=== PATIENT | male | born 1950 | race Caucasian/White ===

== ENCOUNTER 2017-07-10 10:41 | Inpatient (IN) ==
--- NOTE | 2017-07-10 11:22 | Emergency Department Note ---
Disposition Clinical Impression: Weakness Disposition: Admitted As Inpatient Condition: Fair Time of Disposition: 14:09 General Adult HPI - General Chief complaint: ED Fall Stated complaint: fall- skin tear Time Seen by Provider: 07/10/17 10:44 Source: patient, EMS Mode of arrival: ambulatory Limitations: no limitations Nursing Notes Reviewed: Yes Vital Signs Reviewed: Yes - History of Present Illness HPI Narrative: 66-year-old male presents to the emergency department after feeling like his legs were weak and he fell. Patient states he got out of bed this morning and he noticed he was very weak in his legs and was unable to stand or he fell face down and to crawl to get the phone to call for help. They state this is never happened to him before. Family states she has a little bit of slurred speech but otherwise they say he is acting normal. Patient says he is able walk but feels very weak. This scares him or to walk. Said nothing is ever happened before he otherwise has no medical history is no CVA history or family history of that. This never happened in his family as well. Patient otherwise having no complaints including no chest pain, shortness of breath, headache, blurry vision, neck pain, back pain, changes in Bowels, pain with urination loss of bladder or bowel. He has no fevers or chills or nausea or vomiting. Patient has no signs of cauda equina syndrome. He had no loss of bladder or bowel no saddle anesthesia. He has had no trauma recently. Pain Scale: 5 - Related Data Allergies Allergy/AdvReac Type Severity Reaction Status Date / Time No Known Allergies Allergy Verified 07/10/17 11:59 Review of Systems: 10 point review of systems done and negative unless otherwise stated in the history of present illness. All systems ED: reviewed and negative except as stated. Review of Systems: As Per HPI Past Medical History - Past Medical History Attestation: Yes The following information was validated with the patient. Source: patient Medical history: Reports: coronary artery disease, hypertension Psychiatric history: Reports: no psych history - Social History Smoking Status: Current every day smoker Smokeless Tobacco Status: No Alcohol use: Reports: none Drug use: Reports: none Physical Exam - General Limitations: no limitations General appearance: alert - Head Head exam: atraumatic, normocephalic, normal inspection - Eye Eye exam: Present: normal appearance, PERRL, EOMI - ENT ENT exam: normal exam, normal oropharynx, mucous membranes moist - Neck Neck exam: Present: normal inspection, full ROM, trachea midline - Chest Chest inspection: Present: normal inspection, symmetric chest wall rise - Respiratory Respiratory exam: Present: normal lung sounds bilaterally - Cardiovascular Cardiovascular exam: Present: regular rate, normal rhythm, normal heart sounds - Abdominal Exam Abdominal exam: Present: soft, Non-Tender. Absent: tenderness, distention, guarding, rebound, rigidity - Extremities Exam Extremities exam: Absent: tenderness, pedal edema - Expanded Lower Extremity Exam Hip/Pelvis exam: Present: normal inspection, full ROM Upper leg exam: Present: normal inspection, full ROM Knee exam: Present: normal inspection, full ROM Lower leg exam: Present: normal inspection, full ROM Ankle exam: Present: normal inspection, full ROM Foot/toe exam: Present: normal inspection, full ROM Neurovascular/Tendon exam: Present: normal capillary refill, normal 2-point discrimination, normal fine/light touch. Absent: pulse deficit, motor deficit, sensory deficit, tendon deficit, foot drop - Back Exam Back exam: Present: normal inspection, full ROM. Absent: tenderness, CVA tenderness (R), CVA tenderness (L) - Neurological Exam Neurological exam: Present: alert, oriented X3 - Expanded Neurological Exam Patient oriented to: Present: person, place, time Speech: Present: fluid speech Cranial nerves: EOM function (II, III, IV, ): Normal, facial sensation (V): Normal, facial palsy (VII): Normal, gag reflex (IX): Normal, spinal accessory function (XI): Normal, tongue deviation (XII): Normal Cerebellar function: finger to nose: Normal, heel to elaine: Normal Cerebellar function: normal gait Motor strength - LUE: 5/5 Motor strength - RUE: 5/5 Motor strength - LLE: 5/5 Motor strength - RLE: 5/5 Upper motor neuron exam: catherine neglect: Absent bilaterally, pronator drift: Absent bilaterally Sensory exam upper extremity: light touch: Normal Sensory exam lower extremity: light touch: Normal DTR: patellar (L): 3+, patellar (R): 3+, Achilles tendon (L): 3+, Achilles tendon (R): 3+ Coma Scale Eye Opening: Spontaneous Coma Scale Motor Response: Obeys Commands Coma Scale Verbal Response: Oriented Coma Scale Total: 15 - Skin Skin exam: Present: warm, dry, intact, normal color Course Course Narrative: 66-year-old male presents to the emergency department complaining of generalized weakness and a fall. Patient says he may have hit his head me does not remember the entire event going nausea is very weak. This we will get a CT scan of his head well. Basic labs is unknown for his fall or generalized weakness this will include a BMP, H&H as well as TSH and magnesium, phosphate, calcium. There is no new treatment this time. Disposition pending results. Vital Signs Temperature 96.6 F L 07/10/17 10:44 Pulse Rate 59 07/10/17 10:44 Respiratory Rate 16 07/10/17 10:44 Blood Pressure 143/75 07/10/17 10:44 O2 Sat by Pulse Oximetry 90 07/10/17 10:44 Temperature 96.6 F L 07/10/17 10:44 Pulse Rate 55 07/10/17 18:03 Respiratory Rate 16 07/10/17 18:03 Blood Pressure 136/79 07/10/17 18:03 O2 Sat by Pulse Oximetry 98 07/10/17 18:03 Oxygen Delivery Oxygen Delivery Nasal Cannula Medical Decision Making - MDM Narrative Medical decision making narrative: 66-year-old male presents to the emergency department complaining of generalized weakness from a fall. Due to patient's weakness we did get CT which came back showing no acute normality is all labs came back with no acute abnormalities as well this could have been a stroke due to this we felt that MRI of the head was necessary due to the lower extremity bilateral weakness MRI of the complete spine also felt necessary so these were ordered. The time of the study is going to take along times we felt that admission to the hospitalist service for full evaluation would be warranted inpatient family agree with this plan. I spoke with Dr. Ruelas who agreed to accept the patient to their service and they will further evaluate him. Head CT 07/10/17 11:23 IMPRESSION: No acute intracranial abnormality. D/ / Elroy Singh MD / Elroy Singh MD Interpreting Provider: Elroy Singh MD - Medical Records Medical records reviewed: Yes I reviewed the patient's medical records. - Lab Data Lab results reviewed: Yes I reviewed the patient's lab results. Result diagrams: 07/10/17 15:46 07/10/17 11:50 Lab Results 07/10/17 07/10/17 07/10/17 Range/Units 11:50 11:50 11:50 WBC (4.3-11.1) K/mcL RBC (4.19-5.50) M/mcL Hgb 13.6 (12.9-16.9) g/dL Hct 42.1 (37.5-50.1) % MCV (83.0-100.0) fL MCH (28.0-33.3) pg MCHC (31.6-35.5) g/dL RDW (11.5-14.5) % Plt Count (140-400) K/mcL MPV (9.4-12.4) fL Immature Gran % (0-4) % Seg Neutrophils % % Lymphocytes % % Monocytes % % Eosinophils % % Basophils % % Neutrophils # (1.6-8.9) K/mcL Lymphocytes # (0.6-4.6) K/mcL Monocytes # (0.0-1.3) K/mcL Eosinophils # (0.0-0.6) K/mcL Basophils # (0.0-0.2) K/mcL Sodium 139 (136-145) mEq/L Potassium 4.1 (3.5-5.1) mEq/L Chloride 106 (98-107) mEq/L Carbon Dioxide 27 (23-29) mEq/L BUN 11 (8-23) mg/dL Creatinine 1.10 (0.70-1.30) mg/dL Est GFR ( Amer) > 60 (> 60) Est GFR (Non-Af Amer) > 60 (> 60) BUN/Creatinine Ratio 10 (6-26) Glucose 112 H (70-105) mg/dL Calculated Osmolality 288 (280-300) Calcium 9.2 9.3 (8.6-10.3) mg/dL Phosphorus 3.2 (2.7-4.5) mg/dL Magnesium 2.0 (1.6-2.6) mg/dL TSH 2.001 (0.340-5.600) mcIU/mL 03/15/18 Range/Units 15:46 WBC 10.8 (4.3-11.1) K/mcL RBC 4.50 (4.19-5.50) M/mcL Hgb 13.5 (12.9-16.9) g/dL Hct 41.5 (37.5-50.1) % MCV 92.2 (83.0-100.0) fL MCH 30.0 (28.0-33.3) pg MCHC 32.5 (31.6-35.5) g/dL RDW 14.6 H (11.5-14.5) % Plt Count 216 (140-400) K/mcL MPV 10.2 (9.4-12.4) fL Immature Gran % 0.7 (0-4) % Seg Neutrophils % 68.3 % Lymphocytes % 21.9 % Monocytes % 6.5 % Eosinophils % 2.0 % Basophils % 0.6 % Neutrophils # 7.4 (1.6-8.9) K/mcL Lymphocytes # 2.4 (0.6-4.6) K/mcL Monocytes # 0.7 (0.0-1.3) K/mcL Eosinophils # 0.2 (0.0-0.6) K/mcL Basophils # 0.1 (0.0-0.2) K/mcL Sodium (136-145) mEq/L Potassium (3.5-5.1) mEq/L Chloride (98-107) mEq/L Carbon Dioxide (23-29) mEq/L BUN (8-23) mg/dL Creatinine (0.70-1.30) mg/dL Est GFR ( Amer) (> 60) Est GFR (Non-Af Amer) (> 60) BUN/Creatinine Ratio (6-26) Glucose (70-105) mg/dL Calculated Osmolality (280-300) Calcium (8.6-10.3) mg/dL Phosphorus (2.7-4.5) mg/dL Magnesium (1.6-2.6) mg/dL TSH (0.340-5.600) mcIU/mL - Radiology Data Radiology results reviewed: Yes I reviewed the patient's radiology results. Attestation Statement - Attestation Attestation: I examined this patient and my medical decision-making was reviewed with the Resident Physician. I agree with the documented findings, disposition and treatment plan as described except to the extent set forth below. Pt seen and evaluated by me, I directed MDM and discussed in detail with resident.
[2017-07-10 12:08] LABS: Hematocrit 42.1 % (37.5-50.1); Hemoglobin 13.6 g/dL (12.9-16.9)
[2017-07-10 12:31] LABS: BUN/Creatinine Ratio 10 (6-26); Blood Urea Nitrogen 11 mg/dL (8-23); Calcium 9.2 mg/dL (8.6-10.3); Calcium 9.3 mg/dL (8.6-10.3); Carbon Dioxide 27 mEq/L (23-29); Chloride 106 mEq/L (98-107); Glucose 112 mg/dL (70-105); Osmolality,Calculated 288 (280-300); Phosphorous 3.2 mg/dL (2.7-4.5); Potassium 4.1 mEq/L (3.5-5.1); Sodium 139 mEq/L (136-145); eGFR For African Americans > 60 (> 60); eGFR For Non-African Americans > 60 (> 60)
[2017-07-10] MEDS ORDERED: Tdap (ADACEL) Vaccine 0.5 ML IM ONE (13:49)
[2017-07-10 15:06] LABS: Thyroid Stimulating Hormone 2.001 mcIU/mL (0.340-5.600)
--- NOTE | 2017-07-10 15:35 | Internal Med History&Physical ---
Date of Encounter: 07/10/17 Time of Encounter: 14:30 Assessment and Plan (1) TIA (transient ischemic attack) Current visit: Yes Status: Acute Acute onset of TIA sx that began this morning. Pt. reports bilateral UE and LE weakness that resulted in fall. Denies losing consciousness, headache, changes in vision. Reports urinary incontinence during episode. Daughter reports pt. had slurred speech. Sx resolved by examination w/no neurological deficits noted on examination. Familial hx of CVA. NIHSS modified scale, neuro checks Q2HR, padding to bed rails, falls/safety precautions, dysphagia screen (pt. to be NPO unless passed), up with assist, bed rest w/bathroom privileges w/assist only. Hold HTN medications to allow for permissive HTN until MRI of head/brain resulted. Neurology consult ordered and discussed w/Dr. Bob and I appreciate the consult. Pt. discussed w/Dr. Ruelas who agrees w/plan of care. Pt. is high risk for further morbidity and neurological event based on new onset or current sx and experienced deficits, familial hx; and risk factors of CAD, HTN, HLD, CHF , and tobacco abuse. Inpatient. Qualifiers: Transient cerebral ischemia type: unspecified Qualified Code(s): G45.9 - Transient cerebral ischemic attack, unspecified (2) Acute exacerbation of CHF (congestive heart failure) Current visit: Yes Status: Acute Acute exacerbation of CHF. Pt. reports increase in abdominal girth and SOB over the past two weeks. Also reports orthopnea. IVP lasix 20 mg BID to begin now. Monitor I&O and daily weight. Echocardiogram. Continuous cardiac telemetry. 1.5L daily fluid restriction. Supplemental O2 w/titration and SpO2 monitoring. DuoNebs Q6HR scheduled. Mucinex for cough. Qualifiers: Heart failure type: unspecified Qualified Code(s): I50.9 - Heart failure, unspecified (3) Fall Current visit: Yes Status: Acute Acute fall r/t CVA/TIA sx this morning. Pt. reports bilateral UE and LE weakness during episode. MRI of lumbar, cervical and thoracic spine ordered. Falls/safety precautions, up with assist, bed rest w/bathroom privileges w/ assist only. Qualifiers: Encounter type: initial encounter Qualified Code(s): W19.XXXA - Unspecified fall, initial encounter (4) Skin tear of left upper extremity Current visit: Yes Status: Acute Acute skin tear of LLE sustained from pt. dragging himself across the floor post -fall to call for help. Daily wound care ordered. Will consult Wound Care if warranted. (5) Weakness Current visit: Yes Status: Acute Acute weakness accompanying CVA/TIA sx. Pt. reports bilateral weakness in upper extremities and lower extremities. Falls/safety precautions, up with assist, bedrest with bathroom privileges with assist only. PT/OT consults ordered to assess pts. ambulation strength, stability, safety. (6) CAD (coronary artery disease) Current visit: Yes Status: Chronic Hx of stent placement x3. Continue pts. Plavix, aspirin, Lipitor. Hold Norvasc and Lopressor to allow for permissive HTN until MRI of head/brain resulted. Qualifiers: Coronary Disease-Associated Artery/Lesion type: [place] artery [place] vs. transplanted heart: [place] heart Associated angina: angina presence unspecified Qualified Code(s): I25.10 - Atherosclerotic heart disease of [place] coronary artery without angina pectoris (7) HTN (hypertension) Current visit: Yes Status: Chronic Hx of chronic HTN. Monitor pt. and VS. Hold pts. Norvasc and Lopressor to allow for permissive HTN until MRI of head/brain resulted. Qualifiers: Hypertension type: essential hypertension Qualified Code(s): I10 - Essential (primary) hypertension (8) HLD (hyperlipidemia) Current visit: Yes Status: Chronic Hx of chronic HLD. Lipid panel in a.m. labs. Continue pts. Lipitor. Qualifiers: Hyperlipidemia type: pure hypercholesterolemia Qualified Code(s): E78.00 - Pure hypercholesterolemia, unspecified; E78.0 - Pure hypercholesterolemia (9) COPD (chronic obstructive pulmonary disease) Current visit: Yes Status: Chronic Hx of chronic COPD/emphysema. Supplemental O2 w/titration and SpO2 monitoring. DuoNebs Q6HR scheduled. Mucinex for cough. Qualifiers: COPD type: emphysema Emphysema type: unspecified Qualified Code(s): J43.9 - Emphysema, unspecified (10) DVT prophylaxis Current visit: Yes Status: Acute Bilateral SCDs on LEs for DVT prophylaxis until MRI of head/brain completed. Internal Medicine - H&P: HPI Chief complaint: CVA/TIA sx/Fall Admitted From: Emergency Dept Plans for Post Hospital Care: Home History of present illness: Mr. Vieira is a 66 year old male w/PMH of CAD, HTN, HLD, COPD/emphysema, and CHF presents in the ED with chief complaint of CVA/TIA symptoms this morning. Patient states when he woke up he started with bathroom and experienced bilateral upper extremity and lower extremity weakness which made him fall. Patient states he could not stand up and dragged himself on the floor to the protocol for help. Patient's daughter reports he had slurred speech. Patient and daughter deny previous history, report familial history of CVA. Patient had loss of bladder control but not bowel control. Pt. reports increased abdominal girth over two weeks and SOB/dyspnea/orthopnea. States he injured his left arm when dragging himself to the phone. Denies recent illness, fever, chills, nausea, vomiting, headache, changes in vision, chest pain, palpitations , abdominal pain, pre-syncope, or syncope. Past Med Surg Social Fam HX - Past Medical History Source: patient, old records reviewed, obtained from family Medical history: CHF, COPD, coronary artery disease, hyperlipidemia, hypertension Psychiatric history: no psych history - Past Surgical History Surgical History: angioplasty/stent (x3) - Social History Smoking Status: Current every day smoker Packs per day: 6-8 cigarettes daily Smokeless Tobacco Status: No Alcohol use: none Drug use: none Current living situation: Home Activity Level: Independent ambulation Recent Out of Country Travel Within the Last 8 Weeks: No Exposure or Possible Exposure to Illness During Travel: No - Family History Father Race: Family Member Ethnicity: Non- Living Status: Age at : 50 Cause of : [place] Hx Family Cardiac Disorders: Yes ([place]) Mother Race: Family Member Ethnicity: Non- Living Status: Age at : 69 Cause of : in sleep Hx Family Cancer: Yes (Stomach) Hx Family Neurologic Disorders: Yes (DM) Brother Race: Family Member Ethnicity: Non- Living Status: Age at : 63 Cause of : CVA Hx Family Cardiac Disorders: Yes ([place], CVA, CABG) Hx Family Neurologic Disorders: Yes (CVA) Sister Race: Family Member Ethnicity: Non- Living Status: Age at : 60 Cause of : Cancer Hx Family Cancer: Yes Internal Medicine - H&P: Meds Albuterol Neb [Proventil Neb] 2.5 mg IH Q6H PRN 07/10/17 [History] Albuterol Sulfate [Proventil Hfa] 2 puff IH QID PRN 07/10/17 [History] Aspirin Enteric Coated [Aspirin EC] 81 mg PO DAILY 07/10/17 [History] Atorvastatin Calcium [Lipitor] 80 mg PO HS 07/10/17 [History] BuPROPion SR (12 HR) [Wellbutrin SR] 150 mg PO BID 07/10/17 [History] Budesonide/Formoterol 160/4.5 [Symbicort 160/4.5] 2 puff IH BIDR 07/10/17 [ History] Carbamide Peroxide [Ear Drops] 2 drop OT DAILY 07/10/17 [History] Clopidogrel [Plavix] 75 mg PO DAILY 07/10/17 [History] Fluticasone Propionate Nasal [Flonase] 50 mcg NS BID 07/10/17 [History] GuaiFENesin/Dextromethorphan [Tussin Dm Syrup] 5 ml PO Q6H PRN 07/10/17 [History ] Hydrophilic Cream [Triad] 1 appl TP DAILY 07/10/17 [History] Hydroquinone 1 appl TP HS 07/10/17 [History] Ipratropium [Atrovent Inhaler] 2 puff IH Q6H PRN 07/10/17 [History] Ketotifen Fumarate [Zaditor] 1 drop OP BID PRN 07/10/17 [History] Loratadine [Claritin] 10 mg PO DAILY 07/10/17 [History] Menthol/Camphor [Anti-Itch Lotion] 1 appl TP QID PRN 07/10/17 [History] Metoprolol [Lopressor] 50 mg PO BID 07/10/17 [History] Nicotine Patch [Nicoderm] 21 mg TD DAILY 07/10/17 [History] Nicotine Polacrilex [Nicotine Lozenge] 4 mg BC Q2H PRN 07/10/17 [History] Oxycodone HCl/Acetaminophen [Percocet 5-325 mg Tablet] 1 each PO QID PRN [History] Propylene Glycol/Peg 400 [Systane 0.3-0.4% Eye Drops] 1 drop OP TID 07/10/17 [ History] Ranolazine [Ranexa] 1,000 mg PO BID 07/10/17 [History] Trazodone HCl 100 mg PO HS PRN 07/10/17 [History] amLODIPine [Norvasc] 5 mg PO DAILY 07/10/17 [History] 3 Allergy/AdvReac Type Severity Reaction Status Date / Time No Known Allergies Allergy Verified 07/10/17 11:59 All Systems PM: A 10-system review of systems was performed and is negative for pertinent findings except as documented above in the HPI. - Constitutional Constitutional: as per HPI, falls, weakness, no chills, no fever(s), no night sweats - EENT Eyes: no change in vision, no discharge, no pain, no photophobia Ears: no ear discharge, no ear pain, no tinnitus Nose, mouth and throat: no dysphagia, no nasal discharge, no neck pain, no sore throat - Breasts Breasts: as per HPI - Cardiovascular Cardiovascular ROS IM: as per HPI, dyspnea, dyspnea on exertion, lightheadedness , orthopnea, no chest pain, no diaphoresis, no palpitations, no syncope - Respiratory Respiratory: as per HPI, cough, dyspnea, dyspnea on exertion, no wheezing, no excessive phlegm production - Gastrointestinal Gastrointestinal: no abdominal pain, no diarrhea, no hematemesis, no hematochezia, no melena, no nausea, no vomiting - Genitourinary Genitourinary ROS male: as per HPI, urinary incontinence (During CVA/TIA sx) - Musculoskeletal Musculoskeletal ROS IM: no numbness, no tingling - Integumentary Integumentary IM: as per HPI, other (Skin tear on left arm from fall), no rash, no unusual bruising - Neurological Neurological ROS: no confusion, no convulsions, no focal weakness, no numbness, no tingling, no tremor(s) - Psychiatric Psychiatric: as per HPI - Endocrine Endocrine IM: as per HPI - Hematologic/Lymphatic Hematologic/Lymphatic: no easy bruising - Allergic/Immunologic Allergic/Immunologic: as per HPI - Constitutional Vitals: Temp Pulse Resp BP Pulse Ox 96.6 F L 61 16 113/69 90 07/10/17 10:44 07/10/17 12:06 07/10/17 12:06 07/10/17 12:06 07/10/17 12:06 General appearance: Present: cooperative, mild distress (Respiratory distress), A&O X 3, pleasant, answers questions appropriately - Head Head exam: Present: atraumatic, normocephalic - Eye Eye exam: Present: PERRL, conjuntiva pink, sclera anicteric Pupils: Present: PERRL - ENT ENT exam: Present: normal exam - Neck Neck exam general surgery: Present: normal inspection, supple, trachea midline. Absent: lymphadenopathy - Respiratory Respiratory exam: Present: CTAB. Absent: accessory muscle use, rales, rhonchi, wheezes - Cardiovascular Cardiovascular exam: Present: RRR, +S1, +S2. Absent: diastolic murmur, gallop, rubs, systolic murmur - GI/Abdominal GI/Abdominal exam: Present: normal bowel sounds, soft, no peritoneal signs. Absent: distended, tenderness - Rectal Rectal exam: Present: deferred - Additional comments: exam deferred. - Extremities Exam Extremities exam: Present: warm, radial pulses palpable and symmetrical. Absent : calf tenderness, cyanotic, pedal edema - Back Exam Back exam: Present: normal inspection - Neurological Exam Neurological exam: Present: CN II-XII intact, oriented X3, no focal deficits. Absent: pronater drift, facial droop, speech deficit - Psychiatric Psychiatric exam: Present: normal affect, normal mood - Skin Skin exam: Present: abrasion (Left arm skin tear from dragging himself to the phone post-fall), dry, intact Internal Med - H&P Results - Labs CBC & Chem 7: 07/10/17 15:46 07/10/17 11:50 Labs: Short CBC 07/10/17 Range/Units 11:50 Hgb 13.6 (12.9-16.9) g/dL Hct 42.1 (37.5-50.1) % BMP 07/10/17 07/10/17 11:50 11:50 Sodium 139 Potassium 4.1 Chloride 106 Carbon Dioxide 27 BUN 11 Creatinine 1.10 Glucose 112 H Calcium 9.2 9.3 - Impressions ITS Impressions Head CT 07/10/17 11:23 IMPRESSION: No acute intracranial abnormality. D/ / Elroy Singh MD / Elroy Singh MD Interpreting Provider: Elroy Singh MD - Diagnostic Studies CT scan - head Additional comments: Impressions Head CT 07/10/17 11:23
[2017-07-10 15:57] LABS: Basophils # 0.1 K/mcL (0.0-0.2); Basophils % 0.6 %; Eosinophils # 0.2 K/mcL (0.0-0.6); Hematocrit 41.5 % (37.5-50.1); Hemoglobin 13.5 g/dL (12.9-16.9); Immature Granulocytes % 0.7 % (0-4); Lymphocytes # 2.4 K/mcL (0.6-4.6); Lymphocytes % 21.9 %; Mean Corpuscular HGB Conc 32.5 g/dL (31.6-35.5); Mean Corpuscular Volume 92.2 fL (83.0-100.0); Mean Platelet Volume 10.2 fL (9.4-12.4); Monocytes # 0.7 K/mcL (0.0-1.3); Monocytes % 6.5 %; Neutrophils # 7.4 K/mcL (1.6-8.9); Platelet Count 216 K/mcL (140-400); Red Cell Distribution Width 14.6 % (11.5-14.5); Segmented Neutrophils % 68.3 %
[2017-07-10] MEDS ORDERED: Acetaminophen 325 MG TABLET PO PRN (16:35)
[2017-07-10] MEDS ORDERED: Naloxone 0.4 MG/ML INJ IVP PRN (16:35)
[2017-07-10] MEDS ORDERED: traZODone 50 MG TABLET PO PRN (16:45)
[2017-07-10] MEDS ORDERED: Nicotine 2 MG GUM BC PRN (16:45)
[2017-07-10] MEDS ORDERED: MENTHOL TP PRN (16:45)
[2017-07-10] MEDS ORDERED: Ipratropium 1 PUFF INHALER IH PRN (16:45)
[2017-07-10] MEDS ORDERED: Albuterol 2.5 MG/3 ML NEBULIZER IH PRN (16:45)
[2017-07-10] MEDS ORDERED: *HR* OxyCODONE/APAP 5/325 TABLET PO PRN (16:45)
[2017-07-10] MEDS ORDERED: Ketotifen Fumarate [Zaditor] 1 DROP OP PRN (16:45)
[2017-07-10] MEDS ORDERED: CAMPHOR TP PRN (16:45)
[2017-07-10] MEDS ORDERED: Artificial Tears SOLN 15 ML BOTTLE OP PRN (21:00)
[2017-07-10] MEDS ORDERED: Ranolazine 500 MG TAB.ER.12H PO SCH (21:00)
[2017-07-10] MEDS: Furosemide 20 MG/2 ML VIAL IVP SCH (22:10)
[2017-07-10] MEDS: Budesonide/Formoterol 160/4.5 MDI IH SCH (22:14)
[2017-07-10] MEDS: Ipratropium/Albuterol Neb 3 ML IH SCH (22:15)
[2017-07-10] MEDS: BuPROPion SR (12 HR) 150 MG TABLET PO SCH (23:05)
--- NOTE | 2017-07-10 23:21 | Event Note ---
Date of Encounter: 07/10/17 Time of Encounter: 23:10 Patient informed his nurse this evening that he does not take Ranexa in his home medications, even though it was reconciled in his home medication list earlier. Ranexa discontinued. Verified with Jayesh in pharmacy that Ranexa 1000 mg ER was last dispensed to patient on 05/05/17 with quantity of 180 for 90 days ( BID). Morning provider to verify w[facility] if medication has been discontinued or changed recently to determine whether or not to continue administration to patient and/or continue in pts. discharge medications.
[2017-07-11] MEDS: HYDROQUINONE TP SCH (01:30)
[2017-07-11] MEDS: Fluticasone Propionate Nasal 50 MCG/SPRAY BOTTLE NS SCH ×3 (01:30→21:22)
[2017-07-11] MEDS: Ipratropium/Albuterol Neb 3 ML IH SCH ×4 (04:34→22:10)
[2017-07-11 06:27] LABS: Basophils % 0.5 %; Eosinophils # 0.3 K/mcL (0.0-0.6); Eosinophils % 3.6 %; Hematocrit 34.6 % (37.5-50.1); Immature Granulocytes % 0.6 % (0-4); Lymphocytes # 1.8 K/mcL (0.6-4.6); Lymphocytes % 21.8 %; Mean Corpuscular HGB Conc 33.5 g/dL (31.6-35.5); Mean Corpuscular Hemoglobin 30.2 pg (28.0-33.3); Mean Corpuscular Volume 90.1 fL (83.0-100.0); Mean Platelet Volume 10.3 fL (9.4-12.4); Monocytes # 0.7 K/mcL (0.0-1.3); Monocytes % 8.2 %; Neutrophils # 5.5 K/mcL (1.6-8.9); Platelet Count 206 K/mcL (140-400); Red Blood Count 3.84 M/mcL (4.19-5.50); Red Cell Distribution Width 14.7 % (11.5-14.5); Segmented Neutrophils % 65.3 %
[2017-07-11 06:42] LABS: Alanine Aminotransferase 8 Units/L (7-52); Albumin 3.4 g/dL (3.5-5.7); Albumin/Globulin Ratio 1.6 (1.1-2.2); Alkaline Phosphatase 47 Units/L (34-104); Aspartate Amino Transferase 9 Units/L (13-39); BUN/Creatinine Ratio 11 (6-26); Bilirubin,Total 0.7 mg/dL (0.3-1.0); Blood Urea Nitrogen 11 mg/dL (8-23); Calcium 8.6 mg/dL (8.6-10.3); Carbon Dioxide 24 mEq/L (23-29); Chloride 108 mEq/L (98-107); Chol/HDL Ratio 3.5 (0-4.9); Cholesterol 97 mg/dL (< 200); Globulin 2.1 g/dL (2.4-3.5); Glucose 111 mg/dL (70-105); HDL Cholesterol 28 mg/dL (40-59); INR 1.2; LDL Cholesterol,Calculated 56 mg/dL (0-99); Magnesium 1.8 mg/dL (1.6-2.6); Osmolality,Calculated 292 (280-300); Potassium 3.9 mEq/L (3.5-5.1); Prothrombin Time 13.3 Seconds (9.4-12.1); Sodium 141 mEq/L (136-145); Total Protein 5.5 g/dL (6.4-8.9); Triglycerides 64 mg/dL (< 150); eGFR For African Americans > 60 (> 60); eGFR For Non-African Americans > 60 (> 60)
[2017-07-11 06:43] LABS: Hemoglobin 11.6 g/dL (12.9-16.9)
[2017-07-11 06:45] LABS: Activated Partial Thrombo Time 36.6 Seconds (26.0-36.0)
[2017-07-11] MEDS: Furosemide 20 MG/2 ML VIAL IVP SCH ×2 (08:46→16:55)
[2017-07-11] MEDS: BuPROPion SR (12 HR) 150 MG TABLET PO SCH ×2 (08:46→21:21)
[2017-07-11] MEDS: Nicotine 21 MG PATCH.TD24 TD SCH (08:46)
[2017-07-11] MEDS: Aspirin Enteric Coated 81 MG Tablet PO SCH (08:46)
[2017-07-11] MEDS: amLODIPine 5 MG TABLET PO SCH (08:46)
[2017-07-11] MEDS: Loratadine 10 MG TABLET PO SCH (08:47)
[2017-07-11] MEDS: HYDROPHILIC TP SCH (08:48)
[2017-07-11] MEDS: Carbamide Peroxide 150 DROP/15 ML BOTTLE BOTH EARS SCH (08:48)
[2017-07-11 10:05] LABS: Estimated Average Glucose 100 mg/dl; Hemoglobin A1C 5.1 %
--- NOTE | 2017-07-11 10:20 | Internal Med Progress Note ---
Date of Encounter: 07/11/17 Time of Encounter: 10:20 - Constitutional Vitals: Temp Pulse Resp BP Pulse Ox 97.6 F 53 17 124/75 96 07/11/17 10:01 07/11/17 10:01 07/11/17 10:01 07/11/17 10:01 07/11/17 08:21 General appearance: Present: cooperative, mild distress (Respiratory distress), A&O X 3, pleasant, answers questions appropriately Internal Medicine: Result - Labs CBC & Chem 7: 07/11/17 05:39 07/11/17 05:39 Labs: Short CBC 07/11/17 Range/Units 05:39 WBC 8.3 (4.3-11.1) K/mcL Hgb 11.6 L D (12.9-16.9) g/dL Hct 34.6 L (37.5-50.1) % Plt Count 206 (140-400) K/mcL Neutrophils # 5.5 (1.6-8.9) K/mcL BMP 07/11/17 05:39 Sodium 141 Potassium 3.9 Chloride 108 H Carbon Dioxide 24 BUN 11 Creatinine 1.00 Glucose 111 H Calcium 8.6 Liver Function 07/11/17 Range/Units 05:39 Total Bilirubin 0.7 (0.3-1.0) mg/dL AST 9 L (13-39) Units/L ALT 8 (7-52) Units/L Alkaline Phosphatase 47 (34-104) Units/L Albumin 3.4 L (3.5-5.7) g/dL - ABG Interpretation ABG results: PT/INR, D-dimer PT 13.3 Seconds (9.4-12.1) H 07/11/17 05:39 - VTE Documentation of Mechanical Device: Intermittent pneumatic compression device Consult Discharge Plan - Plan [facility]errals: [facility] [Primary Care Provider[facility] -
[2017-07-11] MEDS: Budesonide/Formoterol 160/4.5 MDI IH SCH ×2 (11:27→22:10)
--- NOTE | 2017-07-11 12:50 | Internal Med Progress Note ---
Date of Encounter: 07/11/17 Time of Encounter: 12:48 - Assessment and plan (1) Acute exacerbation of CHF (congestive heart failure) Current Visit: Yes Status: Acute Assessment and plan: Acute mild possibly diastolic CHF exacerbation Echocardiogram pending Continue Lasix IV twice a day, used to be on Lasix before Qualifiers: Heart failure type: unspecified Qualified Code(s): I50.9 - Heart failure, unspecified (2) TIA (transient ischemic attack) Current Visit: Yes Status: Acute Assessment and plan: Continue aspirin and Lipitor The patient is also on Plavix for history of CAD Neurology consult pending, physical therapy evaluation pending Qualifiers: Transient cerebral ischemia type: unspecified Qualified Code(s): G45.9 - Transient cerebral ischemic attack, unspecified (3) Weakness Current Visit: Yes Status: Acute (4) CAD (coronary artery disease) Current Visit: Yes Status: Chronic Assessment and plan: Continue Plavix, metoprolol Apparently he is not on Ranexa anymore Qualifiers: Coronary Disease-Associated Artery/Lesion type: [place] artery [place] vs. transplanted heart: [place] heart Associated angina: angina presence unspecified Qualified Code(s): I25.10 - Atherosclerotic heart disease of [place] coronary artery without angina pectoris (5) COPD (chronic obstructive pulmonary disease) Current Visit: Yes Status: Chronic Assessment and plan: No exacerbation, no steroids, albuterol as needed Oxygen therapy at night Qualifiers: COPD type: emphysema Emphysema type: unspecified Qualified Code(s): J43.9 - Emphysema, unspecified (6) HTN (hypertension) Current Visit: Yes Status: Chronic Assessment and plan: Stable on amlodipine Qualifiers: Hypertension type: essential hypertension Qualified Code(s): I10 - Essential (primary) hypertension - Subjective Interval history: Feeling less short of breath, no chest pain, no abdominal pain or dysuria. No fevers or chills - Constitutional Vitals: Temp Pulse Resp BP Pulse Ox 97.6 F 53 17 124/75 94 07/11/17 10:01 07/11/17 10:01 07/11/17 10:07/11/17 10:07/11/17 09:40 General appearance: Present: cooperative, mild distress (Respiratory distress), A&O X 3, pleasant, answers questions appropriately - Head Head exam: Present: atraumatic, normocephalic - Eye Eye exam: Present: PERRL, conjuntiva pink, sclera anicteric Pupils: Present: PERRL - Neck Neck exam general surgery: Present: supple, trachea midline. Absent: lymphadenopathy - Respiratory Respiratory exam: Present: decreased breath sounds (Minimal fine bibasilar crackles), CTAB. Absent: accessory muscle use, rales, rhonchi, wheezes - Cardiovascular Cardiovascular exam: Present: RRR, +S1, +S2. Absent: diastolic murmur, gallop, rubs, systolic murmur - GI/Abdominal GI/Abdominal exam: Present: normal bowel sounds, soft, no peritoneal signs. Absent: distended, tenderness - Extremities Exam Extremities exam: Present: warm, radial pulses palpable and symmetrical. Absent : calf tenderness, cyanotic, pedal edema - Neurological Exam Neurological exam: Present: CN II-XII intact, oriented X3, no focal deficits. Absent: pronater drift, facial droop, speech deficit - Skin Skin exam: Present: dry, intact Internal Medicine: Result - Labs CBC & Chem 7: 07/11/17 05:39 07/11/17 05:39 Labs: Short CBC 07/11/17 Range/Units 05:39 WBC 8.3 (4.3-11.1) K/mcL Hgb 11.6 L D (12.9-16.9) g/dL Hct 34.6 L (37.5-50.1) % Plt Count 206 (140-400) K/mcL Neutrophils # 5.5 (1.6-8.9) K/mcL BMP 07/11/17 05:39 Sodium 141 Potassium 3.9 Chloride 108 H Carbon Dioxide 24 BUN 11 Creatinine 1.00 Glucose 111 H Calcium 8.6 Liver Function 07/11/17 Range/Units 05:39 Total Bilirubin 0.7 (0.3-1.0) mg/dL AST 9 L (13-39) Units/L ALT 8 (7-52) Units/L Alkaline Phosphatase 47 (34-104) Units/L Albumin 3.4 L (3.5-5.7) g/dL - ABG Interpretation ABG results: PT/INR, D-dimer PT 13.3 Seconds (9.4-12.1) H 07/11/17 05:39 - VTE Documentation of Mechanical Device: Intermittent pneumatic compression device Consult Discharge Plan - Plan [facility]errals: [facility] [Primary Care Provider] -
--- NOTE | 2017-07-11 18:36 | Neurology - Consult Note ---
Date of Encounter: 07/11/17 Time of Encounter: 14:30 Assessment and Plan (1) Acute exacerbation of CHF (congestive heart failure) Current Visit: Yes Status: Acute I agree with the generalized weakness mostly likely related to CHF exacerbation and his symptoms rapidly improved back to baseline. MRI of brain, c, t, and l spine showed no RN SURGERY pathlogy. He has no focal neurological deficits. DTRs were preserved both upper and lower extremities, therefore Guillain barre syndrome unlikely. carotid arter duplex result is pending and this may help to exclude carotid artery stenosis which at times can cause proximal weakness. other than that will recommend further testing from neurology perspective. Please continue medical and supportive care. Total time spent on this case is approximately 55 minutes Qualifiers: Heart failure type: unspecified Qualified Code(s): I50.9 - Heart failure, unspecified History of Present Illness Chief complaint: Weakness HPI: Mr. Vieira is a 66 year old male with PMH significant for HTN, LFBB, stomach ulcers, who presented to ER with acute onset of leg weakness. This occurred yesterday morning and he woke up feeling weakness and had a fall and had difficulty getting up from the floor. He does have generalized weakness and shortness of breath in the last few weeks. Initial CT of head reported no acute intracranial abnormality. He does have urinary incontinence but no witnessed seizure or loss of consciousness. By the time he arrived ER, he had neurological evaluation showing no focal neurological deficits. his mental status and speech were intact. He was determined not to be candidate for tPA thrombolysis. Patient subsequently had MRI of brain, T,L and C spine which showed no significant pathology that can explain his clinical symptoms. Was found to have CHF exacerbation. At the time of this interview. he is feeling much better and is able to walk back to baseline. Past Med Surg Social Fam HX - Past Medical History Medical history: CHF, coronary artery disease, hypertension Psychiatric history: no psych history - Past Surgical History Surgical History: angioplasty/stent - Social History Smoking Status: Current every day smoker Packs per day: 6-8 cigarettes daily Smokeless Tobacco Status: No Alcohol use: none Drug use: none - Family History Father Race: Family Member Ethnicity: Non- Living Status: Age at : 50 Cause of : [facility] Hx Family Cardiac Disorders: Yes ([facility]) Mother Race: Family Member Ethnicity: Non- Living Status: Age at : 69 Cause of : in sleep Hx Family Cancer: Yes (Stomach) Hx Family Neurologic Disorders: Yes (DM) Brother Race: Family Member Ethnicity: Non- Living Status: Age at : 63 Cause of : CVA Hx Family Cardiac Disorders: Yes Hx Family Neurologic Disorders: Yes (CVA) Sister Race: Family Member Ethnicity: Non- Living Status: Age at : 60 Cause of : Cancer Hx Family Cancer: Yes Medications and Allergies Albuterol Neb [Proventil Neb] 2.5 mg IH Q6H PRN 07/10/17 [History] Albuterol Sulfate [Proventil Hfa] 2 puff IH QID PRN 07/10/17 [History] Aspirin Enteric Coated [Aspirin EC] 81 mg PO DAILY 07/10/17 [History] Atorvastatin Calcium [Lipitor] 80 mg PO HS 07/10/17 [History] BuPROPion SR (12 HR) [Wellbutrin SR] 150 mg PO BID 07/10/17 [History] Budesonide/Formoterol 160/4.5 [Symbicort 160/4.5] 2 puff IH BIDR 07/10/17 [ History] Carbamide Peroxide [Ear Drops] 2 drop OT DAILY 07/10/17 [History] Clopidogrel [Plavix] 75 mg PO DAILY 07/10/17 [History] Fluticasone Propionate Nasal [Flonase] 50 mcg NS BID 07/10/17 [History] GuaiFENesin/Dextromethorphan [Tussin Dm Syrup] 5 ml PO Q6H PRN 07/10/17 [History ] Hydrophilic Cream [Triad] 1 appl TP DAILY 07/10/17 [History] Hydroquinone 1 appl TP HS 07/10/17 [History] Ipratropium [Atrovent Inhaler] 2 puff IH Q6H PRN 07/10/17 [History] Ketotifen Fumarate [Zaditor] 1 drop OP BID PRN 07/10/17 [History] Loratadine [Claritin] 10 mg PO DAILY 07/10/17 [History] Menthol/Camphor [Anti-Itch Lotion] 1 appl TP QID PRN 07/10/17 [History] Metoprolol [Lopressor] 50 mg PO BID 07/10/17 [History] Nicotine Patch [Nicoderm] 21 mg TD DAILY 07/10/17 [History] Nicotine Polacrilex [Nicotine Lozenge] 4 mg BC Q2H PRN 07/10/17 [History] Oxycodone HCl/Acetaminophen [Percocet 5-325 mg Tablet] 1 each PO QID PRN [History] Propylene Glycol/Peg 400 [Systane 0.3-0.4% Eye Drops] 1 drop OP TID 07/10/17 [ History] Ranolazine [Ranexa] 1,000 mg PO BID 07/10/17 [History] Trazodone HCl 100 mg PO HS PRN 07/10/17 [History] amLODIPine [Norvasc] 5 mg PO DAILY 07/10/17 [History] 3 Allergy/AdvReac Type Severity Reaction Status Date / Time No Known Allergies Allergy Verified 07/10/17 11:59 All Systems: The remainder of the systems were reviewed and are negative Physical Examination - Vital Signs Vital Signs: Initial Vital Signs Temp Pulse Resp BP Pulse Ox 96.6 F L 59 16 143/75 90 07/10/17 10:44 07/10/17 10:44 07/10/17 10:44 07/10/17 10:44 07/10/17 10:44 - Constitutional General appearance: chronically ill - Neurologic Detailed motor examination: full strength in all major muscle groups Motor examination - right side: 5/5: deltoids, biceps, triceps, wrist flexion, wrist extension, composition siding worker, hip flexors, tibialis Anterior, quadriceps, toe extension (EHL), plantarflexion Motor examination - left side: 5/5: deltoids, biceps, triceps, wrist flexion, wrist extension, hip flexors, composition siding worker, quadriceps, tibialis Anterior, toe extension (EHL), plantarflexion Detailed sensory examination: intact Reflex and gait examination: intact Reflexes: Biceps: 2+, Triceps: 2+, Brachioradialis: 2+, Patella: 2+, Achilles: 2 + Mental Status Examination: awake, alert, oriented to person, oriented to place, oriented to time, follows commands appropriately, answers questions appropriately, no agnosia, no aphasia, no aproxia Cranial nerve examination: PERRL, EOMI, visual gloria intact, corneal reflexes brisk symmetrically, sensory to face intact, mastication intact, no facial asymmetry is present, no dysarthria, hearing is intact symmetrically, soft palate elevates bilaterally upon phonation, gag reflex intact, flexes SCM and trapezius muscles symmetrically with full power, tongue protrudes midline, no atrophy or facial fasiculations present Cerebellar examination: no dysmetria, performs finger to nose and heel to elaine symmetrically without ataxia, no gait ataxia, no truncal ataxia, no difficulty with rapid alternating movements Results - Laboratory Findings CBC and BMP: 07/11/17 05:39 07/11/17 05:39 Abnormal lab findings: Abnormal lab results RBC 3.84 M/mcL (4.19-5.50) L 07/11/17 05:39 Hgb 11.6 g/dL (12.9-16.9) L D 07/11/17 05:39 Hct 34.6 % (37.5-50.1) L 07/11/17 05:39 RDW 14.7 % (11.5-14.5) H 07/11/17 05:39 PT 13.3 Seconds (9.4-12.1) H 07/11/17 05:39 APTT 36.6 Seconds (26.0-36.0) H 07/11/17 05:39 Chloride 108 mEq/L (98-107) H 07/11/17 05:39 Glucose 111 mg/dL (70-105) H 07/11/17 05:39 AST 9 Units/L (13-39) L 07/11/17 05:39 Serum Total Protein 5.5 g/dL (6.4-8.9) L 07/11/17 05:39 Albumin 3.4 g/dL (3.5-5.7) L 07/11/17 05:39 Globulin 2.1 g/dL (2.4-3.5) L 07/11/17 05:39 HDL Cholesterol 28 mg/dL (40-59) L 07/11/17 05:39 - Diagnostic Findings Additional findings: CT/CT head/brain wo con IMPRESSION: No acute intracranial abnormality. MR/MR cervical spine wo con IMPRESSION: No acute abnormality on suboptimal MRI MR/MR lumbar spine wo con IMPRESSION: Normal lumbar spine MRI. MR/MR thoracic spine wo con IMPRESSION: No acute thoracic spine abnormality. MR/MR head/brain wo con IMPRESSION: No acute abnormality. Consult Discharge Plan - Plan [facility]errals: [facility] [Primary Care Provider] -
[2017-07-12] MEDS: Ipratropium/Albuterol Neb 3 ML IH SCH ×2 (04:13→10:10)
[2017-07-12] MEDS: HYDROQUINONE TP SCH (05:02)
[2017-07-12 05:41] LABS: Basophils % 0.4 %; Eosinophils # 0.3 K/mcL (0.0-0.6); Eosinophils % 3.2 %; Hematocrit 36.9 % (37.5-50.1); Hemoglobin 12.1 g/dL (12.9-16.9); Immature Granulocytes % 0.6 % (0-4); Lymphocytes # 2.4 K/mcL (0.6-4.6); Lymphocytes % 25.7 %; Mean Corpuscular HGB Conc 32.8 g/dL (31.6-35.5); Mean Corpuscular Hemoglobin 29.7 pg (28.0-33.3); Mean Corpuscular Volume 90.7 fL (83.0-100.0); Monocytes # 0.8 K/mcL (0.0-1.3); Monocytes % 8.4 %; Neutrophils # 5.8 K/mcL (1.6-8.9); Nucleated Red Blood Cells 0.2 /100 WBC (0); Platelet Count 230 K/mcL (140-400); Red Blood Count 4.07 M/mcL (4.19-5.50); Red Cell Distribution Width 14.3 % (11.5-14.5); Segmented Neutrophils % 61.7 %
[2017-07-12 06:06] LABS: Alanine Aminotransferase 10 Units/L (7-52); Albumin 3.5 g/dL (3.5-5.7); Albumin/Globulin Ratio 1.5 (1.1-2.2); Alkaline Phosphatase 47 Units/L (34-104); Aspartate Amino Transferase 11 Units/L (13-39); BUN/Creatinine Ratio 11 (6-26); Bilirubin,Total 1.1 mg/dL (0.3-1.0); Blood Urea Nitrogen 13 mg/dL (8-23); Calcium 8.9 mg/dL (8.6-10.3); Carbon Dioxide 28 mEq/L (23-29); Chloride 105 mEq/L (98-107); Globulin 2.3 g/dL (2.4-3.5); Glucose 98 mg/dL (70-105); Osmolality,Calculated 290 (280-300); Potassium 3.4 mEq/L (3.5-5.1); Sodium 140 mEq/L (136-145); Total Protein 5.8 g/dL (6.4-8.9); eGFR For African Americans > 60 (> 60); eGFR For Non-African Americans > 60 (> 60)
[2017-07-12] MEDS: BuPROPion SR (12 HR) 150 MG TABLET PO SCH (09:46)
[2017-07-12] MEDS: Loratadine 10 MG TABLET PO SCH (09:46)
[2017-07-12] MEDS: Nicotine 21 MG PATCH.TD24 TD SCH (09:46)
[2017-07-12] MEDS: Furosemide 20 MG/2 ML VIAL IVP SCH (09:46)
[2017-07-12] MEDS: Aspirin Enteric Coated 81 MG Tablet PO SCH (09:46)
[2017-07-12] MEDS: amLODIPine 5 MG TABLET PO SCH (09:46)
[2017-07-12] MEDS: HYDROPHILIC TP SCH (09:51)
[2017-07-12] MEDS: Fluticasone Propionate Nasal 50 MCG/SPRAY BOTTLE NS SCH (09:51)
[2017-07-12] MEDS: Carbamide Peroxide 150 DROP/15 ML BOTTLE BOTH EARS SCH (09:51)
[2017-07-12] MEDS: Budesonide/Formoterol 160/4.5 MDI IH SCH (10:10)
[2017-07-12 12:24] VITALS: BP 126/76
--- NOTE | 2017-07-12 12:29 | Discharge Summary ---
Date of Encounter: 07/12/17 Time of Encounter: 12:22 - Discharge Diagnosis (1) Acute exacerbation of CHF (congestive heart failure) Priority: Primary Status: Acute Qualifiers: Heart failure type: unspecified Qualified Code(s): I50.9 - Heart failure, unspecified (2) TIA (transient ischemic attack) Priority: Secondary Status: Ruled-out Qualifiers: Transient cerebral ischemia type: unspecified Qualified Code(s): G45.9 - Transient cerebral ischemic attack, unspecified (3) Weakness Priority: Secondary Status: Resolved (4) COPD (chronic obstructive pulmonary disease) Priority: Secondary Status: Chronic Qualifiers: COPD type: emphysema Emphysema type: unspecified Qualified Code(s): J43.9 - Emphysema, unspecified (5) HTN (hypertension) Priority: Secondary Status: Chronic Qualifiers: Hypertension type: essential hypertension Qualified Code(s): I10 - Essential (primary) hypertension Hospital course: Mr. Vieira is a 66 year old male patient with history of COPD, hypertension, hyperlipidemia, CHF, coronary artery disease who was hospitalized here after he presented to the ER with complaints of sudden onset weakness in both upper and lower extremities along with possible slurred speech and fall prior to arrival to the ER. He apparently also had loss of bladder control during this event. By the time he came to the ER, most of his symptoms had subsided. He did have a abrasion wound on his left upper extremity related to his fall and while he was trying to reach the phone. No loss of consciousness reported. CT of the head was negative for any acute stroke. Patient was evaluated for possible TIA. He underwent MRI of the brain which did not show any acute abnormality. Neurology was consulted and per their recommendations, patient underwent MRI of the spine. No acute abnormalities were identified on this study. Patient was also diagnosed with acute congestive heart failure as he was having significant shortness of breath and increased abdominal girth and orthopnea. He was placed on fluid restriction and treated with IV Lasix. 2-D echocardiogram was done and it showed mild LV diastolic dysfunction. Patient had a normal EF of 60-65%. The patient did have severely dilated left and right atria. He had severe pulmonary hypertension. We will follow the left-to- right interatrial shunt by color Doppler but this was not able to be evaluated further her despite use of agitated saline. Cardiology recommends CAMERON to further evaluate this if needed. As patient's symptoms resolved very quickly, and he is now returned to baseline with treatment of his CHF, this may have been the cause of his generalized weakness. However TIA cannot be completely ruled out. Patient is on aspirin, statin and Plavix. He will continue to take these medications. At this time, he is stable to be discharged home. He was evaluated by physical therapy and recommended no needs. He will follow up with cardiology after discharge for further management of his CHF. He is advised to return to ER if he develops any symptoms similar episodes. 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 - Time Spent with Patient Total time spent providing and/or coordinating discharge services: Greater than 30 minutes (32 min) - Discharge Medications Prescriptions: Furosemide [Lasix] 20 mg PO BID #60 tablet Potassium Chloride [K-Tab ER] 10 meq PO DAILY #30 tablet.er Home Medications: Albuterol Neb [Proventil Neb] 2.5 mg IH Q6H PRN 07/10/17 [History] Albuterol Sulfate [Proventil Hfa] 2 puff IH QID PRN 07/10/17 [History] Aspirin Enteric Coated [Aspirin EC] 81 mg PO DAILY 07/10/17 [History] Atorvastatin Calcium [Lipitor] 80 mg PO HS 07/10/17 [History] BuPROPion SR (12 HR) [Wellbutrin SR] 150 mg PO BID 07/10/17 [History] Budesonide/Formoterol 160/4.5 [Symbicort 160/4.5] 2 puff IH BIDR 07/10/17 [ History] Carbamide Peroxide [Ear Drops] 2 drop OT DAILY 07/10/17 [History] Clopidogrel [Plavix] 75 mg PO DAILY 07/10/17 [History] Fluticasone Propionate Nasal [Flonase] 50 mcg NS BID 07/10/17 [History] GuaiFENesin/Dextromethorphan [Tussin Dm Syrup] 5 ml PO Q6H PRN 07/10/17 [History ] Hydrophilic Cream [Triad] 1 appl TP DAILY 07/10/17 [History] Hydroquinone 1 appl TP HS 07/10/17 [History] Ipratropium [ATROVENT Inhaler] 2 puff IH Q6H PRN 07/10/17 [History] Ketotifen Fumarate [Zaditor] 1 drop OP BID PRN 07/10/17 [History] Loratadine [Claritin] 10 mg PO DAILY 07/10/17 [History] Menthol/Camphor [Anti-Itch Lotion] 1 appl TP QID PRN 07/10/17 [History] Metoprolol [Lopressor] 50 mg PO BID 07/10/17 [History] Nicotine Patch [Nicoderm] 21 mg TD DAILY 07/10/17 [History] Nicotine Polacrilex [Nicotine Lozenge] 4 mg BC Q2H PRN 07/10/17 [History] Oxycodone HCl/Acetaminophen [Percocet 5-325 mg Tablet] 1 each PO QID PRN [History] Propylene Glycol/Peg 400 [Systane 0.3-0.4% Eye Drops] 1 drop OP TID 07/10/17 [ History] Ranolazine [Ranexa] 1,000 mg PO BID 07/10/17 [History] Trazodone HCl 100 mg PO HS PRN 07/10/17 [History] amLODIPine [Norvasc] 5 mg PO DAILY 07/10/17 [History] Furosemide [Lasix] 20 mg PO BID #60 tablet 07/12/17 [Rx] Potassium Chloride [K-Tab ER] 10 meq PO DAILY #30 tablet.er 07/12/17 [Rx] Allergies/Adverse Reactions: 3 Allergy/AdvReac Type Severity Reaction Status Date / Time No Known Allergies Allergy Verified 07/10/17 11:59 Date of admission: 07/10/17 18:00 [facility] care physician: [facility] Consults: 07/10/17 21:30 Consult to Nutrition [CONS] Routine Comment: Consulting Provider: NUTRITION Reason for Dietary Consult: MST Score Discharging clinician: Michael Yo Anticipated date of discharge: 07/12/17 - Constitutional Vitals: Temp Pulse Resp BP Pulse Ox 98.0 F 58 16 106/58 94 07/12/17 07:52 07/12/17 07:52 07/12/17 10:10 07/12/17 07:52 07/12/17 10:10 General appearance: Present: cooperative, A&O X 3, pleasant, no acute distress, answers questions appropriately - Respiratory Respiratory exam: Present: CTAB. Absent: accessory muscle use, rales, rhonchi, wheezes - Cardiovascular Cardiovascular exam: Present: RRR, +S1, +S2. Absent: diastolic murmur, gallop, rubs, systolic murmur - GI/Abdominal GI/Abdominal exam: Present: normal bowel sounds, soft, no peritoneal signs. Absent: distended, tenderness - Extremities Exam Extremities exam: Present: warm, radial pulses palpable and symmetrical. Absent : calf tenderness, cyanotic, pedal edema Additional comments: abrasion wound in left upper extremity bandaged. - Neurological Exam Neurological exam: Present: CN II-XII intact, oriented X3, no focal deficits. Absent: facial droop, speech deficit - Skin Skin exam: Present: dry, intact - Patient Status Disposition: Home, Self-Care Condition: Good Functional capacity at discharge: independent ambulation Overall status at discharge: patient is progressing back to baseline - Discharge Instructions Instructions: Heart Failure (DC) Follow Up With: [facility] [Primary Care Provider] - (in 1-2 weeks) Additional Instructions: Please follow up with cardiology within 1 week for follow-up on congestive heart failure and pulmonary hypertension. - Diet and Activity Activity: increase activity as tolerated Diet: low fat, low cholesterol, low salt diet - VTE Documentation of Mechanical Device: Intermittent pneumatic compression device
--- NOTE | 2017-07-12 13:43 | Neurology Progress Note ---
Date of Encounter: 07/12/17 Time of Encounter: 12:00 Assessment and Plan (1) Acute exacerbation of CHF (congestive heart failure) Current Visit: Yes Status: Acute Patient's leg/generalized weakness essentially resolved after proper treatment of his CHF. Therefore the weakness is likely related to worsening of CHF. No evidence of primary neurological disorder identified. Please refer to Cardiology regarding evaluation and treatment of possible shunting reported on TTE. Will sign off at this time please call if any questions Qualifiers: Heart failure type: unspecified Qualified Code(s): I50.9 - Heart failure, unspecified Subjective Principal diagnosis: leg weakness Interval history: Patient seen and examined. He is doing much better and back to his baseline. Is able to ambulate without assistance. carotid artery duplex showed no significant stenosis. Patient is currently being discharged to home. He has received diuretic therapy. Echocardiogram showed possible shunting and cardiology is on board Objective - Constitutional Vitals: Temp Pulse Resp BP Pulse Ox 98.1 F 57 15 126/76 94 07/12/17 12:20 07/12/17 12:20 07/12/17 12:20 07/12/17 12:20 07/12/17 12:20 - Neurological Exam Motor Examination: Present: full strength in all major muscle groups Motor examination - left side: 5/5: deltoids, biceps, triceps, wrist flexion, wrist extension, hip flexors, stave saw operator, quadriceps, tibialis Anterior, toe extension (EHL), plantarflexion Sensation intact: Present: intact Reflex and gait examination: intact Mental Status Examination: Present: awake, alert, oriented to person, oriented to place, oriented to time, follows commands appropriately, answers questions appropriately, no agnosia, no aphasia, no aproxia Cranial nerve examination: Present: PERRL, EOMI, visual gloria intact, corneal reflexes brisk symmetrically, sensory to face intact, mastication intact, no facial asymmetry is present, no dysarthria, hearing is intact symmetrically, soft palate elevates bilaterally upon phonation, gag reflex intact, flexes SCM and trapezius muscles symmetrically with full power, tongue protrudes midline, no atrophy or facial fasiculations present Cerebellar examination: Present: no dysmetria, performs finger to nose and heel to elaine symmetrically without ataxia, no gait ataxia, no truncal ataxia, no difficulty with rapid alternating movements - VTE Documentation of Mechanical Device: Intermittent pneumatic compression device Results - Laboratory Findings CBC and BMP: 07/12/17 05:22 07/12/17 05:22 Abnormal lab findings: Abnormal lab results RBC 4.07 M/mcL (4.19-5.50) L 07/12/17 05:22 Hgb 12.1 g/dL (12.9-16.9) L 07/12/17 05:22 Hct 36.9 % (37.5-50.1) L 07/12/17 05:22 Nucleated RBCs/100 WBC 0.2 /100 WBC (0) H 07/12/17 05:22 PT 13.3 Seconds (9.4-12.1) H 07/11/17 05:39 APTT 36.6 Seconds (26.0-36.0) H 07/11/17 05:39 Potassium 3.4 mEq/L (3.5-5.1) L 07/12/17 05:22 Total Bilirubin 1.1 mg/dL (0.3-1.0) H 07/12/17 05:22 AST 11 Units/L (13-39) L 07/12/17 05:22 Serum Total Protein 5.8 g/dL (6.4-8.9) L 07/12/17 05:22 Globulin 2.3 g/dL (2.4-3.5) L 07/12/17 05:22 HDL Cholesterol 28 mg/dL (40-59) L 07/11/17 05:39 - Diagnostic Findings Additional findings: Carotid artery duplex: Impressions: Findings: Bilateral carotid system has nonstenotic plaque. EV/EV echocardiogram Impressions: LVEF 60-65%. Normal LV chamber size, wall thickness and function. Mild left ventricular diastolic dysfunction. Right ventricle appears mildly dilated with normal function. Severely dilated left atrium. Severely dilated right atrium. There appears to be a left to right interatrial shunt color Doppler. Agitated saline given, but does not adequately fill the right atrium to assess for right to left shunt. Mild tricuspid regurgitation. Severe pulmonary hypertension. Estimated RVSP is 60-65 mmHg. Mild pulmonic regurgitation. Consider CAMERON to further evaluate interatrial septum. Consult Discharge Plan - Plan Instructions: Heart Failure (DC) Additional Instructions: Please follow up with cardiology within 1 week for follow-up on congestive heart failure and pulmonary hypertension. Referrals: [facility] [Primary Care Provider] - (in 1-2 weeks) Prescriptions: Furosemide [Lasix] 20 mg PO BID #60 tablet Potassium Chloride [K-Tab ER] 10 meq PO DAILY #30 tablet.er
--- NOTE | 2017-07-15 22:38 | Electrocardiograph Report ---
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
== END 2017-07-12 14:12 | disposition home or self-care (01) | DRG 293 ==
LOC: EMEROO 10:41 → 3NENU 10:41 → SUATTDRO 18:00 → 3NENU 20:10
PROVIDERS: ADMIT Student in an Organized Health Care Education/Training Program; ATTEND Internal Medicine

== ENCOUNTER 2018-04-25 23:07 | Observation (INO) ==
[2018-04-25] MEDS ORDERED: predniSONE 20 MG TABLET PO ONE (23:13)
[2018-04-25] MEDS ORDERED: Ipratropium/Albuterol Neb 3 ML IH ONE (23:13)
[2018-04-26 00:18] LABS: Alanine Aminotransferase 10 Units/L (7-52); Albumin 4.3 g/dL (3.5-5.7); Albumin/Globulin Ratio 1.7 (1.1-2.2); Alkaline Phosphatase 69 Units/L (34-104); Aspartate Amino Transferase 11 Units/L (13-39); BUN/Creatinine Ratio 12 (6-26); Bilirubin,Total 0.8 mg/dL (0.3-1.0); Blood Urea Nitrogen 15 mg/dL (8-23); Calcium 9.3 mg/dL (8.6-10.3); Carbon Dioxide 28 mEq/L (23-29); Chloride 99 mEq/L (98-107); Globulin 2.6 g/dL (2.4-3.5); Glucose 129 mg/dL (70-105); Osmolality,Calculated 285 (280-300); Potassium 4.2 mEq/L (3.5-5.1); Sodium 136 mEq/L (136-145); Total Protein 6.9 g/dL (6.4-8.9); eGFR For Non-African Americans 60 (> 60)
[2018-04-26 00:19] LABS: Troponin I < 0.03 ng/mL (< 0.04)
[2018-04-26 00:32] LABS: Thyroid Stimulating Hormone 1.534 mcIU/mL (0.340-5.600)
--- NOTE | 2018-04-26 00:32 | Emergency Department Note ---
Disposition Clinical Impression: TIA (transient ischemic attack) COPD (chronic obstructive pulmonary disease) Qualifiers: COPD type: COPD with acute exacerbation Qualified Code(s): J44.1 - Chronic obstructive pulmonary disease with (acute) exacerbation Disposition: Admitted As Inpatient Forms: ED Satisfaction Letter General Adult HPI - General Chief complaint: ED Weakness Stated complaint: Weakness Time Seen by Provider: 04/25/18 23:13 Source: patient Nursing Notes Reviewed: Yes Vital Signs Reviewed: Yes - History of Present Illness HPI Narrative: Attestation note: Patient was seen with the emergency medicine resident/nurse practitioner/physician acute care assistant/transitional resident/medical student: Dr. OSEI MALCOLM I have personally performed a face to face evaluation on this patient. I have reviewed and agree with history and physical examination patient management and disposition. Briefly the salient points of the case are as follows: 67-year-old male history of prior TIAs and COPD and his daughter earlier in the evening she said he had a slurred voice upon arrival here it was almost resolved he was having some shaking shortness of breath wheezing patient's NIH was essentially [address] pending EKG shows no acute ischemic changes screening labs are pending with admission anticipated for TIA and COPD flare. Pain Scale: 0 - Related Data Home Medications Medication Instructions Recorded Confirmed Albuterol Neb [Proventil Neb] 2.5 mg IH Q6H PRN 07/10/17 07/10/17 Albuterol Sulfate [Proventil Hfa] 2 puff IH QID PRN 07/10/17 07/10/17 Aspirin Enteric Coated [Aspirin EC] 81 mg PO DAILY 07/10/17 07/10/17 Atorvastatin Calcium [Lipitor] 80 mg PO HS 07/10/17 07/10/17 BuPROPion SR (12 HR) [Wellbutrin 150 mg PO BID 07/10/17 07/10/17 SR] Budesonide/Formoterol 160/4.5 2 puff IH BIDR 07/10/17 07/10/17 [Symbicort 160/4.5] Carbamide Peroxide [Ear Drops] 2 drop OT DAILY 07/10/17 07/10/17 Clopidogrel [Plavix] 75 mg PO DAILY 07/10/17 07/10/17 Fluticasone Propionate Nasal 50 mcg NS BID 07/10/17 07/10/17 [Flonase] GuaiFENesin/Dextromethorphan 5 ml PO Q6H PRN 07/10/17 07/10/17 [Tussin Dm Syrup] Hydrophilic Cream [Triad] 1 appl TP DAILY 07/10/17 07/10/17 Hydroquinone 1 appl TP HS 07/10/17 07/10/17 Ipratropium [ATROVENT Inhaler] 2 puff IH Q6H PRN 07/10/17 07/10/17 Ketotifen Fumarate [Zaditor] 1 drop OP BID PRN 07/10/17 07/10/17 Loratadine [Claritin] 10 mg PO DAILY 07/10/17 07/10/17 Menthol/Camphor [Anti-Itch Lotion] 1 appl TP QID PRN 07/10/17 07/10/17 Metoprolol [Lopressor] 50 mg PO BID 07/10/17 07/10/17 Nicotine Patch [Nicoderm] 21 mg TD DAILY 07/10/17 07/10/17 Nicotine Polacrilex [Nicotine 4 mg BC Q2H PRN 07/10/17 07/10/17 Lozenge] Oxycodone HCl/Acetaminophen 1 each PO QID PRN 07/10/17 07/10/17 [Percocet 5-325 mg Tablet] Propylene Glycol/Peg 400 [Systane 1 drop OP TID 07/10/17 07/10/17 0.3-0.4% Eye Drops] Ranolazine [Ranexa] 1,000 mg PO BID 07/10/17 07/10/17 Trazodone HCl 100 mg PO HS PRN 07/10/17 07/10/17 amLODIPine [Norvasc] 5 mg PO DAILY 07/10/17 07/10/17 Previous Rx's Medication Instructions Recorded Furosemide [Lasix] 20 mg PO BID #60 tablet 07/12/17 Potassium Chloride [K-Tab ER] 10 meq PO DAILY #30 tablet.er 07/12/17 Walker [WALKER] 1 each .ROUTE AD #1 each 08/09/17 Allergies Allergy/AdvReac Type Severity Reaction Status Date / Time No Known Allergies Allergy Verified 07/10/17 11:59 Past Medical History - Past Medical History Medical history: Reports: CHF, COPD, coronary artery disease, hypertension, myocardial infarction, TIA Surgical history: Reports: angioplasty/stent Psychiatric history: Reports: no psych history - Social History Smoking Status: Current every day smoker Smokeless Tobacco Status: No Alcohol use: Reports: none Drug use: Reports: none Physical Exam - General General appearance: alert Course Vital Signs Temperature 97.7 F 04/25/18 23:27 Pulse Rate 67 04/25/18 23:27 Respiratory Rate 20 04/25/18 23:27 Blood Pressure 141/83 04/25/18 23:27 O2 Sat by Pulse Oximetry 100 04/25/18 23:27 Temperature 97.7 F 04/25/18 23:27 Pulse Rate 67 04/25/18 23:27 Respiratory Rate 22 04/25/18 23:28 Blood Pressure 141/83 04/25/18 23:27 O2 Sat by Pulse Oximetry 97 04/25/18 23:28 Oxygen Delivery Oxygen Delivery Aerosol Mask Medical Decision Making - Lab Data Result diagrams: 04/25/18 23:46 Lab Results 04/25/18 Range/Units 23:46 Sodium 136 (136-145) mEq/L Potassium 4.2 (3.5-5.1) mEq/L Chloride 99 (98-107) mEq/L Carbon Dioxide 28 (23-29) mEq/L BUN 15 (8-23) mg/dL Creatinine 1.21 (0.70-1.30) mg/dL Est GFR ( Amer) > 60 (> 60) Est GFR (Non-Af Amer) 60 (> 60) BUN/Creatinine Ratio 12 (6-26) Glucose 129 H (70-105) mg/dL Calculated Osmolality 285 (280-300) Calcium 9.3 (8.6-10.3) mg/dL Total Bilirubin 0.8 (0.3-1.0) mg/dL AST 11 L (13-39) Units/L ALT 10 (7-52) Units/L Alkaline Phosphatase 69 (34-104) Units/L Troponin I < 0.03 (< 0.04) ng/mL Serum Total Protein 6.9 (6.4-8.9) g/dL Albumin 4.3 (3.5-5.7) g/dL Globulin 2.6 (2.4-3.5) g/dL Albumin/Globulin Ratio 1.7 (1.1-2.2) TSH 1.534 (0.340-5.600) mcIU/mL
--- NOTE | 2018-04-26 00:49 | Emergency Department Note ---
Disposition Clinical Impression: TIA (transient ischemic attack) COPD (chronic obstructive pulmonary disease) Qualifiers: COPD type: COPD with acute exacerbation Qualified Code(s): J44.1 - Chronic obstructive pulmonary disease with (acute) exacerbation Disposition: Admitted As Inpatient Condition: Fair Forms: ED Satisfaction Letter General Adult HPI - General Chief complaint: ED Weakness Stated complaint: Weakness Time Seen by Provider: 04/25/18 23:13 Source: patient, family Mode of arrival: EMS Nursing Notes Reviewed: Yes Vital Signs Reviewed: Yes - History of Present Illness HPI Narrative: Patient is a 67-year-old male with past medical history including TIA, hypertension, COPD, presenting with chief complaint of shakiness and weakness. Daughter states she was with her father in the morning shopping. He was in his normal state of health. She received a call from her father around 22:30. Patient was complaining of shakiness and felt weakness in bilateral lower extremities and upper extremities. Daughter also noted the patient had a slurred speech. She states the patient said the symptoms started 3 hours prior to him calling, approximately at 7:30 in the evening. He denies any paresthesias, confusion, loss of consciousness. Daughter states this is how the patient presented back in June when he was diagnosed with a TIA. Patient denies any chest pain, cough, shortness of breath, fevers, abdominal pain, dysuria. Daughter states he has been noncompliant on his medications. Symptoms are resolving as the patient arrived via EMS. Pain Scale: 0 - Related Data Home Medications Medication Instructions Recorded Confirmed Albuterol Neb [Proventil Neb] 2.5 mg IH Q6H PRN 07/10/17 07/10/17 Albuterol Sulfate [Proventil Hfa] 2 puff IH QID PRN 07/10/17 07/10/17 Aspirin Enteric Coated [Aspirin EC] 81 mg PO DAILY 07/10/17 07/10/17 Atorvastatin Calcium [Lipitor] 80 mg PO HS 07/10/17 07/10/17 BuPROPion SR (12 HR) [Wellbutrin 150 mg PO BID 07/10/17 07/10/17 SR] Budesonide/Formoterol 160/4.5 2 puff IH BIDR 07/10/17 07/10/17 [Symbicort 160/4.5] Carbamide Peroxide [Ear Drops] 2 drop OT DAILY 07/10/17 07/10/17 Clopidogrel [Plavix] 75 mg PO DAILY 07/10/17 07/10/17 Fluticasone Propionate Nasal 50 mcg NS BID 07/10/17 07/10/17 [Flonase] GuaiFENesin/Dextromethorphan 5 ml PO Q6H PRN 07/10/17 07/10/17 [Tussin Dm Syrup] Hydrophilic Cream [Triad] 1 appl TP DAILY 07/10/17 07/10/17 Hydroquinone 1 appl TP HS 07/10/17 07/10/17 Ipratropium [ATROVENT Inhaler] 2 puff IH Q6H PRN 07/10/17 07/10/17 Ketotifen Fumarate [Zaditor] 1 drop OP BID PRN 07/10/17 07/10/17 Loratadine [Claritin] 10 mg PO DAILY 07/10/17 07/10/17 Menthol/Camphor [Anti-Itch Lotion] 1 appl TP QID PRN 07/10/17 07/10/17 Metoprolol [Lopressor] 50 mg PO BID 07/10/17 07/10/17 Nicotine Patch [Nicoderm] 21 mg TD DAILY 07/10/17 07/10/17 Nicotine Polacrilex [Nicotine 4 mg BC Q2H PRN 07/10/17 07/10/17 Lozenge] Oxycodone HCl/Acetaminophen 1 each PO QID PRN 07/10/17 07/10/17 [Percocet 5-325 mg Tablet] Propylene Glycol/Peg 400 [Systane 1 drop OP TID 07/10/17 07/10/17 0.3-0.4% Eye Drops] Ranolazine [Ranexa] 1,000 mg PO BID 07/10/17 07/10/17 Trazodone HCl 100 mg PO HS PRN 07/10/17 07/10/17 amLODIPine [Norvasc] 5 mg PO DAILY 07/10/17 07/10/17 Previous Rx's Medication Instructions Recorded Furosemide [Lasix] 20 mg PO BID #60 tablet 07/12/17 Potassium Chloride [K-Tab ER] 10 meq PO DAILY #30 tablet.er 07/12/17 Guillermo [GUILLERMO] 1 each .ROUTE AD #1 each 08/09/17 Allergies Allergy/AdvReac Type Severity Reaction Status Date / Time No Known Allergies Allergy Verified 07/10/17 11:59 All systems ED: reviewed and negative except as stated. Review of Systems: As Per HPI Constitutional: Denies: fever, chills Eyes: Denies: eye pain, vision change ENT ED: Denies: ear pain, throat pain, dysphagia Cardiovascular: Denies: chest pain, palpitations Respiratory: Denies: cough, dyspnea Gastrointestinal: Denies: abdominal pain, nausea, vomiting Genitourinary: Denies: urgency, dysuria Musculoskeletal: Denies: back pain Neurological: Reports: weakness, other (Slurred speech). Denies: headache Past Medical History - Past Medical History Attestation: Yes The following information was validated with the patient. Source: patient Medical history: Reports: CHF, COPD, coronary artery disease, hypertension, myocardial infarction, TIA Surgical history: Reports: angioplasty/stent Psychiatric history: Reports: no psych history - Social History Smoking Status: Current every day smoker Smokeless Tobacco Status: No Alcohol use: Reports: none Drug use: Reports: none Physical Exam - General Limitations: no limitations General appearance: alert, in no apparent distress, other (Occasional shakiness and jerking of bilateral upper and lower extremity) - Head Head exam: atraumatic, normocephalic - Eye Eye exam: Present: normal appearance, PERRL, EOMI. Absent: conjunctival injection, nystagmus - ENT ENT exam: normal exam, normal oropharynx, mucous membranes moist - Neck Neck exam: Present: normal inspection, full ROM, trachea midline - Chest Chest inspection: Present: normal inspection, symmetric chest wall rise - Respiratory Respiratory exam: Present: other (Bilateral expiratory wheezing) - Cardiovascular Cardiovascular exam: Present: regular rate, normal rhythm, normal heart sounds - Abdominal Exam Abdominal exam: Present: soft, Non-Tender. Absent: tenderness, distention, guarding, rebound, rigidity - Extremities Exam Extremities exam: Present: normal inspection, full ROM, normal capillary refill. Absent: tenderness, pedal edema, calf tenderness - Neurological Exam Neurological exam: Present: alert, oriented X3, CN II-XII intact, other (NIHSS 0) - Expanded Neurological Exam Patient oriented to: Present: person, place, time Speech: Present: fluid speech Cerebellar function: finger to nose: Normal, heel to elaine: Normal Motor strength - LUE: 5/5 Motor strength - RUE: 5/5 Motor strength - LLE: 5/5 Motor strength - RLE: 5/5 Upper motor neuron exam: catherine neglect: Absent bilaterally, pronator drift: Absent bilaterally Sensory exam upper extremity: light touch: Normal Sensory exam lower extremity: light touch: Normal - Psychiatric Psychiatric exam: Present: normal affect, normal mood - Skin Skin exam: Present: warm, dry, intact, normal color Course Vital Signs Temperature 97.7 F 04/25/18 23:27 Pulse Rate 67 04/25/18 23:27 Respiratory Rate 20 04/25/18 23:27 Blood Pressure 141/83 04/25/18 23:27 O2 Sat by Pulse Oximetry 100 04/25/18 23:27 Temperature 97.7 F 04/25/18 23:27 Pulse Rate 67 04/25/18 23:27 Respiratory Rate 22 04/25/18 23:28 Blood Pressure 141/83 04/25/18 23:27 O2 Sat by Pulse Oximetry 97 04/25/18 23:28 Oxygen Delivery Oxygen Delivery Aerosol Mask Medical Decision Making - [facility] Narrative Medical decision making narrative: Patient presenting with neurologic symptoms concerning for a transient ischemic attack. He has no slurred speech on examination. Symptoms began around 1930 on 04/25/2018. They are resolving. He does however have portray shakiness and jerkiness of bilateral upper and lower extremities. No focal neurologic deficits on examination. He will receive a CT head without contrast. He had mild wheezing bilaterally on examination. DuoNeb treatment and prednisone will be given. Lab work including CBC, BMP, lactate, troponin, urinalysis will also be obtained. 12:55 Labs and imaging reviewed. Chest x-ray with COPD and emphysema. CT head with out acute intracranial abnormality. Troponin normal. EKG was sinus rhythm, no acute ischemic changes. LFTs are normal. Electrolytes are normal. CBC and Urinalysis is still pending at this time. Patient signed out tonight shows team, they will follow up on these labs. Patient will be admitted for TIA workup. - Medical Records Medical records reviewed: Yes I reviewed the patient's medical records. - Lab Data Lab results reviewed: Yes I reviewed the patient's lab results. Result diagrams: 04/25/18 23:46 Lab Results 04/25/18 Range/Units 23:46 Sodium 136 (136-145) mEq/L Potassium 4.2 (3.5-5.1) mEq/L Chloride 99 (98-107) mEq/L Carbon Dioxide 28 (23-29) mEq/L BUN 15 (8-23) mg/dL Creatinine 1.21 (0.70-1.30) mg/dL Est GFR ( Amer) > 60 (> 60) Est GFR (Non-Af Amer) 60 (> 60) BUN/Creatinine Ratio 12 (6-26) Glucose 129 H (70-105) mg/dL Calculated Osmolality 285 (280-300) Calcium 9.3 (8.6-10.3) mg/dL Total Bilirubin 0.8 (0.3-1.0) mg/dL AST 11 L (13-39) Units/L ALT 10 (7-52) Units/L Alkaline Phosphatase 69 (34-104) Units/L Troponin I < 0.03 (< 0.04) ng/mL Serum Total Protein 6.9 (6.4-8.9) g/dL Albumin 4.3 (3.5-5.7) g/dL Globulin 2.6 (2.4-3.5) g/dL Albumin/Globulin Ratio 1.7 (1.1-2.2) TSH 1.534 (0.340-5.600) mcIU/mL - Radiology Data Radiology results reviewed: Yes I reviewed the patient's radiology results. Chest X-Ray 04/25/18 23:13 IMPRESSION: Stable chest with right perihilar and left basilar opacities compatible with parenchymal scarring/atelectasis. COPD and emphysema. D/ / Elroy Singh MD / Elroy Singh MD Interpreting Provider: Elroy Singh MD Head CT 04/26/18 00:05 IMPRESSION: No acute intracranial abnormality. Left maxillary sinus disease, likely chronic. D/ / Vikas Buckley MD / Vikas Buckley MD Interpreting Provider: Vikas Buckley MD - EKG Data EKG #1 EKG attestation: Yes I reviewed and interpreted this EKG. EKG results narrative: EKG from 04/25/2018 at 2347 shows sinus rhythm with heart rate 69. MS interval 164. QRS duration 101. QTc 460. There is no ST elevation or depression to suggest acute ischemic changes.
[2018-04-26 01:17] LABS: Basophils # 0.1 K/mcL (0.0-0.2); Basophils % 0.5 %; Eosinophils # 0.3 K/mcL (0.0-0.6); Eosinophils % 1.9 %; Hematocrit 45.2 % (37.5-50.1); Hemoglobin 15.5 g/dL (12.9-16.9); Immature Granulocytes % 0.7 % (0-4); Lymphocytes # 2.2 K/mcL (0.6-4.6); Lymphocytes % 17.2 %; Mean Corpuscular HGB Conc 34.3 g/dL (31.6-35.5); Mean Corpuscular Hemoglobin 29.8 pg (28.0-33.3); Mean Corpuscular Volume 86.8 fL (83.0-100.0); Mean Platelet Volume 9.9 fL (9.4-12.4); Monocytes # 0.6 K/mcL (0.0-1.3); Monocytes % 4.8 %; Neutrophils # 9.7 K/mcL (1.6-8.9); Platelet Count 260 K/mcL (140-400); Red Blood Count 5.21 M/mcL (4.19-5.50); Red Cell Distribution Width 13.9 % (11.5-14.5); Segmented Neutrophils % 74.9 %
[2018-04-26 01:41] LABS: Bilirubin,Urine Negative (Negative); Blood,Urine Negative (Negative); Clarity,Urine Clear (Clear); Color,Urine Yellow (Yellow); Glucose,Urine (UA) Normal (Normal); Ketones,Urine Negative (Negative); Leukocyte Esterase,Urine Trace (Negative); Nitrite,Urine Negative (Negative); Protein,Urine Negative (Neg-Trace); Specific Gravity,Urine 1.007 (1.010-1.025); Urobilinogen,Urine Normal (Normal)
[2018-04-26 01:43] LABS: Bacteria,Urine None Seen per hpf (None-Few); Hyaline Casts,Urine Few per lpf (None-Few); RBC,Urine 0-3 per hpf (0-3); Squamous Epithelial Cell,Urine Few per lpf (None-Few)
--- NOTE | 2018-04-26 02:22 | Emergency Department Note ---
Disposition Clinical Impression: TIA (transient ischemic attack) COPD (chronic obstructive pulmonary disease) Qualifiers: COPD type: COPD with acute exacerbation Qualified Code(s): J44.1 - Chronic obstructive pulmonary disease with (acute) exacerbation Disposition: Admitted As Inpatient Condition: Fair General Adult HPI - General Chief complaint: ED Weakness Stated complaint: Weakness Time Seen by Provider: 04/25/18 23:13 Source: patient, family Mode of arrival: EMS Limitations: no limitations - History of Present Illness Pain Scale: 0 - Related Data Home Medications Medication Instructions Recorded Confirmed Albuterol Neb [Proventil Neb] 2.5 mg IH Q6H PRN 07/10/17 07/10/17 Albuterol Sulfate [Proventil Hfa] 2 puff IH QID PRN 07/10/17 07/10/17 Aspirin Enteric Coated [Aspirin EC] 81 mg PO DAILY 07/10/17 07/10/17 Atorvastatin Calcium [Lipitor] 80 mg PO HS 07/10/17 07/10/17 BuPROPion SR (12 HR) [Wellbutrin 150 mg PO BID 07/10/17 07/10/17 SR] Budesonide/Formoterol 160/4.5 2 puff IH BIDR 07/10/17 07/10/17 [Symbicort 160/4.5] Carbamide Peroxide [Ear Drops] 2 drop OT DAILY 07/10/17 07/10/17 Clopidogrel [Plavix] 75 mg PO DAILY 07/10/17 07/10/17 Fluticasone Propionate Nasal 50 mcg NS BID 07/10/17 07/10/17 [Flonase] GuaiFENesin/Dextromethorphan 5 ml PO Q6H PRN 07/10/17 07/10/17 [Tussin Dm Syrup] Hydrophilic Cream [Triad] 1 appl TP DAILY 07/10/17 07/10/17 Hydroquinone 1 appl TP HS 07/10/17 07/10/17 Ipratropium [ATROVENT Inhaler] 2 puff IH Q6H PRN 07/10/17 07/10/17 Ketotifen Fumarate [Zaditor] 1 drop OP BID PRN 07/10/17 07/10/17 Loratadine [Claritin] 10 mg PO DAILY 07/10/17 07/10/17 Menthol/Camphor [Anti-Itch Lotion] 1 appl TP QID PRN 07/10/17 07/10/17 Metoprolol [Lopressor] 50 mg PO BID 07/10/17 07/10/17 Nicotine Patch [Nicoderm] 21 mg TD DAILY 07/10/17 07/10/17 Nicotine Polacrilex [Nicotine 4 mg BC Q2H PRN 07/10/17 07/10/17 Lozenge] Oxycodone HCl/Acetaminophen 1 each PO QID PRN 07/10/17 07/10/17 [Percocet 5-325 mg Tablet] Propylene Glycol/Peg 400 [Systane 1 drop OP TID 07/10/17 07/10/17 0.3-0.4% Eye Drops] Ranolazine [Ranexa] 1,000 mg PO BID 07/10/17 07/10/17 Trazodone HCl 100 mg PO HS PRN 07/10/17 07/10/17 amLODIPine [Norvasc] 5 mg PO DAILY 07/10/17 07/10/17 Previous Rx's Medication Instructions Recorded Furosemide [Lasix] 20 mg PO BID #60 tablet 07/12/17 Potassium Chloride [K-Tab ER] 10 meq PO DAILY #30 tablet.er 07/12/17 Walker [WALKER] 1 each .ROUTE AD #1 each 08/09/17 Allergies Allergy/AdvReac Type Severity Reaction Status Date / Time No Known Allergies Allergy Verified 07/10/17 11:59 Constitutional: Denies: fever, chills Eyes: Denies: eye pain, vision change ENT ED: Denies: ear pain, throat pain, dysphagia Cardiovascular: Denies: chest pain, palpitations Respiratory: Denies: cough, dyspnea Gastrointestinal: Denies: abdominal pain, nausea, vomiting Genitourinary: Denies: urgency, dysuria Musculoskeletal: Denies: back pain Neurological: Reports: weakness, other (Slurred speech). Denies: headache Past Medical History - Past Medical History Medical history: Reports: CHF, COPD, coronary artery disease, hypertension, myocardial infarction, TIA Surgical history: Reports: angioplasty/stent Psychiatric history: Reports: no psych history - Social History Smoking Status: Current every day smoker Smokeless Tobacco Status: No Alcohol use: Reports: none Drug use: Reports: none Physical Exam - General Limitations: no limitations General appearance: alert, in no apparent distress, other (Occasional shakiness and jerking of bilateral upper and lower extremity) Course Course Narrative: Patient taken over at sign out from Dr. Ac. Patient had presented with concern for TIA. Previous TIA in the past. Patient was experiencing aphasia. Patient new what he wanted to say but was unable to say it. Family states that his speech was slurred. Patient did receive breathing treatments prednisone secondary to associated wheezing. On my evaluation of patient he states that he has significant improved. He is not having any symptoms at this time. We will proceed with further plan for admission for TIA workup. Urinalysis showed 5-15 WBCs and is being cultured. Patient without urinary complaints. Patient did get treated for COPD exacerbation does have a mildly elevated leukocytosis. COPD exacerbation. Azithromycin ordered. Patient stable at this time. Vital Signs Temperature 97.7 F 04/25/18 23:27 Pulse Rate 67 04/25/18 23:27 Respiratory Rate 20 04/25/18 23:27 Blood Pressure 141/83 04/25/18 23:27 O2 Sat by Pulse Oximetry 100 04/25/18 23:27 Temperature 97.7 F 04/25/18 23:27 Pulse Rate 67 04/25/18 23:27 Respiratory Rate 22 04/25/18 23:28 Blood Pressure 141/83 04/25/18 23:27 O2 Sat by Pulse Oximetry 97 04/25/18 23:28 Oxygen Delivery Oxygen Delivery Aerosol Mask Medical Decision Making - Lab Data Result diagrams: 04/25/18 23:46 04/25/18 23:46 Lab Results 04/25/18 04/25/18 04/26/18 Range/Units 23:46 23:46 01:30 WBC 13.0 H (4.3-11.1) K/mcL RBC 5.21 (4.19-5.50) M/mcL Hgb 15.5 (12.9-16.9) g/dL Hct 45.2 (37.5-50.1) % MCV 86.8 (83.0-100.0) fL MCH 29.8 (28.0-33.3) pg MCHC 34.3 (31.6-35.5) g/dL RDW 13.9 (11.5-14.5) % Plt Count 260 (140-400) K/mcL MPV 9.9 (9.4-12.4) fL Immature Gran % 0.7 (0-4) % Seg Neutrophils % 74.9 % Lymphocytes % 17.2 % Monocytes % 4.8 % Eosinophils % 1.9 % Basophils % 0.5 % Neutrophils # 9.7 H (1.6-8.9) K/mcL Lymphocytes # 2.2 (0.6-4.6) K/mcL Monocytes # 0.6 (0.0-1.3) K/mcL Eosinophils # 0.3 (0.0-0.6) K/mcL Basophils # 0.1 (0.0-0.2) K/mcL Sodium 136 (136-145) mEq/L Potassium 4.2 (3.5-5.1) mEq/L Chloride 99 (98-107) mEq/L Carbon Dioxide 28 (23-29) mEq/L BUN 15 (8-23) mg/dL Creatinine 1.21 (0.70-1.30) mg/dL Est GFR ( Amer) > 60 (> 60) Est GFR (Non-Af Amer) 60 (> 60) BUN/Creatinine Ratio 12 (6-26) Glucose 129 H (70-105) mg/dL Calculated Osmolality 285 (280-300) Lactic Acid (0.5-2.2) mmol/L Calcium 9.3 (8.6-10.3) mg/dL Total Bilirubin 0.8 (0.3-1.0) mg/dL AST 11 L (13-39) Units/L ALT 10 (7-52) Units/L Alkaline Phosphatase 69 (34-104) Units/L Troponin I < 0.03 (< 0.04) ng/mL Serum Total Protein 6.9 (6.4-8.9) g/dL Albumin 4.3 (3.5-5.7) g/dL Globulin 2.6 (2.4-3.5) g/dL Albumin/Globulin Ratio 1.7 (1.1-2.2) TSH 1.534 (0.340-5.600) mcIU/mL Urine Color Yellow (Yellow) Urine Clarity Clear (Clear) Urine pH 6.0 (5.0-8.0) pH Units Ur Specific [place] 1.007 L (1.010-1.025) Urine Protein Negative (Neg-Trace) mg/dL Urine Glucose (UA) Normal (Normal) mg/dL Urine Ketones Negative (Negative) mg/dL Urine Blood Negative (Negative) Urine Nitrite Negative (Negative) Urine Bilirubin Negative (Negative) Urine Urobilinogen Normal (Normal) mg/dL Ur Leukocyte Esterase Trace H (Negative) Urine Microscopic RBC 0-3 (0-3) per hpf Urine Microscopic WBC 5-15 H (0-3) per hpf Ur Squamous Epith Cells Few (None-Few) per lpf Urine Bacteria None Seen (None-Few) per hpf Hyaline Casts Few (None-Few) per lpf Ur Culture Indicated? YES A (NO) 04/26/18 Range/Units 02:17 WBC (4.3-11.1) K/mcL RBC (4.19-5.50) M/mcL Hgb (12.9-16.9) g/dL Hct (37.5-50.1) % MCV (83.0-100.0) fL MCH (28.0-33.3) pg MCHC (31.6-35.5) g/dL RDW (11.5-14.5) % Plt Count (140-400) K/mcL MPV (9.4-12.4) fL Immature Gran % (0-4) % Seg Neutrophils % % Lymphocytes % % Monocytes % % Eosinophils % % Basophils % % Neutrophils # (1.6-8.9) K/mcL Lymphocytes # (0.6-4.6) K/mcL Monocytes # (0.0-1.3) K/mcL Eosinophils # (0.0-0.6) K/mcL Basophils # (0.0-0.2) K/mcL Sodium (136-145) mEq/L Potassium (3.5-5.1) mEq/L Chloride (98-107) mEq/L Carbon Dioxide (23-29) mEq/L BUN (8-23) mg/dL Creatinine (0.70-1.30) mg/dL Est GFR ( Amer) (> 60) Est GFR (Non-Af Amer) (> 60) BUN/Creatinine Ratio (6-26) Glucose (70-105) mg/dL Calculated Osmolality (280-300) Lactic Acid 0.9 (0.5-2.2) mmol/L Calcium (8.6-10.3) mg/dL Total Bilirubin (0.3-1.0) mg/dL AST (13-39) Units/L ALT (7-52) Units/L Alkaline Phosphatase (34-104) Units/L Troponin I (< 0.04) ng/mL Serum Total Protein (6.4-8.9) g/dL Albumin (3.5-5.7) g/dL Globulin (2.4-3.5) g/dL Albumin/Globulin Ratio (1.1-2.2) TSH (0.340-5.600) mcIU/mL Urine Color (Yellow) Urine Clarity (Clear) Urine pH (5.0-8.0) pH Units Ur Specific [place] (1.010-1.025) Urine Protein (Neg-Trace) mg/dL Urine Glucose (UA) (Normal) mg/dL Urine Ketones (Negative) mg/dL Urine Blood (Negative) Urine Nitrite (Negative) Urine Bilirubin (Negative) Urine Urobilinogen (Normal) mg/dL Ur Leukocyte Esterase (Negative) Urine Microscopic RBC (0-3) per hpf Urine Microscopic WBC (0-3) per hpf Ur Squamous Epith Cells (None-Few) per lpf Urine Bacteria (None-Few) per hpf Hyaline Casts (None-Few) per lpf Ur Culture Indicated? (NO)
[2018-04-26] MEDS ORDERED: Azithromycin 500 MG in D5% in Water 250 ML IVPB STA (02:38)
--- NOTE | 2018-04-26 07:38 | Internal Med History&Physical ---
Date of Encounter: 04/26/18 Time of Encounter: 07:34 Internal Medicine - H&P: HPI Chief complaint: Weakness and slurred his speech Admitted From: Emergency Dept Plans for Post Hospital Care: Home History of present illness: Mr. Vieira is a 67 year old male patient with history of previous TIA, CAD status post stent, hypertension, CHF with unknown ejection fraction, questionable atrial fibrillation but not on any blood thinner except aspirin, COPD on 2 L home oxygen at night brought to ER by EMS with concern of sudden onset of generalized weakness and upper and lower extremity both side along with slurred his speech around 7:30 in the evening on the day of arrival to the hospital. It was associated with nausea and lightheadedness but denies associated chest pain, shortness of breath, loss of consciousness, seizure. He called his family and they called the EMS. His symptoms almost completely resolved except slight slurred his speech when I arrived to ER. As per daughter patient had same symptoms in June 2017 when he was diagnosed with TIA. Patient is poor historian and no family member at bedside. [facility] In ER initial lab with no significant finding except abnormal urine analysis and mild leukocytosis with a stable vitals. Troponin negative with no acute finding in EKG, CT head with no acute finding. Chest x-ray with no acute finding. ER physician called on-call hospitalists for the TIA workup. Patient also had wheezing therefore got treated with DuoNeb, prednisone 60 mg 1 dose, azithromycin 1 dose for possible COPD exacerbation. Patient denies fever chills vomiting headache dizziness chest pain short of breath abdominal pain urinary or bowel complaint during my evaluation During my evaluation is speech is slow but understandable is still feeling generalized weakness. Past Med Surg Social Fam HX - Past Medical History Medical history: CHF, COPD, coronary artery disease, hypertension, myocardial infarction, TIA Additional medical history: patient unabel to recall medical history Psychiatric history: no psych history - Past Surgical History Surgical History: angioplasty/stent Additional surgical history: 4 stents - Social History Smoking Status: Current every day smoker Packs per day: 0.5 Smokeless Tobacco Status: No Alcohol use: none Drug use: none - Family History Father Family Member Ethnicity: Non- Living Status: Hx Family Cardiac Disorders: Yes (DE) Mother Family Member Ethnicity: Non- Living Status: Hx Family Cancer: Yes (Stomach) Hx Family Neurologic Disorders: Yes (DM) Brother Family Member Ethnicity: Non- Living Status: Hx Family Cardiac Disorders: Yes Hx Family Neurologic Disorders: Yes (CVA) Sister Family Member Ethnicity: Non- Living Status: Hx Family Cancer: Yes Internal Medicine - H&P: Meds Albuterol Neb [Proventil Neb] 2.5 mg IH Q6H PRN 07/10/17 [History] Albuterol Sulfate [Proventil Hfa] 2 puff IH QID PRN 07/10/17 [History] Aspirin Enteric Coated [Aspirin EC] 81 mg PO DAILY 07/10/17 [History] Atorvastatin Calcium [Lipitor] 80 mg PO HS 07/10/17 [History] BuPROPion SR (12 HR) [Wellbutrin SR] 150 mg PO BID 07/10/17 [History] Budesonide/Formoterol 160/4.5 [Symbicort 160/4.5] 2 puff IH BIDR 07/10/17 [History] Carbamide Peroxide [Ear Drops] 2 drop OT DAILY 07/10/17 [History] Clopidogrel [Plavix] 75 mg PO DAILY 07/10/17 [History] Fluticasone Propionate Nasal [Flonase] 50 mcg NS BID 07/10/17 [History] GuaiFENesin/Dextromethorphan [Tussin Dm Syrup] 5 ml PO Q6H PRN 07/10/17 [History] Hydrophilic Cream [Triad] 1 appl TP DAILY 07/10/17 [History] Hydroquinone 1 appl TP HS 07/10/17 [History] Ipratropium [ATROVENT Inhaler] 2 puff IH Q6H PRN 07/10/17 [History] Ketotifen Fumarate [Zaditor] 1 drop OP BID PRN 07/10/17 [History] Loratadine [Claritin] 10 mg PO DAILY 07/10/17 [History] Menthol/Camphor [Anti-Itch Lotion] 1 appl TP QID PRN 07/10/17 [History] Metoprolol [Lopressor] 50 mg PO BID 07/10/17 [History] Nicotine Patch [Nicoderm] 21 mg TD DAILY 07/10/17 [History] Nicotine Polacrilex [Nicotine Lozenge] 4 mg BC Q2H PRN 07/10/17 [History] Oxycodone HCl/Acetaminophen [Percocet 5-325 mg Tablet] 1 each PO QID PRN 07/10/17 [History] Propylene Glycol/Peg 400 [Systane 0.3-0.4% Eye Drops] 1 drop OP TID 07/10/17 [History] Ranolazine [Ranexa] 1,000 mg PO BID 07/10/17 [History] Trazodone HCl 100 mg PO HS PRN 07/10/17 [History] amLODIPine [Norvasc] 5 mg PO DAILY 07/10/17 [History] Furosemide [Lasix] 20 mg PO BID #60 tablet 07/12/17 [Rx] Potassium Chloride [K-Tab ER] 10 meq PO DAILY #30 tablet.er 07/12/17 [Rx] Walker [WALKER] 1 each .ROUTE AD #1 each 08/09/17 [Rx] Allergy/AdvReac Type Severity Reaction Status Date / Time No Known Allergies Allergy Verified 07/10/17 11:59 All Systems PM: A 10-system review of systems was performed and is negative for pertinent findings except as documented above in the HPI. - Constitutional Vitals: Temp Pulse Resp BP Pulse Ox 98.5 F 78 16 129/76 93 04/26/18 04:09 04/26/18 04:09 04/26/18 04:09 04/26/18 04:09 04/26/18 04:09 Exam: General appearance: No acute distress, A&O X 3 Head exam: Atraumatic Eye exam: EOMI, PERRLA ENT exam: Moist oral mucosa Neck nontender, supple Respiratory exam: Decreased breath sounds bilaterally with scattered rhonchi Cardiovascular exam: Regular rate and rhythm, no systolic murmur Abdominal exam: Soft, nontender, nondistended, positive bowel sounds Extremities exam: No calf tenderness, no pedal edema Present: Skin-no rash, warm, dry, intact Neurological exam: CN II-XII intact, no focal deficits. No facial droop. Slurred speech but understandable. Able to stand but refused to walk due to generalized weakness. Motor 4+ by 5 in all 4 extremities symmetrical. Romberg sign negative Internal Med - H&P Results - Labs CBC & Chem 7: 04/25/18 23:46 04/25/18 23:46 Labs: Short CBC 04/25/18 Range/Units 23:46 WBC 13.0 H (4.3-11.1) K/mcL Hgb 15.5 (12.9-16.9) g/dL Hct 45.2 (37.5-50.1) % Plt Count 260 (140-400) K/mcL Neutrophils # 9.7 H (1.6-8.9) K/mcL BMP 04/25/18 23:46 Sodium 136 Potassium 4.2 Chloride 99 Carbon Dioxide 28 BUN 15 Creatinine 1.21 Glucose 129 H Calcium 9.3 Cardiac Enzymes 04/25/18 Range/Units 23:46 Troponin I < 0.03 (< 0.04) ng/mL Liver Function 04/25/18 Range/Units 23:46 Total Bilirubin 0.8 (0.3-1.0) mg/dL AST 11 L (13-39) Units/L ALT 10 (7-52) Units/L Alkaline Phosphatase 69 (34-104) Units/L Albumin 4.3 (3.5-5.7) g/dL Urine 04/26/18 Range/Units 01:30 Urine Color Yellow (Yellow) Urine Clarity Clear (Clear) Urine pH 6.0 (5.0-8.0) pH Units Ur Specific [place] 1.007 L (1.010-1.025) Urine Protein Negative (Neg-Trace) mg/dL Urine Glucose (UA) Normal (Normal) mg/dL - Impressions ITS Impressions Chest X-Ray 04/25/18 23:13 IMPRESSION: Stable chest with right perihilar and left basilar opacities compatible with parenchymal scarring/atelectasis. COPD and emphysema. D/ / Elroy Singh MD / Elroy Singh MD Interpreting Provider: Elroy Singh MD Head CT 04/26/18 00:05 IMPRESSION: No acute intracranial abnormality. Left maxillary sinus disease, likely chronic. D/ / Vikas Buckley MD / Vikas Buckley MD Interpreting Provider: Vikas Buckley MD - Assessment and plan (1) TIA (transient ischemic attack) Current Visit: Yes Status: Acute Assessment and plan: History of TIA in the past. No focal neurological deficit. Slurred his speech is resolved but is still slow with generalize weakness. CT head with no acute finding. MRI brain, carotid ultrasound, echocardiogram ordered. Continue aspirin and a statin. Several risk factor as mentioned above. Will consult neurologist if needed. Telemetry, fall risk precaution. PTOT and speech evaluation consulted. (2) UTI (urinary tract infection) Current Visit: Yes Status: Acute Assessment and plan: Abnormal urine analysis. Urine culture pending. A started Rocephin. Could be contributing generalized weakness. Continue to monitor Qualifiers: Urinary tract infection type: site unspecified Hematuria presence: without hematuria Qualified Code(s): N39.0 - Urinary tract infection, site not specified (3) COPD (chronic obstructive pulmonary disease) Current Visit: Yes Status: Chronic Assessment and plan: With possible acute exacerbation as patient has bilateral rhonchi but with history of COPD. Home oxygen 2 L by nasal cannula at night. A started prednisone, DuoNeb, Zithromax. Incentive spirometry. Continue to monitor Qualifiers: COPD type: COPD with acute exacerbation Qualified Code(s): J44.1 - Chronic obstructive pulmonary disease with (acute) exacerbation (4) CAD (coronary artery disease) Current Visit: No Status: Chronic Assessment and plan: Stable. Continue home medicine. No active chest pain. Qualifiers: Coronary Disease-Associated Artery/Lesion type: [place] artery [place] vs. transplanted heart: [place] heart Associated angina: angina presence unspecified Qualified Code(s): I25.10 - Atherosclerotic heart disease of [place] coronary artery without angina pectoris (5) HLD (hyperlipidemia) Current Visit: No Status: Chronic Assessment and plan: Fasting lipid profile. Is continuing statin Qualifiers: Hyperlipidemia type: pure hypercholesterolemia Qualified Code(s): E78.00 - Pure hypercholesterolemia, unspecified; E78.0 - Pure hypercholesterolemia (6) HTN (hypertension) Current Visit: No Status: Chronic Assessment and plan: Well controlled at this time. Will restart home medicine after ruling out CVA. Qualifiers: Hypertension type: essential hypertension Qualified Code(s): I10 - Essential (primary) hypertension (7) DVT prophylaxis Current Visit: No Status: Acute Assessment and plan: Heparin subcutaneous - Time Spent With Patient Total time spent is greater than 50% in coordination of care (as documented) at patient's floor/unit and/or counseling patient: 25 - 35 minutes
[2018-04-26] MEDS ORDERED: Naloxone 0.4 MG/ML INJ IVP PRN (08:46)
[2018-04-26 09:54] LABS: INR 1.2; Prothrombin Time 13.3 Seconds (9.4-12.1)
[2018-04-26 09:56] LABS: Activated Partial Thrombo Time 37.9 Seconds (26.0-36.0)
[2018-04-26] MEDS: Aspirin 81 MG TAB.CHEW PO SCH (10:12)
[2018-04-26] MEDS: cefTRIAXone 1,000 MG in Water for inj. (sterile) 20 ML 10 ML IVP SCH (10:12)
[2018-04-26] MEDS: predniSONE 20 MG TABLET PO SCH (10:12)
[2018-04-26] MEDS: Ipratropium/Albuterol Neb 3 ML IH SCH ×3 (10:30→21:17)
[2018-04-26] MEDS: *HR* Heparin 5,000 UNIT/ML VIAL SQ SCH (17:13)
[2018-04-27] MEDS: Azithromycin 500 MG in D5% in Water 250 ML IVPB SCH (03:25)
[2018-04-27] MEDS: Ipratropium/Albuterol Neb 3 ML IH SCH ×4 (04:39→23:00)
[2018-04-27] MEDS: *HR* Heparin 5,000 UNIT/ML VIAL SQ SCH ×2 (05:14→16:49)
[2018-04-27 06:54] LABS: Basophils % 0.2 %; Eosinophils # 0.1 K/mcL (0.0-0.6); Eosinophils % 0.4 %; Hematocrit 39.7 % (37.5-50.1); Hemoglobin 13.8 g/dL (12.9-16.9); Immature Granulocytes % 0.5 % (0-4); Lymphocytes # 3.5 K/mcL (0.6-4.6); Lymphocytes % 19.5 %; Mean Corpuscular HGB Conc 34.8 g/dL (31.6-35.5); Mean Corpuscular Hemoglobin 29.4 pg (28.0-33.3); Mean Corpuscular Volume 84.6 fL (83.0-100.0); Monocytes # 1.1 K/mcL (0.0-1.3); Monocytes % 6.1 %; Neutrophils # 13.3 K/mcL (1.6-8.9); Platelet Count 253 K/mcL (140-400); Red Blood Count 4.69 M/mcL (4.19-5.50); Red Cell Distribution Width 13.8 % (11.5-14.5); Segmented Neutrophils % 73.3 %
[2018-04-27 07:15] LABS: BUN/Creatinine Ratio 21 (6-26); Blood Urea Nitrogen 19 mg/dL (8-23); Calcium 9.2 mg/dL (8.6-10.3); Carbon Dioxide 29 mEq/L (23-29); Chloride 102 mEq/L (98-107); Chol/HDL Ratio 3.5 (0-4.9); Cholesterol 143 mg/dL (< 200); Glucose 103 mg/dL (70-105); HDL Cholesterol 41 mg/dL (40-59); LDL Cholesterol,Calculated 90 mg/dL (0-99); Osmolality,Calculated 285 (280-300); Potassium 3.2 mEq/L (3.5-5.1); Sodium 136 mEq/L (136-145); Triglycerides 59 mg/dL (< 150); eGFR For Non-African Americans > 60 (> 60)
[2018-04-27] MEDS ORDERED: *HR* LORazepam 2 MG/ML VIAL IVP ONE (08:26)
[2018-04-27] MEDS: predniSONE 20 MG TABLET PO SCH (09:29)
[2018-04-27] MEDS: cefTRIAXone 1,000 MG in Water for inj. (sterile) 20 ML 10 ML IVP SCH (09:29)
[2018-04-27] MEDS: Aspirin 81 MG TAB.CHEW PO SCH (09:29)
[2018-04-27] MEDS ORDERED: traZODone 50 MG TABLET PO PRN (10:24)
[2018-04-27] MEDS ORDERED: *HR* OxyCODONE/APAP 5/325 TABLET PO PRN (10:24)
[2018-04-27] MEDS: Budesonide/Formoterol 160/4.5 1 PUFF INH IH SCH ×2 (11:48→23:00)
--- NOTE | 2018-04-27 13:43 | Internal Med Progress Note ---
Hospitalist Progress Note - Encounter Date of Encounter: 04/27/18 Time of Encounter: 13:39 - Subjective Interval History: Patient states that his dizziness and slurring of speech has completely improved. He is also breathing much better and he would like to go home today. He still has testing pending. He denies any dysuria at this time - Exam Vitals: Temp Pulse Resp BP Pulse Ox 98.0 F 68 16 142/80 95 04/27/18 10:51 04/27/18 10:51 04/27/18 11:53 04/27/18 10:51 04/27/18 11:53 Exam: GENERAL: Alert, no distress, cooperative EYES: PERRLA, EOMI EARS: External ears normal, canals clear OROPHARYNX: Lips, mucosa, and tongue normal. Teeth and gums normal. Oropharynx normal. NECK: No jugulovenous distention, No carotid bruits, Carotid pulse normal contour, Supple LUNGS: Lungs clear to auscultation, Good diaphragmatic excursion CARDIAC: Normal S1 and S2; no rubs, murmurs, or gallops ABDOMEN: Abdomen soft, non-tender, BS normal, No masses or organomegaly EXTREMITIES: Extremities normal, no deformities, edema, clubbing or skin discoloration. Good capillary refill., No ulcers NEURO: Gait normal. Reflexes normal and symmetric. Sensation grossly intact, [employer] Machine [employer] nial nerves II-XII intact PULSES: 2+ radial, 2+ carotid Rest of the exam is non contributory - Assessment and Plan (1) CAD (coronary artery disease) Current Visit: No Status: Chronic Assessment and Plan: Stable. Continue home medicine. No active chest pain. (2) HTN (hypertension) Current Visit: No Status: Chronic Assessment and Plan: Well controlled at this time. Could continue home medications upon discharge (3) HLD (hyperlipidemia) Current Visit: No Status: Chronic Assessment and Plan: Continue statin. Continue to monitor (4) COPD (chronic obstructive pulmonary disease) Current Visit: Yes Status: Chronic Assessment and Plan: With possible acute exacerbation as patient has bilateral rhonchi but with history of COPD. Home oxygen 2 L by nasal cannula at night. A started prednisone, DuoNeb, Zithromax. Incentive spirometry. Continue to monitor 04/27-mild exacerbation of COPD. Could eventually be discharged with a short course of steroid burst for 5 days total and Levaquin. Levaquin would also cover urinary bacteria just in case something does come back positive later on. (5) DVT prophylaxis Current Visit: No Status: Acute (6) TIA (transient ischemic attack) Current Visit: Yes Status: Acute Assessment and Plan: History of TIA in the past. No focal neurological deficit. Slurred his speech is resolved but is still slow with generalize weakness. CT head with no acute finding. MRI brain, carotid ultrasound, echocardiogram ordered. Continue aspirin and a statin. Several risk factor as mentioned above. Will consult neurologist if needed. Telemetry, fall risk precaution. PTOT and speech evaluation consulted. 04/27-patient does have a history of TIA in the past as per history. He has been on baby aspirin for a long time. If his MRI does come back positive for a stroke and we need to consider further escalation to a different antiplatelet agent. We will also consider neurology consultation but did not be consulted as of now. MRI is pending at this point. Echocardiogram and carotid duplex is also pending at this point. His symptoms are completely resolved and this is more likely suggestive of another TIA. This could also be from his underlying urinary tract infection since there has been a rapid improvement in his symptoms. If his TIA workup is negative then he can be discharged later on tonight. (7) UTI (urinary tract infection) Current Visit: Yes Status: Acute Assessment and Plan: Abnormal urine analysis. Urine culture pending. A started Rocephin. Could be contributing generalized weakness. Continue to monitor 04/27-he does not have dysuria or frequency at this time but he has improved significantly after Rocephin was started. I will continue an outpatient course of total 5 day Levaquin therapy. So far the urine culture is negative - Time Spent with Patient Total time spent is greater than 50% in coordination of care (as documented) at patient's floor/unit and/or counseling patient: 25 - 35 minutes Plan of Care Discussed with: patient Internal Medicine: Result - Labs CBC & Chem 7: 04/27/18 06:09 04/27/18 06:09 Labs: Short CBC 04/27/18 Range/Units 06:09 WBC 18.1 H (4.3-11.1) K/mcL Hgb 13.8 D (12.9-16.9) g/dL Hct 39.7 (37.5-50.1) % Plt Count 253 (140-400) K/mcL Neutrophils # 13.3 H (1.6-8.9) K/mcL BMP 04/27/18 06:09 Sodium 136 Potassium 3.2 L Chloride 102 Carbon Dioxide 29 BUN 19 Creatinine 0.92 Glucose 103 Calcium 9.2 - ABG Interpretation ABG results: PT/INR, D-dimer PT 13.3 Seconds (9.4-12.1) H 04/26/18 09:37 Consult Discharge Plan - Plan [facility]Primary Care Provider[facility] - (1) CAD (coronary artery disease) Qualifiers: Coronary Disease-Associated Artery/Lesion type: [place] artery [place] vs. transplanted heart: [place] heart Associated angina: angina presence unspecified Qualified Code(s): I25.10 - Atherosclerotic heart disease of [place] coronary artery without angina pectoris (2) HTN (hypertension) Qualifiers: Hypertension type: essential hypertension Qualified Code(s): I10 - Essential (primary) hypertension (3) HLD (hyperlipidemia) Qualifiers: Hyperlipidemia type: pure hypercholesterolemia Qualified Code(s): E78.00 - Pure hypercholesterolemia, unspecified; E78.0 - Pure hypercholesterolemia (4) COPD (chronic obstructive pulmonary disease) Qualifiers: COPD type: COPD with acute exacerbation Qualified Code(s): J44.1 - Chronic obstructive pulmonary disease with (acute) exacerbation (7) UTI (urinary tract infection) Qualifiers: Urinary tract infection type: site unspecified Hematuria presence: without hematuria Qualified Code(s): N39.0 - Urinary tract infection, site not specified
[2018-04-27] MEDS ORDERED: Furosemide 20 MG TABLET PO SCH (17:00)
--- NOTE | 2018-04-27 18:01 | Vascular/Endovasc Consult Note ---
Date of Encounter: 04/27/18 Time of Encounter: 17:25 Assessment and Plan (1) Carotid artery disease Current Visit: Yes Status: Chronic Patient is a 6079% distal right internal carotid artery stenosis. The degree of stenosis is much closer to 60% and 79. I do not believe this lesion represents the source of the patient's symptoms. This lesion can be monitored with serial outpatient carotid artery duplex scans. I would recommend the next duplex scan to be performed within 6 months. I also agree with continued use of antiplatelet agents. I do not believe anticoagulation is necessary. Patient presents with a more encephalopathic or delirium type of presentation rather than stroke. Qualifiers: Carotid artery disease type: stenosis Laterality: right Qualified Code(s): I65.21 - Occlusion and stenosis of right carotid artery (2) Pulmonary hypertension Current Visit: Yes Status: Acute Echocardiogram demonstrates severe pulmonary hypertension (3) Abnormal echocardiogram Current Visit: Yes Status: Acute Echocardiogram demonstrates pulmonary hypertension as well as a foramen secundum left to right atrial shunt. A CAMERON has been recommended - History of Present Illness Consult date: 04/27/18 Consult reason: Carotid stenosispossible TIA Chief complaint: Confusion History of present illness: Mr. Vieira is a 67 year old male Who was admitted via the emergency room yesterday with what was initially thought to be a TIA-type event. The history unfortunately is very unclear. There are no family members in the room with him. Apparently the patient had a 3 to four-day history of confusion. His daughter became aware of this and this led to his admission. There is also some concern about weakness involving both upper and lower extremities. The patient went on to have a number of exams that included echocardiogram, carotid artery duplex scan, and MRI of the brain. The patient is unaware of having any of these studies performed before. He is very unsure of any detail of his medical care except that [facility] The patient denies any history of falls or accidents or head trauma in the past number of weeks. The results of the studies to date demonstrated a normal ejection fraction with significant pulmonary hypertension and a left to right atrial shunt via the foramen secundum, a 60-79% distal right internal carotid artery stenosis though the stenosis is much closer to 60%. No significant left carotid stenosis. The MRI shows no acute infarct or fluid or edema or mass effect on the brain. The patient states that he had another event about 6 months ago of confusion but he is very unsure of any details in duration and signs and symptoms of that e vent. Past Med Surg Social Fam HX - Past Medical History Medical history: CHF, COPD, coronary artery disease, hypertension, myocardial infarction, TIA Additional medical history: patient unabel to recall medical history Psychiatric history: no psych history - Past Surgical History Surgical History: angioplasty/stent Additional surgical history: 4 stents - Social History Smoking Status: Current every day smoker Packs per day: 0.5 Smokeless Tobacco Status: No Alcohol use: none Drug use: none - Family History Father Family Member Ethnicity: Non- Living Status: Hx Family Cardiac Disorders: Yes (DE) Mother Family Member Ethnicity: Non- Living Status: Hx Family Cancer: Yes (Stomach) Hx Family Neurologic Disorders: Yes (DM) Brother Family Member Ethnicity: Non- Living Status: Hx Family Cardiac Disorders: Yes Hx Family Neurologic Disorders: Yes (CVA) Sister Family Member Ethnicity: Non- Living Status: Hx Family Cancer: Yes Medications and Allergies Aspirin Enteric Coated [Aspirin EC] 81 mg PO DAILY 07/10/17 [History] Atorvastatin Calcium [Lipitor] 80 mg PO DAILY 07/10/17 [History] BuPROPion SR (12 HR) [Wellbutrin SR] 150 mg PO BID 07/10/17 [History] Budesonide/Formoterol 160/4.5 [Symbicort 160/4.5] 2 puff IH BID 07/10/17 [History] Carbamide Peroxide [Ear Drops] 2 drop BOTH EARS DAILY 07/10/17 [History] Fluticasone Propionate Nasal [Flonase] 1 spray NS BID 07/10/17 [History] Ipratropium [ATROVENT Inhaler] 2 puff IH Q6H 07/10/17 [History] Nicotine Patch [Nicoderm] 21 mg TD DAILY 07/10/17 [History] Oxycodone HCl/Acetaminophen [Percocet 5-325 mg Tablet] 1 each PO QID PRN 07/10/17 [History] Propylene Glycol/Peg 400 [Systane 0.3-0.4% Eye Drops] 1 drop BOTH EYES TID 07/10/17 [History] Ranolazine [Ranexa] 1,000 mg PO BID 07/10/17 [History] amLODIPine [Norvasc] 5 mg PO DAILY 07/10/17 [History] Furosemide [Lasix] 20 mg PO BID #60 tablet 07/12/17 [Rx] Potassium Chloride [K-Tab ER] 10 meq PO DAILY #30 tablet.er 07/12/17 [Rx] Albuterol Sulfate [Ventolin Hfa] 2 puff IH Q4H PRN 04/26/18 [History] Cholecalciferol (Vitamin D3) [Vitamin D3] 1,000 unit PO DAILY 04/26/18 [History] Docusate [Colace] 100 mg PO DAILY PRN 04/26/18 [History] Ketoconazole 1 appl TP QMWF 04/26/18 [History] Loratadine [Allergy Relief] 10 mg PO DAILY 04/26/18 [History] Montelukast [Singulair] 10 mg PO HS 04/26/18 [History] Omeprazole [PriLOSEC] 20 mg PO BID 04/26/18 [History] Pregabalin [Lyrica] 300 mg PO BID 04/26/18 [History] Sildenafil Citrate 100 mg PO AD 04/26/18 [History] Trazodone HCl 100 mg PO HS PRN 04/26/18 [History] guaiFENesin [[place]ot-Tussin Expectorant] 100 mg PO Q4H PRN 04/26/18 [History] Montelukast [Singulair] 10 mg PO HS tablet 04/27/18 [Rx] levoFLOXacin [Levaquin] 500 mg PO DAILY #5 tablet 04/27/18 [Rx] predniSONE [PredniSONE] 40 mg PO DAILY 4 Days #8 tablet 04/27/18 [Rx] Allergy/AdvReac Type Severity Reaction Status Date / Time No Known Allergies Allergy Verified 04/26/18 11:22 All Systems Review: The remainder of the systems were reviewed and are negative Exam Vital Signs, Last 4 Hours Temp Pulse Resp BP Pulse Ox 04/27/18 14:53 97.7 F 83 16 104/70 91 General: Present: Conversant, No Apparent Distress, Well developed, Well nourished HEENT: Present: Atraumatic, Normocephaly, Trachea midline, Pupils equal Neck: Present: Midline deformity, Tracheal deviation. Absent: JVD, Lymphadenopathy, Left Carotid bruit, Right Carotid bruit, Thyromegaly Cardiac: Present: Reg Rate and Rhythm, Normal S1 and S2, No Murmur. Absent: Irregular Rhythm Lungs: Present: Normal Breath Sounds, No Wheeze, Rales, Rhonchi Neuro: Present: Alert and responsive, No focal deficits noted, Cranial nerves grossly intact, Motor nerves grossly intact, Sensory nerves grossly intact Abdomen: Present: Soft, Non-tender. Absent: Masses Skin: Present: No rashes noted on visualized skin Consult Discharge Plan - Plan [facility]errals: [facility] [Primary Care Provider[facility] - Prescriptions: levoFLOXacin [Levaquin] 500 mg PO DAILY #5 tablet predniSONE [PredniSONE] 40 mg PO DAILY 4 Days #8 tablet
--- NOTE | 2018-04-27 18:10 | Neurology - Consult Note ---
Date of Encounter: 04/27/18 Time of Encounter: 18:08 Assessment and Plan (1) Weakness Current Visit: No Status: Resolved At this juncture I am not completely convinced that the symptoms that he experienced leading up to his admission were caused by the right internal carotid artery stenosis. The symptoms that he presented with the lack any evidence of focality or lateralization. Symptoms seem to be more generalized consisting of confusion and weakness. He does have an elevated white blood cell count perhaps he may have a urinary tract infection. However the MRI scan of the brain was negative for any evidence of acute infarct or chronic infarct. I would therefore consider pursuing other metabolic, cardiac, infectious etiologies which might have caused temporary confusion and generalized weakness. I agree with vascular that the carotid artery stenosis should be treated with antiplatelet therapy and follow-up every 6 months or so. I will reevaluate him at your request. History of Present Illness HPI: Mr. Vieira is a 67 year old male who is being seen for neurologic consultation secondary to symptoms of generalized weakness and confusion and an abnormal carotid Doppler screen. Patient is not a very good historian. His daughter apparently brought into the hospital because of her concern regarding these matters which have been going on for the last 3-4 days. However he cannot tell me whether not he experienced paresthesias on one side of his body or whether not he had difficulty walking or falling. 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 However he cannot specifically comment on whether not he had specific speech difficulty or paresthesias of the left upper and left lower extremities. MRI scan of the brain revealed no evidence of prior cerebral infarct on either side of the brain. He does have a history of atrial fibrillation. He had an elevated white count at 13 upon initial admission which is escalated up to 18 now. Urinalysis revealed trace of leukocyte esterase with elevated wbc's. Past Med Surg Social Fam HX - Past Medical History Medical history: CHF, COPD, coronary artery disease, hypertension, myocardial infarction, TIA Additional medical history: patient unabel to recall medical history Psychiatric history: no psych history - Past Surgical History Surgical History: angioplasty/stent Additional surgical history: 4 stents - Social History Smoking Status: Current every day smoker Packs per day: 0.5 Smokeless Tobacco Status: No Alcohol use: none Drug use: none - Family History Father Family Member Ethnicity: Non- Living Status: Hx Family Cardiac Disorders: Yes ([place]) Mother Family Member Ethnicity: Non- Living Status: Hx Family Cancer: Yes (Stomach) Hx Family Neurologic Disorders: Yes (DM) Brother Family Member Ethnicity: Non- Living Status: Hx Family Cardiac Disorders: Yes Hx Family Neurologic Disorders: Yes (CVA) Sister Family Member Ethnicity: Non- Living Status: Hx Family Cancer: Yes Medications and Allergies Aspirin Enteric Coated [Aspirin EC] 81 mg PO DAILY 07/10/17 [History] Atorvastatin Calcium [Lipitor] 80 mg PO DAILY 07/10/17 [History] BuPROPion SR (12 HR) [Wellbutrin SR] 150 mg PO BID 07/10/17 [History] Budesonide/Formoterol 160/4.5 [Symbicort 160/4.5] 2 puff IH BID 07/10/17 [History] Carbamide Peroxide [Ear Drops] 2 drop BOTH EARS DAILY 07/10/17 [History] Fluticasone Propionate Nasal [Flonase] 1 spray NS BID 07/10/17 [History] Ipratropium [ATROVENT Inhaler] 2 puff IH Q6H 07/10/17 [History] Nicotine Patch [Nicoderm] 21 mg TD DAILY 07/10/17 [History] Oxycodone HCl/Acetaminophen [Percocet 5-325 mg Tablet] 1 each PO QID PRN 07/10/17 [History] Propylene Glycol/Peg 400 [Systane 0.3-0.4% Eye Drops] 1 drop BOTH EYES TID 07/10/17 [History] Ranolazine [Ranexa] 1,000 mg PO BID 07/10/17 [History] amLODIPine [Norvasc] 5 mg PO DAILY 07/10/17 [History] Furosemide [Lasix] 20 mg PO BID #60 tablet 07/12/17 [Rx] Potassium Chloride [K-Tab ER] 10 meq PO DAILY #30 tablet.er 07/12/17 [Rx] Albuterol Sulfate [Ventolin Hfa] 2 puff IH Q4H PRN 04/26/18 [History] Cholecalciferol (Vitamin D3) [Vitamin D3] 1,000 unit PO DAILY 04/26/18 [History] Docusate [Colace] 100 mg PO DAILY PRN 04/26/18 [History] Ketoconazole 1 appl TP QMWF 04/26/18 [History] Loratadine [Allergy Relief] 10 mg PO DAILY 04/26/18 [History] Montelukast [Singulair] 10 mg PO HS 04/26/18 [History] Omeprazole [PriLOSEC] 20 mg PO BID 04/26/18 [History] Pregabalin [Lyrica] 300 mg PO BID 04/26/18 [History] Sildenafil Citrate 100 mg PO AD 04/26/18 [History] Trazodone HCl 100 mg PO HS PRN 04/26/18 [History] guaiFENesin [Scot-Tussin Expectorant] 100 mg PO Q4H PRN 04/26/18 [History] Montelukast [Singulair] 10 mg PO HS tablet 04/27/18 [Rx] levoFLOXacin [Levaquin] 500 mg PO DAILY #5 tablet 04/27/18 [Rx] predniSONE [PredniSONE] 40 mg PO DAILY 4 Days #8 tablet 04/27/18 [Rx] Allergy/AdvReac Type Severity Reaction Status Date / Time No Known Allergies Allergy Verified 04/26/18 11:22 All Systems: The remainder of the systems were reviewed and are negative Review of Systems: The balance of the systems review is negative. Physical Examination - Vital Signs Vital Signs: Initial Vital Signs Temp Pulse Resp BP Pulse Ox 97.7 F 67 20 141/83 100 04/25/18 23:27 04/25/18 23:27 04/25/18 23:27 04/25/18 23:27 04/25/18 23:27 - Exam Exam: General Examination: *CONSTITUTIONAL: normal *GENERAL APPEARANCE OF PATIENT appears healthy and well groomed *EYES: pupils equal, round, reactive to light and accommodation, con junctiva clear without masses or ulcerations, fundi normal. *CARDIOVASCULAR no peripheral edema, distal temperature normal, dorsalis pedis pulses normal. Refer to vital signs Musculoskeletal: *GAIT AND STATION normal, with normal Romberg testing, no abnormalities such as broad base gait or spasticity *ASSESSMENT OF MUSCLE STRENGTH IN THE UPPER AND LOWER EXTREMITIES deltoid, bicep, tricep, animal services officer strength, hip flexors ,anterior tibialis, dorsoflexion of the foot normal. *MUSCLE TONE IN THE UPPER AND LOWER EXTREMITIES normal. No abnormal movements, fasciculations or atrophy identified. Neurological: *ORIENTATION he knows that he is in "[facility], he knows the month is March. However he is a poor historian regarding recent events. *RECURRENT AND REMOTE MEMORY intact *ATTENTION AND CONCENTRATION are normal *LANGUAGE FUNCTION no significant aphasia or dysarthia was noted. *FUND OF KNOWLEDGE aware of current events, past history, vocabulary *MENTAL attention span and concentration normal. *CN II optic fundi were normal, no papilledema noted. *CN III,IV, PERRLA extraocular eye movements were full, no nystagmus and no ptosis noted. *CN V shows normal sensation and jaw opens symmetrically. *CN VII shows normal facial movement symmetrically, upper and lower bilaterally. *CN VIII shows no significant hearing loss on examination in the office. *CN IX,,X palate elevated symmetrically and normal gag reflex was noted. *CN XI normal strength in the sternocleidomastoid muscles, symmetrical shoulder shrugging. *CN XII tongue protruded in the midline, with normal strength and movement. *SENSORY EXAMINATION pinprick sensation intact, and light touch(vibration sense). *REFLEXES: deep tendon reflexes were normal and symmetrical , grade 2/4 diffusely, no pathological reflexes were noted. *CEREBELLAR TESTING normal finger to nose, heel/knee/elaine, and tandem walk. *PAIN LEVEL -0 Results - Laboratory Findings CBC and BMP: 04/27/18 06:09 04/27/18 06:09 Abnormal lab findings: Abnormal lab results WBC 18.1 K/mcL (4.3-11.1) H 04/27/18 06:09 Neutrophils # 13.3 K/mcL (1.6-8.9) H 04/27/18 06:09 PT 13.3 Seconds (9.4-12.1) H 04/26/18 09:37 APTT 37.9 Seconds (26.0-36.0) H 04/26/18 09:37 Potassium 3.2 mEq/L (3.5-5.1) L 04/27/18 06:09 POC Glucose 125 mg/dL (70-99) H 04/27/18 16:16 AST 11 Units/L (13-39) L 04/25/18 23:46 Ur Specific [place] 1.007 (1.010-1.025) L 04/26/18 01:30 Ur Leukocyte Esterase Trace (Negative) H 04/26/18 01:30 Urine Microscopic WBC 5-15 per hpf (0-3) H 04/26/18 01:30 Ur Culture Indicated? YES (NO) A 04/26/18 01:30 Consult Discharge Plan - Plan [facility] Care Provider[facility] - Prescriptions: levoFLOXacin [Levaquin] 500 mg PO DAILY #5 tablet predniSONE [PredniSONE] 40 mg PO DAILY 4 Days #8 tablet
[2018-04-27] MEDS ORDERED: Fluticasone Propionate Nasal 50 MCG/SPRAY BOTTLE NS SCH (21:00)
[2018-04-27] MEDS ORDERED: BuPROPion SR (12 HR) 150 MG TABLET PO SCH (21:00)
[2018-04-27] MEDS ORDERED: Pregabalin 75 MG CAPSULE PO SCH (21:00)
[2018-04-27] MEDS ORDERED: Ranolazine 500 MG TAB.ER.12H PO SCH (21:00)
[2018-04-28] MEDS: Azithromycin 500 MG in D5% in Water 250 ML IVPB SCH (03:17)
[2018-04-28] MEDS: Ipratropium/Albuterol Neb 3 ML IH SCH ×2 (05:53→09:21)
[2018-04-28] MEDS: *HR* Heparin 5,000 UNIT/ML VIAL SQ SCH (06:21)
[2018-04-28 07:18] VITALS: BP 122/70
[2018-04-28] MEDS ORDERED: Loratadine 10 MG TABLET PO SCH (09:00)
[2018-04-28] MEDS ORDERED: amLODIPine 5 MG TABLET PO SCH (09:00)
[2018-04-28] MEDS: Budesonide/Formoterol 160/4.5 1 PUFF INH IH SCH (09:21)
--- NOTE | 2018-04-28 10:22 | Discharge Summary ---
- NOTES TO OUTPATIENT PROVIDER Notes to Outpatient Provider: Patient is to have serial carotid ultrasounds for his right ICA distal stenosis which is about 60-80%. He is to be maintained on antiplatelet therapy. Orders not resulted at time of discharge: Pending orders 04/26/18 09:09 Bedside Spirometry Evaluation [EVAL] Routine Date of Encounter: 04/28/18 Time of Encounter: 10:20 - Discharge Diagnosis (1) TIA (transient ischemic attack) Priority: Primary Status: Acute (2) CAD (coronary artery disease) Priority: Secondary Status: Chronic Qualifiers: Coronary Disease-Associated Artery/Lesion type: [place] artery [place] vs. transplanted heart: [place] heart Associated angina: angina presence unspecified Qualified Code(s): I25.10 - Atherosclerotic heart disease of [place] coronary artery without angina pectoris (3) HTN (hypertension) Priority: Secondary Status: Chronic Qualifiers: Hypertension type: essential hypertension Qualified Code(s): I10 - Essential (primary) hypertension (4) HLD (hyperlipidemia) Priority: Secondary Status: Chronic Qualifiers: Hyperlipidemia type: pure hypercholesterolemia Qualified Code(s): E78.00 - Pure hypercholesterolemia, unspecified; E78.0 - Pure hypercholesterolemia (5) COPD (chronic obstructive pulmonary disease) Priority: Secondary Status: Chronic Qualifiers: COPD type: COPD with acute exacerbation Qualified Code(s): J44.1 - Chronic obstructive pulmonary disease with (acute) exacerbation (6) DVT prophylaxis Priority: Secondary Status: Acute (7) UTI (urinary tract infection) Priority: Secondary Status: Acute Qualifiers: Urinary tract infection type: site unspecified Hematuria presence: without hematuria Qualified Code(s): N39.0 - Urinary tract infection, site not specified Hospital course: Mr. Vieira is a 67 year old male who presented with TIA symptoms and was found to have a normal MRI. He was seen to have a significant stenosis of the distal right ICA on carotid duplex were in the range of 60-80%. He also was found to have a urinary tract infection. He was seen by neurology as well as vascular surgery. His MRI was negative for a new stroke. He was also an mild COPD exacerbation and was started on steroids and given a dose of Zithromax. At the time of discharge his urine culture is negative and I will discharge him with Levaquin for a total of 5-7 days duration and also a short burst of steroids. He needs to have a serial carotid duplex ultrasound as outpatient and continue his antiplatelet therapy with aspirin. - Time Spent with Patient Total time spent providing and/or coordinating discharge services: - Discharge Medications Prescriptions: levoFLOXacin [Levaquin] 500 mg PO DAILY #5 tablet predniSONE [PredniSONE] 40 mg PO DAILY 4 Days #8 tablet Home Medications: Aspirin Enteric Coated [Aspirin EC] 81 mg PO DAILY 07/10/17 [History] Atorvastatin Calcium [Lipitor] 80 mg PO DAILY 07/10/17 [History] BuPROPion SR (12 HR) [Wellbutrin SR] 150 mg PO BID 07/10/17 [History] Budesonide/Formoterol 160/4.5 [Symbicort 160/4.5] 2 puff IH BID 07/10/17 [History] Carbamide Peroxide [Ear Drops] 2 drop BOTH EARS DAILY 07/10/17 [History] Fluticasone Propionate Nasal [Flonase] 1 spray NS BID 07/10/17 [History] Ipratropium [ATROVENT Inhaler] 2 puff IH Q6H 07/10/17 [History] Nicotine Patch [Nicoderm] 21 mg TD DAILY 07/10/17 [History] Oxycodone HCl/Acetaminophen [Percocet 5-325 mg Tablet] 1 each PO QID PRN 07/10/17 [History] Propylene Glycol/Peg 400 [Systane 0.3-0.4% Eye Drops] 1 drop BOTH EYES TID 07/10/17 [History] Ranolazine [Ranexa] 1,000 mg PO BID 07/10/17 [History] amLODIPine [Norvasc] 5 mg PO DAILY 07/10/17 [History] Furosemide [Lasix] 20 mg PO BID #60 tablet 07/12/17 [Rx] Potassium Chloride [K-Tab ER] 10 meq PO DAILY #30 tablet.er 07/12/17 [Rx] Albuterol Sulfate [Ventolin Hfa] 2 puff IH Q4H PRN 04/26/18 [History] Cholecalciferol (Vitamin D3) [Vitamin D3] 1,000 unit PO DAILY 04/26/18 [History] Docusate [Colace] 100 mg PO DAILY PRN 04/26/18 [History] Ketoconazole 1 appl TP QMWF 04/26/18 [History] Loratadine [Allergy Relief] 10 mg PO DAILY 04/26/18 [History] Montelukast [Singulair] 10 mg PO HS 04/26/18 [History] Omeprazole [PriLOSEC] 20 mg PO BID 04/26/18 [History] Pregabalin [Lyrica] 300 mg PO BID 04/26/18 [History] Sildenafil Citrate 100 mg PO AD 04/26/18 [History] Trazodone HCl 100 mg PO HS PRN 04/26/18 [History] guaiFENesin [Scot-Tussin Expectorant] 100 mg PO Q4H PRN 04/26/18 [History] Montelukast [Singulair] 10 mg PO HS tablet 04/27/18 [Rx] levoFLOXacin [Levaquin] 500 mg PO DAILY #5 tablet 04/27/18 [Rx] predniSONE [PredniSONE] 40 mg PO DAILY 4 Days #8 tablet 04/27/18 [Rx] Allergies/Adverse Reactions: Allergy/AdvReac Type Severity Reaction Status Date / Time No Known Allergies Allergy Verified 04/26/18 11:22 Date of admission: 04/26/18 02:59 [facility] physician: [facility] Consults: 04/26/18 08:49 Consult to Occupational Therapy [CONS] Routine Comment: Evaluate, develop and implement POC Reason for Consult: Generalized weakness Does patient have active BEDREST order?: No Is patient medically & hemodynamically stable?: Yes Patient assessed for mobility or mobilized this visit?: No Consult to Physical Therapy [CONS] Routine Comment: Evaluate, develop and implement POC Reason for Consult: Generalized weakness Does patient have active BEDREST order?: No Is patient medically & hemodynamically stable?: Yes Patient assessed for mobility or mobilized this visit?: No 04/26/18 08:50 Consult to Architectural Examiner [CONS] Routine Reason for SW Consult: Discharge plan 04/26/18 08:53 Consult to Speech Therapy [CONS] Routine Comment: Evaluate, develop and implement POC Reason for Consult: Slurred speech Call Completed: No 04/27/18 14:12 Consult to Neurology [CONS] Routine Consulting Provider: [facility] Reason for Consult: tia Time Notified: 14:12 Call Completed: Yes Consult to Vascular Surgery [CONS] Routine Consulting Provider: Vascular Surgery [facility] Reason for Consult: Severe Distal R ICA stenosis Time Notified: 14:12 Call Completed: Yes - Constitutional Vitals: Temp Pulse Resp BP Pulse Ox 97.9 F 66 16 122/70 96 04/28/18 07:13 04/28/18 07:13 04/28/18 09:22 04/28/18 07:13 04/28/18 09:22 Exam: GENERAL: Alert, no distress, cooperative EYES: PERRLA, EOMI EARS: External ears normal, canals clear OROPHARYNX: Lips, mucosa, and tongue normal. Teeth and gums normal. Oropharynx normal. NECK: No jugulovenous distention, No carotid bruits, Carotid pulse normal contour, Supple LUNGS: Lungs clear to auscultation, Good diaphragmatic excursion CARDIAC: Normal S1 and S2; no rubs, murmurs, or gallops ABDOMEN: Abdomen soft, non-tender, BS normal, No masses or organomegaly EXTREMITIES: Extremities normal, no deformities, edema, clubbing or skin discoloration. Good capillary refill., No ulcers NEURO: Gait normal. Reflexes normal and symmetric. Sensation grossly intact, C ranial nerves II-XII intact PULSES: 2+ radial, 2+ carotid Rest of the exam is non contributory - Cardiovascular Cardiovascular exam: Present: RRR, +S1, +S2. Absent: diastolic murmur, gallop, rubs, systolic murmur - Patient Status Disposition: Home, Self-Care Functional capacity at discharge: independent ambulation Overall status at discharge: patient is back to baseline - Discharge Instructions Instructions: Urinary Tract Infection in Men (DC) [facility]: [facility] [Primary Care Provider] - - Diet and Activity Activity: increase activity as tolerated Diet: advance to your usual diet
--- NOTE | 2018-04-29 10:10 | Electrocardiograph Report ---
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
== END 2018-04-28 11:13 | disposition home or self-care (01) ==
LOC: EMEROOARM 23:07 → 3BNU 23:07 → SUATTDRO 04-26 02:59 → 3BNU 04-26 03:27
PROVIDERS: ADMIT Family Medicine; ATTEND Internal Medicine

== ENCOUNTER 2018-05-30 16:40 | Observation (INO) ==
[2018-05-30] MEDS ORDERED: Isovue-370 500 ML BOTTLE IVP ONE (17:26)
--- NOTE | 2018-05-30 17:26 | Emergency Department Note ---
Disposition Clinical Impression: TIA (transient ischemic attack), Slurred speech, Weakness Disposition: Admitted As Inpatient Condition: Good [facility] Provider[facility] - Forms: ED Satisfaction Letter Time of Disposition: 19:06 Neuro HPI - General Chief Complaint: ED Neuro Symptoms/Deficit Stated Complaint: stroke like symptoms Time Seen by Provider: 05/30/18 16:41 Source: patient, family (Daughter), EMS Mode of arrival: EMS Limitations: no limitations Nursing Notes Reviewed: Yes Vital Signs Reviewed: Yes - History of Present Illness HPI Narrative: 67-year-old male history of depression, hypertension, hyperlipidemia and multiple TIA presents to the emergency department via EMS as a transfer from the [facility] for concern of stroke. Last well-known is unknown. The daughter reports speaking to the patient last night at 2100 with normal speech and no complaints of weakness. Patient reports waking up approximately 845 being able to ambulate without any lower extremity weakness but does not recall if he had any slurred speech. The daughter called him later today around 1400 noticing slurred speech. At this time she states it has worsened. She does nota facial droop. They went to the [facility] to be evaluated and was sent here for further evaluation. He states his a weakness in his legs is to the point where he cannot walk. He does admit to multiple falls but the most recent was a month ago. He does not take any anticoagulants. He did taken aspirin. He has had similar episodes of this in the past 2 months requiring admission. Neither of those times did he received any tPA. He reports a cough that is baseline. Denies any chest pain or shortness of breath. Denies any recent illness including fever. No stroke alert was initiated as the last confirmed well-known was nearly 20 hours. - Related Data Home Medications: Home Medications Medication Instructions Recorded Confirmed Aspirin Enteric Coated [Aspirin EC] 81 mg PO DAILY 07/10/17 04/30/18 Atorvastatin Calcium [Lipitor] 80 mg PO DAILY 07/10/17 04/30/18 BuPROPion SR (12 HR) [Wellbutrin 150 mg PO BID 07/10/17 04/30/18 SR] Budesonide/Formoterol 160/4.5 2 puff IH BID 07/10/17 04/30/18 [Symbicort 160/4.5] Carbamide Peroxide [Ear Drops] 2 drop BOTH EARS DAILY 07/10/17 04/30/18 Fluticasone Propionate Nasal 1 spray NS BID 07/10/17 04/30/18 [Flonase] Ipratropium [ATROVENT Inhaler] 2 puff IH Q6H 07/10/17 04/30/18 Oxycodone HCl/Acetaminophen 1 each PO QID PRN 07/10/17 04/30/18 [Percocet 5-325 mg Tablet] Propylene Glycol/Peg 400 [Systane 1 drop BOTH EYES TID 07/10/17 04/30/18 0.3-0.4% Eye Drops] Ranolazine [Ranexa] 1,000 mg PO BID 07/10/17 04/30/18 amLODIPine [Norvasc] 5 mg PO DAILY 07/10/17 04/30/18 Albuterol Sulfate [Ventolin Hfa] 2 puff IH Q4H PRN 04/26/18 04/30/18 Cholecalciferol (Vitamin D3) 1,000 unit PO DAILY 04/26/18 04/30/18 [Vitamin D3] Docusate [Colace] 100 mg PO DAILY PRN 04/26/18 04/30/18 Ketoconazole 1 appl TP QMWF 04/26/18 04/30/18 Loratadine [Allergy Relief] 10 mg PO DAILY 04/26/18 04/30/18 Montelukast [Singulair] 10 mg PO HS 04/26/18 04/30/18 Omeprazole [PriLOSEC] 20 mg PO BID 04/26/18 04/30/18 Pregabalin [Lyrica] 300 mg PO BID 04/26/18 04/30/18 Sildenafil Citrate 100 mg PO AD 04/26/18 04/30/18 Trazodone HCl 100 mg PO HS PRN 04/26/18 04/30/18 guaiFENesin [Scot-Tussin 100 mg PO Q4H PRN 04/26/18 04/30/18 Expectorant] Allergies/Adverse Reactions: Allergies Allergy/AdvReac Type Severity Reaction Status Date / Time No Known Allergies Allergy Verified 04/26/18 11:22 All systems ED: reviewed and negative except as stated. Review of Systems: As Per HPI Constitutional: Reports: weakness. Denies: fever, chills ENT ED: Denies: congestion, dysphagia Cardiovascular: Denies: chest pain, syncope Respiratory: Denies: dyspnea Gastrointestinal: Denies: abdominal pain Musculoskeletal: Denies: back pain, neck pain Neurological: Reports: weakness, abnormal gait. Denies: headache, numbness, paresthesias, confusion Past Medical History - Past Medical History Attestation: Yes The following information was validated with the patient. Source: patient Medical history: Reports: CHF, COPD, coronary artery disease, hypertension, myocardial infarction, TIA Surgical history: Reports: angioplasty/stent Psychiatric history: Reports: no psych history - Social History Smoking Status: Current every day smoker Smokeless Tobacco Status: No Alcohol use: Reports: none Drug use: Reports: none Physical Exam - General Limitations: no limitations General appearance: alert, in no apparent distress Course Course Narrative: Patient presents with stroke like symptoms mainly slurred speech with bilateral leg weakness. One side is not weaker than the other. History of similar in the past. He has never required tPA for resolution of the symptoms. On examination he does have slurred speech. No focal deficits. No drift. NIH score of approximately 1. I did not appreciate any weakness on examination. Stroke workup initiated without stroke alert. I reviewed his past medical record which shows to admissions for similar complaints with full resolution. He had brain MRI without infarct. Echocardiogram performed showed ASD. It was recommended that he have a TE E performed. It does not appear one has been performed. He was also evaluated by neurology and vascular surgery during those visits. Given his recurrence of the symptoms he will likely require admission as he does live by himself and reports weakness and inability to ambulate at home. - Reevaluation(s) Reevaluation #1: Labs unremarkable. Time: 19:07 - Consultations Consultation #1: Spoke with on-call hospitalist antoinette Mahoney to admit for slurred speech and TIA. No further orders at this time. Recommendation to possibly have his CAMERON performed here as previously recommended as well as possible LTAC placement. Time: 19:17 Vital Signs Temperature 97.8 F 05/30/18 16:46 Pulse Rate 65 05/30/18 16:46 Respiratory Rate 18 05/30/18 16:46 Blood Pressure 132/62 05/30/18 16:46 O2 Sat by Pulse Oximetry 96 05/30/18 16:46 Temperature 97.8 F 05/30/18 16:46 Pulse Rate 65 05/30/18 16:46 Respiratory Rate 18 05/30/18 16:46 Blood Pressure 132/62 05/30/18 16:46 O2 Sat by Pulse Oximetry 96 05/30/18 16:46 Oxygen Delivery Oxygen Delivery Room Air Neuro Symptoms/Deficit - MDM Narrative Medical decision making narrative: Patient was discussed with my attending physician who agrees with ED management and final disposition. They independently evaluated the patient. Please refer to their attestation to this encounter for additional information. This note was generated by [employer] voice recognition software and as a result grammatical or spelling errors may occur using this program. - Medical Records Medical records reviewed: Yes I reviewed the patient's medical records. - Lab Data Lab results reviewed: Yes I reviewed the patient's lab results. Result diagrams: 05/30/18 16:51 05/30/18 16:51 Lab Results 05/30/18 05/30/18 05/30/18 Range/Units 16:46 16:51 16:51 WBC 12.5 H (4.3-11.1) K/mcL RBC 4.77 (4.19-5.50) M/mcL Hgb 14.4 (12.9-16.9) g/dL Hct 42.4 (37.5-50.1) % MCV 88.9 (83.0-100.0) fL MCH 30.2 (28.0-33.3) pg MCHC 34.0 (31.6-35.5) g/dL RDW 14.0 (11.5-14.5) % Plt Count 196 (140-400) K/mcL MPV 10.7 (9.4-12.4) fL PT 13.6 H (9.4-12.1) Seconds INR 1.2 APTT 36.9 H (26.0-36.0) Seconds Sodium (136-145) mEq/L Potassium (3.5-5.1) mEq/L Chloride (98-107) mEq/L Carbon Dioxide (23-29) mEq/L BUN (8-23) mg/dL Creatinine (0.70-1.30) mg/dL Est GFR ( Amer) (> 60) Est GFR (Non-Af Amer) (> 60) BUN/Creatinine Ratio (6-26) Glucose (70-105) mg/dL POC Glucose 114 H (70-99) mg/dL Calculated Osmolality (280-300) Calcium (8.6-10.3) mg/dL Troponin I (< 0.04) ng/mL 05/30/18 Range/Units 16:51 WBC (4.3-11.1) K/mcL RBC (4.19-5.50) M/mcL Hgb (12.9-16.9) g/dL Hct (37.5-50.1) % MCV (83.0-100.0) fL MCH (28.0-33.3) pg MCHC (31.6-35.5) g/dL RDW (11.5-14.5) % Plt Count (140-400) K/mcL MPV (9.4-12.4) fL PT (9.4-12.1) Seconds INR APTT (26.0-36.0) Seconds Sodium 138 (136-145) mEq/L Potassium 3.6 (3.5-5.1) mEq/L Chloride 101 (98-107) mEq/L Carbon Dioxide 30 H (23-29) mEq/L BUN 17 (8-23) mg/dL Creatinine 1.13 (0.70-1.30) mg/dL Est GFR ( Amer) > 60 (> 60) Est GFR (Non-Af Amer) > 60 (> 60) BUN/Creatinine Ratio 15 (6-26) Glucose 103 (70-105) mg/dL POC Glucose (70-99) mg/dL Calculated Osmolality 288 (280-300) Calcium 9.3 (8.6-10.3) mg/dL Troponin I < 0.03 (< 0.04) ng/mL - Radiology Data Radiology results reviewed: Yes I reviewed the patient's radiology results. Head CTA 05/30/18 17:26 IMPRESSION: No acute intracranial abnormality Multifocal atherosclerotic change in the neck without significant associated arterial narrowing. No significant intracranial arterial narrowing. No discrete aneurysm. D/ / Vikas Deleon / Vikas Deleon Interpreting Provider: Vikas Deleon Neck CTA 05/30/18 17:26 IMPRESSION: No acute intracranial abnormality Multifocal atherosclerotic change in the neck without significant associated arterial narrowing. No significant intracranial arterial narrowing. No discrete aneurysm. D/ / Vikas Deleon / Vikas Deleon Interpreting Provider: Vikas Deleon Stroke Scale - Level of Consciousness LOC: Alert - LOC Questions LOC Questions: Answers both correctly - LOC Commands LOC Commands: Performs both correctly - Best Gaze Best Gaze: Normal - Visual Visual: No visual loss - Facial Palsy Facial Palsy: Normal - Motor Arms Motor Arm-Left: No drift for 10 seconds Motor Arm-Right: No drift for 10 seconds - Motor Legs Motor Leg-Left: No drift for 5 seconds Motor Leg-Right: No drift for 5 seconds - Limb Ataxia Limb Ataxia: Absent of affected limb too weak to perform exam - Sensory Sensory: Normal - Best Language Best Language: No aphasia - Dysarthria Dysarthria: Mild, slurs some words - Extinction and Inattention Extinction and Inattention: Normal - NIHSS Total Score NIHSS Total Score: 1 TPA Checklist - Eligibilty for IV tPA 1. LKW equal to or less than 4.5 hours be before treatment: No - LKW: 3-4.5 hrs Add. Warnings/Precautions Patient/family understanding: The patient/family members have been counseled and understood the risk, benefit, and alternatives of treatment.
[2018-05-30 17:30] LABS: Hematocrit 42.4 % (37.5-50.1); Hemoglobin 14.4 g/dL (12.9-16.9); Mean Corpuscular Hemoglobin 30.2 pg (28.0-33.3); Mean Corpuscular Volume 88.9 fL (83.0-100.0); Mean Platelet Volume 10.7 fL (9.4-12.4); Platelet Count 196 K/mcL (140-400); Red Blood Count 4.77 M/mcL (4.19-5.50)
[2018-05-30 17:41] LABS: INR 1.2; Prothrombin Time 13.6 Seconds (9.4-12.1)
[2018-05-30 17:42] LABS: BUN/Creatinine Ratio 15 (6-26); Blood Urea Nitrogen 17 mg/dL (8-23); Calcium 9.3 mg/dL (8.6-10.3); Carbon Dioxide 30 mEq/L (23-29); Chloride 101 mEq/L (98-107); Glucose 103 mg/dL (70-105); Osmolality,Calculated 288 (280-300); Potassium 3.6 mEq/L (3.5-5.1); Sodium 138 mEq/L (136-145); Troponin I < 0.03 ng/mL (< 0.04); eGFR For Non-African Americans > 60 (> 60)
[2018-05-30 17:43] LABS: Activated Partial Thrombo Time 36.9 Seconds (26.0-36.0)
--- NOTE | 2018-05-30 18:24 | Emergency Department Note ---
Disposition Clinical Impression: TIA (transient ischemic attack) Disposition: Admitted As Inpatient [facility] Provider[facility] - Forms: ED Satisfaction Letter General Adult HPI - General Chief complaint: ED Neuro Symptoms/Deficit Stated complaint: stroke like symptoms Time Seen by Provider: 05/30/18 16:41 Source: patient, family (Daughter), EMS Mode of arrival: EMS Limitations: no limitations - History of Present Illness Pain Scale: 8 - Related Data Home Medications Medication Instructions Recorded Confirmed Aspirin Enteric Coated [Aspirin EC] 81 mg PO DAILY 07/10/17 04/30/18 Atorvastatin Calcium [Lipitor] 80 mg PO DAILY 07/10/17 04/30/18 BuPROPion SR (12 HR) [Wellbutrin 150 mg PO BID 07/10/17 04/30/18 SR] Budesonide/Formoterol 160/4.5 2 puff IH BID 07/10/17 04/30/18 [Symbicort 160/4.5] Carbamide Peroxide [Ear Drops] 2 drop BOTH EARS DAILY 07/10/17 04/30/18 Fluticasone Propionate Nasal 1 spray NS BID 07/10/17 04/30/18 [Flonase] Ipratropium [ATROVENT Inhaler] 2 puff IH Q6H 07/10/17 04/30/18 Oxycodone HCl/Acetaminophen 1 each PO QID PRN 07/10/17 04/30/18 [Percocet 5-325 mg Tablet] Propylene Glycol/Peg 400 [Systane 1 drop BOTH EYES TID 07/10/17 04/30/18 0.3-0.4% Eye Drops] Ranolazine [Ranexa] 1,000 mg PO BID 07/10/17 04/30/18 amLODIPine [Norvasc] 5 mg PO DAILY 07/10/17 04/30/18 Albuterol Sulfate [Ventolin Hfa] 2 puff IH Q4H PRN 04/26/18 04/30/18 Cholecalciferol (Vitamin D3) 1,000 unit PO DAILY 04/26/18 04/30/18 [Vitamin D3] Docusate [Colace] 100 mg PO DAILY PRN 04/26/18 04/30/18 Ketoconazole 1 appl TP QMWF 04/26/18 04/30/18 Loratadine [Allergy Relief] 10 mg PO DAILY 04/26/18 04/30/18 Montelukast [Singulair] 10 mg PO HS 04/26/18 04/30/18 Omeprazole [PriLOSEC] 20 mg PO BID 04/26/18 04/30/18 Pregabalin [Lyrica] 300 mg PO BID 04/26/18 04/30/18 Sildenafil Citrate 100 mg PO AD 04/26/18 04/30/18 Trazodone HCl 100 mg PO HS PRN 04/26/18 04/30/18 guaiFENesin [Scot-Tussin 100 mg PO Q4H PRN 04/26/18 04/30/18 Expectorant] Allergies Allergy/AdvReac Type Severity Reaction Status Date / Time No Known Allergies Allergy Verified 04/26/18 11:22 Past Medical History - Past Medical History Medical history: Reports: CHF, COPD, coronary artery disease, hypertension, myocardial infarction, TIA Surgical history: Reports: angioplasty/stent Psychiatric history: Reports: no psych history - Social History Smoking Status: Current every day smoker Smokeless Tobacco Status: No Alcohol use: Reports: none Drug use: Reports: none Physical Exam - General Limitations: no limitations General appearance: alert, in no apparent distress Course - Reevaluation(s) Reevaluation #1: signed out patinet to Dr. Chahal for evalustion of CTA head and neck. If brain aneursyms presnt he will need to be trasnferred otherwise admitted to medicine for CAMERON and parkisons eval Time: 19:04 Vital Signs Temperature 97.8 F 05/30/18 16:46 Pulse Rate 65 05/30/18 16:46 Respiratory Rate 18 05/30/18 16:46 Blood Pressure 132/62 05/30/18 16:46 O2 Sat by Pulse Oximetry 96 05/30/18 16:46 Temperature 97.8 F 05/30/18 16:46 Pulse Rate 65 05/30/18 16:46 Respiratory Rate 18 05/30/18 16:46 Blood Pressure 132/62 05/30/18 16:46 O2 Sat by Pulse Oximetry 96 05/30/18 16:46 Oxygen Delivery Oxygen Delivery Room Air Medical Decision Making - Lab Data Result diagrams: 05/30/18 16:51 05/30/18 16:51 Lab Results 05/30/18 05/30/18 05/30/18 Range/Units 16:46 16:51 16:51 WBC 12.5 H (4.3-11.1) K/mcL RBC 4.77 (4.19-5.50) M/mcL Hgb 14.4 (12.9-16.9) g/dL Hct 42.4 (37.5-50.1) % MCV 88.9 (83.0-100.0) fL MCH 30.2 (28.0-33.3) pg MCHC 34.0 (31.6-35.5) g/dL RDW 14.0 (11.5-14.5) % Plt Count 196 (140-400) K/mcL MPV 10.7 (9.4-12.4) fL PT 13.6 H (9.4-12.1) Seconds INR 1.2 APTT 36.9 H (26.0-36.0) Seconds Sodium (136-145) mEq/L Potassium (3.5-5.1) mEq/L Chloride (98-107) mEq/L Carbon Dioxide (23-29) mEq/L BUN (8-23) mg/dL Creatinine (0.70-1.30) mg/dL Est GFR ( Amer) (> 60) Est GFR (Non-Af Amer) (> 60) BUN/Creatinine Ratio (6-26) Glucose (70-105) mg/dL POC Glucose 114 H (70-99) mg/dL Calculated Osmolality (280-300) Calcium (8.6-10.3) mg/dL Troponin I (< 0.04) ng/mL 05/30/18 Range/Units 16:51 WBC (4.3-11.1) K/mcL RBC (4.19-5.50) M/mcL Hgb (12.9-16.9) g/dL Hct (37.5-50.1) % MCV (83.0-100.0) fL MCH (28.0-33.3) pg MCHC (31.6-35.5) g/dL RDW (11.5-14.5) % Plt Count (140-400) K/mcL MPV (9.4-12.4) fL PT (9.4-12.1) Seconds INR APTT (26.0-36.0) Seconds Sodium 138 (136-145) mEq/L Potassium 3.6 (3.5-5.1) mEq/L Chloride 101 (98-107) mEq/L Carbon Dioxide 30 H (23-29) mEq/L BUN 17 (8-23) mg/dL Creatinine 1.13 (0.70-1.30) mg/dL Est GFR ( Amer) > 60 (> 60) Est GFR (Non-Af Amer) > 60 (> 60) BUN/Creatinine Ratio 15 (6-26) Glucose 103 (70-105) mg/dL POC Glucose (70-99) mg/dL Calculated Osmolality 288 (280-300) Calcium 9.3 (8.6-10.3) mg/dL Troponin I < 0.03 (< 0.04) ng/mL Attestation Statement - Attestation Attestation: I examined this patient and my medical decision-making was reviewed with the Resident Physician. I agree with the documented findings, disposition and t reatment plan as described except to the extent set forth below. 67 year old male presents to the ED with complaints of stroke like symptoms that started buster 0900 this morning. Beau has been evlauted for previous admision for TIa. Today he is experinicing slurred speech and difficulty with ambulation and because he lives alone he came here for evaluation. Beau tates that his difficulty with ambulation occurs when he tried to walk more than a few steps and then starts to begin with a shufffling gait and at time will feel like one side begins to become rigid. Beau has had preivous stroke workups inthe past 3 months however he has not recieved a CAMERON or CTA head and neck. He howveer has had a MRI, carotid US and other cardiac workups. MY clinical suspocion is that we need to rule out another CVA/TIA, brain aneursyms, but the clnical history seems to suggest that this is could be early onset parkinsons. Oour plan is to admit to medicine
--- NOTE | 2018-05-30 19:50 | Internal Med History&Physical ---
Date of Encounter: 05/30/18 Time of Encounter: 19:47 Internal Medicine - H&P: HPI Chief complaint: Slurred Speech/ LE weakness History of present illness: Mr. Vieira is a 67 year old male with a past medical history of CHF, COPD, coronary artery disease, hypertension, TIA who presents to the ED from the [facility] due to concern for stroke like symptoms, specifically slurred speech with bilateral leg weakness. Of note, patient was recently admitted for a similar presentation on 04/30/18 for evaluation of weakness and prior to that on 04/26 for a full stroke workup including MRI which was negative. Carotid artery ultrasound showed right distal stenosis of 60-79% patient was seen by Vascular and Neurology. History provided by patient and daughters at bedside. Patient states that symptoms of the slurred speech started around 9 this morning. His daughter called and spoke with him around 1400 and also noticed slurring of the patient's speech. No reports of any facial droop. Patient states that he is having bilateral lower extremity weakness which began earlier today as well. He states he feels on steady on his feet. Denies any muscle pain or falls. Patient states his weakness in his legs has reached the point where he is unable to ambulate. Patient was sent to the [facility] and subsequently transferred here for further workup. He reports having a upper respiratory tract infection approximately a week ago and was placed on oral antibiotics by his PCP. Patient currently lives alone and manages his own affairs. Patient states that because he lives alone, it is hard to cook for himself. Patient denies any current fever, chills, nausea, vomiting or diarrhea. He reports he has been constipated for the last 2 days. No reports of headache, blurry vision, chest pain, shortness of breath or palpitations. In the ED, vital signs were within normal limits. NIH score of approximately 1. Patient's labs were relatively unremarkable aside from a mild leukocytosis of 12.5. CTA of the head and neck did not show any acute process or changes. Family who were at bedside at the time of my assessment states that patient's symptoms appear to have resolved. Past Med Surg Social Fam HX - Past Medical History Medical history: CHF, COPD, coronary artery disease, hypertension, myocardial infarction, TIA Additional medical history: patient unable to recall all medical history Psychiatric history: no psych history - Past Surgical History Surgical History: angioplasty/stent Additional surgical history: 4 stents. back surgery - Social History Smoking Status: Current every day smoker Smokeless Tobacco Status: No Alcohol use: none Drug use: none - Family History Father Family Member Ethnicity: Non- Living Status: Hx Family Cardiac Disorders: Yes ([place]) Mother Family Member Ethnicity: Non- Living Status: Hx Family Cancer: Yes (Stomach) Hx Family Neurologic Disorders: Yes (DM) Brother Family Member Ethnicity: Non- Living Status: Hx Family Cardiac Disorders: Yes Hx Family Endocrine Disorder: Yes (DM) Hx Family Neurologic Disorders: Yes (CVA) Sister Family Member Ethnicity: Non- Living Status: Hx Family Cancer: Yes Internal Medicine - H&P: Meds Aspirin Enteric Coated [Aspirin EC] 81 mg PO DAILY 07/10/17 [History] Atorvastatin Calcium [Lipitor] 80 mg PO DAILY 07/10/17 [History] BuPROPion SR (12 HR) [Wellbutrin SR] 150 mg PO BID 07/10/17 [History] Budesonide/Formoterol 160/4.5 [Symbicort 160/4.5] 2 puff IH BID 07/10/17 [ History] Carbamide Peroxide [Ear Drops] 2 drop BOTH EARS DAILY 07/10/17 [History] Fluticasone Propionate Nasal [Flonase] 1 spray NS BID 07/10/17 [History] Ipratropium [ATROVENT Inhaler] 2 puff IH Q6H 07/10/17 [History] Oxycodone HCl/Acetaminophen [Percocet 5-325 mg Tablet] 1 each PO QID PRN 07/10/17 [History] Propylene Glycol/Peg 400 [Systane 0.3-0.4% Eye Drops] 1 drop BOTH EYES TID 07/10/17 [History] Ranolazine [Ranexa] 1,000 mg PO BID 07/10/17 [History] amLODIPine [Norvasc] 5 mg PO DAILY 07/10/17 [History] Albuterol Sulfate [Ventolin Hfa] 2 puff IH Q4H PRN 04/26/18 [History] Cholecalciferol (Vitamin D3) [Vitamin D3] 1,000 unit PO DAILY 04/26/18 [History] Docusate [Colace] 100 mg PO DAILY PRN 04/26/18 [History] Loratadine [Allergy Relief] 10 mg PO DAILY 04/26/18 [History] Montelukast [Singulair] 10 mg PO HS 04/26/18 [History] Omeprazole [PriLOSEC] 20 mg PO BID 04/26/18 [History] Pregabalin [Lyrica] 300 mg PO BID 04/26/18 [History] Sildenafil Citrate 100 mg PO AD 04/26/18 [History] Trazodone HCl 100 mg PO HS PRN 04/26/18 [History] guaiFENesin [Scot-Tussin Expectorant] 100 mg PO Q4H PRN 04/26/18 [History] Benzonatate [Tessalon] 100 mg PO TID 05/30/18 [History] Furosemide [Lasix] 20 mg PO BID 05/30/18 [History] Potassium Chloride [Klor-Con 10] 10 meq PO DAILY 05/30/18 [History] Allergy/AdvReac Type Severity Reaction Status Date / Time No Known Allergies Allergy Verified 04/26/18 11:22 All Systems PM: A 10-system review of systems was performed and is negative for pertinent findings except as documented above in the HPI. - Constitutional Constitutional: no chills, no fever(s), no night sweats - EENT Eyes: no change in vision, no discharge, no pain, no photophobia Ears: no ear discharge, no ear pain, no tinnitus Nose, mouth and throat: no dysphagia, no nasal discharge, no neck pain, no sore throat - Cardiovascular Cardiovascular ROS IM: no chest pain, no diaphoresis, no dyspnea, no lightheadedness, no palpitations, no syncope - Respiratory Respiratory: no cough, no dyspnea, no wheezing, no excessive phlegm production - Gastrointestinal Gastrointestinal: no abdominal pain, no diarrhea, no hematemesis, no hematochezia, no melena, no nausea, no vomiting - Musculoskeletal Musculoskeletal ROS IM: no numbness, no tingling - Integumentary Integumentary IM: no rash, no unusual bruising - Neurological Neurological ROS: no confusion, no convulsions, no focal weakness, no numbness, no tingling, no tremor(s) - Hematologic/Lymphatic Hematologic/Lymphatic: no easy bruising - Constitutional Vitals: Temp Pulse Resp BP Pulse Ox 97.8 F 65 18 132/62 96 05/30/18 16:46 05/30/18 16:46 05/30/18 16:46 05/30/18 16:46 05/30/18 16:46 Exam: General: Alert and oriented 3 lying in bed in no acute distress; patient was beginning to eat when I arrived Skin:Normal color, no rash, no lesions. HEENT:EOM, pupils equal, round and reactive. Cardiovascular:Normal S1 & S2, no rubs, murmurs or gallops. No JVD. Pulse regular. Lungs: Breath sounds diminished throughout all lung gloria Abdomen:Soft, non-tender, no rigidity. Extremities:No deformity, no edema or tenderness, no joint swelling or clubbing. Neurological: Normal cognition and motor skills. Cranial nerves II through XII intact. No evidence of pronator drift. Upper extremity strength 5 out of 5 bilaterally; lower extremity muscle strength 4 out of 5 bilaterally. Sensation intact Pulses:Carotid and radial pulses normal +2. Rest of the physical exam is non contributory Internal Med - H&P Results - Labs CBC & Chem 7: 05/30/18 16:51 05/31/18 04:06 Labs: Short CBC 05/30/18 Range/Units 16:51 WBC 12.5 H (4.3-11.1) K/mcL Hgb 14.4 (12.9-16.9) g/dL Hct 42.4 (37.5-50.1) % Plt Count 196 (140-400) K/mcL BMP 05/30/18 16:51 Sodium 138 Potassium 3.6 Chloride 101 Carbon Dioxide 30 H BUN 17 Creatinine 1.13 Glucose 103 Calcium 9.3 Cardiac Enzymes 05/30/18 Range/Units 16:51 Troponin I < 0.03 (< 0.04) ng/mL - Impressions ITS Impressions Head CTA 05/30/18 17:26 IMPRESSION: No acute intracranial abnormality Multifocal atherosclerotic change in the neck without significant associated arterial narrowing. No significant intracranial arterial narrowing. No discrete aneurysm. D/ / Vikas Deleon / Vikas Deleon Interpreting Provider: Vikas Deleon Neck CTA 05/30/18 17:26 IMPRESSION: No acute intracranial abnormality Multifocal atherosclerotic change in the neck without significant associated arterial narrowing. No significant intracranial arterial narrowing. No discrete aneurysm. D/ / Vikas Deleon / Vikas Deleon Interpreting Provider: Vikas Deleon - Assessment and plan (1) Slurred speech Current Visit: Yes Status: Acute Assessment and plan: Patient presents with reports of slurred speech which appears to have resolved. No other focal abnormalities at this time. CTA of the head and neck was unremarkable. Possible TIA versus recent URI versus polypharmacy -Continue with neuro checks -Telemetry -We will obtain respiratory infectious panel, UA and chest x-ray -During last admission there was discussion of obtaining a CAMERON which was not done. Consider obtaining study -MRI in the morning -Neurology consult (2) Weakness Current Visit: Yes Status: Chronic Assessment and plan: Acute on chronic lower extremity weakness of unclear etiology. No evidence of lateral weakness and he; appears to be bilateral. CTA of the head and neck showed no acute findings. Even if patient did have a TIA, presentation would be unusual. Patient does have a mild leukocytosis and reports recent illness which appears to be consistent with a upper respiratory tract infection that was recently treated with an antibiotics which may be contributing to his current presentation. Additionally, given patient's report of living alone and being unable to cook for himself, there is suspicion for deconditioning. -We will obtain a respiratory infection panel -Check TSH and albumin. -We will obtain a chest x-ray and UA -Consult to physical therapy -log pond worker consult given patient's current living condition (3) CAD (coronary artery disease) Current Visit: No Status: Chronic Assessment and plan: History of coronary artery disease status post PCI. No reports of chest pain. Troponin negative. EKG.. Continue with medical management of patient's CAD. Qualifiers: Coronary Disease-Associated Artery/Lesion type: [place] artery [place] vs. transplanted heart: [place] heart Associated angina: angina presence unspecified Qualified Code(s): I25.10 - Atherosclerotic heart disease of [place] coronary artery without angina pectoris (4) HLD (hyperlipidemia) Current Visit: No Status: Chronic Assessment and plan: Continue home statin Qualifiers: Hyperlipidemia type: pure hypercholesterolemia Qualified Code(s): E78.00 - Pure hypercholesterolemia, unspecified; E78.0 - Pure hypercholesterolemia (5) HTN (hypertension) Current Visit: No Status: Chronic Qualifiers: Hypertension type: essential hypertension Qualified Code(s): I10 - Essential (primary) hypertension (6) TIA (transient ischemic attack) Current Visit: No Status: Suspected Qualifiers: Transient cerebral ischemia type: unspecified Qualified Code(s): G45.9 - Transient cerebral ischemic attack, unspecified (7) DVT prophylaxis Current Visit: No Status: Acute Assessment and plan: Subcutaneous heparin - Time Spent With Patient Total time spent is greater than 50% in coordination of care (as documented) at patient's floor/unit and/or counseling patient:
[2018-05-30] MEDS ORDERED: Naloxone 0.4 MG/ML INJ IVP PRN (19:53)
[2018-05-30] MEDS ORDERED: Ipratropium/Albuterol Neb 3 ML IH PRN (22:56)
[2018-05-30] MEDS ORDERED: GuaiFENesin Liq 200 MG/10 ML UDC PO PRN (23:02)
[2018-05-30 23:04] LABS: Bilirubin,Urine Negative (Negative); Blood,Urine Negative (Negative); Clarity,Urine Clear (Clear); Color,Urine Yellow (Yellow); Glucose,Urine (UA) Normal (Normal); Ketones,Urine Negative (Negative); Leukocyte Esterase,Urine Negative (Negative); Nitrite,Urine Negative (Negative); PH,Urine 6.5 pH Units (5.0-8.0); Protein,Urine Negative (Neg-Trace); Specific Gravity,Urine 1.015 (1.010-1.025); Urobilinogen,Urine Normal (Normal)
[2018-05-30] MEDS ORDERED: NON-FORMULARY MEDICATION 1 EACH EACH (Sildenafil Citrate [Sildenafil Citrate] 100 MG) PO SCH (23:15)
[2018-05-30] MEDS ORDERED: traZODone 50 MG TABLET PO PRN (23:53)
[2018-05-31] MEDS: Ipratropium 1 PUFF INHALER IH SCH ×5 (00:12→22:11)
[2018-05-31 04:51] LABS: INR 1.2; Prothrombin Time 13.6 Seconds (9.4-12.1)
[2018-05-31 05:06] LABS: Troponin I < 0.03 ng/mL (< 0.04)
[2018-05-31 05:07] LABS: Alanine Aminotransferase 9 Units/L (7-52); Albumin 3.8 g/dL (3.5-5.7); Albumin/Globulin Ratio 1.7 (1.1-2.2); Alkaline Phosphatase 51 Units/L (34-104); Aspartate Amino Transferase 10 Units/L (13-39); BUN/Creatinine Ratio 17 (6-26); Blood Urea Nitrogen 18 mg/dL (8-23); Carbon Dioxide 28 mEq/L (23-29); Chloride 105 mEq/L (98-107); Chol/HDL Ratio 2.9 (0-4.9); Cholesterol 102 mg/dL (< 200); Globulin 2.3 g/dL (2.4-3.5); Glucose 101 mg/dL (70-105); HDL Cholesterol 35 mg/dL (40-59); LDL Cholesterol,Calculated 48 mg/dL (0-99); Osmolality,Calculated 292 (280-300); Potassium 3.5 mEq/L (3.5-5.1); Sodium 140 mEq/L (136-145); Total Protein 6.1 g/dL (6.4-8.9); Triglycerides 94 mg/dL (< 150); eGFR For Non-African Americans > 60 (> 60)
[2018-05-31] MEDS: *HR* Heparin 5,000 UNIT/ML VIAL SQ SCH ×3 (05:20→20:42)
[2018-05-31] MEDS: Budesonide/Formoterol 160/4.5 1 PUFF INH IH SCH ×3 (09:16→22:11)
--- NOTE | 2018-05-31 09:40 | Internal Med Progress Note ---
Hospitalist Progress Note - Encounter Date of Encounter: 05/31/18 Time of Encounter: 08:15 - Subjective Interval History: H&P reviewed. Patient with history of COPD, CAD, TIA, was admitted for slurred speech and bilateral leg weakness. Recent admission 04/2018 for similar complaints. He was told to follow up with [facility] for mod-large secundum type of ASD seen on TTE but he has not. STates that he feels better than when he first presented, speech lot clearer now although legs are still weak. - Exam Vitals: Temp Pulse Resp BP Pulse Ox 97.5 F L 79 16 120/73 91 05/31/18 07:50 05/31/18 07:50 05/31/18 07:50 05/31/18 07:50 05/31/18 07:50 Exam: General: Alert and oriented 3, not in distress Cardiovascular:Normal S1 & S2, no rubs, murmurs or gallops. No JVD. Pulse regular. Lungs: clear to auscultation Abdomen:Soft, non-tender, no rigidity. Extremities:No deformity, no edema or tenderness, no joint swelling or clubbing. Neurological: CN II-XII intact, power and sensation fully intact in both UEs. LE power 4-/5 but sensation intact. No cerebellar signs, pronator drift -ve, Babinski downgoing bilaterally - Assessment and Plan (1) Weakness Current Visit: Yes Status: Acute Assessment and Plan: Acute on chronic lower extremity weakness of unclear etiology. No lateralizing symptoms or signs. CTA of the head and neck showed no acute findings. Even if patient did have a TIA, presentation would be unusual. Patient does have a mild leukocytosis and reports recent illness which appears to be consistent with a upper respiratory tract infection that was recently treated with an antibiotics which may be contributing to his current presentation. CXR and UA unremarkable, TSH normal pending respiratory infection panel Consult to physical therapy cattle care worker consult given patient's current living condition (2) TIA (transient ischemic attack) Current Visit: No Status: Suspected Assessment and Plan: recent similar episode in 04/2018 at which time MRI was negative for infarct repeat MRI pending ASA, statin resumed (3) ASD (atrial septal defect), ostium secundum Current Visit: Yes Status: Chronic Assessment and Plan: Incidental finding on Echo 04/27/2018 mod to large secundum ASD with L to R shunt noted was recommended OR cardiology follow up for CAMERON which he has not done yet undecided for CAMERON still, wants to wait till MRI to be done first will keep him NPO after midnight in case he is agreeable (4) CAD (coronary artery disease) Current Visit: No Status: Chronic Assessment and Plan: resume home meds (5) HTN (hypertension) Current Visit: No Status: Chronic Assessment and Plan: resume home meds (6) HLD (hyperlipidemia) Current Visit: No Status: Chronic Assessment and Plan: resume statin (7) DVT prophylaxis Current Visit: No Status: Acute Assessment and Plan: Subcutaneous heparin - Time Spent with Patient Total time spent is greater than 50% in coordination of care (as documented) at patient's floor/unit and/or counseling patient: Plan of Care Discussed with: patient Internal Medicine: Result - Labs CBC & Chem 7: 05/30/18 16:51 05/31/18 04:06 Labs: Short CBC 05/30/18 Range/Units 16:51 WBC 12.5 H (4.3-11.1) K/mcL Hgb 14.4 (12.9-16.9) g/dL Hct 42.4 (37.5-50.1) % Plt Count 196 (140-400) K/mcL BMP 05/30/18 05/31/18 16:51 04:06 Sodium 138 140 Potassium 3.6 3.5 Chloride 101 105 Carbon Dioxide 30 H 28 BUN 17 18 Creatinine 1.13 1.06 Glucose 103 101 Calcium 9.3 9.0 Cardiac Enzymes 05/30/18 05/31/18 Range/Units 16:51 04:06 Troponin I < 0.03 < 0.03 (< 0.04) ng/mL Liver Function 05/31/18 Range/Units 04:06 Total Bilirubin 1.0 (0.3-1.0) mg/dL AST 10 L (13-39) Units/L ALT 9 (7-52) Units/L Alkaline Phosphatase 51 (34-104) Units/L Albumin 3.8 (3.5-5.7) g/dL Urine 05/30/18 Range/Units 22:45 Urine Color Yellow (Yellow) Urine Clarity Clear (Clear) Urine pH 6.5 (5.0-8.0) pH Units Ur Specific [place] 1.015 (1.010-1.025) Urine Protein Negative (Neg-Trace) mg/dL Urine Glucose (UA) Normal (Normal) mg/dL - ABG Interpretation ABG results: PT/INR, D-dimer PT 13.6 Seconds (9.4-12.1) H 05/31/18 04:06 - Impressions Impressions Head CTA 05/30/18 17:26 IMPRESSION: No acute intracranial abnormality Multifocal atherosclerotic change in the neck without significant associated arterial narrowing. No significant intracranial arterial narrowing. No discrete aneurysm. D/ / Vikas Deleon / Vikas Deleon Interpreting Provider: Vikas Deleon Neck CTA 05/30/18 17:26 IMPRESSION: No acute intracranial abnormality Multifocal atherosclerotic change in the neck without significant associated arterial narrowing. No significant intracranial arterial narrowing. No discrete aneurysm. D/ / Vikas Deleon / Vikas Deleon Interpreting Provider: Vikas Deleon Chest X-Ray 05/31/18 00:01 IMPRESSION: COPD and chronic interstitial changes appear stable from prior exam. No acute finding or significant change. D/ / Walter Wise MD / Walter Wise MD Interpreting Provider: Walter Wise MD Consult Discharge Plan - Plan [facility]errals: [facility]Primary Care Provider[facility] - _ (2) TIA (transient ischemic attack) Qualifiers: Transient cerebral ischemia type: unspecified Qualified Code(s): G45.9 - Transient cerebral ischemic attack, unspecified (4) CAD (coronary artery disease) Qualifiers: Coronary Disease-Associated Artery/Lesion type: [place] artery [place] vs. transplanted heart: [place] heart Associated angina: angina presence unspecified Qualified Code(s): I25.10 - Atherosclerotic heart disease of [place] coronary artery without angina pectoris (5) HTN (hypertension) Qualifiers: Hypertension type: essential hypertension Qualified Code(s): I10 - Essential (primary) hypertension (6) HLD (hyperlipidemia) Qualifiers: Hyperlipidemia type: pure hypercholesterolemia Qualified Code(s): E78.00 - Pure hypercholesterolemia, unspecified; E78.0 - Pure hypercholesterolemia
[2018-05-31] MEDS: Ranolazine 500 MG TAB.ER.12H PO SCH ×2 (11:18→20:41)
[2018-05-31] MEDS: Artificial Tears SOLN 15 ML BOTTLE BOTH EYES SCH ×3 (11:19→20:41)
[2018-05-31] MEDS: amLODIPine 5 MG TABLET PO SCH (11:19)
[2018-05-31] MEDS: Aspirin Enteric Coated 81 MG Tablet PO SCH (11:19)
[2018-05-31] MEDS: Benzonatate 100 MG CAPSULE PO SCH ×3 (11:19→20:41)
[2018-05-31] MEDS: Cholecalciferol (D-3) 1,000 UNIT TABLET PO SCH (11:19)
[2018-05-31] MEDS: Fluticasone Propionate Nasal 50 MCG/SPRAY BOTTLE NS SCH ×2 (11:20→20:41)
[2018-05-31] MEDS: Carbamide Peroxide 150 DROP/15 ML BOTTLE BOTH EARS SCH (11:20)
[2018-06-01 03:59] LABS: Basophils % 0.5 %; Eosinophils # 0.2 K/mcL (0.0-0.6); Eosinophils % 1.8 %; Hematocrit 40.5 % (37.5-50.1); Hemoglobin 13.8 g/dL (12.9-16.9); Immature Granulocytes % 0.4 % (0-4); Lymphocytes # 2.5 K/mcL (0.6-4.6); Lymphocytes % 30.8 %; Mean Corpuscular HGB Conc 34.1 g/dL (31.6-35.5); Mean Corpuscular Hemoglobin 29.9 pg (28.0-33.3); Mean Corpuscular Volume 87.9 fL (83.0-100.0); Mean Platelet Volume 10.4 fL (9.4-12.4); Monocytes # 0.6 K/mcL (0.0-1.3); Monocytes % 7.2 %; Neutrophils # 4.8 K/mcL (1.6-8.9); Platelet Count 182 K/mcL (140-400); Red Blood Count 4.61 M/mcL (4.19-5.50); Red Cell Distribution Width 14.1 % (11.5-14.5); Segmented Neutrophils % 59.3 %
[2018-06-01 04:16] LABS: BUN/Creatinine Ratio 17 (6-26); Blood Urea Nitrogen 15 mg/dL (8-23); Calcium 8.7 mg/dL (8.6-10.3); Carbon Dioxide 27 mEq/L (23-29); Chloride 106 mEq/L (98-107); Glucose 99 mg/dL (70-105); Osmolality,Calculated 285 (280-300); Potassium 3.7 mEq/L (3.5-5.1); Sodium 137 mEq/L (136-145); eGFR For Non-African Americans > 60 (> 60)
[2018-06-01] MEDS: Ipratropium 1 PUFF INHALER IH SCH ×2 (04:32→09:49)
[2018-06-01] MEDS: *HR* Heparin 5,000 UNIT/ML VIAL SQ SCH (06:06)
[2018-06-01] MEDS: Artificial Tears SOLN 15 ML BOTTLE BOTH EYES SCH (08:14)
[2018-06-01] MEDS: Fluticasone Propionate Nasal 50 MCG/SPRAY BOTTLE NS SCH (08:15)
[2018-06-01] MEDS: Cholecalciferol (D-3) 1,000 UNIT TABLET PO SCH (08:15)
[2018-06-01] MEDS: Aspirin Enteric Coated 81 MG Tablet PO SCH (08:15)
[2018-06-01] MEDS: Carbamide Peroxide 150 DROP/15 ML BOTTLE BOTH EARS SCH (08:16)
[2018-06-01] MEDS: Ranolazine 500 MG TAB.ER.12H PO SCH (08:16)
[2018-06-01] MEDS: Benzonatate 100 MG CAPSULE PO SCH (08:16)
[2018-06-01] MEDS: amLODIPine 5 MG TABLET PO SCH (08:16)
[2018-06-01] MEDS: Budesonide/Formoterol 160/4.5 1 PUFF INH IH SCH (09:52)
--- NOTE | 2018-06-01 10:38 | Neurology - Consult Note ---
<FaithclaireDeven N - Last Filed: 06/01/18 12:00> Date of Encounter: 06/01/18 Time of Encounter: 10:34 Assessment and Plan (1) Weakness Status: Acute This is the patient's third admission for similar symptoms of bilateral lower weakness. The patient experienced slurred speech in conjunction with his weakness, however the patient cannot recall his symptoms. His symptoms were transient and he denies any trouble speaking or any weakness today. He is alert and oriented 3. Patient has had several MRIs that have all been negative for acute CVA. During his previous stroke workup he did have carotid stenosis of 60-79% on the right. There are no focal neurological deficits found on his physical examination. Patient does have stroke risk factors including smoking and hyperlipidemia, and he is on aspirin and Lipitor at home however he states that he does not take his aspirin as prescribed. During his last admission an echo was performed that did reveal a moderate to large secundum atrial septal defect, there was a recommendation to follow-up with a [facility] as well. On physical examination patient did have lower extremity reflexes and his strength was intact, suspicion at this time is low for [place] sndrome secondary to his recent URI. It is possible this could be secondary to metabolic encephalopathy from his recent illness. Patient's symptoms do not coincide well with a TIA but it is on the differential as patient has stroke risk factors. -MRI negative for any acute ischemic findings -Previous echo revealed moderate to large secundum ASD, recommend follow-up with [facility] as outpatient -Continue telemetry -Patient is on aspirin and experienced new neurological symptoms that have resolved, will continue aspirin as patient states that he has not been taking his aspirin as prescribed -We will continue high-intensity statin, lipids were within normal limits -Carotid Dopplers performed during last visit with carotid stenosis of 60-79% on the right, patient was to follow-up with outpatient vascular surgery History of Present Illness Chief complaint: Weakness HPI: Mr. Vieira is a 67 year old male who presented to the emergency department from home with slurred speech and weakness. Patient does not recall the events surrounding his admission and there are no family members present in the room, therefore history was collected from records. Reportedly patient initially experienced slurred speech at approximate 9 AM in the morning on 05/30/18. This was noticed by his daughter later in the day as well. Patient also experienced bilateral lower extremity weakness and felt unsteady on his feet. [facility] [place] [facility] evaluation and was transferred to [facility] for concerns for an acute CVA. Patient was in the hospital for similar symptoms twice over the past 2 months, workup at that time including MRI was negative for any acute neurological findings. However, carotid ultrasound study did reveal stenosis of 60-79% on the right. Patient is on Lipitor and aspirin at home, but on questioning states that he has not been taking his aspirin daily. This morning patient is alert and oriented 3, denies any new symptoms, but cannot remember the events surrounding his admission. He states that he has been told that he has had strokes in the past, but there are no evidence of prior CVA in his record. Past Med Surg Social Fam HX - Past Medical History Medical history: CHF, COPD, coronary artery disease, hypertension, myocardial infarction, TIA Additional medical history: patient unable to recall all medical history Psychiatric history: no psych history - Past Surgical History Surgical History: angioplasty/stent Additional surgical history: 4 stents. back surgery - Social History Smoking Status: Current every day smoker Packs per day: 1/2 Smokeless Tobacco Status: No Alcohol use: none Drug use: none - Family History Father Family Member Ethnicity: Non- Living Status: Hx Family Cardiac Disorders: Yes (AR) Mother Family Member Ethnicity: Non- Living Status: Hx Family Cancer: Yes (Stomach) Hx Family Neurologic Disorders: Yes (DM) Brother Family Member Ethnicity: Non- Living Status: Hx Family Cardiac Disorders: Yes Hx Family Endocrine Disorder: Yes (DM) Hx Family Neurologic Disorders: Yes (CVA) Sister Family Member Ethnicity: Non- Living Status: Hx Family Cancer: Yes Medications and Allergies Aspirin Enteric Coated [Aspirin EC] 81 mg PO DAILY 07/10/17 [History] Atorvastatin Calcium [Lipitor] 80 mg PO DAILY 07/10/17 [History] BuPROPion SR (12 HR) [Wellbutrin SR] 150 mg PO BID 07/10/17 [History] Budesonide/Formoterol 160/4.5 [Symbicort 160/4.5] 2 puff IH BID 07/10/17 [ History] Carbamide Peroxide [Ear Drops] 2 drop BOTH EARS DAILY 07/10/17 [History] Fluticasone Propionate Nasal [Flonase] 1 spray NS BID 07/10/17 [History] Ipratropium [ATROVENT Inhaler] 2 puff IH Q6H 07/10/17 [History] Oxycodone HCl/Acetaminophen [Percocet 5-325 mg Tablet] 1 each PO QID PRN 07/10/17 [History] Propylene Glycol/Peg 400 [Systane 0.3-0.4% Eye Drops] 1 drop BOTH EYES TID 07/10/17 [History] Ranolazine [Ranexa] 1,000 mg PO BID 07/10/17 [History] amLODIPine [Norvasc] 5 mg PO DAILY 07/10/17 [History] Albuterol Sulfate [Ventolin Hfa] 2 puff IH Q4H PRN 04/26/18 [History] Cholecalciferol (Vitamin D3) [Vitamin D3] 1,000 unit PO DAILY 04/26/18 [History] Docusate [Colace] 100 mg PO DAILY PRN 04/26/18 [History] Loratadine [Allergy Relief] 10 mg PO DAILY 04/26/18 [History] Montelukast [Singulair] 10 mg PO HS 04/26/18 [History] Omeprazole [PriLOSEC] 20 mg PO BID 04/26/18 [History] Pregabalin [Lyrica] 300 mg PO BID 04/26/18 [History] Sildenafil Citrate 100 mg PO AD 04/26/18 [History] Trazodone HCl 100 mg PO HS PRN 04/26/18 [History] guaiFENesin [Scot-Tussin Expectorant] 100 mg PO Q4H PRN 04/26/18 [History] Benzonatate [Tessalon] 100 mg PO TID 05/30/18 [History] Furosemide [Lasix] 20 mg PO BID 05/30/18 [History] Potassium Chloride [Klor-Con 10] 10 meq PO DAILY 05/30/18 [History] Allergy/AdvReac Type Severity Reaction Status Date / Time No Known Allergies Allergy Verified 04/26/18 11:22 All Systems: The remainder of the systems were reviewed and are negative - Constitutional Constitutional ROS IM: no frequent falls - Musculoskeletal Musculoskeletal ROS IM: no muscle weakness - Neurological Neurological ROS: no abnormal gait Physical Examination - Vital Signs Vital Signs: Initial Vital Signs Temp Pulse Resp BP Pulse Ox 97.8 F 65 18 132/62 96 05/30/18 16:46 05/30/18 16:46 05/30/18 16:46 05/30/18 16:46 05/30/18 16:46 - Exam Exam: Constitutional: Awake and alert, oriented 3, no acute distress HEENT: Head is atraumatic and normocephalic. Pupils are round and reactive to light bilaterally, extraocular muscles are intact, no facial asymmetry, no dysarthria, no facial sensory changes. Tongue protrudes midline and uvula is midline. No oropharyngeal lesions. External ears and nares are patent. Neck: Trachea midline no JVD Chest: Symmetrical chest wall rise no tenderness to palpation Cardiovascular: Regular rate and rhythm no murmurs Respiratory: Clear to consultation bilaterally Neurological: -Cranial nerves: Head is atraumatic and normocephalic. Pupils are round and reactive to light bilaterally, extraocular muscles are intact, no facial asymmetry, no dysarthria, no facial sensory changes. Tongue protrudes midline and uvula is midline. -Upper extremities: Strength is 5 out of 5 bilaterally throughout. Biceps reflexes 2+ bilaterally. No pronator drift. Normal finger to nose. Negative palmomental and palmar grasp reflexes. Negative Friend's. -Low 70s: Strength is 5 out of 5 bilaterally throughout. Patellar reflexes 2+ b ilaterally. Normal iodi-ff-thsv. Negative clonus. Negative Babinski. Results - Laboratory Findings CBC and BMP: 06/01/18 03:42 06/01/18 03:42 Abnormal lab findings: Abnormal lab results PT 13.6 Seconds (9.4-12.1) H 05/31/18 04:06 APTT 36.9 Seconds (26.0-36.0) H 05/30/18 16:51 AST 10 Units/L (13-39) L 05/31/18 04:06 Serum Total Protein 6.1 g/dL (6.4-8.9) L 05/31/18 04:06 Globulin 2.3 g/dL (2.4-3.5) L 05/31/18 04:06 HDL Cholesterol 35 mg/dL (40-59) L 05/31/18 04:06 Consult Discharge Plan - Plan Instructions: Hypokalemia (GEN) Referrals: [facility] [Provider Group] (Follow up appointment has been requested. Office will call with date and time of appoitment. ) [facility]Primary Care Provider[facility] - 06/08/18 10:45 am <Shelley Del Cid I - Last Filed: 06/01/18 13:28> Date of Encounter: 06/01/18 Assessment and Plan (1) Weakness Status: Acute Pt was seen and examined, my medical decision was reviewed with the Resident Physician, I agree with the documented findings, disposition and treatment plan, as described except to the extent set forth below. This patient who was admitted earlier with some nonspecific symptoms without any evidence of ischemia on his imaging studies at the same time do not see any focal findings on examination and symptoms and also does not seem to be very convincing for a TIA though he did have multiple risk factors for it including ASD as well as carotid stenosis, he has about 60-79% right sided asymptomatic carotid stenosis currently recommend medical management but certainly he would require evaluation by category analyst as need [facility] as well as vascular surgery appointment In the meantime continue him with antiplatelet therapy along with statin no focal deficit on examination do not think he would require any physical therapy or any short-term rehabilitation were certainly require risk factor modif ication. Shelley Del Cid MD (2) Carotid stenosis, right Status: Acute History of Present Illness HPI: Mr. Vieira is a 67 year old male All Systems: The remainder of the systems were reviewed and are negative Physical Examination - Vital Signs Vital Signs: Initial Vital Signs Temp Pulse Resp BP Pulse Ox 97.8 F 65 18 132/62 96 05/30/18 16:46 05/30/18 16:46 05/30/18 16:46 05/30/18 16:46 05/30/18 16:46 Results - Laboratory Findings CBC and BMP: 06/01/18 03:42 06/01/18 03:42 Abnormal lab findings: Abnormal lab results PT 13.6 Seconds (9.4-12.1) H 05/31/18 04:06 APTT 36.9 Seconds (26.0-36.0) H 05/30/18 16:51 AST 10 Units/L (13-39) L 05/31/18 04:06 Serum Total Protein 6.1 g/dL (6.4-8.9) L 05/31/18 04:06 Globulin 2.3 g/dL (2.4-3.5) L 05/31/18 04:06 HDL Cholesterol 35 mg/dL (40-59) L 05/31/18 04:06
--- NOTE | 2018-06-01 10:49 | Discharge Summary ---
- NOTES TO OUTPATIENT PROVIDER Notes to Outpatient Provider: Follow up with PCP in one week. Follow-up with cardiology for [facility] due to your atrial septal defect. Please quit smoking Orders not resulted at time of discharge: Pending orders 05/30/18 18:24 EKG [ECG 12 lead ECG] [ECG] Stat 05/30/18 23:43 Respiratory Infection Panel [MOLMIC] Routine Date of Encounter: 06/01/18 Time of Encounter: 10:46 - Discharge Diagnosis (1) Weakness Priority: Primary Status: Acute (2) TIA (transient ischemic attack) Priority: Primary Status: Suspected Qualifiers: Qualified Code(s): G45.9 - Transient cerebral ischemic attack, unspecified (3) ASD (atrial septal defect), ostium secundum Priority: Secondary Status: Chronic (4) CAD (coronary artery disease) Priority: Secondary Status: Chronic Qualifiers: Qualified Code(s): I25.10 - Atherosclerotic heart disease of [place] coronary artery without angina pectoris (5) HTN (hypertension) Priority: Secondary Status: Chronic Qualifiers: Qualified Code(s): I10 - Essential (primary) hypertension (6) HLD (hyperlipidemia) Priority: Secondary Status: Chronic Qualifiers: Qualified Code(s): E78.00 - Pure hypercholesterolemia, unspecified; E78.0 - Pure hypercholesterolemia (7) DVT prophylaxis Priority: Secondary Status: Acute Hospital course: Mr. Vieira is a 67 year old male with a past medical history of CHF, COPD, coronary artery disease, hypertension, TIA who presents to the ED from the [place] due to concern for stroke like symptoms, specifically slurred speech with bilateral leg weakness. Of note, patient was recently admitted for a similar presentation on 04/30/18 for evaluation of weakness and prior to that on 04/26 for a full stroke workup including MRI which was negative. Pt was admitted in the hospital and placed him on teletypesetter monitor. He denied any more weakness / slurred speech. His MRI did not show any acute infarction / ishcemia. His CTA of Head and Neck showed no acute intracranial abnormality. He does how multifocal atherosclerotic changes in the neck without significant arterial narrowing. Reviewed his 2 D Echo from 04/14 showed preserved LVEF and moderate size ASD. I did discuss with the pt about going to [facility], however pt wanted to have it done as an out pt. So scheduled a f/u appt with Card as an out pt. Also counseled the patient quit smoking - Time Spent with Patient Total time spent providing and/or coordinating discharge services: - Discharge Medications Home Medications: Aspirin Enteric Coated [Aspirin EC] 81 mg PO DAILY 07/10/17 [History] Atorvastatin Calcium [Lipitor] 80 mg PO DAILY 07/10/17 [History] BuPROPion SR (12 HR) [Wellbutrin SR] 150 mg PO BID 07/10/17 [History] Budesonide/Formoterol 160/4.5 [Symbicort 160/4.5] 2 puff IH BID 07/10/17 [History] Carbamide Peroxide [Ear Drops] 2 drop BOTH EARS DAILY 07/10/17 [History] Fluticasone Propionate Nasal [Flonase] 1 spray NS BID 07/10/17 [History] Ipratropium [ATROVENT Inhaler] 2 puff IH Q6H 07/10/17 [History] Oxycodone HCl/Acetaminophen [Percocet 5-325 mg Tablet] 1 each PO QID PRN 07/10/17 [History] Propylene Glycol/Peg 400 [Systane 0.3-0.4% Eye Drops] 1 drop BOTH EYES TID 07/10/17 [History] Ranolazine [Ranexa] 1,000 mg PO BID 07/10/17 [History] amLODIPine [Norvasc] 5 mg PO DAILY 07/10/17 [History] Albuterol Sulfate [Ventolin Hfa] 2 puff IH Q4H PRN 04/26/18 [History] Cholecalciferol (Vitamin D3) [Vitamin D3] 1,000 unit PO DAILY 04/26/18 [History] Docusate [Colace] 100 mg PO DAILY PRN 04/26/18 [History] Loratadine [Allergy Relief] 10 mg PO DAILY 04/26/18 [History] Montelukast [Singulair] 10 mg PO HS 04/26/18 [History] Omeprazole [PriLOSEC] 20 mg PO BID 04/26/18 [History] Pregabalin [Lyrica] 300 mg PO BID 04/26/18 [History] Sildenafil Citrate 100 mg PO AD 04/26/18 [History] Trazodone HCl 100 mg PO HS PRN 12/30/18 [History] guaiFENesin [Scot-Tussin Expectorant] 100 mg PO Q4H PRN 04/26/18 [History] Benzonatate [Tessalon] 100 mg PO TID 05/30/18 [History] Furosemide [Lasix] 20 mg PO BID 05/30/18 [History] Potassium Chloride [Klor-Con 10] 10 meq PO DAILY 05/30/18 [History] Allergies/Adverse Reactions: Allergy/AdvReac Type Severity Reaction Status Date / Time No Known Allergies Allergy Verified 04/26/18 11:22 Date of admission: 05/30/18 19:51 [facility] care physician: [facility] Consults: 05/30/18 19:53 Consult to Physical Therapy [CONS] Routine Comment: Evaluate, develop and implement POC Reason for Consult: Lower extremity weakness Does patient have active BEDREST order?: Yes Is patient medically & hemodynamically stable?: Yes Consult to [facility] [CONS] Routine Reason for SW Consult: Reports of patient living alone in poor living conditions. 05/30/18 23:01 Consult to Neurology [CONS] Routine Consulting Provider: [facility] Reason for Consult: Possible TIA in the setting of slurred speech which is now resolved Call Completed: No - Constitutional Vitals: Temp Pulse Resp BP Pulse Ox 97.7 F 67 14 112/68 93 06/01/18 07:19 06/01/18 07:19 06/01/18 09:53 06/01/18 07:19 06/01/18 09:53 General appearance: Present: A&O X 3, no acute distress, answers questions appropriately Exam: Gen: Alert, awake, Oriented to time,place and person Chest: Diminished breath sounds B/L, No wheezing, No crackles, No rales Heart: S1S2+ RRR No murmurs Abd: Soft, NT, BS +, No organomegaly Ext: No edema, pulses are palpable, No calf tenderness Neuro : Benign findings Skin: No rash. - Patient Status Disposition: Home, Self-Care Condition: Good Overall status at discharge: patient is back to baseline - Discharge Instructions Follow Up With: [facility] [Primary Care Provider[facility] - - Diet and Activity Activity: as per physical therapy, increase activity as tolerated Diet: low salt diet
[2018-06-01 10:56] VITALS: BP 120/79
== END 2018-06-01 12:14 | disposition home or self-care (01) ==
LOC: 3BNU 16:40 → EMEROOARM 16:40 → SUATTDRO 19:51 → 3BNU 21:34
PROVIDERS: ADMIT Internal Medicine; ATTEND Family Medicine

== ENCOUNTER 2018-10-01 20:17 | Inpatient (IN) ==
[2018-10-01] MEDS ORDERED: Isovue-370 500 ML BOTTLE IVP ONE (20:36)
--- NOTE | 2018-10-01 20:39 | Emergency Department Note ---
Disposition Clinical Impression: Delirium Pneumonia Qualifiers: Pneumonia type: due to unspecified organism Laterality: unspecified laterality Lung location: upper lobe of lung Qualified Code(s): J18.1 - Lobar pneumonia, unspecified organism Disposition: Admitted As Inpatient Condition: Fair Time of Disposition: 23:01 General Adult HPI - General Chief complaint: ED Neuro Symptoms/Deficit Stated complaint: NEURO Time Seen by Provider: 10/01/18 20:35 - History of Present Illness Pain Scale: 0 - Related Data Home Medications Medication Instructions Recorded Confirmed Atorvastatin Calcium [Lipitor] 80 mg PO DAILY 07/10/17 09/24/18 Budesonide/Formoterol 160/4.5 2 puff IH BID 07/10/17 09/24/18 [Symbicort 160/4.5] Fluticasone Propionate Nasal 1 spray NS BID 07/10/17 09/24/18 [Flonase] Ipratropium [ATROVENT Inhaler] 2 puff IH Q6H PRN 07/10/17 09/24/18 Oxycodone HCl/Acetaminophen 1 each PO QID PRN 07/10/17 09/24/18 [Percocet 5-325 mg Tablet] Propylene Glycol/Peg 400 [Systane 1 drop BOTH EYES TID 07/10/17 07/18/18 0.3-0.4% Eye Drops] Ranolazine [Ranexa] 1,000 mg PO BID 07/10/17 07/18/18 Albuterol Sulfate [Ventolin Hfa] 2 puff IH Q4H PRN 04/26/18 09/24/18 Cholecalciferol (Vitamin D3) 1,000 unit PO DAILY 04/26/18 09/24/18 [Vitamin D3] Docusate [Colace] 100 mg PO DAILY PRN 04/26/18 09/24/18 Loratadine [Allergy Relief] 10 mg PO DAILY PRN 04/26/18 09/24/18 Montelukast [Singulair] 10 mg PO HS PRN 04/26/18 09/24/18 Omeprazole [PriLOSEC] 20 mg PO BID 04/26/18 09/24/18 Pregabalin [Lyrica] 300 mg PO BID 04/26/18 09/24/18 Sildenafil Citrate 100 mg PO AD PRN 04/26/18 09/24/18 Trazodone HCl 100 mg PO HS PRN 04/26/18 09/24/18 Furosemide [Lasix] 20 mg PO BID 05/30/18 09/24/18 Potassium Chloride [Klor-Con 10] 10 meq PO BID 05/30/18 09/24/18 Aspirin 81 mg PO DAILY 07/18/18 09/24/18 Ipratropium/Albuterol Sulfate 3 ml IH Q6H PRN 07/18/18 09/24/18 [Iprat-Albut 0.5-3(2.5) mg/3 ml] Benzonatate [Tessalon] 100 mg PO TID 09/24/18 09/24/18 Carbamide Peroxide/NaCl/Nahco3 2 % OT BID 09/24/18 09/24/18 [Clearcanal Ear Wax Complete] amLODIPine [Norvasc] 5 mg PO DAILY 09/24/18 09/24/18 Allergies Allergy/AdvReac Type Severity Reaction Status Date / Time No Known Allergies Allergy Verified 07/18/18 12:35 Past Medical History - Past Medical History Medical history: Reports: CHF, COPD, coronary artery disease, hyperlipidemia, hypertension, myocardial infarction, TIA Surgical history: Reports: angioplasty/stent, orthopedic, other Psychiatric history: Reports: no psych history - Social History Smoking Status: Current every day smoker Smokeless Tobacco Status: No Alcohol use: Reports: none Drug use: Reports: none Course Vital Signs Temperature 98.6 F 10/01/18 20:29 Pulse Rate 90 10/01/18 20:29 Respiratory Rate 22 10/01/18 20:29 Blood Pressure 130/75 10/01/18 20:29 O2 Sat by Pulse Oximetry 92 10/01/18 20:29 Temperature 98.6 F 10/01/18 20:29 Pulse Rate 77 10/01/18 22:39 Respiratory Rate 20 10/01/18 22:39 Blood Pressure 107/59 10/01/18 22:39 O2 Sat by Pulse Oximetry 96 10/01/18 22:39 Oxygen Delivery Oxygen Delivery Nasal Cannula Medical Decision Making - Lab Data Result diagrams: 10/01/18 20:40 10/01/18 20:40 Lab Results 10/01/18 10/01/18 10/01/18 Range/Units 20:40 20:40 20:40 WBC 12.0 H (4.3-11.1) K/mcL RBC 4.66 (4.19-5.50) M/mcL Hgb 14.0 (12.9-16.9) g/dL Hct 41.7 (37.5-50.1) % MCV 89.5 (83.0-100.0) fL MCH 30.0 (28.0-33.3) pg MCHC 33.6 (31.6-35.5) g/dL RDW 13.3 (11.5-14.5) % Plt Count 248 (140-400) K/mcL MPV 10.5 (9.4-12.4) fL Immature Gran % 0.4 (0-4) % Seg Neutrophils % 85.0 % Lymphocytes % 7.3 % Monocytes % 6.7 % Eosinophils % 0.4 % Basophils % 0.2 % Neutrophils # 10.2 H (1.6-8.9) K/mcL Lymphocytes # 0.9 (0.6-4.6) K/mcL Monocytes # 0.8 (0.0-1.3) K/mcL Eosinophils # 0.1 (0.0-0.6) K/mcL Basophils # 0.0 (0.0-0.2) K/mcL PT 14.7 H (9.4-12.1) Seconds INR 1.3 APTT 40.8 H (26.0-36.0) Seconds Sodium 133 L (136-145) mEq/L Potassium 4.0 (3.5-5.1) mEq/L Chloride 97 L (98-107) mEq/L Carbon Dioxide 27 (23-29) mEq/L BUN 12 (8-23) mg/dL Creatinine 1.18 (0.70-1.30) mg/dL Est GFR ( Amer) > 60 (> 60) Est GFR (Non-Af Amer) > 60 (> 60) BUN/Creatinine Ratio 10 (6-26) Glucose 97 (70-105) mg/dL Calculated Osmolality 276 L (280-300) Lactic Acid (0.5-2.2) mmol/L Calcium 9.2 (8.6-10.3) mg/dL Total Bilirubin 1.3 H (0.3-1.0) mg/dL Direct Bilirubin 0.2 (0.0-0.2) mg/dL Indirect Bilirubin 1.1 (0.0-1.2) mg/dL AST 12 L (13-39) Units/L ALT 7 (7-52) Units/L Alkaline Phosphatase 56 (34-104) Units/L Ammonia (16-53) mcmol/L Troponin I < 0.03 (< 0.04) ng/mL Serum Total Protein 6.8 (6.4-8.9) g/dL Albumin 4.0 (3.5-5.7) g/dL Globulin 2.8 (2.4-3.5) g/dL Albumin/Globulin Ratio 1.4 (1.1-2.2) Urine Color (Yellow) Urine Clarity (Clear) Urine pH (5.0-8.0) pH Units Ur Specific [place] (1.010-1.025) Urine Protein (Neg-Trace) mg/dL Urine Glucose (UA) (Normal) mg/dL Urine Ketones (Negative) mg/dL Urine Blood (Negative) Urine Nitrite (Negative) Urine Bilirubin (Negative) Urine Urobilinogen (Normal) mg/dL Ur Leukocyte Esterase (Negative) Ur Culture Indicated? (NO) Urine Opiates Screen (Ucfwrg=772) ng/mL Ur Barbiturates Screen (Ohnzyt=897) ng/mL Ur Phencyclidine Scrn (Cutoff=25) ng/mL Ur Amphetamines Screen (Uiucki=6967) ng/mL U Benzodiazepines Scrn (Chrsdu=107) ng/mL Urine Cocaine Screen (Cutoff= 300) ng/mL U Marijuana (THC) Screen (Cutoff = 50) ng/mL Ur Drug Screen Interp Ethyl Alcohol < 10 (Less than 10) mg/dL 10/01/18 10/01/18 10/01/18 Range/Units 20:40 21:35 21:35 WBC (4.3-11.1) K/mcL RBC (4.19-5.50) M/mcL Hgb (12.9-16.9) g/dL Hct (37.5-50.1) % MCV (83.0-100.0) fL MCH (28.0-33.3) pg MCHC (31.6-35.5) g/dL RDW (11.5-14.5) % Plt Count (140-400) K/mcL MPV (9.4-12.4) fL Immature Gran % (0-4) % Seg Neutrophils % % Lymphocytes % % Monocytes % % Eosinophils % % Basophils % % Neutrophils # (1.6-8.9) K/mcL Lymphocytes # (0.6-4.6) K/mcL Monocytes # (0.0-1.3) K/mcL Eosinophils # (0.0-0.6) K/mcL Basophils # (0.0-0.2) K/mcL PT (9.4-12.1) Seconds INR APTT (26.0-36.0) Seconds Sodium (136-145) mEq/L Potassium (3.5-5.1) mEq/L Chloride (98-107) mEq/L Carbon Dioxide (23-29) mEq/L BUN (8-23) mg/dL Creatinine (0.70-1.30) mg/dL Est GFR ( Amer) (> 60) Est GFR (Non-Af Amer) (> 60) BUN/Creatinine Ratio (6-26) Glucose (70-105) mg/dL Calculated Osmolality (280-300) Lactic Acid (0.5-2.2) mmol/L Calcium (8.6-10.3) mg/dL Total Bilirubin (0.3-1.0) mg/dL Direct Bilirubin (0.0-0.2) mg/dL Indirect Bilirubin (0.0-1.2) mg/dL AST (13-39) Units/L ALT (7-52) Units/L Alkaline Phosphatase (34-104) Units/L Ammonia 24 (16-53) mcmol/L Troponin I (< 0.04) ng/mL Serum Total Protein (6.4-8.9) g/dL Albumin (3.5-5.7) g/dL Globulin (2.4-3.5) g/dL Albumin/Globulin Ratio (1.1-2.2) Urine Color Yellow (Yellow) Urine Clarity Clear (Clear) Urine pH 6.0 (5.0-8.0) pH Units Ur Specific [place] 1.026 H (1.010-1.025) Urine Protein Negative (Neg-Trace) mg/dL Urine Glucose (UA) Normal (Normal) mg/dL Urine Ketones Negative (Negative) mg/dL Urine Blood Negative (Negative) Urine Nitrite Negative (Negative) Urine Bilirubin Negative (Negative) Urine Urobilinogen Normal (Normal) mg/dL Ur Leukocyte Esterase Negative (Negative) Ur Culture Indicated? NO (NO) Urine Opiates Screen Negative (Gyydkf=734) ng/mL Ur Barbiturates Screen Negative (Lkbaln=972) ng/mL Ur Phencyclidine Scrn Negative (Cutoff=25) ng/mL Ur Amphetamines Screen Negative (Zvrhrz=1633) ng/mL U Benzodiazepines Scrn Negative (Khkmnc=667) ng/mL Urine Cocaine Screen Negative (Cutoff= 300) ng/mL U Marijuana (THC) Screen Negative (Cutoff = 50) ng/mL Ur Drug Screen Interp See Below Ethyl Alcohol (Less than 10) mg/dL 10/01/18 Range/Units 22:12 WBC (4.3-11.1) K/mcL RBC (4.19-5.50) M/mcL Hgb (12.9-16.9) g/dL Hct (37.5-50.1) % MCV (83.0-100.0) fL MCH (28.0-33.3) pg MCHC (31.6-35.5) g/dL RDW (11.5-14.5) % Plt Count (140-400) K/mcL MPV (9.4-12.4) fL Immature Gran % (0-4) % Seg Neutrophils % % Lymphocytes % % Monocytes % % Eosinophils % % Basophils % % Neutrophils # (1.6-8.9) K/mcL Lymphocytes # (0.6-4.6) K/mcL Monocytes # (0.0-1.3) K/mcL Eosinophils # (0.0-0.6) K/mcL Basophils # (0.0-0.2) K/mcL PT (9.4-12.1) Seconds INR APTT (26.0-36.0) Seconds Sodium (136-145) mEq/L Potassium (3.5-5.1) mEq/L Chloride (98-107) mEq/L Carbon Dioxide (23-29) mEq/L BUN (8-23) mg/dL Creatinine (0.70-1.30) mg/dL Est GFR ( Amer) (> 60) Est GFR (Non-Af Amer) (> 60) BUN/Creatinine Ratio (6-26) Glucose (70-105) mg/dL Calculated Osmolality (280-300) Lactic Acid 0.9 (0.5-2.2) mmol/L Calcium (8.6-10.3) mg/dL Total Bilirubin (0.3-1.0) mg/dL Direct Bilirubin (0.0-0.2) mg/dL Indirect Bilirubin (0.0-1.2) mg/dL AST (13-39) Units/L ALT (7-52) Units/L Alkaline Phosphatase (34-104) Units/L Ammonia (16-53) mcmol/L Troponin I (< 0.04) ng/mL Serum Total Protein (6.4-8.9) g/dL Albumin (3.5-5.7) g/dL Globulin (2.4-3.5) g/dL Albumin/Globulin Ratio (1.1-2.2) Urine Color (Yellow) Urine Clarity (Clear) Urine pH (5.0-8.0) pH Units Ur Specific [place] (1.010-1.025) Urine Protein (Neg-Trace) mg/dL Urine Glucose (UA) (Normal) mg/dL Urine Ketones (Negative) mg/dL Urine Blood (Negative) Urine Nitrite (Negative) Urine Bilirubin (Negative) Urine Urobilinogen (Normal) mg/dL Ur Leukocyte Esterase (Negative) Ur Culture Indicated? (NO) Urine Opiates Screen (Pjfcqv=498) ng/mL Ur Barbiturates Screen (Wwtlze=167) ng/mL Ur Phencyclidine Scrn (Cutoff=25) ng/mL Ur Amphetamines Screen (Zdyevz=3188) ng/mL U Benzodiazepines Scrn (Ratvwh=033) ng/mL Urine Cocaine Screen (Cutoff= 300) ng/mL U Marijuana (THC) Screen (Cutoff = 50) ng/mL Ur Drug Screen Interp Ethyl Alcohol (Less than 10) mg/dL Attestation Statement - Attestation Attestation: I examined this patient and my medical decision-making was reviewed with the Resident Physician. I agree with the documented findings, disposition and treatment plan as described except to the extent set forth below. Patient to the ED with altered mental status. Brought in by daughter. She is concerned he is not acting right. Confused and disoriented. Shaking. Daughter saw him yesterday, but is unsure how he is been acting all day today. She says he has a history of mini strokes and he is active like this before. On our exam he is awake alert. He is moving all extremities. Disoriented to place and time. Unable to follow complex commands such as finger-nose testing, it is able to raise his arms and legs. No drift. No tongue deviation. Plan. Altered mental status workup. His last known well will be over 24 hours ago. Daughter is attempting to contact family to see if this is any different. Workup shows a possible consolidation of the right lung. We will place on antibiotics. Patient is admitted for further workup. Chest X-Ray 10/01/18 20:35 IMPRESSION: New consolidation within the right lower lung, compatible with pneumonia or aspiration. D/ / Crispin Brody MD / Crispin Brody MD Interpreting Provider: Crispin Brody MD Angiography CT 10/01/18 20:36 IMPRESSION: CT HEAD:: No acute intracranial abnormality. No findings are diagnostic of an acute infarct. CT angiogram neck: No focal significant arterial narrowing is noted in the neck. Left lung stellate opacity. This was not definitively present on prior CT angiography of the neck in May. This could represent a small area of pneumonia or developing neoplasm. Correlate with CT chest CT angiogram head: No focal significant arterial narrowing is noted. There is mild fusiform enlargement of the lateral aspect of the left middle cerebral artery in the anterior left sylvian fissure region. This is stable D/ / Vikas Deleon / Vikas Deleon Interpreting Provider: Vikas Deleon Neck CTA 10/01/18 20:36
--- NOTE | 2018-10-01 21:04 | Emergency Department Note ---
Disposition Clinical Impression: Delirium Pneumonia Qualifiers: Pneumonia type: due to unspecified organism Laterality: unspecified laterality Lung location: upper lobe of lung Qualified Code(s): J18.1 - Lobar pneumonia, unspecified organism Disposition: Admitted As Inpatient Condition: Fair Time of Disposition: 22:25 Neuro HPI - General Chief Complaint: ED Neuro Symptoms/Deficit Stated Complaint: NEURO Time Seen by Provider: 10/01/18 20:35 Source: family, EMS Mode of arrival: EMS Limitations: altered mental status Nursing Notes Reviewed: Yes Vital Signs Reviewed: Yes - History of Present Illness HPI Narrative: 67-year-old male on anticoagulation arrives to the emergency department with alteration in mentation, abnormal behavior. Last known well is difficult to assess. Daughter states that she last saw him yesterday at 1500. [place] spoke to the patient at 1300 today. Daughter at home stated that the patient left a voicemail on the phone at 1730. The patient has multiple history of TIA and this is identical to previous episodes of TIA. Unsure of exactly the story but essentially the patient was not acting right the patient was brought into the emergency department by a friend at home. The patient is following commands intermittently but not able to completely understand situation. The patient is alert but is not oriented to anything other than person. He is having multiple episodes of shaking episodes and urinary incontinence. No known history of seizures. Stroke alert was not called secondary to no last known well. - Related Data Home Medications: Home Medications Medication Instructions Recorded Confirmed Atorvastatin Calcium [Lipitor] 80 mg PO DAILY 07/10/17 09/24/18 Budesonide/Formoterol 160/4.5 2 puff IH BID 07/10/17 09/24/18 [Symbicort 160/4.5] Fluticasone Propionate Nasal 1 spray NS BID 07/10/17 09/24/18 [Flonase] Ipratropium [ATROVENT Inhaler] 2 puff IH Q6H PRN 07/10/17 09/24/18 Oxycodone HCl/Acetaminophen 1 each PO QID PRN 07/10/17 09/24/18 [Percocet 5-325 mg Tablet] Propylene Glycol/Peg 400 [Systane 1 drop BOTH EYES TID 07/10/17 07/18/18 0.3-0.4% Eye Drops] Ranolazine [Ranexa] 1,000 mg PO BID 07/10/17 07/18/18 Albuterol Sulfate [Ventolin Hfa] 2 puff IH Q4H PRN 04/26/18 09/24/18 Cholecalciferol (Vitamin D3) 1,000 unit PO DAILY 04/26/18 09/24/18 [Vitamin D3] Docusate [Colace] 100 mg PO DAILY PRN 04/26/18 09/24/18 Loratadine [Allergy Relief] 10 mg PO DAILY PRN 04/26/18 09/24/18 Montelukast [Singulair] 10 mg PO HS PRN 04/26/18 09/24/18 Omeprazole [PriLOSEC] 20 mg PO BID 04/26/18 09/24/18 Pregabalin [Lyrica] 300 mg PO BID 04/26/18 09/24/18 Sildenafil Citrate 100 mg PO AD PRN 04/26/18 09/24/18 Trazodone HCl 100 mg PO HS PRN 04/26/18 09/24/18 Furosemide [Lasix] 20 mg PO BID 05/30/18 09/24/18 Potassium Chloride [Klor-Con 10] 10 meq PO BID 05/30/18 09/24/18 Aspirin 81 mg PO DAILY 07/18/18 09/24/18 Ipratropium/Albuterol Sulfate 3 ml IH Q6H PRN 07/18/18 09/24/18 [Iprat-Albut 0.5-3(2.5) mg/3 ml] Benzonatate [Tessalon] 100 mg PO TID 09/24/18 09/24/18 Carbamide Peroxide/NaCl/Nahco3 2 % OT BID 09/24/18 09/24/18 [Clearcanal Ear Wax Complete] amLODIPine [Norvasc] 5 mg PO DAILY 09/24/18 09/24/18 Allergies/Adverse Reactions: Allergies Allergy/AdvReac Type Severity Reaction Status Date / Time No Known Allergies Allergy Verified 07/18/18 12:35 Limitations: ROS unobtainable due to patients medical condition Past Medical History - Past Medical History Source: old records reviewed, obtained from family Medical history: Reports: CHF, COPD, coronary artery disease, hyperlipidemia, hypertension, myocardial infarction, TIA Surgical history: Reports: angioplasty/stent, orthopedic, other Psychiatric history: Reports: no psych history - Social History Smoking Status: Current every day smoker Smokeless Tobacco Status: No Alcohol use: Reports: none Drug use: Reports: none Physical Exam - General Limitations: altered mental status General appearance: alert, in no apparent distress - Head Head exam: atraumatic, normocephalic, normal inspection - Eye Eye exam: Present: normal appearance, PERRL, EOMI - ENT ENT exam: normal exam, normal oropharynx, mucous membranes moist - Neck Neck exam: Present: normal inspection, full ROM, trachea midline - Chest Chest inspection: Present: normal inspection, symmetric chest wall rise - Respiratory Respiratory exam: Present: normal lung sounds bilaterally - Cardiovascular Cardiovascular exam: Present: regular rate, normal rhythm, normal heart sounds - Abdominal Exam Abdominal exam: Present: soft, Non-Tender. Absent: tenderness, distention, guarding, rebound, rigidity - Extremities Exam Extremities exam: Present: normal inspection, full ROM, normal capillary refill. Absent: tenderness, pedal edema - Neurological Exam Neurological exam: Present: alert - Expanded Neurological Exam Patient oriented to: Present: person Speech: Present: expressive aphasia Cranial nerves: EOM function (II, III, IV, ): Normal, facial sensation (V): Normal, facial palsy (VII): Normal Motor strength - LUE: 3/5 Motor strength - RUE: 3/5 Motor strength - LLE: 3/5 Motor strength - RLE: 3/5 Sensory exam upper extremity: light touch: Normal Sensory exam lower extremity: light touch: Normal Coma Scale Eye Opening: Spontaneous Coma Scale Motor Response: Obeys Commands Coma Scale Verbal Response: Confused Coma Scale Total: 14 Course Vital Signs Temperature 98.6 F 10/01/18 20:29 Pulse Rate 90 10/01/18 20:29 Respiratory Rate 22 10/01/18 20:29 Blood Pressure 130/75 10/01/18 20:29 O2 Sat by Pulse Oximetry 92 10/01/18 20:29 Temperature 98.6 F 10/01/18 20:29 Pulse Rate 82 10/01/18 21:22 Respiratory Rate 24 10/01/18 21:22 Blood Pressure 105/92 10/01/18 21:22 O2 Sat by Pulse Oximetry 96 10/01/18 21:22 Oxygen Delivery Oxygen Delivery Nasal Cannula Neuro Symptoms/Deficit - MDM Narrative Medical decision making narrative: Patient work-up in the Ed demonstrates findings consistent with pneumonia. The patient has no focalized deficits and the last well known is unclear but was outside TPA window. The patient had no LVO. The patient's symptoms are more associated with disorientation vs delirium. the patient's symptoms likely secondary to pneumonia and infectious delirium although the patient will likely need MRI for further evaluation. The patient will be admitted to the hospital at this time. Accepted by Dr. Perez. - Lab Data Lab results reviewed: Yes I reviewed the patient's lab results. Result diagrams: 10/01/18 20:40 10/01/18 20:40 Lab Results 10/01/18 10/01/18 10/01/18 Range/Units 20:40 20:40 20:40 WBC 12.0 H (4.3-11.1) K/mcL RBC 4.66 (4.19-5.50) M/mcL Hgb 14.0 (12.9-16.9) g/dL Hct 41.7 (37.5-50.1) % MCV 89.5 (83.0-100.0) fL MCH 30.0 (28.0-33.3) pg MCHC 33.6 (31.6-35.5) g/dL RDW 13.3 (11.5-14.5) % Plt Count 248 (140-400) K/mcL MPV 10.5 (9.4-12.4) fL Immature Gran % 0.4 (0-4) % Seg Neutrophils % 85.0 % Lymphocytes % 7.3 % Monocytes % 6.7 % Eosinophils % 0.4 % Basophils % 0.2 % Neutrophils # 10.2 H (1.6-8.9) K/mcL Lymphocytes # 0.9 (0.6-4.6) K/mcL Monocytes # 0.8 (0.0-1.3) K/mcL Eosinophils # 0.1 (0.0-0.6) K/mcL Basophils # 0.0 (0.0-0.2) K/mcL PT 14.7 H (9.4-12.1) Seconds INR 1.3 APTT 40.8 H (26.0-36.0) Seconds Sodium 133 L (136-145) mEq/L Potassium 4.0 (3.5-5.1) mEq/L Chloride 97 L (98-107) mEq/L Carbon Dioxide 27 (23-29) mEq/L BUN 12 (8-23) mg/dL Creatinine 1.18 (0.70-1.30) mg/dL Est GFR ( Amer) > 60 (> 60) Est GFR (Non-Af Amer) > 60 (> 60) BUN/Creatinine Ratio 10 (6-26) Glucose 97 (70-105) mg/dL Calculated Osmolality 276 L (280-300) Calcium 9.2 (8.6-10.3) mg/dL Total Bilirubin 1.3 H (0.3-1.0) mg/dL Direct Bilirubin 0.2 (0.0-0.2) mg/dL Indirect Bilirubin 1.1 (0.0-1.2) mg/dL AST 12 L (13-39) Units/L ALT 7 (7-52) Units/L Alkaline Phosphatase 56 (34-104) Units/L Ammonia (16-53) mcmol/L Troponin I < 0.03 (< 0.04) ng/mL Serum Total Protein 6.8 (6.4-8.9) g/dL Albumin 4.0 (3.5-5.7) g/dL Globulin 2.8 (2.4-3.5) g/dL Albumin/Globulin Ratio 1.4 (1.1-2.2) Urine Color (Yellow) Urine Clarity (Clear) Urine pH (5.0-8.0) pH Units Ur Specific [place] (1.010-1.025) Urine Protein (Neg-Trace) mg/dL Urine Glucose (UA) (Normal) mg/dL Urine Ketones (Negative) mg/dL Urine Blood (Negative) Urine Nitrite (Negative) Urine Bilirubin (Negative) Urine Urobilinogen (Normal) mg/dL Ur Leukocyte Esterase (Negative) Ur Culture Indicated? (NO) Urine Opiates Screen (Txhyxh=205) ng/mL Ur Barbiturates Screen (Ulhdrh=112) ng/mL Ur Phencyclidine Scrn (Cutoff=25) ng/mL Ur Amphetamines Screen (Ibuhye=7165) ng/mL U Benzodiazepines Scrn (Zqgmpl=571) ng/mL Urine Cocaine Screen (Cutoff= 300) ng/mL U Marijuana (THC) Screen (Cutoff = 50) ng/mL Ur Drug Screen Interp Ethyl Alcohol < 10 (Less than 10) mg/dL 10/01/18 10/01/18 10/01/18 Range/Units 20:40 21:35 21:35 WBC (4.3-11.1) K/mcL RBC (4.19-5.50) M/mcL Hgb (12.9-16.9) g/dL Hct (37.5-50.1) % MCV (83.0-100.0) fL MCH (28.0-33.3) pg MCHC (31.6-35.5) g/dL RDW (11.5-14.5) % Plt Count (140-400) K/mcL MPV (9.4-12.4) fL Immature Gran % (0-4) % Seg Neutrophils % % Lymphocytes % % Monocytes % % Eosinophils % % Basophils % % Neutrophils # (1.6-8.9) K/mcL Lymphocytes # (0.6-4.6) K/mcL Monocytes # (0.0-1.3) K/mcL Eosinophils # (0.0-0.6) K/mcL Basophils # (0.0-0.2) K/mcL PT (9.4-12.1) Seconds INR APTT (26.0-36.0) Seconds Sodium (136-145) mEq/L Potassium (3.5-5.1) mEq/L Chloride (98-107) mEq/L Carbon Dioxide (23-29) mEq/L BUN (8-23) mg/dL Creatinine (0.70-1.30) mg/dL Est GFR ( Amer) (> 60) Est GFR (Non-Af Amer) (> 60) BUN/Creatinine Ratio (6-26) Glucose (70-105) mg/dL Calculated Osmolality (280-300) Calcium (8.6-10.3) mg/dL Total Bilirubin (0.3-1.0) mg/dL Direct Bilirubin (0.0-0.2) mg/dL Indirect Bilirubin (0.0-1.2) mg/dL AST (13-39) Units/L ALT (7-52) Units/L Alkaline Phosphatase (34-104) Units/L Ammonia 24 (16-53) mcmol/L Troponin I (< 0.04) ng/mL Serum Total Protein (6.4-8.9) g/dL Albumin (3.5-5.7) g/dL Globulin (2.4-3.5) g/dL Albumin/Globulin Ratio (1.1-2.2) Urine Color Yellow (Yellow) Urine Clarity Clear (Clear) Urine pH 6.0 (5.0-8.0) pH Units Ur Specific [place] 1.026 H (1.010-1.025) Urine Protein Negative (Neg-Trace) mg/dL Urine Glucose (UA) Normal (Normal) mg/dL Urine Ketones Negative (Negative) mg/dL Urine Blood Negative (Negative) Urine Nitrite Negative (Negative) Urine Bilirubin Negative (Negative) Urine Urobilinogen Normal (Normal) mg/dL Ur Leukocyte Esterase Negative (Negative) Ur Culture Indicated? NO (NO) Urine Opiates Screen Negative (Wjazhu=927) ng/mL Ur Barbiturates Screen Negative (Qatfsw=396) ng/mL Ur Phencyclidine Scrn Negative (Cutoff=25) ng/mL Ur Amphetamines Screen Negative (Tsoqzf=7893) ng/mL U Benzodiazepines Scrn Negative (Smzrgp=938) ng/mL Urine Cocaine Screen Negative (Cutoff= 300) ng/mL U Marijuana (THC) Screen Negative (Cutoff = 50) ng/mL Ur Drug Screen Interp See Below Ethyl Alcohol (Less than 10) mg/dL - Radiology Data Radiology results reviewed: Yes I reviewed the patient's radiology results. Chest X-Ray 10/01/18 20:35 IMPRESSION: New consolidation within the right lower lung, compatible with pneumonia or aspiration. D/ / Crispin Brody MD / Crispin Brody MD Interpreting Provider: Crispin Brody MD Angiography CT 10/01/18 20:36 IMPRESSION: CT HEAD:: No acute intracranial abnormality. No findings are diagnostic of an acute infarct. CT angiogram neck: No focal significant arterial narrowing is noted in the neck. Left lung stellate opacity. This was not definitively present on prior CT angiography of the neck in May. This could represent a small area of pneumonia or developing neoplasm. Correlate with CT chest CT angiogram head: No focal significant arterial narrowing is noted. There is mild fusiform enlargement of the lateral aspect of the left middle cerebral artery in the anterior left sylvian fissure region. This is stable D/ / Vikas Dleeon / Vikas Deleon Interpreting Provider: Vikas Deleon Neck CTA 10/01/18 20:36 IMPRESSION: CT HEAD:: No acute intracranial abnormality. No findings are diagnostic of an acute infarct. CT angiogram neck: No focal significant arterial narrowing is noted in the neck. Left lung stellate opacity. This was not definitively present on prior CT angiography of the neck in May. This could represent a small area of pneumonia or developing neoplasm. Correlate with CT chest CT angiogram head: No focal significant arterial narrowing is noted. There is mild fusiform enlargement of the lateral aspect of the left middle cerebral artery in the anterior left sylvian fissure region. This is stable D/ / Vikas Deleon / Vikas Deleon Interpreting Provider: Vikas Deleon - EKG Data EKG attestation: Yes I reviewed and interpreted this EKG. EKG results narrative: Heart rate 91 beats for minute. Normal sinus rhythm. No ST elevation or ST depression noted. No acute changes noted. NIH Stroke Scale - Level of Consciousness LOC: Alert - LOC Questions LOC Questions: Answers both correctly - LOC Commands LOC Commands: Performs both correctly - Best Gaze Best Gaze: Normal - Visual Visual: No visual loss - Facial Palsy Facial Palsy: Normal - Motor Arms Motor Arm-Left: No drift for 10 seconds Motor Arm-Right: No drift for 10 seconds - Motor Legs Motor Leg-Left: No drift for 5 seconds Motor Leg-Right: No drift for 5 seconds - Limb Ataxia Limb Ataxia: Normal, No Ataxia - Sensory Sensory: Normal - Best Language Best Language: No aphasia - Dysarthria Dysarthria: Mild, slurs some words - Extinction and Inattention Extinction and Inattention: Normal - NIHSS Total Score NIHSS Total Score: 1 TPA Checklist - LKW: 3-4.5 hrs Add. Warnings/Precautions Patient/family understanding: The patient/family members have been counseled and understood the risk, benefit, and alternatives of treatment.
[2018-10-01 21:14] LABS: Basophils % 0.2 %; Eosinophils # 0.1 K/mcL (0.0-0.6); Eosinophils % 0.4 %; Hematocrit 41.7 % (37.5-50.1); Immature Granulocytes % 0.4 % (0-4); Lymphocytes # 0.9 K/mcL (0.6-4.6); Lymphocytes % 7.3 %; Mean Corpuscular HGB Conc 33.6 g/dL (31.6-35.5); Mean Corpuscular Volume 89.5 fL (83.0-100.0); Mean Platelet Volume 10.5 fL (9.4-12.4); Monocytes # 0.8 K/mcL (0.0-1.3); Monocytes % 6.7 %; Neutrophils # 10.2 K/mcL (1.6-8.9); Platelet Count 248 K/mcL (140-400); Red Blood Count 4.66 M/mcL (4.19-5.50); Red Cell Distribution Width 13.3 % (11.5-14.5)
[2018-10-01 21:21] LABS: INR 1.3; Prothrombin Time 14.7 Seconds (9.4-12.1)
[2018-10-01 21:24] LABS: Activated Partial Thrombo Time 40.8 Seconds (26.0-36.0)
[2018-10-01 21:25] LABS: Alanine Aminotransferase 7 Units/L (7-52); Albumin/Globulin Ratio 1.4 (1.1-2.2); Alkaline Phosphatase 56 Units/L (34-104); Aspartate Amino Transferase 12 Units/L (13-39); BUN/Creatinine Ratio 10 (6-26); Bilirubin,Direct 0.2 mg/dL (0.0-0.2); Bilirubin,Indirect 1.1 mg/dL (0.0-1.2); Bilirubin,Total 1.3 mg/dL (0.3-1.0); Blood Urea Nitrogen 12 mg/dL (8-23); Calcium 9.2 mg/dL (8.6-10.3); Carbon Dioxide 27 mEq/L (23-29); Chloride 97 mEq/L (98-107); Ethanol < 10 mg/dL (Less than 10); Globulin 2.8 g/dL (2.4-3.5); Glucose 97 mg/dL (70-105); Osmolality,Calculated 276 (280-300); Sodium 133 mEq/L (136-145); Total Protein 6.8 g/dL (6.4-8.9); eGFR For African Americans > 60 (> 60); eGFR For Non-African Americans > 60 (> 60)
[2018-10-01 21:46] LABS: Bilirubin,Urine Negative (Negative); Blood,Urine Negative (Negative); Clarity,Urine Clear (Clear); Color,Urine Yellow (Yellow); Glucose,Urine (UA) Normal (Normal); Ketones,Urine Negative (Negative); Leukocyte Esterase,Urine Negative (Negative); Nitrite,Urine Negative (Negative); Protein,Urine Negative (Neg-Trace); Specific Gravity,Urine 1.026 (1.010-1.025); Urobilinogen,Urine Normal (Normal)
[2018-10-01 21:56] LABS: Amphetamine Screen,Urine Negative ng/mL (Cutoff=1000); Barbiturate Screen,Urine Negative ng/mL (Cutoff=200); Benzodiazepines Screen,Urine Negative ng/mL (Cutoff=200); Cannabinoid Screen,Urine Negative ng/mL (Cutoff = 50); Cocaine Screen,Urine Negative ng/mL (Cutoff= 300); Opiate Screen,Urine Negative ng/mL (Cutoff=300); Phencyclidine Screen,Urine Negative ng/mL (Cutoff=25)
[2018-10-01 21:59] LABS: Troponin I < 0.03 ng/mL (< 0.04)
[2018-10-01] MEDS ORDERED: 0.9 % Sodium Chloride 1,000 ML IVC ONE (22:07)
[2018-10-01] MEDS ORDERED: Azithromycin 500 MG in D5% in Water 250 ML IVPB ONE (22:07)
[2018-10-01] MEDS: cefTRIAXone 1,000 MG in Water for inj. (sterile) 20 ML 10 ML IVP ONE ×2 (22:20→22:25)
[2018-10-01] MEDS ORDERED: Piperacillin/Tazobactam 3.375 GM in 0.9 % Sodium Chloride Mini Bag 100 ML IVPB ONE (22:24)
[2018-10-01] MEDS ORDERED: Ipratropium/Albuterol Neb 3 ML IH PRN (23:35)
[2018-10-01] MEDS ORDERED: Acetaminophen 325 MG TABLET PO PRN (23:35)
[2018-10-01] MEDS ORDERED: GuaiFENesin Liq 200 MG/10 ML UDC PO PRN (23:35)
[2018-10-01] MEDS ORDERED: 0.9 % Sodium Chloride 1,000 ML IVC SCH (23:45)
--- NOTE | 2018-10-01 23:59 | Internal Med History&Physical ---
Date of Encounter: 10/01/18 Time of Encounter: 23:59 Internal Medicine - H&P: HPI Chief complaint: ams Admitted From: Home () History of present illness: Walter Vieira is a 67 year old man with CAD, HTN, HLD and a history of recurrent strokes/TIAs in the setting of a PFO which he is to get repaired in the coming weeks because of this. He is brought in by his daughter who noticed over the phone that around 7pm his speech was off and seemed disoriented. She said she had spoken to him at 530pm and he was fine. When she saw him he was shaking and acting confused. She was concerned as he usually manifests like this when having a stroke she stated. He apparently lives alone. In the ER he was hemodynamically stable. Lab work revealed a wbc of 12, Na 133 and Cl 97 but otherwise rest of studies were unremarkable. CXR as reviewed by me shows an infiltrate in the right lung base. He admits to me that he has been having productive cough and mild shortness of breath. CTA head/neck showed no new acute findings. He was started on empiric abx and admitted for further care. Vitals: Reviewed General: NAD, lying in bed. Skin: Warm and dry. HEENT: Moist mucous membranes. No conjunctivae pallor. Neck: No lymphadenopathy. No JVD. No carotid bruits. No palpable thyroid. Chest: Normal thoracic expansion. Normal breath sounds. Clear to auscultation. Heart: Normal S1 & S2; rhythmic. No rubs or murmurs. Abdomen: Non-distended, soft and non-tender to palpation. No peritoneal reaction. Extremities: No clubbing, cyanosis or edema. No calf tenderness. Normal distal pulses. Neurological: Somnolent but arousable to verbal stimuli and oriented to person, place and time. No focal deficits. Has occasional generalized jerking movements. Psych: Affect appropriate. Assessment/Plan 1. Acute encephalopathy: Suspect secondary to infectious process although it remains prudent to rule out neurovascular compromise. Care as detailed below. 2. Pneumonia: Notable on x-ray and correlates with his new respiratory symptoms. Unclear if secondary to aspiration given the frequency of mental status issues he develops or if a regular lobar pneumonia. Given that history and frequent hospitalizations, will put him on PipTazo for now and check an MRSA screen of his nares. Will send urine for Legionella and pneumococcus antigens. 3. PFO: Scheduled for endovascular closure given the frequency of stroke-like symptoms. 4. CAD: Last cardiac cath showed severe one vessel disease with medical mgmt. recommended. Will continue ASA/statin. 5. COPD: Currently asymptomatic. Nebulizer tx as needed; LABA/ICS daily. Past Med Surg Social Fam HX - Past Medical History Medical history: CHF, COPD, coronary artery disease, hyperlipidemia, hypertension, myocardial infarction, TIA Additional medical history: patient unable to recall all medical history Psychiatric history: no psych history - Past Surgical History Surgical History: angioplasty/stent, orthopedic, other Additional surgical history: 4 stents. back surgery. cardiac scope yesterday - Social History Smoking Status: Current every day smoker Smokeless Tobacco Status: No Alcohol use: none Drug use: none - Family History Father Family Member Ethnicity: Non- Living Status: Hx Family Cardiac Disorders: Yes ([place]) Mother Family Member Ethnicity: Non- Living Status: Hx Family Cancer: Yes (Stomach) Hx Family Neurologic Disorders: Yes (DM) Brother Family Member Ethnicity: Non- Living Status: Hx Family Cardiac Disorders: Yes Hx Family Endocrine Disorder: Yes (DM) Hx Family Neurologic Disorders: Yes (CVA) Sister Family Member Ethnicity: Non- Living Status: Hx Family Cancer: Yes Internal Medicine - H&P: Meds Atorvastatin Calcium [Lipitor] 80 mg PO DAILY 07/10/17 [History] Budesonide/Formoterol 160/4.5 [Symbicort 160/4.5] 2 puff IH BID 07/10/17 [History] Fluticasone Propionate Nasal [Flonase] 1 spray NS BID 07/10/17 [History] Ipratropium [ATROVENT Inhaler] 2 puff IH Q6H PRN 07/10/17 [History] Oxycodone HCl/Acetaminophen [Percocet 5-325 mg Tablet] 1 each PO QID PRN 07/10/17 [History] Propylene Glycol/Peg 400 [Systane 0.3-0.4% Eye Drops] 1 drop BOTH EYES TID 07/10/17 [History] Ranolazine [Ranexa] 1,000 mg PO BID 07/10/17 [History] Albuterol Sulfate [Ventolin Hfa] 2 puff IH Q4H PRN 04/26/18 [History] Cholecalciferol (Vitamin D3) [Vitamin D3] 1,000 unit PO DAILY 04/26/18 [History] Docusate [Colace] 100 mg PO DAILY PRN 04/26/18 [History] Loratadine [Allergy Relief] 10 mg PO DAILY PRN 04/26/18 [History] Montelukast [Singulair] 10 mg PO HS PRN 04/26/18 [History] Omeprazole [PriLOSEC] 20 mg PO BID 04/26/18 [History] Pregabalin [Lyrica] 300 mg PO BID 04/26/18 [History] Sildenafil Citrate 100 mg PO AD PRN 04/26/18 [History] Trazodone HCl 100 mg PO HS PRN 04/26/18 [History] Furosemide [Lasix] 20 mg PO BID 05/30/18 [History] Potassium Chloride [Klor-Con 10] 10 meq PO BID 05/30/18 [History] Aspirin 81 mg PO DAILY 07/18/18 [History] Ipratropium/Albuterol Sulfate [Iprat-Albut 0.5-3(2.5) mg/3 ml] 3 ml IH Q6H PRN 07/18/18 [History] Benzonatate [Tessalon] 100 mg PO TID 09/24/18 [History] Carbamide Peroxide/NaCl/Nahco3 [Clearcanal Ear Wax Complete] 2 % OT BID 09/24/18 [History] amLODIPine [Norvasc] 5 mg PO DAILY 09/24/18 [History] Allergy/AdvReac Type Severity Reaction Status Date / Time No Known Allergies Allergy Verified 07/18/18 12:35 All Systems PM: A 10-system review of systems was performed and is negative for pertinent findings except as documented above in the HPI. - Constitutional Vitals: Temp Pulse Resp BP Pulse Ox 98.6 F 77 20 107/59 96 10/01/18 20:29 10/01/18 22:39 10/01/18 22:39 10/01/18 22:39 10/01/18 22:39 Exam: . Internal Med - H&P Results - Labs CBC & Chem 7: 10/01/18 20:40 10/01/18 20:40 Labs: Short CBC 10/01/18 Range/Units 20:40 WBC 12.0 H (4.3-11.1) K/mcL Hgb 14.0 (12.9-16.9) g/dL Hct 41.7 (37.5-50.1) % Plt Count 248 (140-400) K/mcL Neutrophils # 10.2 H (1.6-8.9) K/mcL BMP 10/01/18 20:40 Sodium 133 L Potassium 4.0 Chloride 97 L Carbon Dioxide 27 BUN 12 Creatinine 1.18 Glucose 97 Calcium 9.2 Cardiac Enzymes 10/01/18 Range/Units 20:40 Troponin I < 0.03 (< 0.04) ng/mL Liver Function 10/01/18 Range/Units 20:40 Total Bilirubin 1.3 H (0.3-1.0) mg/dL Direct Bilirubin 0.2 (0.0-0.2) mg/dL AST 12 L (13-39) Units/L ALT 7 (7-52) Units/L Alkaline Phosphatase 56 (34-104) Units/L Albumin 4.0 (3.5-5.7) g/dL Urine 10/01/18 Range/Units 21:35 Urine Color Yellow (Yellow) Urine Clarity Clear (Clear) Urine pH 6.0 (5.0-8.0) pH Units Ur Specific [place] 1.026 H (1.010-1.025) Urine Protein Negative (Neg-Trace) mg/dL Urine Glucose (UA) Normal (Normal) mg/dL - Impressions ITS Impressions Chest X-Ray 10/01/18 20:35 IMPRESSION: New consolidation within the right lower lung, compatible with pneumonia or aspiration. D/ / Crispin Brody MD / Crispin Brody MD Interpreting Provider: Crispin Brody MD Angiography CT 10/01/18 20:36 IMPRESSION: CT HEAD:: No acute intracranial abnormality. No findings are diagnostic of an acute infarct. CT angiogram neck: No focal significant arterial narrowing is noted in the neck. Left lung stellate opacity. This was not definitively present on prior CT angiography of the neck in May. This could represent a small area of pneumonia or developing neoplasm. Correlate with CT chest CT angiogram head: No focal significant arterial narrowing is noted. There is mild fusiform enlargement of the lateral aspect of the left middle cerebral artery in the anterior left sylvian fissure region. This is stable D/ / Vikas Deleon / Vikas Deleon Interpreting Provider: Vikas Deleon Neck CTA 10/01/18 20:36 IMPRESSION: CT HEAD:: No acute intracranial abnormality. No findings are diagnostic of an acute infarct. CT angiogram neck: No focal significant arterial narrowing is noted in the neck. Left lung stellate opacity. This was not definitively present on prior CT angiography of the neck in May. This could represent a small area of pneumonia or developing neoplasm. Correlate with CT chest CT angiogram head: No focal significant arterial narrowing is noted. There is mild fusiform enlargement of the lateral aspect of the left middle cerebral artery in the anterior left sylvian fissure region. This is stable D/ / Vikas Deleon / Vikas Deleon Interpreting Provider: Vikas Deleon - Time Spent With Patient Total time spent is greater than 50% in coordination of care (as documented) at patient's floor/unit and/or counseling patient: Greater than 35 minutes
[2018-10-02 04:50] LABS: BUN/Creatinine Ratio 11 (6-26); Blood Urea Nitrogen 11 mg/dL (8-23); Calcium 8.2 mg/dL (8.6-10.3); Carbon Dioxide 25 mEq/L (23-29); Chloride 103 mEq/L (98-107); Glucose 96 mg/dL (70-105); Osmolality,Calculated 279 (280-300); Potassium 3.5 mEq/L (3.5-5.1); Sodium 135 mEq/L (136-145); eGFR For African Americans > 60 (> 60); eGFR For Non-African Americans > 60 (> 60)
[2018-10-02 04:51] LABS: Basophils % 0.2 %; Eosinophils # 0.1 K/mcL (0.0-0.6); Eosinophils % 0.6 %; Hematocrit 38.3 % (37.5-50.1); Immature Granulocytes % 0.6 % (0-4); Lymphocytes # 1.9 K/mcL (0.6-4.6); Lymphocytes % 12.5 %; Mean Corpuscular HGB Conc 33.9 g/dL (31.6-35.5); Mean Corpuscular Hemoglobin 30.5 pg (28.0-33.3); Mean Corpuscular Volume 89.9 fL (83.0-100.0); Mean Platelet Volume 10.3 fL (9.4-12.4); Monocytes # 1.3 K/mcL (0.0-1.3); Monocytes % 8.2 %; Platelet Count 217 K/mcL (140-400); Red Blood Count 4.26 M/mcL (4.19-5.50); Red Cell Distribution Width 13.5 % (11.5-14.5); Segmented Neutrophils % 77.9 %; White Blood Count 15.4 K/mcL (4.3-11.1)
[2018-10-02] MEDS: Piperacillin/Tazobactam 3.375 GM in 0.9 % Sodium Chloride Mini Bag 100 ML IVPB SCH ×3 (05:38→22:17)
[2018-10-02] MEDS: *HR* Heparin 5,000 UNIT/ML VIAL SQ SCH ×2 (05:38→18:09)
[2018-10-02] MEDS ORDERED: Ipratropium/Albuterol Neb 3 ML IH PRN (07:26)
[2018-10-02] MEDS: Budesonide/Formoterol 160/4.5 1 PUFF INH IH SCH ×2 (07:56→20:14)
[2018-10-02] MEDS ORDERED: Aspirin 81 MG TAB.CHEW PO SCH (09:00)
--- NOTE | 2018-10-02 11:10 | Neurology - Consult Note ---
<Luke Resendez - Last Filed: 10/02/18 10:55> Date of Encounter: 10/02/18 Time of Encounter: 10:55 Assessment and Plan (1) CVA (cerebral vascular accident) Current Visit: Yes Status: Acute Presents with acute onset of slurred speech and disequilibrium h/o multiple TIA's and risk factors include age, smoking hx, HLD, HTN, CAD Has had recent neuro w/u which was unremarkable including MRI Brain 07/18/18 with no acute infarct CTA head/neck 07/18/18- with diffuse atherosclerotic plaque in the cervical arterial system without hemodynamically significant stenosis or branch occlusion. No hemodynamically significant stenosis or branch occlusion in the intracranial arterial circulation. Left heart cath 09/13 showing PFO with cardiology recommendation at that time of interventional therapy of atrial level shunt MRI brain today showing subtle area of intermediate diffuse in the left periventricular white matter suggestive of a subacute area of infarct. neuro c/s for CVA The neurological examination did not elicit any focal neurological findings. The patient does appear to be generally weak most notably in the bilateral legs and I suspect this is due to underlying illness with pneumonia. PLAN: -Agree with changing from ASA to Daily Plavix; c/w Statin therapy -Allow permissive HTN with goal of SBP less than 170 -With recent CTA head and neck no need for repeat CTA imaging -Recommend C/S cardiology for need for PFO closure while inpatient and to determine if oral AC needed; recommendations appreciated; spoke with Dr. Melendrez -[facility] now and then per protocol -Rec Dysphagia screening -Rec PT/OT Qualifiers: CVA mechanism: unspecified Qualified Code(s): I63.9 - Cerebral infarction, unspecified History of Present Illness Chief complaint: CVA HPI: Mr. Vieira is a 67 year old male with a PMH of CHF, COPD, coronary artery disease, hyperlipidemia, hypertension, myocardial infarction, and multiple TIA's. Neurology has been consulted d/t abnormal MRI brain findings and concern for acute vs subacute CVA. The patient was seen and examined at the bedside today and he reports that he cannot fully recall his presenting sx. He notes that yesterday he was having slurred speech and difficulty with balance and reports that his family told him that he seemed disoriented. His LKW was 1730 yesterday. D/t his sx he was brought in for evaluation of a CVA. He denies any unilateral weakness, visual disturbances, headaches, dysphagia, or parasthesias. CTA head/neck with no acute findings. MRI brain this morning shows subtle area of intermediate diffusion in the left periventricular white matter suggestive of a subacute area of infarct. CXR shows infiltrate in the right lung base and leukocytosis on CBC Past Med Surg Social Fam HX - Past Medical History Medical history: cancer, CHF, COPD, coronary artery disease, hepatitis, hype rlipidemia, hypertension, myocardial infarction, TIA Additional medical history: patient unable to recall all medical history Psychiatric history: no psych history - Past Surgical History Surgical History: cataract Additional surgical history: 4 stents. back surgery. cardiac scope yesterday - Social History Smoking Status: Current every day smoker Packs per day: 1 Smokeless Tobacco Status: No Alcohol use: none Drug use: none - Family History Father Family Member Ethnicity: Non- Living Status: Hx Family Cardiac Disorders: Yes (SC) Mother Family Member Ethnicity: Non- Living Status: Hx Family Cancer: Yes (Stomach) Hx Family Neurologic Disorders: Yes (DM) Brother History Unknown: Yes Adopted: No Family Member Ethnicity: Non- Living Status: Cause of : CVA Hx Family Cardiac Disorders: Yes Hx Family Respiratory Disorders: No Hx Family Cancer: No Hx Family GI Disorders: No Hx Family Genitourinary Disorders: No Hx Family Endocrine Disorder: No Hx Family Musculoskeletal Disorders: No Hx Family Neuromuscular Disorders: No Hx Family Neurologic Disorders: No Hx Family HEENT Disorders: No Hx Family Autoimmune Disorders: No Hx Family Reproductive Disorders: No Hx Family Psychosocial Disorders: No Hx Family Medical Disorders: No Sister Family Member Ethnicity: Non- Living Status: Hx Family Cancer: Yes Medications and Allergies Atorvastatin Calcium [Lipitor] 80 mg PO DAILY 07/10/17 [History] Budesonide/Formoterol 160/4.5 [Symbicort 160/4.5] 2 puff IH BID 07/10/17 [History] Fluticasone Propionate Nasal [Flonase] 1 spray NS BID 07/10/17 [History] Ipratropium [ATROVENT Inhaler] 2 puff IH Q6H PRN 07/10/17 [History] Oxycodone HCl/Acetaminophen [Percocet 5-325 mg Tablet] 1 each PO QID PRN 07/10/17 [History] Propylene Glycol/Peg 400 [Systane 0.3-0.4% Eye Drops] 1 drop BOTH EYES TID 07/10/17 [History] Ranolazine [Ranexa] 1,000 mg PO BID 07/10/17 [History] Albuterol Sulfate [Ventolin Hfa] 2 puff IH Q4H PRN 04/26/18 [History] Cholecalciferol (Vitamin D3) [Vitamin D3] 1,000 unit PO DAILY 04/26/18 [History] Docusate [Colace] 100 mg PO DAILY PRN 04/26/18 [History] Loratadine [Allergy Relief] 10 mg PO DAILY PRN 04/26/18 [History] Montelukast [Singulair] 10 mg PO HS PRN 04/26/18 [History] Omeprazole [PriLOSEC] 20 mg PO BID 04/26/18 [History] Pregabalin [Lyrica] 300 mg PO BID 04/26/18 [History] Sildenafil Citrate 100 mg PO AD PRN 04/26/18 [History] Trazodone HCl 100 mg PO HS PRN 04/26/18 [History] Furosemide [Lasix] 20 mg PO BID 05/30/18 [History] Potassium Chloride [Klor-Con 10] 10 meq PO BID 05/30/18 [History] Aspirin 81 mg PO DAILY 07/18/18 [History] Ipratropium/Albuterol Sulfate [Iprat-Albut 0.5-3(2.5) mg/3 ml] 3 ml IH Q6H PRN 07/18/18 [History] Benzonatate [Tessalon] 100 mg PO TID 09/24/18 [History] Carbamide Peroxide/NaCl/Nahco3 [Clearcanal Ear Wax Complete] 2 % OT BID 09/24/18 [History] amLODIPine [Norvasc] 5 mg PO DAILY 09/24/18 [History] Allergy/AdvReac Type Severity Reaction Status Date / Time No Known Allergies Allergy Verified 07/18/18 12:35 All Systems: The remainder of the systems were reviewed and are negative Review of Systems: REVIEW OF SYSTEMS GENERAL: Negative for any nausea, vomiting, fevers, chills NEUROLOGIC: Negative for any blurry vision, blind spots, double vision, facial asymmetry, dysphagia, hemiparesis, hemisensory deficits, tingling, numbness, unilateral weakness or numbness/tingling Positive-slurred speech and balance difficulty Physical Examination - Vital Signs Vital Signs: Initial Vital Signs Temp Pulse Resp BP Pulse Ox 98.6 F 90 22 130/75 92 10/01/18 20:29 10/01/18 20:29 10/01/18 20:29 10/01/18 20:29 10/01/18 20:29 - Exam Exam: Examination: General Examination: *CONSTITUTIONAL: Alert and oriented x3, no acute distress *GENERAL APPEARANCE OF PATIENT generally ill appearing elderly male *EYES: pupils equal, round, reactive to light and accommodation, conjunctiva clear without masses or ulcerations, fundi normal. *CARDIOVASCULAR no peripheral edema, distal temperature normal, dorsalis pedis pulses normal. see vitals Musculoskeletal: *GAIT AND STATION normal, with normal Romberg testing, no abnormalities s uch as broad base gait or spasticity *ASSESSMENT OF MUSCLE STRENGTH IN THE UPPER AND LOWER EXTREMITIES bilateral deltoid, bicep, tricep, training and development director strength, hip flexors ,anterior tibialis, dorsoflexion of the foot 4/5 but he appears generally weak all over *MUSCLE TONE IN THE UPPER AND LOWER EXTREMITIES normal. No abnormal movements, fasciculations or atrophy identified. Neurological: *ORIENTATION to person, situation, time and place *RECURRENT AND REMOTE MEMORY intact *ATTENTION AND CONCENTRATION are normal *LANGUAGE FUNCTION no significant aphasia or dysarthia was noted. *FUND OF KNOWLEDGE aware of current events, past history, vocabulary *MENTAL attention span and concentration normal. *CN II optic fundi were normal, no papilledema noted. *CN III,IV, PERRLA extraocular eye movements were full, no nystagmus and no ptosis noted. *CN V shows normal sensation and jaw opens symmetrically. *CN VII shows normal facial movement symmetrically, upper and lower bilaterally. *CN VIII shows no significant hearing loss on exam *CN IX,,X palate elevated symmetrically *CN XI normal strength in the sternocleidomastoid muscles, symmetrical shoulder shrugging. *CN XII tongue protruded in the midline, with normal strength and movement. *SENSORY EXAMINATION light touch intact *REFLEXES: deep tendon reflexes were diminished diffusely, no pathological reflexes were noted. *CEREBELLAR TESTING normal finger to nose, heel/knee/elaine *PAIN LEVEL 0/10 Results - Laboratory Findings CBC and BMP: 10/02/18 04:19 10/02/18 04:19 Abnormal lab findings: Abnormal lab results WBC 15.4 K/mcL (4.3-11.1) H 10/02/18 04:19 12.0 K/mcL (1.6-8.9) H 10/02/18 04:19 PT 14.7 Seconds (9.4-12.1) H 10/01/18 20:40 APTT 40.8 Seconds (26.0-36.0) H 10/01/18 20:40 Sodium 135 mEq/L (136-145) L 10/02/18 04:19 Chloride 97 mEq/L (98-107) L 10/01/18 20:40 POC Glucose 103 mg/dL (70-99) H 10/01/18 20:26 279 (280-300) L 10/02/18 04:19 Calcium 8.2 mg/dL (8.6-10.3) L 10/02/18 04:19 1.3 mg/dL (0.3-1.0) H 10/01/18 20:40 AST 12 Units/L (13-39) L 10/01/18 20:40 Ur Specific [place] 1.026 (1.010-1.025) H 10/01/18 21:35 - Diagnostic Findings Additional findings: MR/MR head/brain wo con IMPRESSION: Subtle area of intermediate diffusion in the left periventricular white matter suggestive of a subacute area of infarct. Minimal chronic small vessel ischemic changes. Mild mucoperiosteal thickening in the sinuses. Consult Discharge Plan - Plan Referrals: Marianna Cespedes MD [Primary Care Provider] - <Cristino Bob - Last Filed: 10/02/18 17:57> Date of Encounter: 10/02/18 Assessment and Plan (1) CVA (cerebral vascular accident) Current Visit: Yes Status: Acute I have personally performed a [id number] assessment of the patient and have reviewed the PA/CORE STACKER note. My impressions are as follows: I agree with the estimate and plan as documented above by the H&P. I am not convinced however that there is truly an acute infarct on the MRI scan. However I do believe we should give the benefit of the doubt and escalate his antiplatelet therapy to Plavix and he will follow up for PFO consideration of closure with cardiology. I will reevaluate him at your request. Qualifiers: CVA mechanism: other Qualified Code(s): I63.89 - Other cerebral infarction History of Present Illness HPI: Chart was reviewed, patient was seen and examined. Case was discussed with LASER MACHINE OPERATOR. I agree with his assessment of the history of present illness as documented above. I did however review the MRI scan of the brain I am not convinced that there is a acute infarct present. All Systems: The remainder of the systems were reviewed and are negative Review of Systems: The balance of the systems review is negative. Physical Examination - Vital Signs Vital Signs: Initial Vital Signs Temp Pulse Resp BP Pulse Ox 98.6 F 90 22 130/75 92 10/01/18 20:29 10/01/18 20:29 10/01/18 20:29 10/01/18 20:29 10/01/18 20:29 - Exam Exam: I have personally performed a [id number] assessment of the patient and have reviewed the PA/CORE STACKER note. My impressions are as follows: I agree with the neurologic examination is documented above. Results - Laboratory Findings CBC and BMP: 10/02/18 04:19 10/02/18 04:19 Abnormal lab findings: Abnormal lab results WBC 15.4 K/mcL (4.3-11.1) H 10/02/18 04:19 12.0 K/mcL (1.6-8.9) H 10/02/18 04:19 PT 14.7 Seconds (9.4-12.1) H 10/01/18 20:40 APTT 40.8 Seconds (26.0-36.0) H 10/01/18 20:40 Sodium 135 mEq/L (136-145) L 10/02/18 04:19 Chloride 97 mEq/L (98-107) L 10/01/18 20:40 POC Glucose 103 mg/dL (70-99) H 10/01/18 20:26 279 (280-300) L 10/02/18 04:19 Calcium 8.2 mg/dL (8.6-10.3) L 10/02/18 04:19 1.3 mg/dL (0.3-1.0) H 10/01/18 20:40 AST 12 Units/L (13-39) L 10/01/18 20:40 Ur Specific [place] 1.026 (1.010-1.025) H 10/01/18 21:35
--- NOTE | 2018-10-02 13:01 | Internal Med Progress Note ---
Hospitalist Progress Note - Encounter Date of Encounter: 10/02/18 Time of Encounter: 08:00 - Subjective Interval History: Patient was seen and examined at bedside. Uncooperative with providing any history. When asked as to why he was brought to the emergency department he reports he does not know. He avoids eye contact is not cooperative. He is however alert and oriented 3. When asked if he has any fever, chills, nausea, vomiting or diarrhea or chest pain or palpitations he reports no and he would like to be discharged - Exam Vitals: Temp Pulse Resp BP Pulse Ox 97.9 F 56 16 95/59 97 10/02/18 11:59 10/02/18 11:59 10/02/18 11:59 10/02/18 11:59 10/02/18 11:59 Exam: General: Patient is alert, oriented, no acute distress, uncooperative Head: atraumatic, normocephalic, Eye: normal appearance, PERRL, no scleral icterus, no conjunctival injection ENT: mucous membranes moist, normal external ear exam Neck: normal inspection, trachea midline, full ROM, no carotid bruits Chest: normal inspection, symmetric chest rise Respiratory: Decreased breath sounds bilaterally, crackles in the posterior lung field, could not appreciate any wheezing. Cardiovascular: Regular rate and rhythm. s1 and s2 No clicks, rubs, gallops, or murmors. Abdomen: Bowel sounds present normoactive x-4 quadrants. Abdomen is soft, nondistended. no Epigastric tenderness. No guarding or rebound. No organomegaly noted, obese musculoskeletal: Spontaneously moving all extremities. no edema, no calf tenderness Skin: warm, dry, intact. Neuro: Alert and oriented x3 Sensation light touch intact. Cranial nerves 2- 12 is intact. Strength is symmetric throughout and 5 out of 5. Speeches comprehendible, [id number] intact, negative pronator drift. Psych: Patient's affect is normal - Assessment and Plan (1) CVA (cerebral vascular accident) Current Visit: Yes Status: Acute Assessment and Plan: acute onset of slurred speech and disequilibrium MRI brain 10/02 showing subtle area of intermediate diffuse in the left periventricular white matter suggestive of a subacute area of infarct. h/o multiple TIA's Has had recent neuro w/u which was unremarkable including MRI Brain 07/18/18 with no acute infarct CTA head/neck 07/18/18- with diffuse atherosclerotic plaque in the cervical arterial system without hemodynamically significant stenosis or branch occlusion. No hemodynamically significant stenosis or branch occlusion in the intracranial arterial circulation. Left heart cath 09/13 showing PFO with cardiology recommendation at that time of interventional therapy of atrial level shunt as he was on aspirin and developed a new stroke will change him to Plavix Neurology was consulted will follow recommendations Continue neuro checks as per protocol Physical therapy and occupational therapy Cardiology consulted as he has a stroke with known PFO and was to have outpatient ASD closure. We will follow cardiology and neurology recommendations on the need for anticoagulation. Lipid panel in the morning Continue with IV fluids (2) Pneumonia Current Visit: Yes Status: Acute Assessment and Plan: Notable on x-ray and correlates with his new respiratory symptoms. Unclear if secondary to aspiration given the frequency of mental status issues he develops or if a regular lobar pneumonia. Was started on Zosyn will continue Urine antigens negative Sputum cultures and process Blood cultures no growth to date MRSA screen pending Continue with home inhalers Oxygen via nasal cannula (3) ASD (atrial septal defect), ostium secundum Current Visit: No Status: Chronic Assessment and Plan: Had left heart catheter performed on 09/24/18 Atrial Level shunt with significant 02 step up. There is severe one vessel coronary artery disease. The left ventricle is normal and has normal contractility EF 65% Cardiology was consulted will follow recommendations. (4) Pulmonary hypertension Current Visit: No Status: Chronic Assessment and Plan: Severe pulmonary hypertension. Estimated RVSP >70 mmHg. on [place] on 07/17/2018 Continue with home inhalers and oxygen (5) COPD (chronic obstructive pulmonary disease) Current Visit: No Status: Chronic Assessment and Plan: Not in Exacerbation Continue with home medications (6) HLD (hyperlipidemia) Current Visit: No Status: Chronic Assessment and Plan: Continue with statins Lipid panel in the morning (7) HTN (hypertension) Current Visit: No Status: Chronic Assessment and Plan: Permissive hypertension as he has a subacute stroke We will resume home medications once confirmed. (8) DVT prophylaxis Current Visit: No Status: Acute Assessment and Plan: Heparin subcutaneous - Time Spent with Patient Total time spent is greater than 50% in coordination of care (as documented) at patient's floor/unit and/or counseling patient: 25 - 35 minutes Plan of Care Discussed with: patient Internal Medicine: Result - Labs CBC & Chem 7: 10/02/18 04:19 10/02/18 04:19 Labs: Short CBC 10/01/18 10/02/18 Range/Units 20:40 04:19 WBC 12.0 H 15.4 H (4.3-11.1) K/mcL Hgb 14.0 13.0 (12.9-16.9) g/dL Hct 41.7 38.3 (37.5-50.1) % Plt Count 248 217 (140-400) K/mcL Neutrophils # 10.2 H 12.0 H (1.6-8.9) K/mcL BMP 10/01/18 10/02/18 20:40 04:19 Sodium 133 L 135 L Potassium 4.0 3.5 Chloride 97 L 103 Carbon Dioxide 27 25 BUN 12 11 Creatinine 1.18 0.99 Glucose 97 96 Calcium 9.2 8.2 L Cardiac Enzymes 10/01/18 Range/Units 20:40 Troponin I < 0.03 (< 0.04) ng/mL Liver Function 10/01/18 Range/Units 20:40 Total Bilirubin 1.3 H (0.3-1.0) mg/dL Direct Bilirubin 0.2 (0.0-0.2) mg/dL AST 12 L (13-39) Units/L ALT 7 (7-52) Units/L Alkaline Phosphatase 56 (34-104) Units/L Albumin 4.0 (3.5-5.7) g/dL Urine 10/01/18 Range/Units 21:35 Urine Color Yellow (Yellow) Urine Clarity Clear (Clear) Urine pH 6.0 (5.0-8.0) pH Units Ur Specific [place] 1.026 H (1.010-1.025) Urine Protein Negative (Neg-Trace) mg/dL Urine Glucose (UA) Normal (Normal) mg/dL - ABG Interpretation ABG results: PT/INR, D-dimer PT 14.7 Seconds (9.4-12.1) H 10/01/18 20:40 - Impressions Impressions Chest X-Ray 10/01/18 20:35 IMPRESSION: New consolidation within the right lower lung, compatible with pneumonia or aspiration. D/ / Crispin Brody MD / Crispin Brody MD Interpreting Provider: Crispin Brody MD Angiography CT 10/01/18 20:36 IMPRESSION: CT HEAD:: No acute intracranial abnormality. No findings are diagnostic of an acute infarct. CT angiogram neck: No focal significant arterial narrowing is noted in the neck. Left lung stellate opacity. This was not definitively present on prior CT angiography of the neck in May. This could represent a small area of pneumonia or developing neoplasm. Correlate with CT chest CT angiogram head: No focal significant arterial narrowing is noted. There is mild fusiform enlargement of the lateral aspect of the left middle cerebral artery in the anterior left sylvian fissure region. This is stable D/ / Vikas Deleon / Vikas Deleon Interpreting Provider: Vikas Deleon Neck CTA 10/01/18 20:36 IMPRESSION: CT HEAD:: No acute intracranial abnormality. No findings are diagnostic of an acute infarct. CT angiogram neck: No focal significant arterial narrowing is noted in the neck. Left lung stellate opacity. This was not definitively present on prior CT angiography of the neck in May. This could represent a small area of pneumonia or developing neoplasm. Correlate with CT chest CT angiogram head: No focal significant arterial narrowing is noted. There is mild fusiform enlargement of the lateral aspect of the left middle cerebral artery in the anterior left sylvian fissure region. This is stable D/ / Vikas Deleon / Vikas Deleon Interpreting Provider: Vikas Deleon Brain MRI 10/02/18 07:30 IMPRESSION: Subtle area of intermediate diffusion in the left periventricular white matter suggestive of a subacute area of infarct. Minimal chronic small vessel ischemic changes. Mild mucoperiosteal thickening in the sinuses. D/ / 10/02/2018 10:03:02 Litzy Armijo MD / Cheryl Simpson Interpreting Provider: Litzy Armijo MD Consult Discharge Plan - Plan Referrals: Marianna Cespedes MD [Primary Care Provider] - (1) CVA (cerebral vascular accident) Qualifiers: CVA mechanism: unspecified Qualified Code(s): I63.9 - Cerebral infarction, unspecified (2) Pneumonia Qualifiers: Pneumonia type: due to unspecified organism Laterality: unspecified laterality Lung location: upper lobe of lung Qualified Code(s): J18.1 - Lobar pneumonia, unspecified organism (5) COPD (chronic obstructive pulmonary disease) Qualifiers: COPD type: emphysema Emphysema type: unspecified Qualified Code(s): J43.9 - Emphysema, unspecified (6) HLD (hyperlipidemia) Qualifiers: Hyperlipidemia type: pure hypercholesterolemia Qualified Code(s): E78.00 - Pure hypercholesterolemia, unspecified; E78.0 - Pure hypercholesterolemia (7) HTN (hypertension) Qualifiers: Hypertension type: essential hypertension Qualified Code(s): I10 - Essential (primary) hypertension
--- NOTE | 2018-10-02 14:09 | Cardiology Consult Note ---
<Emilee Arreguin Jaquan - Last Filed: 10/02/18 14:22> Date of Encounter: 10/02/18 Time of Encounter: 14:00 Assessment and Plan (1) ASD (atrial septal defect) Current Visit: Yes Status: Acute Known ASD, recent evaluation by Dr. Lucas. EF remains preserved, recent cardiac MRI at [facility]--54% Scheduled ASD closure on 11/05/18. No indication to complete closure as inpatient given acute CVA. (2) CVA (cerebral vascular accident) Current Visit: Yes Status: Acute Subacute periventricular infarct; likely etiology is ASD. Continue plan as per outpatient--ASD closure scheduled with Dr. Lucas for 11/05/18. Discussed with Dr. Cuevas, continue plavix as per Neurology recommendation, add 81 mg as well given recurrent TIA/CVAs. Qualifiers: CVA mechanism: other Qualified Code(s): I63.89 - Other cerebral infarction Discussion w patient/family: The assessment and plan as outlined above was discussed with the patient and/or family members who expressed understanding and agreement. All questions were answered. Thank you for involving us in the care of your patient. Please call with any questions. The patient will be discussed and reviewed with Dr. Cuevas; changes to be made accordingly. History of Present Illness Consult date: 10/02/18 Requesting physician: Parvin Alberto Consult reason: CVA Chief complaint: Stroke like symptoms History of present illness: Mr. Vieira is a 67 year old male with PMHx significant of CAD, CVA, chronic dyspnea, ASD, and tobacco abuse who presented to the ED with complaints of stroke like symptoms. He reported generalized weakness, slurred speech and confusion. Brain MRI completed and demonstrated a subacute infarct in the left periventricular white matter; additionally, he was found to have PNA in the RLL. Upon exam, symptoms have resolved, no focal deficits appreciated. Neurology following, appreciate recommendations--plavix added. Patient has underwent work-up for repair of ASD--scheduled with Dr. Lucas on 11/05/18. Recent C demonstrated stable CAD, has [employer] with collaterals, otherwise non-obstructive CAD. Past Med Surg Social Fam HX - Past Medical History Attestation: Yes The following information was validated with the patient. Source: patient Medical history: cancer, COPD, coronary artery disease, hepatitis, hyperlipidemia, hypertension, myocardial infarction, TIA Additional medical history: patient unable to recall all medical history Psychiatric history: no psych history - Past Surgical History Surgical History: cataract Additional surgical history: 4 stents. back surgery. cardiac scope yesterday - Social History Smoking Status: Current every day smoker Packs per day: 1 Smokeless Tobacco Status: No Alcohol use: none Drug use: none - Family History Father Family Member Ethnicity: Non- Living Status: Hx Family Cardiac Disorders: Yes (LA) Mother Family Member Ethnicity: Non- Living Status: Hx Family Cancer: Yes (Stomach) Hx Family Neurologic Disorders: Yes (DM) Brother History Unknown: Yes Adopted: No Family Member Ethnicity: Non- Living Status: Cause of : CVA Hx Family Cardiac Disorders: Yes Hx Family Respiratory Disorders: No Hx Family Cancer: No Hx Family GI Disorders: No Hx Family Genitourinary Disorders: No Hx Family Endocrine Disorder: No Hx Family Musculoskeletal Disorders: No Hx Family Neuromuscular Disorders: No Hx Family Neurologic Disorders: No Hx Family HEENT Disorders: No Hx Family Autoimmune Disorders: No Hx Family Reproductive Disorders: No Hx Family Psychosocial Disorders: No Hx Family Medical Disorders: No Sister Family Member Ethnicity: Non- Living Status: Hx Family Cancer: Yes Medications and Allergies Atorvastatin Calcium [Lipitor] 80 mg PO DAILY 07/10/17 [History] Budesonide/Formoterol 160/4.5 [Symbicort 160/4.5] 2 puff IH BID 07/10/17 [History] Fluticasone Propionate Nasal [Flonase] 1 spray NS BID 07/10/17 [History] Ipratropium [ATROVENT Inhaler] 2 puff IH BID 07/10/17 [History] Oxycodone HCl/Acetaminophen [Percocet 5-325 mg Tablet] 1 each PO QID PRN 07/10/17 [History] Propylene Glycol/Peg 400 [Systane 0.3-0.4% Eye Drops] 1 drop BOTH EYES TID 07/10/17 [History] Ranolazine [Ranexa] 1,000 mg PO BID 07/10/17 [History] Albuterol Sulfate [Ventolin Hfa] 2 puff IH Q4H PRN 04/26/18 [History] Loratadine [Allergy Relief] 10 mg PO DAILY PRN 04/26/18 [History] Montelukast [Singulair] 10 mg PO HS 04/26/18 [History] Omeprazole [PriLOSEC] 20 mg PO BID 04/26/18 [History] Sildenafil Citrate 100 mg PO AD PRN 04/26/18 [History] Trazodone HCl 100 mg PO HS PRN 04/26/18 [History] Furosemide [Lasix] 20 mg PO DAILY 05/30/18 [History] Potassium Chloride [Klor-Con 10] 10 meq PO DAILY 05/30/18 [History] Aspirin 81 mg PO DAILY 07/18/18 [History] Ipratropium/Albuterol Sulfate [Iprat-Albut 0.5-3(2.5) mg/3 ml] 3 ml IH Q6H PRN 07/18/18 [History] amLODIPine [Norvasc] 5 mg PO DAILY 09/24/18 [History] Cholecalciferol (D-3) [Vitamin D] 1,000 unit PO DAILY 10/02/18 [History] Docusate Sodium [Stool Softener] 100 mg PO DAILY 10/02/18 [History] Pregabalin [Lyrica] 300 mg PO BID PRN 10/03/18 [History] Allergy/AdvReac Type Severity Reaction Status Date / Time No Known Allergies Allergy Verified 10/02/18 20:28 All Systems Review: The remainder of the systems were reviewed and are negative - Cardiovascular Cardiovascular: as per HPI Physical Examination Vital Signs, Last 4 Hours Temp Pulse Resp BP Pulse Ox 10/02/18 11:59 97.9 F 56 16 95/59 97 General: Conversant, No Apparent Distress HEENT: Atraumatic, Normocephaly, Mucus Membranes Moist Cardiac: Reg Rate and Rhythm, Normal S1 and S2 Lungs: Normal Breath Sounds, Other (decreased bilateral bases) Neuro: Alert and responsive Abdomen: Soft Skin: No rashes noted on visualized skin Musculoskeletal: No Chest Wall Tenderness Extremities: No Edema Results 10/02/18 04:19 10/02/18 04:19 Lab Results 10/01/18 10/01/18 10/01/18 20:40 20:40 20:40 WBC 12.0 H Hgb 14.0 Hct 41.7 Plt Count 248 INR 1.3 APTT 40.8 H Sodium 133 L Potassium 4.0 Chloride 97 L Carbon Dioxide 27 BUN 12 Creatinine 1.18 Glucose 97 Calcium 9.2 Total Bilirubin 1.3 H AST 12 L ALT 7 Alkaline Phosphatase 56 Troponin I < 0.03 10/02/18 10/02/18 04:19 04:19 WBC 15.4 H Hgb 13.0 Hct 38.3 Plt Count 217 INR APTT Sodium 135 L Potassium 3.5 Chloride 103 Carbon Dioxide 25 BUN 11 Creatinine 0.99 Glucose 96 Calcium 8.2 L Total Bilirubin AST ALT Alkaline Phosphatase Troponin I Active Medications Acetaminophen (Tylenol) 650 mg PO Q6H PRN PRN Reason: mild pain/fever Stop: 04/02/19 23:36 Albuterol/Ipratropium (Duoneb) 3 ml IH Q6H PRN PRN Reason: Shortness Of Breath Stop: 04/03/19 07:27 Aspirin (Aspirin Ec) 81 mg PO DAILY [facility] Stop: 04/04/19 09:01 Atorvastatin Calcium (Lipitor) 80 mg PO DAILY [facility] Stop: 04/03/19 09:01 Last Admin: 10/02/18 08:10 Dose: 80 mg Documented by: Budesonide/Formoterol Fumarate (Symbicort) 2 puff IH BIDR [facility]; Protocol Stop: 04/03/19 09:01 Last Admin: 10/02/18 07:56 Dose: 2 puff Documented by: Clopidogrel Bisulfate (Plavix) 75 mg PO DAILY [facility] Stop: 04/04/19 09:01 Guaifenesin (Robitussin Liq) 200 mg PO Q6H PRN PRN Reason: Cough Stop: 04/02/19 23:36 Heparin Sodium (Porcine) (Heparin) 5,000 unit SQ Q12HCO [facility] Stop: 04/03/19 06:01 Last Admin: 10/02/18 05:38 Dose: 5,000 unit Documented by: Piperacillin Sod/Tazobactam (Sod 3.375 gm/ Sodium Chloride) 100 mls @ 25 mls/hr IVPB Q8H [facility] Stop: 04/03/19 06:01 Last Admin: 10/02/18 05:38 Dose: 25 mls/hr Documented by: Sodium Chloride (0.9 % Sodium Chloride) 1,000 mls @ 75 mls/hr IVC .[id number] [facility] Stop: 04/03/19 13:16 Pantoprazole Sodium (Protonix) 40 mg IVP DAILY [facility] Stop: 04/04/19 09:01 - Imaging and Cardiology Echo: report reviewed Cardiac cath: report reviewed Other Results: not on tele. - EKG Interpretation EKG results cardiology: personally reviewed Consult Discharge Plan - Plan Referrals: Marianna Cespedes MD [Primary Care Provider] - <Jimenez Cuevas A - Last Filed: 10/03/18 21:15> Date of Encounter: 10/03/18 - Attending Attestation I have personally performed a face to face evaluation on this patient. I have reviewed and agree with the documented findings and care plan as documented by the [employer]. History and Exam by me shows: Patient with ASD and recurrent strokes, awaiting percutaneous ASD closure. Add aspirin 81mg daily to plavix 75mg daily. Plavix should be held a week prior to procedure. High intensity statin. Jimenez Trevizo MD FAC Assessment and Plan Discussion w patient/family: The assessment and plan as outlined above was discussed with the patient and/or family members who expressed understanding and agreement. All questions were answered. Thank you for involving us in the care of your patient. Please call with any questions. History of Present Illness History of present illness: Mr. Vieira is a 67 year old male All Systems Review: The remainder of the systems were reviewed and are negative Physical Examination Vital Signs, Last 4 Hours Temp Pulse Resp BP Pulse Ox 10/03/18 19:54 16 94 10/03/18 19:34 97.6 F 54 19 122/68 100 Results 10/02/18 04:19 10/02/18 04:19
[2018-10-02] MEDS: 0.9 % Sodium Chloride 1,000 ML IVC SCH (15:58)
[2018-10-03] MEDS ORDERED: 0.9 % Sodium Chloride 500 ML IVC ONE (03:38)
[2018-10-03] MEDS: 0.9 % Sodium Chloride 1,000 ML IVC SCH (04:29)
[2018-10-03] MEDS: *HR* Heparin 5,000 UNIT/ML VIAL SQ SCH ×2 (05:40→18:36)
[2018-10-03] MEDS: Piperacillin/Tazobactam 3.375 GM in 0.9 % Sodium Chloride Mini Bag 100 ML IVPB SCH ×3 (05:41→21:35)
[2018-10-03] MEDS: Budesonide/Formoterol 160/4.5 1 PUFF INH IH SCH ×2 (07:21→19:52)
[2018-10-03] MEDS ORDERED: *HR* OxyCODONE/APAP 5/325 TABLET PO PRN (08:35)
[2018-10-03] MEDS: Aspirin Enteric Coated 81 MG Tablet PO SCH (10:18)
[2018-10-03] MEDS: Pantoprazole 40 MG VIAL IVP SCH (10:18)
[2018-10-03] MEDS: Pregabalin 75 MG CAPSULE PO SCH ×2 (11:25→21:35)
--- NOTE | 2018-10-03 14:07 | Internal Med Progress Note ---
Hospitalist Progress Note - Encounter Date of Encounter: 10/03/18 Time of Encounter: 08:13 - Subjective Interval History: She was seen and examined at bedside. Family at bedside and I discussed all imaging reports with them. He denies any further or illogical deficits. Is walking without any difficulty. With that his breathing has improved significan tly. Denies nausea, vomiting, diarrhea. Understands that he will need to go for an ASD closure in early October. - Exam Vitals: Temp Pulse Resp BP Pulse Ox 98.2 F 57 18 116/65 97 10/03/18 13:05 10/03/18 13:05 10/03/18 13:05 10/03/18 13:05 10/03/18 13:05 Exam: General: Patient is alert, oriented, no acute distress, uncooperative Head: atraumatic, normocephalic, Eye: normal appearance, PERRL, no scleral icterus, no conjunctival injection ENT: mucous membranes moist, normal external ear exam Neck: normal inspection, trachea midline, full ROM, no carotid bruits Chest: normal inspection, symmetric chest rise Respiratory: Decreased breath sounds bilaterally, crackles in the posterior lung field, could not appreciate any wheezing. Cardiovascular: Regular rate and rhythm. s1 and s2 No clicks, rubs, gallops, or murmors. Abdomen: Bowel sounds present normoactive x-4 quadrants. Abdomen is soft, no ndistended. no Epigastric tenderness. No guarding or rebound. No organomegaly noted, obese musculoskeletal: Spontaneously moving all extremities. no edema, no calf tenderness Skin: warm, dry, intact. Neuro: Alert and oriented x3 Sensation light touch intact. Cranial nerves 2- 12 is intact. Strength is symmetric throughout and 5 out of 5. Speeches comprehendible, [id number] intact, negative pronator drift. Psych: Patient's affect is normal - Assessment and Plan (1) CVA (cerebral vascular accident) Current Visit: Yes Status: Acute Assessment and Plan: acute onset of slurred speech and disequilibrium MRI brain 10/02 showing subtle area of intermediate diffuse in the left periventricular white matter suggestive of a subacute area of infarct. h/o multiple TIA's Has had recent neuro w/u which was unremarkable including MRI Brain 07/18/18 with no acute infarct CTA head/neck 07/18/18- with diffuse atherosclerotic plaque in the cervical arterial system without hemodynamically significant stenosis or branch occlusion. No hemodynamically significant stenosis or branch occlusion in the intracranial arterial circulation. Left heart cath 09/13 showing PFO with cardiology recommendation at that time of interventional therapy of atrial level shunt on ASA and plavix as per cardiology and neurology recommendations. Neurology and cardiology recs appreciated Continue neuro checks as per protocol Physical therapy and occupational therapy both cardiology and neurology recommended no OAC atthis time - Scheduled ASD closure on 11/05/18. Lipid panel in the morning- continue statins (2) Pneumonia Current Visit: Yes Status: Acute Assessment and Plan: Notable on x-ray and correlates with his new respiratory symptoms. Unclear if secondary to aspiration given the frequency of mental status issues he develops or if a regular lobar pneumonia. Was started on Zosyn will continue Urine antigens negative Sputum cultures and process Blood cultures no growth to date MRSA screen negative Continue with home inhalers Oxygen via nasal cannula (3) ASD (atrial septal defect), ostium secundum Current Visit: No Status: Chronic Assessment and Plan: Had left heart catheter performed on 09/24/18 Atrial Level shunt with significant 02 step up. There is severe one vessel coronary artery disease. The left ventricle is normal and has normal contractility EF 65% Cardiology was consulted will follow recommendations. (4) Pulmonary hypertension Current Visit: No Status: Chronic Assessment and Plan: Severe pulmonary hypertension. Estimated RVSP >70 mmHg. on [facility] on 07/17/2018 Continue with home inhalers and oxygen (5) COPD (chronic obstructive pulmonary disease) Current Visit: No Status: Chronic Assessment and Plan: Not in Exacerbation Continue with home medications (6) HLD (hyperlipidemia) Current Visit: No Status: Chronic Assessment and Plan: Continue with statins Lipid panel in the morning (7) HTN (hypertension) Current Visit: No Status: Chronic Assessment and Plan: continue home medications once confirmed. (8) DVT prophylaxis Current Visit: No Status: Acute Assessment and Plan: Heparin subcutaneous - Time Spent with Patient Total time spent is greater than 50% in coordination of care (as documented) at patient's floor/unit and/or counseling patient: Internal Medicine: Result - Labs CBC & Chem 7: 10/02/18 04:19 10/02/18 04:19 - ABG Interpretation ABG results: PT/INR, D-dimer PT 14.7 Seconds (9.4-12.1) H 10/01/18 20:40 - Impressions Impressions Brain MRI 10/02/18 07:30 IMPRESSION: Subtle area of intermediate diffusion in the left periventricular white matter suggestive of a subacute area of infarct. Minimal chronic small vessel ischemic changes. Mild mucoperiosteal thickening in the sinuses. D/ / 10/02/2018 10:03:02 Litzy Armijo MD / Cheryl Simpson Interpreting Provider: Litzy Armijo MD Consult Discharge Plan - Plan Referrals: Marianna Cespedes MD [Primary Care Provider] - (1) CVA (cerebral vascular accident) Qualifiers: CVA mechanism: other Qualified Code(s): I63.89 - Other cerebral infarction (2) Pneumonia Qualifiers: Pneumonia type: due to unspecified organism Laterality: unspecified lat erality Lung location: upper lobe of lung Qualified Code(s): J18.1 - Lobar pneumonia, unspecified organism (5) COPD (chronic obstructive pulmonary disease) Qualifiers: COPD type: emphysema Emphysema type: unspecified Qualified Code(s): J43.9 - Emphysema, unspecified (6) HLD (hyperlipidemia) Qualifiers: Hyperlipidemia type: pure hypercholesterolemia Qualified Code(s): E78.00 - Pure hypercholesterolemia, unspecified; E78.0 - Pure hypercholesterolemia (7) HTN (hypertension) Qualifiers: Hypertension type: essential hypertension Qualified Code(s): I10 - Essential (primary) hypertension
[2018-10-03] MEDS ORDERED: traZODone 50 MG TABLET PO PRN (14:08)
[2018-10-03] MEDS ORDERED: Loratadine 10 MG TABLET PO PRN (14:08)
[2018-10-03] MEDS: Ranolazine 500 MG TAB.ER.12H PO SCH (21:35)
[2018-10-03] MEDS: Fluticasone Propionate Nasal 50 MCG/SPRAY BOTTLE NS SCH (21:36)
[2018-10-04] MEDS: 0.9 % Sodium Chloride 1,000 ML IVC SCH (05:20)
[2018-10-04] MEDS: Piperacillin/Tazobactam 3.375 GM in 0.9 % Sodium Chloride Mini Bag 100 ML IVPB SCH (05:20)
[2018-10-04] MEDS: *HR* Heparin 5,000 UNIT/ML VIAL SQ SCH (05:20)
[2018-10-04] MEDS ORDERED: Cholecalciferol (D-3) 1,000 UNIT TABLET PO SCH (09:00)
[2018-10-04 09:15] LABS: Hematocrit 40.6 % (37.5-50.1); Hemoglobin 12.9 g/dL (12.9-16.9); Mean Corpuscular HGB Conc 31.8 g/dL (31.6-35.5); Mean Corpuscular Volume 94.4 fL (83.0-100.0); Mean Platelet Volume 10.1 fL (9.4-12.4); Platelet Count 208 K/mcL (140-400); Red Cell Distribution Width 13.7 % (11.5-14.5); White Blood Count 7.9 K/mcL (4.3-11.1)
[2018-10-04] MEDS: Aspirin Enteric Coated 81 MG Tablet PO SCH (09:19)
[2018-10-04] MEDS: Pregabalin 75 MG CAPSULE PO SCH (09:19)
[2018-10-04] MEDS: Ranolazine 500 MG TAB.ER.12H PO SCH (09:19)
[2018-10-04] MEDS: Fluticasone Propionate Nasal 50 MCG/SPRAY BOTTLE NS SCH (09:19)
[2018-10-04 09:25] LABS: BUN/Creatinine Ratio 6 (6-26); Blood Urea Nitrogen 5 mg/dL (8-23); Calcium 8.5 mg/dL (8.6-10.3); Carbon Dioxide 23 mEq/L (23-29); Chloride 112 mEq/L (98-107); Chol/HDL Ratio 4.3 (0-4.9); Cholesterol 134 mg/dL (< 200); Glucose 84 mg/dL (70-105); HDL Cholesterol 31 mg/dL (40-59); LDL Cholesterol,Calculated 85 mg/dL (0-99); Osmolality,Calculated 286 (280-300); Potassium 3.7 mEq/L (3.5-5.1); Sodium 140 mEq/L (136-145); Triglycerides 90 mg/dL (< 150); eGFR For African Americans > 60 (> 60); eGFR For Non-African Americans > 60 (> 60)
--- NOTE | 2018-10-04 09:58 | Discharge Summary ---
- NOTES TO OUTPATIENT PROVIDER Notes to Outpatient Provider: follow up with cardioogy for ASD closure, follow up with neurology and pulmonology Orders not resulted at time of discharge: Pending orders 10/01/18 21:09 Culture,Blood [BC] Stat 10/01/18 23:34 Culture,Sputum with Gram Stain [RM] Stat 10/02/18 16:21 EKG [ECG 12 lead ECG] [ECG] Stat Date of Encounter: 10/04/18 Time of Encounter: 09:56 - Discharge Diagnosis (1) CVA (cerebral vascular accident) Priority: Primary Status: Acute Qualifiers: CVA mechanism: other Qualified Code(s): I63.89 - Other cerebral infarction (2) Pneumonia Priority: Secondary Status: Acute Qualifiers: Pneumonia type: due to unspecified organism Laterality: unspecified laterality Lung location: upper lobe of lung Qualified Code(s): J18.1 - Lobar pneumonia, unspecified organism (3) ASD (atrial septal defect), ostium secundum Priority: Secondary Status: Chronic (4) Pulmonary hypertension Priority: Secondary Status: Chronic (5) COPD (chronic obstructive pulmonary disease) Priority: Secondary Status: Chronic Qualifiers: COPD type: emphysema Emphysema type: unspecified Qualified Code(s): J43.9 - Emphysema, unspecified (6) HLD (hyperlipidemia) Priority: Secondary Status: Chronic Qualifiers: Hyperlipidemia type: pure hypercholesterolemia Qualified Code(s): E78.00 - Pure hypercholesterolemia, unspecified; E78.0 - Pure hypercholesterolemia (7) HTN (hypertension) Priority: Secondary Status: Chronic Qualifiers: Hypertension type: essential hypertension Qualified Code(s): I10 - Essential (primary) hypertension (8) DVT prophylaxis Priority: Secondary Status: Acute (9) Abnormal finding on imaging Priority: Secondary Status: Acute Hospital course: "Walter Vieira is a 67 year old man with CAD, HTN, HLD and a history of recurrent strokes/TIAs in the setting of a PFO which he is to get repaired in the coming weeks because of this. He is brought in by his daughter who noticed over the phone that around 7pm his speech was off and seemed disoriented. She said she had spoken to him at 530pm and he was fine. When she saw him he was shaking and acting confused. She was concerned as he usually manifests like this when having a stroke she stated. He apparently lives alone. In the ER he was hemodynamically stable. Lab work revealed a wbc of 12, Na 133 and Cl 97 but otherwise rest of studies were unremarkable. CXR as reviewed by me shows an infiltrate in the right lung base. He admits to me that he has been having productive cough and mild shortness of breath. CTA head/neck showed no new acute findings. He was started on empiric abx and admitted for further care. " Patient was admitted for above presentation and had the course.. Encephalopathy resolved. He was started on IV antibiotics for right lower lobe pneumonia, urinary antigens were negative, MRSA screen was negative. Sputum cultures with gram-negative coccobacilli ( betalactamase negative) Leukocytosis resolved on Abx. No fever, tachycardia or tachypnia. MRI head performed which showed Subtle area of intermediate diffusion in the left periventricular white matter suggestive of a subacute area of infarct. Neurology was consulted and recommendations followed. Cardiology was consulted as he has known PFO and recommended "Continue plan as per outpatient--ASD closure scheduled with Dr. Lucas for 11/05/18. continue plavix as per Neurology recommendation, add 81 mg as well given recurrent TIA/CVAs." no OAC was recommended by cardiology or neurology. Neurology did not recommend to repeat CTA head and neck since he had a recent CTA performed, results are below. CTA head/neck 07/18/18- with diffuse atherosclerotic plaque in the cervical arterial system without hemodynamically significant stenosis or branch occlusion. No hemodynamically significant stenosis or branch occlusion in the intracranial arterial circulation. Left heart cath 09/13 showing PFO with cardiology recommendation at that time of interventional therapy of atrial level shunt. Also since he has had a recent T EE and cardiac catheter there is no recommendations to repeat echocardiogram. He was transitioned to oral antibiotics to finish the remainder of the course. To have chest x-ray repeated in 10 days to ensure resolution of the right lower lobe pneumonia. Is to have pulmonology follow-up for repeat pulmonary function test, pulmonary hypertension and his COPD management, will need annual HRCT of the chest performed to evalauate " This was not definitively present on prior CT angiography of the neck in May. This could represent a small area of pneumonia or developing neoplasm." and he understands. PT/OT consulted and recommended to d/c home with HHPT. CAMERON LVEF 55%. Normal LV size and function. Mildly dilated right ventricle with normal function. Severely dilated left atrium. Very severely dilated right atrium. Mild tricuspid regurgitation. Severe pulmonary hypertension. Estimated RVSP >70 mmHg. Hyperdynamic interatrial septum. There appears to be an ASD present with evidence of a bidirectional shunt (left to right with color Doppler, right to left with agitate saline). Of note, IV infiltrated during injection of agitated saline. Cardiac cath: Indications: PFO PFO, Cryptogenic Stroke Impressions: Atrial Level shunt with significant 02 step up. There is severe one vessel coronary artery disease. The left ventricle is normal and has normal contractility EF 65% CTA head and neck CT HEAD:: No acute intracranial abnormality. No findings are diagnostic of an acute infarct. CT angiogram neck: No focal significant arterial narrowing is noted in the neck. Left lung stellate opacity. This was not definitively present on prior CT angiography of the neck in May. This could represent a small area of pneumonia or developing neoplasm. Correlate with CT chest CT angiogram head: No focal significant arterial narrowing is noted. There is mild fusiform enlargement of the lateral aspect of the left middle cerebral artery in the anterior left sylvian fissure region. This is stable 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, family, social work, case management, cycle consultant Time spent discussing smoking cessation with patient: more than 10 minutes - Time Spent with Patient Total time spent providing and/or coordinating discharge services: Time spent: Greater than 30 minutes (35) - Discharge Medications Prescriptions: New levoFLOXacin [Levaquin] 750 mg PO DAILY #4 tablet Clopidogrel [Plavix] 75 mg PO DAILY #30 tablet Continued Fluticasone Propionate Nasal [Flonase] 1 spray NS BID Ipratropium [ATROVENT Inhaler] 2 puff IH BID Budesonide/Formoterol 160/4.5 [Symbicort 160/4.5] 2 puff IH BID Atorvastatin Calcium [Lipitor] 80 mg PO DAILY Ranolazine [Ranexa] 1,000 mg PO BID Propylene Glycol/Peg 400 [Systane 0.3-0.4% Eye Drops] 1 drop BOTH EYES TID Oxycodone HCl/Acetaminophen [Percocet 5-325 mg Tablet] 1 each PO QID PRN PRN Reason: Severe Pain Albuterol Sulfate [Ventolin Hfa] 2 puff IH Q4H PRN PRN Reason: Shortness Of Breath Loratadine [Allergy Relief] 10 mg PO DAILY PRN PRN Reason: Allergy Symptoms Montelukast [Singulair] 10 mg PO HS Omeprazole [PriLOSEC] 20 mg PO BID Sildenafil Citrate 100 mg PO AD PRN PRN Reason: ERECTION Trazodone HCl 100 mg PO HS PRN PRN Reason: Sleep Furosemide [Lasix] 20 mg PO DAILY Potassium Chloride [Klor-Con 10] 10 meq PO DAILY Aspirin 81 mg PO DAILY Ipratropium/Albuterol Sulfate [Iprat-Albut 0.5-3(2.5) mg/3 ml] 3 ml IH Q6H PRN PRN Reason: Shortness Of Breath amLODIPine [Norvasc] 5 mg PO DAILY Cholecalciferol (D-3) [Vitamin D] 1,000 unit PO DAILY Docusate Sodium [Stool Softener] 100 mg PO DAILY Pregabalin [Lyrica] 300 mg PO BID PRN PRN Reason: Pain Home Medications: Atorvastatin Calcium [Lipitor] 80 mg PO DAILY 07/10/17 [History] Budesonide/Formoterol 160/4.5 [Symbicort 160/4.5] 2 puff IH BID 07/10/17 [History] Fluticasone Propionate Nasal [Flonase] 1 spray NS BID 07/10/17 [History] Ipratropium [ATROVENT Inhaler] 2 puff IH BID 07/10/17 [History] Oxycodone HCl/Acetaminophen [Percocet 5-325 mg Tablet] 1 each PO QID PRN 07/10/17 [History] Propylene Glycol/Peg 400 [Systane 0.3-0.4% Eye Drops] 1 drop BOTH EYES TID 07/10/17 [History] Ranolazine [Ranexa] 1,000 mg PO BID 07/10/17 [History] Albuterol Sulfate [Ventolin Hfa] 2 puff IH Q4H PRN 04/26/18 [History] Loratadine [Allergy Relief] 10 mg PO DAILY PRN 04/26/18 [History] Montelukast [Singulair] 10 mg PO HS 04/26/18 [History] Omeprazole [PriLOSEC] 20 mg PO BID 04/26/18 [History] Sildenafil Citrate 100 mg PO AD PRN 04/26/18 [History] Trazodone HCl 100 mg PO HS PRN 04/26/18 [History] Furosemide [Lasix] 20 mg PO DAILY 05/30/18 [History] Potassium Chloride [Klor-Con 10] 10 meq PO DAILY 05/30/18 [History] Aspirin 81 mg PO DAILY 07/18/18 [History] Ipratropium/Albuterol Sulfate [Iprat-Albut 0.5-3(2.5) mg/3 ml] 3 ml IH Q6H PRN 07/18/18 [History] amLODIPine [Norvasc] 5 mg PO DAILY 09/24/18 [History] Cholecalciferol (D-3) [Vitamin D] 1,000 unit PO DAILY 10/02/18 [History] Docusate Sodium [Stool Softener] 100 mg PO DAILY 10/02/18 [History] Pregabalin [Lyrica] 300 mg PO BID PRN 10/03/18 [History] Clopidogrel [Plavix] 75 mg PO DAILY #30 tablet 10/04/18 [Rx] levoFLOXacin [Levaquin] 750 mg PO DAILY #4 tablet 10/04/18 [Rx] Allergies/Adverse Reactions: Allergy/AdvReac Type Severity Reaction Status Date / Time No Known Allergies Allergy Verified 10/02/18 20:28 Date of admission: 10/02/18 12:47 Primary care physician: Marianna Cespedes MD Consults: 10/02/18 10:13 Consult to Neurology [CONS] Routine Consulting Provider: [facility] Reason for Consult: subacute stroke Call Completed: Yes 10/02/18 10:17 Consult to Occupational Therapy [CONS] Routine Comment: Evaluate, develop and implement POC Reason for Consult: Unsteady gait Does patient have active BEDREST order?: No Is patient medically & hemodynamically stable?: Yes Patient assessed for mobility or mobilized this visit?: No Consult to Physical Therapy [CONS] Routine Comment: Evaluate, develop and implement POC Reason for Consult: Unsteady gait Does patient have active BEDREST order?: No Is patient medically & hemodynamically stable?: Yes Patient assessed for mobility or mobilized this visit?: No 10/02/18 11:35 Consult to Cardiology [CONS] Routine Comment: Consulting Provider: Cardiology [facility] Reason for Consult: PFO with new stroke Call Completed: Yes 10/02/18 14:14 Consult to Body Cleaner [CONS] Routine Reason for SW Consult: PT/OT recommends home health - Constitutional Vitals: Temp Pulse Resp BP Pulse Ox 97.9 F 52 16 131/57 93 10/04/18 07:45 10/04/18 07:45 10/04/18 07:45 10/04/18 07:45 10/04/18 07:45 Exam: General: Patient is alert, oriented, no acute distress, uncooperative Head: atraumatic, normocephalic, Eye: normal appearance, PERRL, no scleral icterus, no conjunctival injection ENT: mucous membranes moist, normal external ear exam Neck: normal inspection, trachea midline, full ROM, no carotid bruits Chest: normal inspection, symmetric chest rise Respiratory: Decreased breath sounds bilaterally, crackles in the posterior lung field, could not appreciate any wheezing. Cardiovascular: Regular rate and rhythm. s1 and s2 No clicks, rubs, gallops, or murmors. Abdomen: Bowel sounds present normoactive x-4 quadrants. Abdomen is soft, nondistended. no Epigastric tenderness. No guarding or rebound. No organomegaly noted, obese musculoskeletal: Spontaneously moving all extremities. no edema, no calf tenderness Skin: warm, dry, intact. Neuro: Alert and oriented x3 Sensation light touch intact. Cranial nerves 2- 12 is intact. Strength is symmetric throughout and 5 out of 5. Speeches comprehendible, [id number] intact, negative pronator drift. Psych: Patient's affect is normal - Patient Status Disposition: Home Health Service Condition: Fair Functional capacity at discharge: independent ambulation Overall status at discharge: patient is progressing back to baseline - Discharge Instructions Follow Up With: Marianna Cespedes MD [Primary Care Provider] - Isma Lucas MD [Partnered Physician] - 11/05/18 Kristine Seals MD [Partnered Physician] - Cristino Bob DO [Partnered Physician] -
[2018-10-04] MEDS ORDERED: levoFLOXacin 750 MG TABLET PO SCH (10:00)
--- NOTE | 2018-10-04 10:12 | Physician Discharge Referral ---
Home Health/Hosp Referral Info Transfer to: Home Health Provider in Charge Post Discharge: PCP - Diagnosis (1) CVA (cerebral vascular accident) Status: Acute (2) Pneumonia Status: Acute (3) ASD (atrial septal defect), ostium secundum Status: Chronic (4) Pulmonary hypertension Status: Chronic (5) COPD (chronic obstructive pulmonary disease) Status: Chronic (6) HLD (hyperlipidemia) Status: Chronic (7) HTN (hypertension) Status: Chronic (8) DVT prophylaxis Status: Acute (9) Abnormal finding on imaging Status: Acute - Respiratory Orders Smoking Cessation: Smoking cessation has been advised. For more information, call the [place] Tobacco Quit Line at 0-339-LJDY-NOW. - Services Needed Following services are medically necessary services: Nursing, Home Health Aide, Physical Therapy - Transfer Medications Prescriptions: levoFLOXacin [Levaquin] 750 mg PO DAILY #4 tablet Clopidogrel [Plavix] 75 mg PO DAILY #30 tablet Home Medications: Atorvastatin Calcium [Lipitor] 80 mg PO DAILY 07/10/17 [History] Budesonide/Formoterol 160/4.5 [Symbicort 160/4.5] 2 puff IH BID 07/10/17 [History] Fluticasone Propionate Nasal [Flonase] 1 spray NS BID 07/10/17 [History] Ipratropium [ATROVENT Inhaler] 2 puff IH BID 07/10/17 [History] Oxycodone HCl/Acetaminophen [Percocet 5-325 mg Tablet] 1 each PO QID PRN 07/10/17 [History] Propylene Glycol/Peg 400 [Systane 0.3-0.4% Eye Drops] 1 drop BOTH EYES TID 07/10/17 [History] Ranolazine [Ranexa] 1,000 mg PO BID 07/10/17 [History] Albuterol Sulfate [Ventolin Hfa] 2 puff IH Q4H PRN 04/26/18 [History] Loratadine [Allergy Relief] 10 mg PO DAILY PRN 04/26/18 [History] Montelukast [Singulair] 10 mg PO HS 04/26/18 [History] Omeprazole [PriLOSEC] 20 mg PO BID 04/26/18 [History] Sildenafil Citrate 100 mg PO AD PRN 04/26/18 [History] Trazodone HCl 100 mg PO HS PRN 04/26/18 [History] Furosemide [Lasix] 20 mg PO DAILY 05/30/18 [History] Potassium Chloride [Klor-Con 10] 10 meq PO DAILY 05/30/18 [History] Aspirin 81 mg PO DAILY 07/18/18 [History] Ipratropium/Albuterol Sulfate [Iprat-Albut 0.5-3(2.5) mg/3 ml] 3 ml IH Q6H PRN 07/18/18 [History] amLODIPine [Norvasc] 5 mg PO DAILY 09/24/18 [History] Cholecalciferol (D-3) [Vitamin D] 1,000 unit PO DAILY 10/02/18 [History] Docusate Sodium [Stool Softener] 100 mg PO DAILY 10/02/18 [History] Pregabalin [Lyrica] 300 mg PO BID PRN 10/03/18 [History] Clopidogrel [Plavix] 75 mg PO DAILY #30 tablet 10/04/18 [Rx] levoFLOXacin [Levaquin] 750 mg PO DAILY #4 tablet 10/04/18 [Rx] Allergies/Adverse Reactions: Allergy/AdvReac Type Severity Reaction Status Date / Time No Known Allergies Allergy Verified 10/02/18 20:28 Certification: Further, I certify that my clinical findings support that this patient is homebound (i.e. absences from home require considerable and taxing effort and are for medical reasons or gnosticism services or infrequently or short duration when for other reasons) because: Homebound Reason: Patient requires assistance of a person or device to safely leave home Attestation: My signature below is to certify that this patient is under my care and that I, or nurse practitioner, or a physician's kindergarten assistant working with me, has a [id number] encounter with this patient.
[2018-10-04 10:40] VITALS: BP 138/73
[2018-10-04] MEDS: Budesonide/Formoterol 160/4.5 1 PUFF INH IH SCH (11:01)
[2018-10-04] MEDS: Pantoprazole 40 MG VIAL IVP SCH (12:54)
--- NOTE | 2018-10-05 15:17 | Electrocardiograph Report ---
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
== END 2018-10-04 13:40 | disposition home health service (06) | DRG 65 ==
LOC: 3NENU 20:17 → EMEROOARM 20:17 → 3NENU 10-02 00:28
PROVIDERS: ADMIT Internal Medicine; ATTEND Internal Medicine

== ENCOUNTER 2018-11-14 15:35 | Inpatient (IN) ==
[2018-11-14] MEDS ORDERED: Aspirin 325 MG TABLET PO ONE (17:40)
[2018-11-14] MEDS ORDERED: Ondansetron 4 MG/2 ML VIAL IVP PRN (18:13)
[2018-11-14] MEDS ORDERED: Naloxone 0.4 MG/ML INJ IVP PRN (18:13)
[2018-11-14] MEDS ORDERED: Acetaminophen 325 MG TABLET PO PRN (18:13)
[2018-11-14 18:55] LABS: Basophils % 0.1 %; Eosinophils % 0.2 %; Hematocrit 41.5 % (37.5-50.1); Hemoglobin 14.2 g/dL (12.9-16.9); Immature Granulocytes % 0.7 % (0-4); Lymphocytes # 2.9 K/mcL (0.6-4.6); Lymphocytes % 15.4 %; Mean Corpuscular HGB Conc 34.2 g/dL (31.6-35.5); Mean Corpuscular Hemoglobin 30.3 pg (28.0-33.3); Mean Corpuscular Volume 88.7 fL (83.0-100.0); Mean Platelet Volume 10.5 fL (9.4-12.4); Monocytes # 0.9 K/mcL (0.0-1.3); Monocytes % 4.8 %; Neutrophils # 14.8 K/mcL (1.6-8.9); Platelet Count 222 K/mcL (140-400); Red Blood Count 4.68 M/mcL (4.19-5.50); Red Cell Distribution Width 14.2 % (11.5-14.5); Segmented Neutrophils % 78.8 %; White Blood Count 18.7 K/mcL (4.3-11.1)
[2018-11-14 19:09] LABS: BUN/Creatinine Ratio 13 (6-26); Blood Urea Nitrogen 13 mg/dL (8-23); Calcium 9.1 mg/dL (8.6-10.3); Carbon Dioxide 31 mEq/L (23-29); Chloride 102 mEq/L (98-107); Glucose 106 mg/dL (70-105); Osmolality,Calculated 287 (280-300); Potassium 3.5 mEq/L (3.5-5.1); Sodium 138 mEq/L (136-145); eGFR For African Americans > 60 (> 60); eGFR For Non-African Americans > 60 (> 60)
[2018-11-14] MEDS ORDERED: Ipratropium/Albuterol Neb 3 ML IH PRN (19:40)
[2018-11-14] MEDS: *HR* Heparin 5,000 UNIT/ML VIAL SQ SCH (21:30)
[2018-11-15] MEDS: *HR* Heparin 5,000 UNIT/ML VIAL SQ SCH ×2 (06:28→18:26)
[2018-11-15 07:12] LABS: Basophils % 0.4 %; Eosinophils # 0.1 K/mcL (0.0-0.6); Eosinophils % 1.3 %; Hematocrit 41.1 % (37.5-50.1); Hemoglobin 13.6 g/dL (12.9-16.9); Immature Granulocytes % 0.7 % (0-4); Lymphocytes % 27.9 %; Mean Corpuscular HGB Conc 33.1 g/dL (31.6-35.5); Mean Corpuscular Hemoglobin 30.1 pg (28.0-33.3); Mean Corpuscular Volume 90.9 fL (83.0-100.0); Mean Platelet Volume 10.3 fL (9.4-12.4); Monocytes # 0.7 K/mcL (0.0-1.3); Monocytes % 6.4 %; Neutrophils # 6.8 K/mcL (1.6-8.9); Platelet Count 214 K/mcL (140-400); Red Blood Count 4.52 M/mcL (4.19-5.50); Red Cell Distribution Width 14.2 % (11.5-14.5); Segmented Neutrophils % 63.3 %; White Blood Count 10.7 K/mcL (4.3-11.1)
[2018-11-15 07:20] LABS: INR 1.1; Prothrombin Time 12.6 Seconds (9.4-12.1)
[2018-11-15 07:30] LABS: Chloride 103 mEq/L (98-107); Potassium 3.5 mEq/L (3.5-5.1); Sodium 139 mEq/L (136-145)
[2018-11-15 07:36] LABS: Alanine Aminotransferase 6 Units/L (7-52); Albumin 3.5 g/dL (3.5-5.7); Albumin/Globulin Ratio 1.6 (1.1-2.2); Alkaline Phosphatase 46 Units/L (34-104); Aspartate Amino Transferase 9 Units/L (13-39); BUN/Creatinine Ratio 14 (6-26); Blood Urea Nitrogen 16 mg/dL (8-23); Calcium 8.9 mg/dL (8.6-10.3); Carbon Dioxide 32 mEq/L (23-29); Cholesterol 134 mg/dL (< 200); Globulin 2.2 g/dL (2.4-3.5); Glucose 105 mg/dL (70-105); HDL Cholesterol 44 mg/dL (40-59); LDL Cholesterol,Calculated 72 mg/dL (0-99); Magnesium 1.9 mg/dL (1.6-2.6); Osmolality,Calculated 290 (280-300); Phosphorous 2.4 mg/dL (2.7-4.5); Total Protein 5.7 g/dL (6.4-8.9); Triglycerides 91 mg/dL (< 150); eGFR For African Americans > 60 (> 60); eGFR For Non-African Americans > 60 (> 60)
[2018-11-15] MEDS: Aspirin 81 MG TAB.CHEW PO SCH (09:03)
[2018-11-15] MEDS: Budesonide/Formoterol 160/4.5 1 PUFF INH IH SCH ×2 (15:36→21:38)
[2018-11-15] MEDS: Pregabalin 75 MG CAPSULE PO PRN (22:00)
[2018-11-16 02:53] LABS: Hematocrit 41.8 % (37.5-50.1); Mean Corpuscular HGB Conc 33.5 g/dL (31.6-35.5); Mean Corpuscular Hemoglobin 29.5 pg (28.0-33.3); Mean Corpuscular Volume 88.2 fL (83.0-100.0); Mean Platelet Volume 10.6 fL (9.4-12.4); Platelet Count 231 K/mcL (140-400); Red Blood Count 4.74 M/mcL (4.19-5.50); Red Cell Distribution Width 14.2 % (11.5-14.5); White Blood Count 9.6 K/mcL (4.3-11.1)
[2018-11-16 03:16] LABS: BUN/Creatinine Ratio 15 (6-26); Blood Urea Nitrogen 14 mg/dL (8-23); Calcium 8.5 mg/dL (8.6-10.3); Carbon Dioxide 29 mEq/L (23-29); Chloride 101 mEq/L (98-107); Glucose 93 mg/dL (70-105); Osmolality,Calculated 288 (280-300); Potassium 3.6 mEq/L (3.5-5.1); Sodium 139 mEq/L (136-145); eGFR For African Americans > 60 (> 60); eGFR For Non-African Americans > 60 (> 60)
[2018-11-16] MEDS: *HR* Heparin 5,000 UNIT/ML VIAL SQ SCH ×2 (06:01→17:15)
[2018-11-16] MEDS: Budesonide/Formoterol 160/4.5 1 PUFF INH IH SCH ×2 (07:22→20:13)
[2018-11-16] MEDS: Aspirin 81 MG TAB.CHEW PO SCH (08:05)
[2018-11-16] MEDS: Pregabalin 75 MG CAPSULE PO PRN ×2 (08:12→20:12)
[2018-11-16 14:41] LABS: Folate 5.3 ng/mL (3.0-16.0); Vitamin B12 547 pg/mL (250-1100)
[2018-11-16] MEDS ORDERED: Isovue-370 500 ML BOTTLE IVP ONE (14:51)
[2018-11-16 15:45] LABS: HIV-1&2 Antibody & p24 Ag Nonreactive (Nonreactive)
[2018-11-17] MEDS: *HR* Heparin 5,000 UNIT/ML VIAL SQ SCH (05:09)
[2018-11-17 07:16] VITALS: BP 125/63
[2018-11-17] MEDS: Budesonide/Formoterol 160/4.5 1 PUFF INH IH SCH (07:31)
[2018-11-17] MEDS: Aspirin 81 MG TAB.CHEW PO SCH (08:44)
== END 2018-11-17 11:10 | disposition home or self-care (01) | DRG 69 ==
LOC: 3BNU 15:35 → EMEROOARM 15:35 → 3BNU 19:46
PROVIDERS: ADMIT Student in an Organized Health Care Education/Training Program; ATTEND Student in an Organized Health Care Education/Training Program

== ENCOUNTER 2018-11-21 16:04 | Observation (INO) ==
--- NOTE | 2018-11-21 16:29 | Emergency Department Note ---
Disposition Clinical Impression: Weakness, COPD exacerbation Disposition: Admitted As Inpatient Condition: Good Time of Disposition: 18:44 General Adult HPI - General Chief complaint: ED Weakness Stated complaint: general weakness Time Seen by Provider: 11/21/18 16:07 Source: patient, family, EMS Mode of arrival: EMS Limitations: no limitations Nursing Notes Reviewed: Yes Vital Signs Reviewed: Yes - History of Present Illness HPI Narrative: Patient is a 67-year-old male that presents the emergency department with reports of twitching. Family at bedside states this is typical of when he is been diagnosed with TIAs. States one thing that is abnormal is a usually he has slurred speech with the twitching when he has his TIAs. Patient states that he has bilateral lower extremity weakness and pain in his left leg which is chronic. Patient was recently admitted to the hospital approximately one week ago for a neurologic workup which was negative per family. Patient states that he has not been able to sleep due to the twitching. States that he is tired. Patient has any chest pain or shortness of breath. Patient denies any numbness, weakness or tingling other than mild weakness and bilateral lower extremities. Patient states that he did have a fall today due to his legs coming week and shaky. States that he did not hit his head or lose consciousness. The patient is on Plavix. Patient did have an injury to his left index finger from the fall. Patient states that there is a small cut to the index finger. Pain Scale: 7 - Related Data Home Medications Medication Instructions Recorded Confirmed Atorvastatin Calcium [Lipitor] 80 mg PO DAILY 07/10/17 11/21/18 Budesonide/Formoterol 160/4.5 2 puff IH BID 07/10/17 11/21/18 [Symbicort 160/4.5] Fluticasone Propionate Nasal 1 spray NS BID 07/10/17 11/21/18 [Flonase] Oxycodone HCl/Acetaminophen 1 tab PO QID PRN 07/10/17 11/21/18 [Percocet 5-325 mg Tablet] Propylene Glycol/Peg 400 [Systane 1 drop BOTH EYES TID 07/10/17 11/21/18 0.3-0.4% Eye Drops] Ranolazine [Ranexa] 1,000 mg PO BID 07/10/17 11/21/18 Albuterol Sulfate [Ventolin Hfa] 2 puff IH Q4H PRN 04/26/18 11/21/18 Loratadine [Allergy Relief] 10 mg PO DAILY PRN 04/26/18 11/21/18 Sildenafil Citrate 100 mg PO AD PRN 04/26/18 11/21/18 Trazodone HCl 100 mg PO HS PRN 04/26/18 11/21/18 Furosemide [Lasix] 20 mg PO BID 05/30/18 11/21/18 Potassium Chloride [Klor-Con 10] 10 meq PO DAILY 05/30/18 11/21/18 Aspirin 81 mg PO DAILY 07/18/18 11/21/18 Ipratropium/Albuterol Sulfate 3 ml IH Q6H PRN 07/18/18 11/21/18 [Iprat-Albut 0.5-3(2.5) mg/3 ml] Pregabalin [Lyrica] 300 mg PO BID PRN 10/03/18 11/21/18 Guaifenesin [Cough Syrup] 100 mg PO Q4H PRN 11/05/18 11/21/18 Lactose-Reduced Food [Ensure Plus] 1 bottle PO BID 11/16/18 11/21/18 Lactose-Reduced Food [Ensure Plus] 237 ml PO BID 11/21/18 11/21/18 Montelukast [Singulair] 10 mg PO DAILY 11/21/18 11/21/18 Previous Rx's Medication Instructions Recorded Clopidogrel [Plavix] 75 mg PO DAILY #30 tablet 10/04/18 Allergies Allergy/AdvReac Type Severity Reaction Status Date / Time No Known Allergies Allergy Verified 10/02/18 20:28 All systems ED: reviewed and negative except as stated. Constitutional: Denies: fever Cardiovascular: Denies: chest pain Respiratory: Denies: dyspnea Gastrointestinal: Denies: abdominal pain, nausea Musculoskeletal: Reports: back pain (chronic) Neurological: Reports: weakness (bilateral lower extremity ). Denies: numbness, paresthesias Past Medical History - Past Medical History Medical history: Reports: COPD, coronary artery disease, hyperlipidemia, hypertension, myocardial infarction, TIA Surgical history: Reports: cataract Psychiatric history: Reports: no psych history - Social History Smoking Status: Current every day smoker Smokeless Tobacco Status: No Alcohol use: Reports: none Drug use: Reports: none Physical Exam - General Limitations: no limitations General appearance: alert, in no apparent distress - Head Head exam: atraumatic, normocephalic - Eye Eye exam: Present: normal appearance, EOMI - Neck Neck exam: Present: normal inspection, full ROM, trachea midline - Respiratory Respiratory exam: Present: normal lung sounds bilaterally. Absent: respiratory distress, wheezes - Cardiovascular Cardiovascular exam: Present: regular rate, normal rhythm, normal heart sounds, +S1, +S2 - Abdominal Exam Abdominal exam: Present: soft, Non-Tender, normal bowel sounds - Neurological Exam Neurological exam: Present: alert, oriented X3 - Expanded Neurological Exam Speech: Present: fluid speech Cranial nerves: EOM function (II, III, IV, ): Normal, facial sensation (V): Normal, facial palsy (VII): Normal, gag reflex (IX): Normal, spinal accessory function (XI): Normal, tongue deviation (XII): Normal Cerebellar function: finger to nose: Normal, heel to elaine: Normal Motor strength - LUE: 5/5 Motor strength - RUE: 5/5 Motor strength - LLE: 5/5 Motor strength - RLE: 5/5 Upper motor neuron exam: pronator drift: Absent bilaterally Sensory exam upper extremity: light touch: Normal Sensory exam lower extremity: light touch: Normal Coma Scale Eye Opening: Spontaneous Coma Scale Motor Response: Obeys Commands Coma Scale Verbal Response: Oriented Coma Scale Total: 15 - Psychiatric Psychiatric exam: Present: normal affect, normal mood - Skin Skin exam: Present: warm, dry, other (Laceration to the index finger on the left hand.) Course Vital Signs Temperature 97.8 F 11/21/18 16:09 Pulse Rate 69 11/21/18 16:09 Respiratory Rate 18 11/21/18 16:09 Blood Pressure 144/75 11/21/18 16:09 O2 Sat by Pulse Oximetry 99 11/21/18 16:09 Temperature 97.8 F 11/21/18 16:09 Pulse Rate 69 11/21/18 16:09 Respiratory Rate 18 11/21/18 16:09 Blood Pressure 144/75 11/21/18 16:09 O2 Sat by Pulse Oximetry 99 11/21/18 16:09 Oxygen Delivery Oxygen Delivery Room Air Medical Decision Making - MDM Narrative Medical decision making narrative: Due the patient is not emergency Department with reports of generalized weakness residually in bilateral lower extremities and twitching which is consistent with his prior TIAs we will obtain basic laboratory testing, EKG, chest x-ray due to the patient having a cough and a CT scan of the patient's head. CT head is negative. Chest x-ray does not show any acute findings for pneumonia but does show some scarring and atelectasis. EKG did not show any acute ischemic changes. Patient's laboratory testing did show a leukocytosis with the patient has recently been on steroids. Patient recently had a recent respiratory infections that this could likely be related to COPD exacerbation. Patient be given a dose of Levaquin and Solu-Medrol. Patient will be admitted to the hospital for generalized weakness, COPD exacerbation. Spoke with the admitting hospitalist Dr. Trevino and she is accepted the patient to their service. This was relayed to the hospitalist that there had been a recommendation for a possible EEG per the family. - Medical Records Medical records reviewed: Yes I reviewed the patient's medical records. - Lab Data Lab results reviewed: Yes I reviewed the patient's lab results. Result diagrams: 11/21/18 16:15 11/21/18 16:15 Lab Results 11/21/18 11/21/18 11/21/18 Range/Units 16:15 16:15 16:21 WBC 21.3 H D (4.3-11.1) K/mcL RBC 5.15 (4.19-5.50) M/mcL Hgb 15.3 (12.9-16.9) g/dL Hct 45.8 (37.5-50.1) % MCV 88.9 (83.0-100.0) fL MCH 29.7 (28.0-33.3) pg MCHC 33.4 (31.6-35.5) g/dL RDW 14.4 (11.5-14.5) % Plt Count 210 (140-400) K/mcL MPV 10.8 (9.4-12.4) fL Immature Gran % 0.9 (0-4) % Seg Neutrophils % 77.9 % Lymphocytes % 12.4 % Monocytes % 8.1 % Eosinophils % 0.5 % Basophils % 0.2 % Neutrophils # 16.6 H (1.6-8.9) K/mcL Lymphocytes # 2.6 (0.6-4.6) K/mcL Monocytes # 1.7 H (0.0-1.3) K/mcL Eosinophils # 0.1 (0.0-0.6) K/mcL Basophils # 0.0 (0.0-0.2) K/mcL Sodium 136 (136-145) mEq/L Potassium 3.9 (3.5-5.1) mEq/L Chloride 101 (98-107) mEq/L Carbon Dioxide 27 (23-29) mEq/L BUN 22 (8-23) mg/dL Creatinine 1.22 (0.70-1.30) mg/dL Est GFR ( Amer) > 60 (> 60) Est GFR (Non-Af Amer) 59 L (> 60) BUN/Creatinine Ratio 18 (6-26) Glucose 90 (70-105) mg/dL POC Glucose 93 (70-99) mg/dL Calculated Osmolality 285 (280-300) Calcium 9.5 (8.6-10.3) mg/dL Total Bilirubin 1.7 H (0.3-1.0) mg/dL AST 14 (13-39) Units/L ALT 12 (7-52) Units/L Alkaline Phosphatase 53 (34-104) Units/L Creatine Kinase 33 (30-223) Units/L Troponin I < 0.03 (< 0.04) ng/mL Serum Total Protein 6.6 (6.4-8.9) g/dL Albumin 4.3 (3.5-5.7) g/dL Globulin 2.3 L (2.4-3.5) g/dL Albumin/Globulin Ratio 1.9 (1.1-2.2) Urine Color (Yellow) Urine Clarity (Clear) Urine pH (5.0-8.0) pH Units Ur Specific [place] (1.010-1.025) Urine Protein (Neg-Trace) mg/dL Urine Glucose (UA) (Normal) mg/dL Urine Ketones (Negative) mg/dL Urine Blood (Negative) Urine Nitrite (Negative) Urine Bilirubin (Negative) Urine Urobilinogen (Normal) mg/dL Ur Leukocyte Esterase (Negative) Urine Microscopic RBC (0-3) per hpf Urine Microscopic WBC (0-3) per hpf Ur Squamous Epith Cells (None-Few) per lpf Urine Bacteria (None-Few) per hpf Hyaline Casts (None-Few) per lpf Ur Culture Indicated? (NO) 11/21/18 Range/Units 17:20 WBC (4.3-11.1) K/mcL RBC (4.19-5.50) M/mcL Hgb (12.9-16.9) g/dL Hct (37.5-50.1) % MCV (83.0-100.0) fL MCH (28.0-33.3) pg MCHC (31.6-35.5) g/dL RDW (11.5-14.5) % Plt Count (140-400) K/mcL MPV (9.4-12.4) fL Immature Gran % (0-4) % Seg Neutrophils % % Lymphocytes % % Monocytes % % Eosinophils % % Basophils % % Neutrophils # (1.6-8.9) K/mcL Lymphocytes # (0.6-4.6) K/mcL Monocytes # (0.0-1.3) K/mcL Eosinophils # (0.0-0.6) K/mcL Basophils # (0.0-0.2) K/mcL Sodium (136-145) mEq/L Potassium (3.5-5.1) mEq/L Chloride (98-107) mEq/L Carbon Dioxide (23-29) mEq/L BUN (8-23) mg/dL Creatinine (0.70-1.30) mg/dL Est GFR ( Amer) (> 60) Est GFR (Non-Af Amer) (> 60) BUN/Creatinine Ratio (6-26) Glucose (70-105) mg/dL POC Glucose (70-99) mg/dL Calculated Osmolality (280-300) Calcium (8.6-10.3) mg/dL Total Bilirubin (0.3-1.0) mg/dL AST (13-39) Units/L ALT (7-52) Units/L Alkaline Phosphatase (34-104) Units/L Creatine Kinase (30-223) Units/L Troponin I (< 0.04) ng/mL Serum Total Protein (6.4-8.9) g/dL Albumin (3.5-5.7) g/dL Globulin (2.4-3.5) g/dL Albumin/Globulin Ratio (1.1-2.2) Urine Color Dark Yellow (Yellow) Urine Clarity Clear (Clear) Urine pH 6.0 (5.0-8.0) pH Units Ur Specific [place] 1.015 (1.010-1.025) Urine Protein Negative (Neg-Trace) mg/dL Urine Glucose (UA) Normal (Normal) mg/dL Urine Ketones Negative (Negative) mg/dL Urine Blood Negative (Negative) Urine Nitrite Positive A (Negative) Urine Bilirubin Small H (Negative) Urine Urobilinogen Normal (Normal) mg/dL Ur Leukocyte Esterase Negative (Negative) Urine Microscopic RBC 0-3 (0-3) per hpf Urine Microscopic WBC 0-3 (0-3) per hpf Ur Squamous Epith Cells Few (None-Few) per lpf Urine Bacteria None Seen (None-Few) per hpf Hyaline Casts None Seen (None-Few) per lpf Ur Culture Indicated? YES A (NO) - Radiology Data Radiology results reviewed: Yes I reviewed the patient's radiology results. Chest X-Ray 11/21/18 16:21 IMPRESSION: Very small left pleural effusion. Moderate chronic atelectasis or scarring involving the medial right middle lobe. This area appears unchanged. No definite acute airspace disease seen. RECOMMENDATION: CT chest would be recommended if a strong clinical suspicion of acute pneumonia exists. D/ / Richardson Victoria MD / Richardson Victoria MD Interpreting Provider: Richardson Victoria MD Head CT 11/21/18 16:22 IMPRESSION: No acute intracranial abnormality. Fluid within the left maxillary sinus. Correlation for acute sinusitis is recommended. D/ / Rosalia Tabor Cha, MD / Rosalia Tabor Cha, MD Interpreting Provider: Rosalia Tabor Cha, MD - EKG Data EKG #1 EKG attestation: Yes I reviewed and interpreted this EKG. EKG results narrative: EKG shows a sinus rhythm at a rate of 64 bpm, SC interval 136, QRS duration 104, QTc of 445. Patient will evidence of STEMI on EKG. This is compared to previous EKG on 11/14/18. Attestation Statement - Attestation Attestation: Marino Yi, examined this patient and my medical decision-making was reviewed with the [employer]/PA/Advanced Practice Nurse/Resident Physician. I agree with the documented findings, disposition and treatment plan as described except to the extent set forth below. 67-year-old male presents emergency Department with concerns of generalized weakness. Patient has had multiple episodes of similar symptoms over the past year. Initially there were thought to be due to TIA because he had slurred speech at that time. Today he did not have slurred speech or other focal neurologic deficits however he had weakness in the bilateral upper and lower extremities and they were "shaky". He should not now feels improved in the emergency department however family is very concerned about his weakness. They do state that he has had difficulty breathing and a cough that is productive of yellow-green sputum. Chest x-ray shows a possible atelectasis versus scarring versus infiltrate. Patient will be admitted to the hospitalist for weakness and further evaluation of a possible pneumonia. NIH Stroke Scale - Level of Consciousness LOC: Alert - LOC Questions LOC Questions: Answers both correctly - LOC Commands LOC Commands: Performs both correctly - Best Gaze Best Gaze: Normal - Visual Visual: No visual loss - Facial Palsy Facial Palsy: Normal - Motor Arms Motor Arm-Left: No drift for 10 seconds Motor Arm-Right: No drift for 10 seconds - Motor Legs Motor Leg-Left: No drift for 5 seconds Motor Leg-Right: No drift for 5 seconds - Limb Ataxia Limb Ataxia: Normal, No Ataxia - Sensory Sensory: Normal - Best Language Best Language: No aphasia - Dysarthria Dysarthria: Normal - Extinction and Inattention Extinction and Inattention: Normal - NIHSS Total Score NIHSS Total Score: 0
[2018-11-21 16:51] LABS: Basophils % 0.2 %; Eosinophils # 0.1 K/mcL (0.0-0.6); Eosinophils % 0.5 %; Hematocrit 45.8 % (37.5-50.1); Hemoglobin 15.3 g/dL (12.9-16.9); Immature Granulocytes % 0.9 % (0-4); Lymphocytes % 12.4 %; Mean Corpuscular HGB Conc 33.4 g/dL (31.6-35.5); Mean Corpuscular Hemoglobin 29.7 pg (28.0-33.3); Mean Corpuscular Volume 88.9 fL (83.0-100.0); Mean Platelet Volume 10.8 fL (9.4-12.4); Monocytes # 1.7 K/mcL (0.0-1.3); Monocytes % 8.1 %; Neutrophils # 16.6 K/mcL (1.6-8.9); Platelet Count 210 K/mcL (140-400); Red Blood Count 5.15 M/mcL (4.19-5.50); Red Cell Distribution Width 14.4 % (11.5-14.5); Segmented Neutrophils % 77.9 %
[2018-11-21 16:54] LABS: Lymphocytes # 2.6 K/mcL (0.6-4.6); White Blood Count 21.3 K/mcL (4.3-11.1)
[2018-11-21 17:28] LABS: Bilirubin,Urine Small (Negative); Blood,Urine Negative (Negative); Clarity,Urine Clear (Clear); Color,Urine Dark Yellow (Yellow); Glucose,Urine (UA) Normal (Normal); Ketones,Urine Negative (Negative); Leukocyte Esterase,Urine Negative (Negative); Nitrite,Urine Positive (Negative); Protein,Urine Negative (Neg-Trace); Specific Gravity,Urine 1.015 (1.010-1.025); Urobilinogen,Urine Normal (Normal)
[2018-11-21 17:30] LABS: Bacteria,Urine None Seen per hpf (None-Few); Hyaline Casts,Urine None Seen per lpf (None-Few); RBC,Urine 0-3 per hpf (0-3); Squamous Epithelial Cell,Urine Few per lpf (None-Few); WBC,Urine 0-3 per hpf (0-3)
[2018-11-21 18:25] LABS: Alanine Aminotransferase 12 Units/L (7-52); Albumin 4.3 g/dL (3.5-5.7); Albumin/Globulin Ratio 1.9 (1.1-2.2); Alkaline Phosphatase 53 Units/L (34-104); Aspartate Amino Transferase 14 Units/L (13-39); BUN/Creatinine Ratio 18 (6-26); Bilirubin,Total 1.7 mg/dL (0.3-1.0); Blood Urea Nitrogen 22 mg/dL (8-23); Calcium 9.5 mg/dL (8.6-10.3); Carbon Dioxide 27 mEq/L (23-29); Chloride 101 mEq/L (98-107); Creatine Kinase 33 Units/L (30-223); Globulin 2.3 g/dL (2.4-3.5); Glucose 90 mg/dL (70-105); Osmolality,Calculated 285 (280-300); Potassium 3.9 mEq/L (3.5-5.1); Sodium 136 mEq/L (136-145); Total Protein 6.6 g/dL (6.4-8.9); eGFR For African Americans > 60 (> 60); eGFR For Non-African Americans 59 (> 60)
[2018-11-21 18:26] LABS: Troponin I < 0.03 ng/mL (< 0.04)
[2018-11-21] MEDS ORDERED: Acetaminophen 325 MG TABLET PO PRN (18:31)
[2018-11-21] MEDS ORDERED: Naloxone 0.4 MG/ML INJ IVP PRN (18:31)
[2018-11-21] MEDS ORDERED: Ondansetron 4 MG/2 ML VIAL IVP PRN (18:31)
--- NOTE | 2018-11-21 18:31 | Internal Med History&Physical ---
Date of Encounter: 11/22/18 Time of Encounter: 18:30 Internal Medicine - H&P: HPI History of present illness: Mr. Vieira is a 67 year old male with past medical history of COPD, coronary artery disease, hyperlipidemia, hypertension, myocardial infarction, TIA presented to the ER with chief complain of productive cough of grayish is sputum that started about 3 weeks ago. He stated that he was treated for upper respiratory tract infection as an outpatient for 5 days was no improvement. The patient also is complaining of twitching that he stated that ''he usually has when he has TIA'' Patient was discharged from the hospital approximately one month ago after he was worked up for similar complaint and he is neurological workup was negative. It was recommended by neurology that if he symptoms persisted and that EEG will be obtained. The patient was evaluated by the ER staff and his imaging studies were suggestive of possible pneumonia, The patient was admitted for further evaluat ion and management of COPD exacerbation secondary to hospital-acquired pneumonia. The patient also stated that he sustained a fall today when his leg give out on him and he become shaky however he denied loss of consciousness or hitting his head. CT scan of the head was obtained and revealed no significant abnormalities. Past Med Surg Social Fam HX - Past Medical History Medical history: COPD, coronary artery disease, hyperlipidemia, hypertension, myocardial infarction, TIA Additional medical history: atrial septal defect Psychiatric history: no psych history - Past Surgical History Surgical History: cataract Additional surgical history: 4 stents. back surgery. cardiac scope yesterday - Social History Smoking Status: Current every day smoker Smokeless Tobacco Status: No Alcohol use: none Drug use: none - Family History Father Family Member Ethnicity: Non- Living Status: Hx Family Cardiac Disorders: Yes (AK) Mother Family Member Ethnicity: Non- Living Status: Hx Family Cancer: Yes (Stomach) Hx Family Neurologic Disorders: Yes (DM) Brother Adopted: No Family Member Ethnicity: Non- Living Status: Hx Family Cardiac Disorders: Yes (AK) Hx Family Respiratory Disorders: No Hx Family Cancer: No Hx Family GI Disorders: No Hx Family Endocrine Disorder: No Hx Family Neuromuscular Disorders: No Hx Family Neurologic Disorders: No Hx Family HEENT Disorders: No Hx Family Autoimmune Disorders: No Sister Family Member Ethnicity: Non- Living Status: Hx Family Cancer: Yes Internal Medicine - H&P: Meds Atorvastatin Calcium [Lipitor] 80 mg PO DAILY 07/10/17 [History] Budesonide/Formoterol 160/4.5 [Symbicort 160/4.5] 2 puff IH BID 07/10/17 [History] Fluticasone Propionate Nasal [Flonase] 1 spray NS BID 07/10/17 [History] Oxycodone HCl/Acetaminophen [Percocet 5-325 mg Tablet] 1 tab PO QID PRN 07/10/17 [History] Propylene Glycol/Peg 400 [Systane 0.3-0.4% Eye Drops] 1 drop BOTH EYES TID 07/10/17 [History] Ranolazine [Ranexa] 1,000 mg PO BID 07/10/17 [History] Albuterol Sulfate [Ventolin Hfa] 2 puff IH Q4H PRN 04/26/18 [History] Loratadine [Allergy Relief] 10 mg PO DAILY PRN 04/26/18 [History] Sildenafil Citrate 100 mg PO AD PRN 04/26/18 [History] Trazodone HCl 100 mg PO HS PRN 04/26/18 [History] Furosemide [Lasix] 20 mg PO BID 05/30/18 [History] Potassium Chloride [Klor-Con 10] 10 meq PO DAILY 05/30/18 [History] Aspirin 81 mg PO DAILY 07/18/18 [History] Ipratropium/Albuterol Sulfate [Iprat-Albut 0.5-3(2.5) mg/3 ml] 3 ml IH Q6H PRN 07/18/18 [History] Pregabalin [Lyrica] 300 mg PO BID PRN 10/03/18 [History] Clopidogrel [Plavix] 75 mg PO DAILY #30 tablet 10/04/18 [Rx] Guaifenesin [Cough Syrup] 100 mg PO Q4H PRN 11/05/18 [History] Lactose-Reduced Food [Ensure Plus] 1 bottle PO BID 11/16/18 [History] Lactose-Reduced Food [Ensure Plus] 237 ml PO BID 11/21/18 [History] Montelukast [Singulair] 10 mg PO DAILY 11/21/18 [History] Allergy/AdvReac Type Severity Reaction Status Date / Time No Known Allergies Allergy Verified 10/02/18 20:28 All Systems PM: A 10-system review of systems was performed and is negative for pertinent findings except as documented above in the HPI. - Constitutional Vitals: Temp Pulse Resp BP Pulse Ox 97.8 F 69 18 144/75 99 11/21/18 16:09 11/21/18 16:09 11/21/18 16:09 11/21/18 16:09 11/21/18 16:09 General appearance: Present: A&O X 3 - Head Head exam: Present: atraumatic, normocephalic - Neck Neck exam general surgery: Present: supple, trachea midline. Absent: lymphadenopathy - Respiratory Respiratory exam: Present: rhonchi, wheezes. Absent: accessory muscle use, r ales - Cardiovascular Cardiovascular exam: Present: RRR, +S1, +S2. Absent: diastolic murmur, gallop, rubs, systolic murmur - GI/Abdominal GI/Abdominal exam: Present: normal bowel sounds, soft, no peritoneal signs. Absent: distended, tenderness - Extremities Exam Extremities exam: Present: warm, radial pulses palpable and symmetrical. Absent: calf tenderness, cyanotic, pedal edema Internal Med - H&P Results - Labs CBC & Chem 7: 11/22/18 03:52 11/22/18 03:52 Labs: Short CBC 11/21/18 Range/Units 16:15 WBC 21.3 H D (4.3-11.1) K/mcL Hgb 15.3 (12.9-16.9) g/dL Hct 45.8 (37.5-50.1) % Plt Count 210 (140-400) K/mcL Neutrophils # 16.6 H (1.6-8.9) K/mcL BMP 11/21/18 16:15 Sodium 136 Potassium 3.9 Chloride 101 Carbon Dioxide 27 BUN 22 Creatinine 1.22 Glucose 90 Calcium 9.5 Cardiac Enzymes 11/21/18 Range/Units 16:15 Troponin I < 0.03 (< 0.04) ng/mL Liver Function 11/21/18 Range/Units 16:15 Total Bilirubin 1.7 H (0.3-1.0) mg/dL AST 14 (13-39) Units/L ALT 12 (7-52) Units/L Alkaline Phosphatase 53 (34-104) Units/L Albumin 4.3 (3.5-5.7) g/dL Urine 11/21/18 Range/Units 17:20 Urine Color Dark Yellow (Yellow) Urine Clarity Clear (Clear) Urine pH 6.0 (5.0-8.0) pH Units Ur Specific [place] 1.015 (1.010-1.025) Urine Protein Negative (Neg-Trace) mg/dL Urine Glucose (UA) Normal (Normal) mg/dL - Impressions ITS Impressions Chest X-Ray 11/21/18 16:21 IMPRESSION: Very small left pleural effusion. Moderate chronic atelectasis or scarring involving the medial right middle lobe. This area appears unchanged. No definite acute airspace disease seen. RECOMMENDATION: CT chest would be recommended if a strong clinical suspicion of acute pneumonia exists. D/ / Richardson Victoria MD / Richardson Victoria MD Interpreting Provider: Richardson Victoria MD Head CT 11/21/18 16:22 IMPRESSION: No acute intracranial abnormality. Fluid within the left maxillary sinus. Correlation for acute sinusitis is recommended. D/ / Rosalia Tabor Cha, MD / Rosalia Tabor Cha, MD Interpreting Provider: Rosalia Tabor Cha, MD - Assessment and Plan (1) COPD exacerbation Current Visit: Yes Status: Acute Assessment and plan: - COPD exacerbation caused by URTI VS allergen exposure VS medication nonocompliance *Pneumonia - infiltrate on CXR PLAN: - Aerosols q 4 hr and PRN SOB - Solu-medrol 40 mg IV q 6 hr - O2 to keep SpO2 higher than 92% (SpO higher than 95% if CAD) - CBCD, BMP in AM - Sputum Gram stain, C+S - Tylenol 650 mg PO q 4-6 hr PRN pain/fever - Abs (2) Fall Current Visit: No Status: Acute Assessment and plan: The patient also stated that he sustained a fall today when his leg give out on him and he become shaky however he denied loss of consciousness or hitting his head. It is tender of the head was obtained and revealed no significant abnormalities. Qualifiers: Encounter type: initial encounter Qualified Code(s): W19.XXXA - Unspecified fall, initial encounter (3) Tremors of nervous system Current Visit: No Status: Acute Assessment and plan: The patient also is complaining of twitching that he stated that he usually has when he has TIA. Patient was discharged from the hospital approximately one week ago after he was worked up for similar complaint and he neurological workup was negative. It was recommended by neurology that if he symptoms persisted and that EEG will be obtained to r/o seizure, which given his clinical presentation is less likely. (4) CAD (coronary artery disease) Current Visit: No Status: Chronic Assessment and plan: We will cont. home meds Qualifiers: Coronary Disease-Associated Artery/Lesion type: [place] artery [place] vs. transplanted heart: [place] heart Associated angina: angina presence unspecified Qualified Code(s): I25.10 - Atherosclerotic heart disease of [place] coronary artery without angina pectoris (5) HLD (hyperlipidemia) Current Visit: No Status: Chronic Assessment and plan: We will obtain FLP , cont. home statin Qualifiers: Hyperlipidemia type: pure hypercholesterolemia Qualified Code(s): E78.00 - Pure hypercholesterolemia, unspecified; E78.0 - Pure hypercholesterolemia (6) HTN (hypertension) Current Visit: No Status: Chronic Qualifiers: Hypertension type: essential hypertension Qualified Code(s): I10 - Essential (primary) hypertension (7) Pulmonary hypertension Current Visit: No Status: Chronic (8) Carotid artery disease Current Visit: No Status: Chronic Qualifiers: Carotid artery disease type: stenosis Laterality: right Qualified Cod e(s): I65.21 - Occlusion and stenosis of right carotid artery - Time Spent With Patient Total time spent is greater than 50% in coordination of care (as documented) at patient's floor/unit and/or counseling patient:
[2018-11-21] MEDS ORDERED: levoFLOXacin 750 MG/150 ML 750 MG/150 ML BAG IVPB ONE (18:35)
[2018-11-21] MEDS ORDERED: methylPREDNISolone 125 MG/2 ML VIAL IVP ONE (18:35)
[2018-11-22 04:10] LABS: Basophils % 0.1 %; Eosinophils % 0.1 %; Hematocrit 42.4 % (37.5-50.1); Hemoglobin 14.1 g/dL (12.9-16.9); Immature Granulocytes % 0.7 % (0-4); Lymphocytes # 0.7 K/mcL (0.6-4.6); Lymphocytes % 8.6 %; Mean Corpuscular HGB Conc 33.3 g/dL (31.6-35.5); Mean Corpuscular Hemoglobin 29.4 pg (28.0-33.3); Mean Corpuscular Volume 88.3 fL (83.0-100.0); Mean Platelet Volume 10.6 fL (9.4-12.4); Monocytes # 0.2 K/mcL (0.0-1.3); Monocytes % 1.8 %; Platelet Count 197 K/mcL (140-400); Red Cell Distribution Width 13.9 % (11.5-14.5); Segmented Neutrophils % 88.7 %
[2018-11-22 04:11] LABS: Neutrophils # 7.5 K/mcL (1.6-8.9); White Blood Count 8.4 K/mcL (4.3-11.1)
[2018-11-22 04:21] LABS: INR 1.1; Prothrombin Time 12.7 Seconds (9.4-12.1)
[2018-11-22 04:23] LABS: Alanine Aminotransferase 11 Units/L (7-52); Albumin 3.8 g/dL (3.5-5.7); Albumin/Globulin Ratio 1.5 (1.1-2.2); Alkaline Phosphatase 56 Units/L (34-104); Aspartate Amino Transferase 10 Units/L (13-39); BUN/Creatinine Ratio 19 (6-26); Bilirubin,Total 1.4 mg/dL (0.3-1.0); Blood Urea Nitrogen 21 mg/dL (8-23); Calcium 9.3 mg/dL (8.6-10.3); Carbon Dioxide 29 mEq/L (23-29); Chloride 102 mEq/L (98-107); Chol/HDL Ratio 2.5 (0-4.9); Cholesterol 131 mg/dL (< 200); Globulin 2.5 g/dL (2.4-3.5); Glucose 189 mg/dL (70-105); HDL Cholesterol 52 mg/dL (40-59); LDL Cholesterol,Calculated 67 mg/dL (0-99); Magnesium 1.9 mg/dL (1.6-2.6); Osmolality,Calculated 280 (280-300); Phosphorous 3.4 mg/dL (2.7-4.5); Potassium 4.4 mEq/L (3.5-5.1); Sodium 131 mEq/L (136-145); Total Protein 6.3 g/dL (6.4-8.9); Triglycerides 62 mg/dL (< 150); eGFR For African Americans > 60 (> 60); eGFR For Non-African Americans > 60 (> 60)
[2018-11-22 04:24] LABS: Activated Partial Thrombo Time 34.2 Seconds (26.0-36.0)
[2018-11-22] MEDS ORDERED: MethylPREDNISolone 40 MG/ML VIAL IVP SCH (06:00)
[2018-11-22] MEDS: Ipratropium/Albuterol Neb 3 ML IH SCH ×4 (07:32→21:49)
[2018-11-22] MEDS ORDERED: GuaiFENesin Liq 200 MG/10 ML UDC PO PRN (07:33)
[2018-11-22] MEDS ORDERED: Loratadine 10 MG TABLET PO PRN (07:33)
[2018-11-22] MEDS ORDERED: traZODone 50 MG TABLET PO PRN (07:33)
[2018-11-22] MEDS ORDERED: Pregabalin 75 MG CAPSULE PO PRN (07:33)
[2018-11-22] MEDS: Ranolazine 500 MG TAB.ER.12H PO SCH ×2 (08:11→21:14)
[2018-11-22] MEDS: Aspirin 81 MG TAB.CHEW PO SCH (08:11)
[2018-11-22] MEDS: Furosemide 20 MG TABLET PO SCH ×2 (08:12→21:15)
[2018-11-22] MEDS: Artificial Tears SOLN 15 ML BOTTLE BOTH EYES SCH ×3 (08:18→21:16)
[2018-11-22] MEDS: *HR* OxyCODONE/APAP 5/325 TABLET PO PRN ×2 (08:18→16:11)
[2018-11-22] MEDS: Fluticasone Propionate Nasal 50 MCG/SPRAY BOTTLE NS SCH ×2 (08:18→21:16)
--- NOTE | 2018-11-22 08:31 | Internal Med Progress Note ---
Hospitalist Progress Note - Encounter Date of Encounter: 11/22/18 Time of Encounter: 08:25 - Subjective Interval History: Mr. Vieira is a 67 year old male with past medical history of COPD, coronary artery disease, hyperlipidemia, hypertension, myocardial infarction, TIA presented to the ER with chief complain of productive cough of grayish is sputum that started about 3 weeks ago. He stated that he was treated for upper respiratory tract infection as an outpatient for 5 days was no improvement. The patient also is complaining of twitching that he stated that ''he usually has when he has TIA'' Patient was discharged from the hospital approximately one month ago after he was worked up for similar complaint and he is neurological workup was negative. It was recommended by neurology that if he symptoms persisted and that EEG will be obtained. The patient was evaluated by the ER staff and his imaging studies were suggestive of possible pneumonia, The patient was admitted for further evaluation and management of COPD exacerbation secondary to hospital-acquired pneumonia. The patient also stated that he sustained a fall when his leg give out on him and he become shaky however he denied loss of consciousness or hitting his head. CT scan of the head was obtained and revealed no significant abnormalities. Patient seen and examined in the room. He does endorse shortness of breath after being discharged home about a week ago. He does not seem to have acute respiratory distress, cough, or chest pain. He reported absence of fever, chills, or night sweats. - Exam Vitals: Temp Pulse Resp BP Pulse Ox 98.2 F 55 16 123/67 95 11/22/18 07:03 11/22/18 07:03 11/22/18 07:03 11/22/18 07:03 11/22/18 07:03 Exam: PHYSICAL EXAMINATION: GENERAL APPEARANCE: The patient is alert, oriented and in no acute distress. HEENT: Head is normocephalic. The sinuses are nontender. Pupils are equal and reactive. The nares are patent. Oropharynx clear without lesions. NECK: Supple without lymphadenopathy. HEART: Regular rate and rhythm. LUNGS: No crackles or wheezes are heard. ABDOMEN: Soft, nontender, nondistended with good bowel sounds heard. Inguinal area is normal. EXTREMITIES: Without cyanosis, clubbing or edema. NEUROLOGICAL: Gross nonfocal. SKIN: Warm and dry without any rash. - Assessment and Plan (1) COPD exacerbation Current Visit: Yes Status: Acute Assessment and Plan: Patient recently was hospitalized for TIA symptoms, was discharged about a week ago. He reported intermittent shortness of breath with cough after discharge. Chest x-ray revealed mild pleural effusion without definite evidence of pneumonia. Patient labs showed leukocytosis upon admission but has resolved on the repeat lab. He does not have obvious respiratory distress, he maintains adequate oxygenation on room air. - We will empirically treated as pneumonia/acute bronchitis with IV Levaquin, pending sputum culture. - Continue treatment for COPD, but downgraded IV steroid to oral prednisone. - Continue monitoring respiratory symptoms. (2) Fall Current Visit: Yes Status: Acute Assessment and Plan: CT of head is negative of trauma or bleeding. PT/OT consult. (3) CAD (coronary artery disease) Current Visit: No Status: Chronic Assessment and Plan: Troponin was negative, patient denies chest pain, continue home medications including aspirin and Plavix. (4) HTN (hypertension) Current Visit: No Status: Chronic Assessment and Plan: BP controlled, continue home medications. (5) HLD (hyperlipidemia) Current Visit: No Status: Chronic Assessment and Plan: Continue home medication. (6) Pulmonary hypertension Current Visit: No Status: Chronic Assessment and Plan: Compensated, monitoring. (7) ASD (atrial septal defect), ostium secundum Current Visit: No Status: Chronic Assessment and Plan: Patient recently had a ASD closure procedure by cardiology on 11/05, follow-up with cardiology as scheduled, continue aspirin and Plavix. (8) Carotid stenosis, right Current Visit: No Status: Chronic Assessment and Plan: Stable, asymptomatic, continue monitoring. (9) Diastolic CHF Current Visit: No Status: Acute Assessment and Plan: Euvolemic on physical exam, continue home medication including Lasix. DVT Prophylaxis: Heparin subcutaneous. - Time Spent with Patient Total time spent is greater than 50% in coordination of care (as documented) at patient's floor/unit and/or counseling patient: Greater than 35 minutes Plan of Care Discussed with: patient Internal Medicine: Result - Labs CBC & Chem 7: 11/22/18 03:52 11/22/18 03:52 Labs: Short CBC 11/21/18 11/22/18 Range/Units 16:15 03:52 WBC 21.3 H D 8.4 D (4.3-11.1) K/mcL Hgb 15.3 14.1 (12.9-16.9) g/dL Hct 45.8 42.4 (37.5-50.1) % Plt Count 210 197 (140-400) K/mcL Neutrophils # 16.6 H 7.5 (1.6-8.9) K/mcL BMP 11/21/18 11/22/18 16:15 03:52 Sodium 136 131 L Potassium 3.9 4.4 Chloride 101 102 Carbon Dioxide 27 29 BUN 22 21 Creatinine 1.22 1.13 Glucose 90 189 H Calcium 9.5 9.3 Cardiac Enzymes 11/21/18 Range/Units 16:15 Troponin I < 0.03 (< 0.04) ng/mL Liver Function 11/21/18 11/22/18 Range/Units 16:15 03:52 Total Bilirubin 1.7 H 1.4 H (0.3-1.0) mg/dL AST 14 10 L (13-39) Units/L ALT 12 11 (7-52) Units/L Alkaline Phosphatase 53 56 (34-104) Units/L Albumin 4.3 3.8 (3.5-5.7) g/dL Urine 11/21/18 Range/Units 17:20 Urine Color Dark Yellow (Yellow) Urine Clarity Clear (Clear) Urine pH 6.0 (5.0-8.0) pH Units Ur Specific [place] 1.015 (1.010-1.025) Urine Protein Negative (Neg-Trace) mg/dL Urine Glucose (UA) Normal (Normal) mg/dL - ABG Interpretation ABG results: PT/INR, D-dimer PT 12.7 Seconds (9.4-12.1) H 11/22/18 03:52 - Impressions Impressions Chest X-Ray 11/21/18 16:21 IMPRESSION: Very small left pleural effusion. Moderate chronic atelectasis or scarring involving the medial right middle lobe. This area appears unchanged. No definite acute airspace disease seen. RECOMMENDATION: CT chest would be recommended if a strong clinical suspicion of acute pneumonia exists. D/ / Richardson Victoria MD / Richardson Victoria MD Interpreting Provider: Richardson Victoria MD Head CT 11/21/18 16:22 IMPRESSION: No acute intracranial abnormality. Fluid within the left maxillary sinus. Correlation for acute sinusitis is recommended. D/ / Rosalia Tabor Cha, MD / Rosalia Tabor Cha, MD Interpreting Provider: Rosalia Tabor Cha, MD Consult Discharge Plan - Plan [facility]errals: [facility] [Primary Care Provider[facility] - (2) Fall Qualifiers: Encounter type: initial encounter Qualified Code(s): W19.XXXA - Unspecified fall, initial encounter (3) CAD (coronary artery disease) Qualifiers: Coronary Disease-Associated Artery/Lesion type: [place] artery [place] vs. transplanted heart: [place] heart Associated angina: angina presence unspecified Qualified Code(s): I25.10 - Atherosclerotic heart disease of [place] coronary artery without angina pectoris (4) HTN (hypertension) Qualifiers: Hypertension type: essential hypertension Qualified Code(s): I10 - Essential (primary) hypertension (5) HLD (hyperlipidemia) Qualifiers: Hyperlipidemia type: pure hypercholesterolemia Qualified Code(s): E78.00 - Pure hypercholesterolemia, unspecified; E78.0 - Pure hypercholesterolemia (9) Diastolic CHF Qualifiers: Heart failure chronicity: chronic Qualified Code(s): I50.32 - Chronic diastolic (congestive) heart failure
[2018-11-22] MEDS ORDERED: NON-FORMULARY MEDICATION 1 EACH EACH (Lactose-Reduced Food [Ensure Plus] 1 BOTTLE) PO SCH (09:00)
[2018-11-22] MEDS ORDERED: LACTOSE REDUCED FOOD PO SCH (09:00)
[2018-11-22] MEDS: Budesonide/Formoterol 160/4.5 1 PUFF INH IH SCH ×2 (10:29→21:49)
[2018-11-22] MEDS: predniSONE 20 MG TABLET PO SCH (13:01)
[2018-11-22] MEDS ORDERED: Nicotine 21 MG PATCH.TD24 TD SCH (16:00)
[2018-11-23] MEDS: *HR* OxyCODONE/APAP 5/325 TABLET PO PRN (02:21)
[2018-11-23] MEDS: Ipratropium/Albuterol Neb 3 ML IH SCH (04:04)
[2018-11-23 04:17] LABS: Hematocrit 40.1 % (37.5-50.1); Hemoglobin 13.6 g/dL (12.9-16.9); Mean Corpuscular HGB Conc 33.9 g/dL (31.6-35.5); Mean Corpuscular Volume 88.3 fL (83.0-100.0); Mean Platelet Volume 10.7 fL (9.4-12.4); Platelet Count 194 K/mcL (140-400); Red Blood Count 4.54 M/mcL (4.19-5.50); Red Cell Distribution Width 13.9 % (11.5-14.5)
[2018-11-23 04:25] LABS: White Blood Count 16.3 K/mcL (4.3-11.1)
[2018-11-23 04:36] LABS: BUN/Creatinine Ratio 23 (6-26); Blood Urea Nitrogen 21 mg/dL (8-23); Calcium 8.9 mg/dL (8.6-10.3); Carbon Dioxide 25 mEq/L (23-29); Chloride 101 mEq/L (98-107); Glucose 118 mg/dL (70-105); Osmolality,Calculated 282 (280-300); Potassium 4.1 mEq/L (3.5-5.1); Sodium 134 mEq/L (136-145); eGFR For African Americans > 60 (> 60); eGFR For Non-African Americans > 60 (> 60)
[2018-11-23 07:17] VITALS: BP 113/63
[2018-11-23] MEDS: Aspirin 81 MG TAB.CHEW PO SCH (07:48)
[2018-11-23] MEDS: Ranolazine 500 MG TAB.ER.12H PO SCH (07:50)
[2018-11-23] MEDS: Furosemide 20 MG TABLET PO SCH (07:50)
[2018-11-23] MEDS: predniSONE 20 MG TABLET PO SCH (07:51)
--- NOTE | 2018-11-23 08:09 | Discharge Summary ---
- NOTES TO OUTPATIENT PROVIDER Notes to Outpatient Provider: f/u with PCP within a week. Orders not resulted at time of discharge: Pending orders 11/21/18 18:31 Urinalysis reflex Microscopic [URIN] Routine 11/21/18 19:13 Culture,Blood [BC] Stat 11/22/18 04:26 Culture,Sputum with Gram Stain [RM] Routine Legionella Antigen [RM] Routine S. Pneumoniae Antigen [RM] Routine Date of Encounter: 11/23/18 Time of Encounter: 08:05 - Discharge Diagnosis (1) COPD exacerbation Priority: Primary Status: Acute (2) Fall Priority: Primary Status: Acute Qualifiers: Encounter type: initial encounter Qualified Code(s): W19.XXXA - Unspecified fall, initial encounter (3) CAD (coronary artery disease) Priority: Secondary Status: Chronic Qualifiers: Coronary Disease-Associated Artery/Lesion type: [place] artery [place] vs. transplanted heart: [place] heart Associated angina: angina presence unspecif ied Qualified Code(s): I25.10 - Atherosclerotic heart disease of [place] coronary artery without angina pectoris (4) HTN (hypertension) Priority: Secondary Status: Chronic Qualifiers: Hypertension type: essential hypertension Qualified Code(s): I10 - Essential (primary) hypertension (5) HLD (hyperlipidemia) Priority: Secondary Status: Chronic Qualifiers: Hyperlipidemia type: pure hypercholesterolemia Qualified Code(s): E78.00 - Pure hypercholesterolemia, unspecified; E78.0 - Pure hypercholesterolemia (6) Pulmonary hypertension Priority: Secondary Status: Chronic (7) ASD (atrial septal defect), ostium secundum Priority: Secondary Status: Chronic (8) Carotid stenosis, right Priority: Secondary Status: Chronic (9) Diastolic CHF Priority: Secondary Status: Chronic Qualifiers: Heart failure chronicity: chronic Qualified Code(s): I50.32 - Chronic diastolic (congestive) heart failure Hospital course: Mr. Vieira is a 67 year old male with past medical history of COPD, coronary artery disease, hyperlipidemia, hypertension, myocardial infarction, TIA presented to the ER with chief complain of productive cough of grayish is sputum that started about 3 weeks ago. He stated that he was treated for upper respiratory tract infection as an outpatient for 5 days with no improvement. The patient was evaluated by the ER staff and his imaging studies were suggestive of possible pneumonia, The patient was admitted for further evaluation and management of COPD exacerbation secondary to pneumonia. He was started on IV steroids, bronchodilators, and IV antibiotics with Levaquin. His respiratory symptoms rapidly improved with the treatment, on the third hospital day, he is off oxygen, ambulating in the room without trouble, reported absence of shortness of breath, cough, or sputum production. Patient is discharged home today, he was prescribed 4 days of burst dose of prednisone and 7 days of oral Levaquin, he will also follow-up with PCP within a week. 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 Time spent discussing smoking cessation with patient: more than 10 minutes - Time Spent with Patient Total time spent providing and/or coordinating discharge services: Time spent: Greater than 30 minutes - Discharge Medications Prescriptions: New predniSONE [PredniSONE] 40 mg PO DAILY #4 tablet Levofloxacin [Levaquin] 750 mg PO DAILY #7 tablet Continued Fluticasone Propionate Nasal [Flonase] 1 spray NS BID Budesonide/Formoterol 160/4.5 [Symbicort 160/4.5] 2 puff IH BID Atorvastatin Calcium [Lipitor] 80 mg PO DAILY Ranolazine [Ranexa] 1,000 mg PO BID Propylene Glycol/Peg 400 [Systane 0.3-0.4% Eye Drops] 1 drop BOTH EYES TID Oxycodone HCl/Acetaminophen [Percocet 5-325 mg Tablet] 1 tab PO QID PRN PRN Reason: Severe Pain Albuterol Sulfate [Ventolin Hfa] 2 puff IH Q4H PRN PRN Reason: Shortness Of Breath Loratadine [Allergy Relief] 10 mg PO DAILY PRN PRN Reason: Allergy Symptoms Sildenafil Citrate 100 mg PO AD PRN PRN Reason: ERECTION Trazodone HCl 100 mg PO HS PRN PRN Reason: Sleep Furosemide [Lasix] 20 mg PO BID Potassium Chloride [Klor-Con 10] 10 meq PO DAILY Aspirin 81 mg PO DAILY Ipratropium/Albuterol Sulfate [Iprat-Albut 0.5-3(2.5) mg/3 ml] 3 ml IH Q6H PRN PRN Reason: Shortness Of Breath Pregabalin [Lyrica] 300 mg PO BID Clopidogrel [Plavix] 75 mg PO DAILY #30 tablet Lactose-Reduced Food [Ensure Plus] 237 ml PO BID Montelukast [Singulair] 10 mg PO DAILY Hydroquinone Microspheres [Hydroquinone] 1 appl TP HS Home Medications: Atorvastatin Calcium [Lipitor] 80 mg PO DAILY 07/10/17 [History] Budesonide/Formoterol 160/4.5 [Symbicort 160/4.5] 2 puff IH BID 07/10/17 [History] Fluticasone Propionate Nasal [Flonase] 1 spray NS BID 07/10/17 [History] Oxycodone HCl/Acetaminophen [Percocet 5-325 mg Tablet] 1 tab PO QID PRN 07/10/17 [History] Propylene Glycol/Peg 400 [Systane 0.3-0.4% Eye Drops] 1 drop BOTH EYES TID 07/10/17 [History] Ranolazine [Ranexa] 1,000 mg PO BID 07/10/17 [History] Albuterol Sulfate [Ventolin Hfa] 2 puff IH Q4H PRN 04/26/18 [History] Loratadine [Allergy Relief] 10 mg PO DAILY PRN 04/26/18 [History] Sildenafil Citrate 100 mg PO AD PRN 04/26/18 [History] Trazodone HCl 100 mg PO HS PRN 04/26/18 [History] Furosemide [Lasix] 20 mg PO BID 05/30/18 [History] Potassium Chloride [Klor-Con 10] 10 meq PO DAILY 05/30/18 [History] Aspirin 81 mg PO DAILY 07/18/18 [History] Ipratropium/Albuterol Sulfate [Iprat-Albut 0.5-3(2.5) mg/3 ml] 3 ml IH Q6H PRN 07/18/18 [History] Pregabalin [Lyrica] 300 mg PO BID 10/03/18 [History] Clopidogrel [Plavix] 75 mg PO DAILY #30 tablet 10/04/18 [Rx] Lactose-Reduced Food [Ensure Plus] 237 ml PO BID 11/16/18 [History] Montelukast [Singulair] 10 mg PO DAILY 11/21/18 [History] Hydroquinone Microspheres [Hydroquinone] 1 appl TP HS 11/22/18 [History] Levofloxacin [Levaquin] 750 mg PO DAILY #7 tablet 11/23/18 [Rx] predniSONE [PredniSONE] 40 mg PO DAILY #4 tablet 11/23/18 [Rx] Allergies/Adverse Reactions: Allergy/AdvReac Type Severity Reaction Status Date / Time No Known Allergies Allergy Verified 11/22/18 19:02 Date of admission: 11/21/18 18:44 [facility] care physician: [facility] Consults: 11/21/18 21:36 Consult to Ball Fringe Machine Operator [CONS] Routine Reason for SW Consult: HH 11/22/18 04:26 Consult to Nurse Navigator [CONS] Routine Comment: 11/22/18 08:27 Consult to Physical Therapy [CONS] Routine Comment: Evaluate, develop and implement POC Reason for Consult: dc plan Does patient have active BEDREST order?: No Is patient medically & hemodynamically stable?: Yes Patient assessed for mobility or mobilized this visit?: Yes OT [Consult to Occupational Therapy] [CONS] Routine Comment: Evaluate, develop and implement POC Reason for Consult: dc plan Does patient have active BEDREST order?: No Is patient medically & hemodynamically stable?: Yes Patient assessed for mobility or mobilized this visit?: Yes Anticipated date of discharge: 11/23/18 - Constitutional Vitals: Temp Pulse Resp BP Pulse Ox 97.5 F L 56 14 113/63 92 11/23/18 07:14 11/23/18 07:14 11/23/18 07:14 11/23/18 07:14 11/23/18 07:14 General appearance: Present: A&O X 3 Exam: PHYSICAL EXAMINATION: GENERAL APPEARANCE: The patient is alert, oriented and in no acute distress. HEENT: Head is normocephalic. The sinuses are nontender. Pupils are equal and reactive. The nares are patent. Oropharynx clear without lesions. NECK: Supple without lymphadenopathy. HEART: Regular rate and rhythm. LUNGS: No crackles or wheezes are heard. ABDOMEN: Soft, nontender, nondistended with good bowel sounds heard. Inguinal area is normal. EXTREMITIES: Without cyanosis, clubbing or edema. NEUROLOGICAL: Gross nonfocal. SKIN: Warm and dry without any rash. - Patient Status Disposition: Home, Self-Care Condition: Good Functional capacity at discharge: independent ambulation Overall status at discharge: patient is progressing back to baseline - Discharge Instructions Follow Up With: [facility] [[facility] Care Provider[facility] - (Please call Friday to schedule hospital follow up appointment for 7-10 days from date of discharge. ) - Diet and Activity Activity: increase activity as tolerated Diet: low fat, low cholesterol, low salt diet
[2018-11-23] MEDS ORDERED: levoFLOXacin 750 MG/150 ML 750 MG/150 ML BAG IVPB SCH (09:00)
--- NOTE | 2018-11-23 12:57 | Electrocardiograph Report ---
[place] [id number] Test Date: 2018-11-21 Pat Name: Walter Vieira Department: EXAM6 Room: 3B11 Gender: M Monitoring Analyst: : 1950 Requested By: Adarsh Rosas Order Number: [id number] Reading MD: Pablo Cline Measurements Intervals [place] Rate: 64 P: 82 [place]: 136 QRS: 93 QRSD: 104 T: 80 QT: 431 QTc: 445 Interpretive Statements Sinus rhythm Right axis deviation Nonspecific T abnrm, anterolateral leads Electronically Signed On 11-23-2018 12:55:36 EDT by Pablo Cline
== END 2018-11-23 09:31 | disposition home or self-care (01) ==
LOC: EMEROOARM 16:04 → 3BNU 16:04
PROVIDERS: ADMIT Internal Medicine Nephrology; ATTEND Internal Medicine Nephrology

== ENCOUNTER 2019-04-22 21:35 | Observation (INO) ==
[2019-04-22 23:00] LABS: Bilirubin,Urine Small (Negative); Blood,Urine Negative (Negative); Clarity,Urine Clear (Clear); Color,Urine Dark Yellow (Yellow); Glucose,Urine (UA) Normal (Normal); Ketones,Urine Trace mg/dL (Negative); Leukocyte Esterase,Urine Small (Negative); Nitrite,Urine Negative (Negative); Protein,Urine 30 mg/dL (Neg-Trace); Specific Gravity,Urine 1.028 (1.010-1.025)
[2019-04-22 23:00] LABS: Basophils % 0.4 %; Eosinophils # 0.1 K/mcL (0.0-0.6); Eosinophils % 1.2 %; Hematocrit 37.6 % (37.5-50.1); Immature Granulocytes % 0.4 % (0-4); Lymphocytes % 19.8 %; Mean Corpuscular HGB Conc 34.6 g/dL (31.6-35.5); Mean Corpuscular Hemoglobin 30.6 pg (28.0-33.3); Mean Corpuscular Volume 88.5 fL (83.0-100.0); Mean Platelet Volume 10.6 fL (9.4-12.4); Monocytes # 0.8 K/mcL (0.0-1.3); Monocytes % 8.2 %; Neutrophils # 6.9 K/mcL (1.6-8.9); Platelet Count 214 K/mcL (140-400); Red Blood Count 4.25 M/mcL (4.19-5.50); Red Cell Distribution Width 13.2 % (11.5-14.5); White Blood Count 9.9 K/mcL (4.3-11.1)
[2019-04-22 23:04] LABS: INR 1.1; Prothrombin Time 12.7 Seconds (9.4-12.1)
[2019-04-22 23:06] LABS: Activated Partial Thrombo Time 33.2 Seconds (26.0-36.0)
[2019-04-22 23:09] LABS: Bacteria,Urine None Seen per hpf (None-Few); Hyaline Casts,Urine None Seen per lpf (None-Few); RBC,Urine 0-3 per hpf (0-3); Squamous Epithelial Cell,Urine Many per lpf (None-Few)
[2019-04-22 23:21] LABS: Alanine Aminotransferase 6 Units/L (7-52); Albumin 3.7 g/dL (3.5-5.7); Albumin/Globulin Ratio 1.5 (1.1-2.2); Alkaline Phosphatase 53 Units/L (34-104); Aspartate Amino Transferase 10 Units/L (13-39); BUN/Creatinine Ratio 11 (6-26); Bilirubin,Total 0.9 mg/dL (0.3-1.0); Blood Urea Nitrogen 9 mg/dL (8-23); Calcium 8.9 mg/dL (8.6-10.3); Carbon Dioxide 26 mEq/L (23-29); Chloride 103 mEq/L (98-107); Globulin 2.4 g/dL (2.4-3.5); Glucose 85 mg/dL (70-105); Osmolality,Calculated 282 (280-300); Potassium 3.7 mEq/L (3.5-5.1); Sodium 137 mEq/L (136-145); Total Protein 6.1 g/dL (6.4-8.9); Troponin I < 0.03 ng/mL (< 0.04); eGFR For African Americans > 60 (> 60); eGFR For Non-African Americans > 60 (> 60)
[2019-04-22] MEDS ORDERED: Ipratropium/Albuterol Neb 3 ML IH ONE (23:32)
[2019-04-22] MEDS ORDERED: methylPREDNISolone 125 MG/2 ML VIAL IVP ONE (23:32)
[2019-04-23] MEDS: Ipratropium/Albuterol Neb 3 ML IH SCH ×6 (03:53→23:06)
[2019-04-23] MEDS ORDERED: Melatonin 3 MG TABLET PO ONE (05:46)
[2019-04-23] MEDS ORDERED: Acetaminophen 325 MG TABLET PO PRN (07:22)
[2019-04-23] MEDS ORDERED: Ondansetron 4 MG/2 ML VIAL IVP PRN (07:22)
[2019-04-23] MEDS: Azithromycin 250 MG TABLET PO SCH (08:54)
[2019-04-23] MEDS: predniSONE 20 MG TABLET PO SCH (08:55)
[2019-04-23] MEDS ORDERED: Nicotine 2 MG GUM BC PRN (15:44)
[2019-04-23] MEDS: Nicotine 21 MG PATCH.TD24 TD SCH (16:48)
[2019-04-23] MEDS: Aspirin 81 MG TAB.CHEW PO SCH (17:45)
[2019-04-23] MEDS: cefTRIAXone 1,000 MG in Water for inj. (sterile) 10 ML IVP SCH (17:57)
[2019-04-23] MEDS: Ringers Solution, Lactated 1,000 ML IVC SCH (17:57)
[2019-04-23] MEDS: Furosemide 20 MG TABLET PO SCH (18:25)
[2019-04-23] MEDS: Ranolazine 500 MG TAB.ER.12H PO SCH (19:57)
[2019-04-23] MEDS: BuPROPion SR (12 HR) 150 MG TABLET PO SCH (19:57)
[2019-04-23] MEDS: Budesonide/Formoterol 160/4.5 1 PUFF INH IH SCH (20:06)
[2019-04-23] MEDS ORDERED: traZODone 50 MG TABLET PO SCH (21:00)
[2019-04-23] MEDS: Artificial Tears SOLN 15 ML BOTTLE BOTH EYES SCH (21:20)
[2019-04-23] MEDS: Fluticasone Propionate Nasal 50 MCG/SPRAY BOTTLE NS SCH (21:21)
[2019-04-24] MEDS ORDERED: Acetaminophen 325 MG TABLET PO ONE (00:32)
[2019-04-24] MEDS: Ringers Solution, Lactated 1,000 ML IVC SCH (04:03)
[2019-04-24] MEDS: Ipratropium/Albuterol Neb 3 ML IH SCH ×3 (04:26→11:51)
[2019-04-24 05:32] LABS: Hematocrit 37.3 % (37.5-50.1); Hemoglobin 12.3 g/dL (12.9-16.9); Mean Corpuscular Hemoglobin 30.4 pg (28.0-33.3); Mean Corpuscular Volume 92.3 fL (83.0-100.0); Mean Platelet Volume 11.1 fL (9.4-12.4); Platelet Count 215 K/mcL (140-400); Red Blood Count 4.04 M/mcL (4.19-5.50); Red Cell Distribution Width 13.3 % (11.5-14.5); White Blood Count 8.5 K/mcL (4.3-11.1)
[2019-04-24 05:57] LABS: BUN/Creatinine Ratio 16 (6-26); Blood Urea Nitrogen 15 mg/dL (8-23); Calcium 9.5 mg/dL (8.6-10.3); Carbon Dioxide 28 mEq/L (23-29); Chloride 101 mEq/L (98-107); Glucose 86 mg/dL (70-105); Magnesium 1.9 mg/dL (1.6-2.6); Osmolality,Calculated 290 (280-300); Potassium 3.4 mEq/L (3.5-5.1); Sodium 140 mEq/L (136-145); eGFR For African Americans > 60 (> 60); eGFR For Non-African Americans > 60 (> 60)
[2019-04-24] MEDS ORDERED: *HR* Enoxaparin 40 MG/0.4 ML SYRINGE SQ SCH (06:00)
[2019-04-24 06:16] LABS: Vitamin B12 519 pg/mL (250-1100)
[2019-04-24] MEDS: Budesonide/Formoterol 160/4.5 1 PUFF INH IH SCH (07:47)
[2019-04-24 07:51] LABS: HIV-1&2 Antibody & p24 Ag Nonreactive (Nonreactive)
[2019-04-24] MEDS: Ranolazine 500 MG TAB.ER.12H PO SCH (09:41)
[2019-04-24] MEDS: predniSONE 20 MG TABLET PO SCH (09:42)
[2019-04-24] MEDS: Azithromycin 250 MG TABLET PO SCH (09:42)
[2019-04-24] MEDS: Aspirin 81 MG TAB.CHEW PO SCH (09:43)
[2019-04-24] MEDS: Furosemide 20 MG TABLET PO SCH (09:43)
[2019-04-24] MEDS: BuPROPion SR (12 HR) 150 MG TABLET PO SCH (09:43)
[2019-04-24] MEDS: Nicotine 21 MG PATCH.TD24 TD SCH (09:44)
[2019-04-24] MEDS: cefTRIAXone 1,000 MG in Water for inj. (sterile) 10 ML IVP SCH (09:45)
[2019-04-24] MEDS: Fluticasone Propionate Nasal 50 MCG/SPRAY BOTTLE NS SCH (09:49)
[2019-04-24] MEDS: Artificial Tears SOLN 15 ML BOTTLE BOTH EYES SCH (09:49)
[2019-04-24 11:21] VITALS: BP 133/82
== END 2019-04-24 14:01 | disposition home or self-care (01) ==
LOC: EMEROOARM 21:35 → 3BNU 21:35 → SUATTDRO 04-23 00:57 → 3BNU 04-23 02:12
PROVIDERS: ADMIT Internal Medicine; ATTEND Internal Medicine

== ENCOUNTER 2019-04-27 22:29 | Observation (INO) ==
[2019-04-27 23:07] LABS: Hematocrit 40.1 % (37.5-50.1); Hemoglobin 13.6 g/dL (12.9-16.9); Mean Corpuscular HGB Conc 33.9 g/dL (31.6-35.5); Mean Corpuscular Hemoglobin 30.6 pg (28.0-33.3); Mean Corpuscular Volume 90.3 fL (83.0-100.0); Mean Platelet Volume 10.4 fL (9.4-12.4); Platelet Count 233 K/mcL (140-400); Red Blood Count 4.44 M/mcL (4.19-5.50); Red Cell Distribution Width 13.1 % (11.5-14.5); White Blood Count 8.1 K/mcL (4.3-11.1)
[2019-04-27 23:09] LABS: INR 1.1
[2019-04-27 23:11] LABS: Activated Partial Thrombo Time 35.2 Seconds (26.0-36.0)
[2019-04-27] MEDS ORDERED: Isovue-370 500 ML BOTTLE IVP ONE (23:18)
[2019-04-27 23:25] LABS: BUN/Creatinine Ratio 20 (6-26); Blood Urea Nitrogen 22 mg/dL (8-23); Calcium 9.1 mg/dL (8.6-10.3); Carbon Dioxide 29 mEq/L (23-29); Chloride 102 mEq/L (98-107); Ethanol < 10 mg/dL (Less than 10); Glucose 145 mg/dL (70-105); Osmolality,Calculated 286 (280-300); Potassium 4.1 mEq/L (3.5-5.1); Sodium 135 mEq/L (136-145); eGFR For African Americans > 60 (> 60); eGFR For Non-African Americans > 60 (> 60)
[2019-04-27 23:26] LABS: Troponin I < 0.03 ng/mL (< 0.04)
[2019-04-28 07:46] LABS: Hematocrit 36.9 % (37.5-50.1); Hemoglobin 12.9 g/dL (12.9-16.9); Mean Corpuscular Hemoglobin 30.5 pg (28.0-33.3); Mean Corpuscular Volume 87.2 fL (83.0-100.0); Mean Platelet Volume 10.7 fL (9.4-12.4); Platelet Count 246 K/mcL (140-400); Red Blood Count 4.23 M/mcL (4.19-5.50); Red Cell Distribution Width 13.2 % (11.5-14.5); White Blood Count 5.9 K/mcL (4.3-11.1)
[2019-04-28 07:50] LABS: INR 1.1; Prothrombin Time 12.9 Seconds (9.4-12.1)
[2019-04-28] MEDS ORDERED: traZODone 50 MG TABLET PO PRN (07:51)
[2019-04-28] MEDS ORDERED: Ipratropium/Albuterol Neb 3 ML IH PRN (07:51)
[2019-04-28 08:09] LABS: Alanine Aminotransferase 7 Units/L (7-52); Albumin 3.7 g/dL (3.5-5.7); Albumin/Globulin Ratio 1.9 (1.1-2.2); Alkaline Phosphatase 43 Units/L (34-104); Aspartate Amino Transferase 10 Units/L (13-39); BUN/Creatinine Ratio 21 (6-26); Bilirubin,Total 0.8 mg/dL (0.3-1.0); Blood Urea Nitrogen 19 mg/dL (8-23); Calcium 9.1 mg/dL (8.6-10.3); Carbon Dioxide 26 mEq/L (23-29); Chloride 99 mEq/L (98-107); Chol/HDL Ratio 3.1 (0-4.9); Cholesterol 121 mg/dL (< 200); Glucose 110 mg/dL (70-105); HDL Cholesterol 39 mg/dL (40-59); LDL Cholesterol,Calculated 70 mg/dL (0-99); Osmolality,Calculated 287 (280-300); Potassium 3.7 mEq/L (3.5-5.1); Sodium 137 mEq/L (136-145); Total Protein 5.7 g/dL (6.4-8.9); Triglycerides 61 mg/dL (< 150); Troponin I < 0.03 ng/mL (< 0.04); eGFR For African Americans > 60 (> 60); eGFR For Non-African Americans > 60 (> 60)
[2019-04-28] MEDS: Budesonide/Formoterol 160/4.5 1 PUFF INH IH SCH ×2 (10:04→20:48)
[2019-04-28] MEDS ORDERED: Perflutren Lipid Microsphere 1.3 ML in 0.9 % Sodium Chloride 8.7 ML IVP ONE (12:21)
[2019-04-28] MEDS: Pregabalin 75 MG CAPSULE PO SCH ×2 (12:22→20:42)
[2019-04-28] MEDS: Ranolazine 500 MG TAB.ER.12H PO SCH ×2 (12:22→20:42)
[2019-04-28] MEDS: Nicotine 21 MG PATCH.TD24 TD SCH (12:23)
[2019-04-28] MEDS: predniSONE 20 MG TABLET PO SCH (12:23)
[2019-04-28] MEDS: Aspirin 81 MG TAB.CHEW PO SCH (12:23)
[2019-04-28] MEDS: Fluticasone Propionate Nasal 50 MCG/SPRAY BOTTLE NS SCH ×2 (12:28→20:42)
[2019-04-28 12:37] LABS: Estimated Average Glucose 103 mg/dl
[2019-04-28 13:30] LABS: Bilirubin,Urine Small (Negative); Blood,Urine Negative (Negative); Clarity,Urine Clear (Clear); Color,Urine Dark Yellow (Yellow); Glucose,Urine (UA) Normal (Normal); Ketones,Urine Negative (Negative); Leukocyte Esterase,Urine Negative (Negative); Nitrite,Urine Negative (Negative); Protein,Urine Negative (Neg-Trace); Specific Gravity,Urine > 1.030 (1.010-1.025); Urobilinogen,Urine Normal (Normal)
[2019-04-29] MEDS ORDERED: Gadolinium Contrast Agent (WT Based) IV PRN (07:30)
[2019-04-29] MEDS: Budesonide/Formoterol 160/4.5 1 PUFF INH IH SCH (07:42)
[2019-04-29] MEDS: Aspirin 81 MG TAB.CHEW PO SCH (08:13)
[2019-04-29] MEDS: Pregabalin 75 MG CAPSULE PO SCH (08:14)
[2019-04-29] MEDS: predniSONE 20 MG TABLET PO SCH (08:14)
[2019-04-29] MEDS: Ranolazine 500 MG TAB.ER.12H PO SCH (08:14)
[2019-04-29] MEDS: Fluticasone Propionate Nasal 50 MCG/SPRAY BOTTLE NS SCH (08:16)
[2019-04-29] MEDS: Nicotine 21 MG PATCH.TD24 TD SCH (08:16)
[2019-04-29 12:19] VITALS: BP 143/75
== END 2019-04-29 16:07 | disposition home or self-care (01) ==
LOC: 2NENU 22:29 → EMEROOARM 22:29 → 2NENU 04-28 04:07
PROVIDERS: ADMIT Internal Medicine; ATTEND Internal Medicine

== ENCOUNTER 2020-10-06 21:20 | Observation (INO) ==
[2020-10-06] MEDS ORDERED: methylPREDNISolone 125 MG/2 ML VIAL IVP ONE (22:46)
[2020-10-06] MEDS ORDERED: Ipratropium/Albuterol Neb 3 ML IH ONE (22:46)
[2020-10-06 23:18] LABS: Basophils % 0.3 %; Eosinophils # 0.2 K/mcL (0.0-0.6); Eosinophils % 2.1 %; Hematocrit 39.8 % (37.5-50.1); Hemoglobin 13.8 g/dL (12.9-16.9); Immature Granulocytes % 0.4 % (0-4); Lymphocytes # 2.2 K/mcL (0.6-4.6); Lymphocytes % 22.6 %; Mean Corpuscular HGB Conc 34.7 g/dL (31.6-35.5); Mean Corpuscular Hemoglobin 32.1 pg (28.0-33.3); Mean Corpuscular Volume 92.6 fL (83.0-100.0); Mean Platelet Volume 9.9 fL (9.4-12.4); Monocytes # 0.7 K/mcL (0.0-1.3); Monocytes % 7.5 %; Neutrophils # 6.4 K/mcL (1.6-8.9); Platelet Count 195 K/mcL (140-400); Segmented Neutrophils % 67.1 %; White Blood Count 9.5 K/mcL (4.3-11.1)
[2020-10-06 23:33] LABS: Alanine Aminotransferase 14 Units/L (7-52); Albumin 4.2 g/dL (3.5-5.7); Albumin/Globulin Ratio 1.6 (1.1-2.2); Alkaline Phosphatase 47 Units/L (34-104); Aspartate Amino Transferase 13 Units/L (13-39); BUN/Creatinine Ratio 12 (6-26); Bilirubin,Direct 0.2 mg/dL (0.0-0.2); Bilirubin,Indirect 0.5 mg/dL (0.0-1.0); Bilirubin,Total 0.7 mg/dL (0.3-1.0); Blood Urea Nitrogen 9 mg/dL (8-23); Calcium 9.3 mg/dL (8.6-10.3); Carbon Dioxide 28 mEq/L (23-29); Chloride 97 mEq/L (98-107); Globulin 2.6 g/dL (2.4-3.5); Glucose 79 mg/dL (70-105); Osmolality,Calculated 276 (280-300); Potassium 3.6 mEq/L (3.5-5.1); Sodium 134 mEq/L (136-145); Total Protein 6.8 g/dL (6.4-8.9); Troponin I < 0.03 ng/mL (< 0.04); eGFR For African Americans > 60 (> 60); eGFR For Non-African Americans > 60 (> 60)
[2020-10-06] MEDS ORDERED: Azithromycin 250 MG TABLET PO ONE (23:45)
[2020-10-06] MEDS ORDERED: cefTRIAXone 1,000 MG in Water for inj. (sterile) 10 ML IVP ONE (23:45)
[2020-10-07] MEDS ORDERED: Naloxone 0.4 MG/ML INJ IVP PRN (00:58)
[2020-10-07] MEDS ORDERED: Ondansetron 4 MG/2 ML VIAL IVP PRN (00:58)
[2020-10-07] MEDS ORDERED: Melatonin 3 MG TABLET PO PRN (00:58)
[2020-10-07] MEDS ORDERED: Acetaminophen 325 MG TABLET PO PRN (00:58)
[2020-10-07] MEDS ORDERED: *HR* HYDROcodone/Acet 5/325 mg TABLET PO PRN (00:58)
[2020-10-07] MEDS ORDERED: *HR* Promethazine 25 MG/ML VIAL IM PRN (00:58)
[2020-10-07] MEDS ORDERED: Ipratropium/Albuterol Neb 3 ML IH PRN (01:00)
[2020-10-07] MEDS ORDERED: *HR* OxyCODONE/APAP 5/325 TABLET PO PRN (01:00)
[2020-10-07] MEDS ORDERED: Azithromycin 500 MG in 0.9 % Sodium Chloride 250 ML IVPB SCH ×2 (03:00→21:00)
[2020-10-07] MEDS: Ipratropium/Albuterol Neb 3 ML IH SCH ×6 (04:30→20:59)
[2020-10-07 05:30] LABS: Hematocrit 37.5 % (37.5-50.1); Hemoglobin 12.9 g/dL (12.9-16.9); Mean Corpuscular HGB Conc 34.4 g/dL (31.6-35.5); Mean Corpuscular Hemoglobin 32.1 pg (28.0-33.3); Mean Corpuscular Volume 93.3 fL (83.0-100.0); Mean Platelet Volume 10.4 fL (9.4-12.4); Platelet Count 183 K/mcL (140-400); Red Blood Count 4.02 M/mcL (4.19-5.50); White Blood Count 10.2 K/mcL (4.3-11.1)
[2020-10-07 05:45] LABS: BUN/Creatinine Ratio 13 (6-26); Blood Urea Nitrogen 10 mg/dL (8-23); Calcium 9.1 mg/dL (8.6-10.3); Chloride 99 mEq/L (98-107); Glucose 149 mg/dL (70-105); Magnesium 1.7 mg/dL (1.6-2.6); Osmolality,Calculated 276 (280-300); Potassium 4.1 mEq/L (3.5-5.1); Sodium 132 mEq/L (136-145); eGFR For African Americans > 60 (> 60); eGFR For Non-African Americans > 60 (> 60)
[2020-10-07] MEDS ORDERED: *HR* Enoxaparin 40 MG/0.4 ML SYRINGE SQ SCH (06:00)
[2020-10-07 06:16] LABS: Carbon Dioxide 25 mEq/L (23-29)
[2020-10-07 07:44] LABS: Adenovirus Not Detected (Not Detect); Bordetella Pertussis Not Detected (Not Detect); Chlamydophila pneumoniae Not Detected (Not Detect); Coronavirus 229E Not Detected (Not Detect); Coronavirus HKU1 Not Detected (Not Detect); Coronavirus NL63 Not Detected (Not Detect); Coronavirus OC43 Not Detected (Not Detect); Human Metapneumovirus Not Detected (Not Detect); Human Rhinovirus/Enterovirus DETECTED (Not Detect); Influenza A Subtype 2009 H1 Not Detected (Not Detect); Influenza B Not Detected (Not Detect); Mycoplasma pneumoniae Not Detected (Not Detect); Parainfluenza Virus 1 Not Detected (Not Detect); Parainfluenza Virus 2 Not Detected (Not Detect); Parainfluenza Virus 3 Not Detected (Not Detect); Parainfluenza Virus 4 Not Detected (Not Detect); Respiratory Syncytial Virus Not Detected (Not Detect); SARS-CoV-2 Not Detected (Not Detect)
[2020-10-07] MEDS ORDERED: MethylPREDNISolone 40 MG/ML VIAL IVP SCH (08:00)
[2020-10-07] MEDS: Aspirin 81 MG TAB.CHEW PO SCH (08:19)
[2020-10-07] MEDS: Furosemide 20 MG TABLET PO SCH (08:19)
[2020-10-07] MEDS: Budesonide/Formoterol 160/4.5 1 PUFF INH IH SCH ×2 (11:23→20:59)
[2020-10-07] MEDS: *HR* Enoxaparin 40 MG/0.4 ML SYRINGE SQ SCH (11:26)
[2020-10-07] MEDS: Chlorhexidine Rinse 15 ML MOUTHWASH MM SCH ×2 (11:32→20:24)
[2020-10-07] MEDS ORDERED: Saline Nasal Spray 44 ML BOTTLE NS PRN (14:51)
[2020-10-07] MEDS ORDERED: Artificial Tears SOLN 15 ML BOTTLE BOTH EYES PRN (14:51)
[2020-10-07] MEDS ORDERED: Benzonatate 100 MG CAPSULE PO PRN (14:51)
[2020-10-07] MEDS ORDERED: Saliva Stimulant 44.3ml BOTTLE PO PRN (14:52)
[2020-10-07] MEDS: MethylPREDNISolone 40 MG/ML VIAL IVP SCH (17:08)
[2020-10-07] MEDS: Lactobacillus 1 EACH CAP.SPRINK PO SCH (20:25)
[2020-10-07] MEDS ORDERED: Chlorhexidine Rinse 15 ML MOUTHWASH MM SCH (21:00)
[2020-10-07] MEDS ORDERED: traZODone 50 MG TABLET PO SCH (22:00)
[2020-10-08] MEDS: Ipratropium/Albuterol Neb 3 ML IH SCH ×2 (03:44→09:17)
[2020-10-08] MEDS: MethylPREDNISolone 40 MG/ML VIAL IVP SCH (05:10)
[2020-10-08 05:17] LABS: Hematocrit 33.7 % (37.5-50.1); Hemoglobin 11.4 g/dL (12.9-16.9); Mean Corpuscular HGB Conc 33.8 g/dL (31.6-35.5); Mean Corpuscular Hemoglobin 31.6 pg (28.0-33.3); Mean Corpuscular Volume 93.4 fL (83.0-100.0); Mean Platelet Volume 10.1 fL (9.4-12.4); Platelet Count 189 K/mcL (140-400); Red Blood Count 3.61 M/mcL (4.19-5.50); White Blood Count 13.4 K/mcL (4.3-11.1)
[2020-10-08 05:38] LABS: BUN/Creatinine Ratio 17 (6-26); Blood Urea Nitrogen 14 mg/dL (8-23); Calcium 8.7 mg/dL (8.6-10.3); Carbon Dioxide 26 mEq/L (23-29); Chloride 97 mEq/L (98-107); Glucose 131 mg/dL (70-105); Osmolality,Calculated 272 (280-300); Phosphorous 3.2 mg/dL (2.7-4.5); Potassium 3.7 mEq/L (3.5-5.1); Sodium 130 mEq/L (136-145); eGFR For African Americans > 60 (> 60); eGFR For Non-African Americans > 60 (> 60)
[2020-10-08] MEDS: Lactobacillus 1 EACH CAP.SPRINK PO SCH (08:32)
[2020-10-08] MEDS: Furosemide 20 MG TABLET PO SCH (08:32)
[2020-10-08] MEDS: Aspirin 81 MG TAB.CHEW PO SCH (08:32)
[2020-10-08] MEDS: *HR* Enoxaparin 40 MG/0.4 ML SYRINGE SQ SCH (08:34)
[2020-10-08] MEDS: Chlorhexidine Rinse 15 ML MOUTHWASH MM SCH (08:37)
[2020-10-08] MEDS ORDERED: Multivit/Ca/Min/Fe/FA 1 TAB TABLET PO SCH (09:00)
[2020-10-08] MEDS: Budesonide/Formoterol 160/4.5 1 PUFF INH IH SCH (09:17)
[2020-10-08 10:12] VITALS: BP 106/53
== END 2020-10-08 13:52 | disposition home or self-care (01) ==
LOC: 2NENU 21:20 → EMEROOARM 21:20 → SUATTDRO 10-07 00:17 → 2NENU 10-07 01:00
PROVIDERS: ADMIT Family Medicine; ATTEND Internal Medicine

== ENCOUNTER 2021-05-03 18:34 | Inpatient (IN) ==
[2021-05-03] MEDS ORDERED: Isovue-370 500 ML BOTTLE IVP ONE (20:14)
[2021-05-03] MEDS ORDERED: 0.9 % Sodium Chloride 1,000 ML IVC ONE (20:14)
[2021-05-03 20:28] LABS: Basophils % 0.1 %; Hematocrit 37.3 % (37.5-50.1); Hemoglobin 12.7 g/dL (12.9-16.9); Immature Granulocytes % 0.5 % (0-4); Lymphocytes # 0.9 K/mcL (0.6-4.6); Lymphocytes % 5.8 %; Mean Corpuscular Hemoglobin 30.9 pg (28.0-33.3); Mean Corpuscular Volume 90.8 fL (83.0-100.0); Mean Platelet Volume 10.3 fL (9.4-12.4); Monocytes # 0.8 K/mcL (0.0-1.3); Monocytes % 5.1 %; Neutrophils # 12.9 K/mcL (1.6-8.9); Nucleated Red Blood Cells 0.1 /100 WBC (0); Platelet Count 214 K/mcL (140-400); Red Blood Count 4.11 M/mcL (4.19-5.50); Segmented Neutrophils % 88.5 %; White Blood Count 14.6 K/mcL (4.3-11.1)
[2021-05-03 20:29] LABS: INR 1.4; Prothrombin Time 15.6 Seconds (9.4-12.1)
[2021-05-03 20:47] LABS: Alanine Aminotransferase 14 Units/L (7-52); Albumin 3.5 g/dL (3.5-5.7); Albumin/Globulin Ratio 1.2 (1.1-2.2); Alkaline Phosphatase 45 Units/L (34-104); Aspartate Amino Transferase 26 Units/L (13-39); BUN/Creatinine Ratio 22 (6-26); Bilirubin,Direct 0.4 mg/dL (0.0-0.2); Bilirubin,Indirect 0.6 mg/dL (0.0-1.0); Blood Urea Nitrogen 21 mg/dL (8-23); Calcium 8.8 mg/dL (8.6-10.3); Carbon Dioxide 26 mEq/L (23-29); Chloride 97 mEq/L (98-107); Glucose 121 mg/dL (70-105); Osmolality,Calculated 278 (280-300); Potassium 3.3 mEq/L (3.5-5.1); Sodium 132 mEq/L (136-145); Total Protein 6.5 g/dL (6.4-8.9); eGFR For African Americans > 60 (> 60); eGFR For Non-African Americans > 60 (> 60)
[2021-05-03] MEDS ORDERED: cefTRIAXone 1,000 MG in Water for inj. (sterile) 10 ML IVP ONE (21:14)
[2021-05-03] MEDS ORDERED: MetroNIDAZOLE 500 MG/100 ML 500 MG/100 ML BAG IVPB ONE (22:20)
[2021-05-04] MEDS ORDERED: Acetaminophen 325 MG TABLET PO PRN (00:18)
[2021-05-04] MEDS ORDERED: Melatonin 3 MG TABLET PO PRN (00:18)
[2021-05-04] MEDS ORDERED: Naloxone 0.4 MG/ML INJ IVP PRN (00:18)
[2021-05-04] MEDS ORDERED: Ondansetron 4 MG/2 ML VIAL IVP PRN (00:18)
[2021-05-04] MEDS ORDERED: *HR* Heparin 5,000 UNIT/ML VIAL IVP ONE (00:21)
[2021-05-04] MEDS ORDERED: *HR* Heparin 5,000 UNIT/ML VIAL IVP PRN ×2 (00:21)
[2021-05-04] MEDS: Heparin 25,000UNIT/250ML 1/2NS 25,000 UNIT/250 ML IV.SOLN IVC SCH ×2 (01:42→21:05)
[2021-05-04] MEDS ORDERED: Benzonatate 100 MG CAPSULE PO PRN (02:06)
[2021-05-04 03:56] LABS: Troponin I 0.45 ng/mL (< 0.04)
[2021-05-04] MEDS: Ipratropium 1 PUFF INHALER IH SCH ×6 (04:15→23:58)
[2021-05-04] MEDS ORDERED: Perflutren Lipid Microsphere 1.3 ML in 0.9 % Sodium Chloride 8.7 ML IVP PRN (04:53)
[2021-05-04] MEDS ORDERED: Enoxaparin Weight Dosing SQ SCH (06:00)
[2021-05-04] MEDS: Cefepime HCl 1,000 MG in Water for inj. (sterile) 10 ML IVP SCH ×2 (06:03→16:06)
[2021-05-04] MEDS ORDERED: Remdesivir 200 MG in 0.9 % Sodium Chloride 100 ML IVPB ONE (06:30)
[2021-05-04] MEDS ORDERED: Acetylcysteine 10% 2 ML INHSOL IH SCH (16:00)
[2021-05-04] MEDS ORDERED: *HR* OxyCODONE/APAP 5/325 TABLET PO PRN (17:25)
[2021-05-04] MEDS: Budesonide/Formoterol 160/4.5 1 PUFF INH IH SCH (20:30)
[2021-05-04] MEDS: Ranolazine 500 MG TAB.ER.12H PO SCH (20:57)
[2021-05-04] MEDS: traZODone 50 MG TABLET PO SCH (20:57)
[2021-05-04] MEDS: Furosemide 20 MG TABLET PO SCH (20:57)
[2021-05-04] MEDS: GuaiFENesin Liq 200 MG/10 ML UDC PO SCH (20:57)
[2021-05-04] MEDS ORDERED: GuaiFENesin/Dextromethorphan TABLET PO SCH (21:00)
[2021-05-05] MEDS: GuaiFENesin Liq 200 MG/10 ML UDC PO SCH ×7 (00:08→23:48)
[2021-05-05] MEDS: Ipratropium 1 PUFF INHALER IH SCH ×6 (04:11→23:19)
[2021-05-05] MEDS: Cefepime HCl 1,000 MG in Water for inj. (sterile) 10 ML IVP SCH ×2 (05:00→18:07)
[2021-05-05] MEDS: Remdesivir 100 MG in 0.9 % Sodium Chloride 100 ML IVPB SCH (05:01)
[2021-05-05 07:32] LABS: Hematocrit 31.2 % (37.5-50.1); Mean Corpuscular HGB Conc 34.6 g/dL (31.6-35.5); Mean Corpuscular Hemoglobin 31.8 pg (28.0-33.3); Mean Corpuscular Volume 91.8 fL (83.0-100.0); Mean Platelet Volume 10.4 fL (9.4-12.4); Platelet Count 253 K/mcL (140-400); Red Cell Distribution Width 13.2 % (11.5-14.5); White Blood Count 13.7 K/mcL (4.3-11.1)
[2021-05-05 07:41] LABS: Hemoglobin 10.8 g/dL (12.9-16.9)
[2021-05-05 07:53] LABS: BUN/Creatinine Ratio 33 (6-26); Blood Urea Nitrogen 27 mg/dL (8-23); Calcium 8.4 mg/dL (8.6-10.3); Carbon Dioxide 23 mEq/L (23-29); Chloride 105 mEq/L (98-107); Glucose 120 mg/dL (70-105); Osmolality,Calculated 282 (280-300); Potassium 3.8 mEq/L (3.5-5.1); Sodium 133 mEq/L (136-145); eGFR For African Americans > 60 (> 60); eGFR For Non-African Americans > 60 (> 60)
[2021-05-05 07:56] LABS: Albumin 3.1 g/dL (3.5-5.7); Albumin/Globulin Ratio 1.2 (1.1-2.2); Bilirubin,Direct 0.2 mg/dL (0.0-0.2); Bilirubin,Indirect 0.5 mg/dL (0.0-1.0); Bilirubin,Total 0.7 mg/dL (0.3-1.0); Globulin 2.5 g/dL (2.4-3.5); Total Protein 5.6 g/dL (6.4-8.9)
[2021-05-05] MEDS: Budesonide/Formoterol 160/4.5 1 PUFF INH IH SCH ×2 (08:17→20:04)
[2021-05-05] MEDS: Loratadine 10 MG TABLET PO SCH (08:43)
[2021-05-05] MEDS: Cholecalciferol (D-3) 1,000 UNIT (25MCG) TABLET PO SCH (08:44)
[2021-05-05] MEDS: Folic Acid 1 MG TABLET PO SCH (08:44)
[2021-05-05] MEDS: Furosemide 20 MG TABLET PO SCH ×2 (08:44→18:07)
[2021-05-05] MEDS: Ranolazine 500 MG TAB.ER.12H PO SCH ×2 (08:45→20:23)
[2021-05-05] MEDS ORDERED: Acetylcysteine 10% 2 ML INHSOL IH SCH (14:00)
[2021-05-05] MEDS: *HR* Heparin 5,000 UNIT/ML VIAL SQ SCH (18:08)
[2021-05-05] MEDS: traZODone 50 MG TABLET PO SCH (20:23)
[2021-05-06 01:25] LABS: Albumin 2.8 g/dL (3.5-5.7); Albumin/Globulin Ratio 1.3 (1.1-2.2); Bilirubin,Direct 0.3 mg/dL (0.0-0.2); Bilirubin,Indirect 0.4 mg/dL (0.0-1.0); Bilirubin,Total 0.7 mg/dL (0.3-1.0); Globulin 2.2 g/dL (2.4-3.5)
[2021-05-06] MEDS: Ipratropium 1 PUFF INHALER IH SCH ×6 (03:51→23:35)
[2021-05-06] MEDS: *HR* Heparin 5,000 UNIT/ML VIAL SQ SCH ×2 (05:11→17:32)
[2021-05-06] MEDS: Cefepime HCl 1,000 MG in Water for inj. (sterile) 10 ML IVP SCH ×2 (05:11→17:36)
[2021-05-06] MEDS: GuaiFENesin Liq 200 MG/10 ML UDC PO SCH ×5 (05:11→19:51)
[2021-05-06] MEDS: Remdesivir 100 MG in 0.9 % Sodium Chloride 100 ML IVPB SCH (05:12)
[2021-05-06] MEDS: Budesonide/Formoterol 160/4.5 1 PUFF INH IH SCH ×2 (08:29→19:42)
[2021-05-06] MEDS: Folic Acid 1 MG TABLET PO SCH (08:30)
[2021-05-06] MEDS: Furosemide 20 MG TABLET PO SCH ×2 (08:30→17:36)
[2021-05-06] MEDS: Loratadine 10 MG TABLET PO SCH (08:30)
[2021-05-06] MEDS: Cholecalciferol (D-3) 1,000 UNIT (25MCG) TABLET PO SCH (08:30)
[2021-05-06] MEDS: Ranolazine 500 MG TAB.ER.12H PO SCH ×2 (08:30→19:49)
[2021-05-06 10:04] LABS: Blood Urea Nitrogen 28 mg/dL (8-23)
[2021-05-06 10:05] LABS: eGFR For African Americans > 60 (> 60); eGFR For Non-African Americans > 60 (> 60)
[2021-05-06] MEDS: traZODone 50 MG TABLET PO SCH (19:49)
[2021-05-07] MEDS: GuaiFENesin Liq 200 MG/10 ML UDC PO SCH ×4 (00:15→11:50)
[2021-05-07] MEDS: Ipratropium 1 PUFF INHALER IH SCH ×3 (03:39→11:17)
[2021-05-07] MEDS: Cefepime HCl 1,000 MG in Water for inj. (sterile) 10 ML IVP SCH (05:19)
[2021-05-07] MEDS: Remdesivir 100 MG in 0.9 % Sodium Chloride 100 ML IVPB SCH (05:19)
[2021-05-07] MEDS: *HR* Heparin 5,000 UNIT/ML VIAL SQ SCH (05:21)
[2021-05-07 06:24] LABS: Albumin 2.8 g/dL (3.5-5.7); Albumin/Globulin Ratio 1.3 (1.1-2.2); Bilirubin,Direct 0.2 mg/dL (0.0-0.2); Bilirubin,Indirect 0.5 mg/dL (0.0-1.0); Bilirubin,Total 0.7 mg/dL (0.3-1.0); Globulin 2.1 g/dL (2.4-3.5); Total Protein 4.9 g/dL (6.4-8.9)
[2021-05-07 07:30] VITALS: TEMP 97.8
[2021-05-07] MEDS: Ranolazine 500 MG TAB.ER.12H PO SCH (07:48)
[2021-05-07] MEDS: Cholecalciferol (D-3) 1,000 UNIT (25MCG) TABLET PO SCH (07:48)
[2021-05-07] MEDS: Furosemide 20 MG TABLET PO SCH (07:49)
[2021-05-07] MEDS: Folic Acid 1 MG TABLET PO SCH (07:49)
[2021-05-07] MEDS: Loratadine 10 MG TABLET PO SCH (07:49)
[2021-05-07 11:13] VITALS: BP 119/57; PULSE 50
[2021-05-07 11:13] LABS: eGFR For African Americans > 60 (> 60); eGFR For Non-African Americans > 60 (> 60)
[2021-05-07] MEDS: Budesonide/Formoterol 160/4.5 1 PUFF INH IH SCH (11:18)
[2021-05-07 11:19] VITALS: O2SAT 97
== END 2021-05-07 13:31 | disposition home or self-care (01) | DRG 177 ==
LOC: EMEROOARM 18:34 → 3BNU 18:34 → SUATTDRO 05-04 00:20
PROVIDERS: ADMIT Internal Medicine; ATTEND Internal Medicine

== ENCOUNTER 2021-05-17 16:36 | Inpatient (IN) ==
[2021-05-17] MEDS ORDERED: Naloxone 0.4 MG/ML INJ IVP PRN (18:36)
[2021-05-17] MEDS: *HR* OxyCODONE/APAP 5/325 TABLET PO PRN (21:54)
[2021-05-17] MEDS: traZODone 50 MG TABLET PO SCH (21:54)
[2021-05-17] MEDS: Furosemide 20 MG TABLET PO SCH (21:55)
[2021-05-17] MEDS: Ranolazine 500 MG TAB.ER.12H PO SCH (21:55)
[2021-05-17] MEDS: Ipratropium 1 PUFF INHALER IH SCH (21:59)
[2021-05-18] MEDS: Ipratropium 1 PUFF INHALER IH SCH ×4 (04:00→20:17)
[2021-05-18] MEDS: *HR* Enoxaparin 60 MG/0.6 ML SYRINGE SQ SCH ×2 (04:55→16:43)
[2021-05-18 04:56] LABS: Hematocrit 31.8 % (37.5-50.1); Immature Granulocytes % 0.7 % (0-4); Lymphocytes # 0.5 K/mcL (0.6-4.6); Lymphocytes % 7.9 %; Mean Corpuscular HGB Conc 34.6 g/dL (31.6-35.5); Mean Corpuscular Hemoglobin 32.3 pg (28.0-33.3); Mean Corpuscular Volume 93.3 fL (83.0-100.0); Mean Platelet Volume 10.3 fL (9.4-12.4); Monocytes # 0.2 K/mcL (0.0-1.3); Monocytes % 2.8 %; Neutrophils # 5.4 K/mcL (1.6-8.9); Platelet Count 282 K/mcL (140-400); Red Blood Count 3.41 M/mcL (4.19-5.50); Red Cell Distribution Width 13.4 % (11.5-14.5); Segmented Neutrophils % 88.6 %; White Blood Count 6.1 K/mcL (4.3-11.1)
[2021-05-18 05:10] LABS: BUN/Creatinine Ratio 17 (6-26); Blood Urea Nitrogen 15 mg/dL (8-23); Calcium 8.3 mg/dL (8.6-10.3); Carbon Dioxide 29 mEq/L (23-29); Chloride 97 mEq/L (98-107); Glucose 208 mg/dL (70-105); Osmolality,Calculated 281 (280-300); Potassium 3.7 mEq/L (3.5-5.1); Sodium 132 mEq/L (136-145); eGFR For African Americans > 60 (> 60); eGFR For Non-African Americans > 60 (> 60)
[2021-05-18] MEDS: Doxycycline 100 MG in 0.9 % Sodium Chloride Mini Bag 100 ML IVPB SCH ×2 (05:34→16:41)
[2021-05-18] MEDS ORDERED: Cefepime HCl 1,000 MG in 0.9 % Sodium Chloride Mini Bag 100 ML IVPB SCH (06:00)
[2021-05-18] MEDS: Furosemide 20 MG TABLET PO SCH ×2 (07:52→16:43)
[2021-05-18] MEDS: Ranolazine 500 MG TAB.ER.12H PO SCH ×2 (07:52→20:30)
[2021-05-18] MEDS: Budesonide/Formoterol 80/4.5 1 PUFF INH IH SCH ×2 (10:06→20:17)
[2021-05-18] MEDS: Cefepime HCl 2,000 MG in 0.9 % Sodium Chloride Mini Bag 100 ML IVPB SCH ×2 (13:39→20:30)
[2021-05-18] MEDS: Fluticasone Propionate Nasal 50 MCG/SPRAY BOTTLE NS SCH (20:30)
[2021-05-18] MEDS: traZODone 50 MG TABLET PO SCH (20:30)
[2021-05-18] MEDS: *HR* OxyCODONE/APAP 5/325 TABLET PO PRN (20:33)
[2021-05-18] MEDS: MethylPREDNISolone 40 MG/ML VIAL IVP SCH (23:40)
[2021-05-19] MEDS: Ipratropium 1 PUFF INHALER IH SCH ×2 (02:49→07:36)
[2021-05-19] MEDS: Cefepime HCl 2,000 MG in 0.9 % Sodium Chloride Mini Bag 100 ML IVPB SCH (05:44)
[2021-05-19] MEDS: *HR* Enoxaparin 60 MG/0.6 ML SYRINGE SQ SCH (06:47)
[2021-05-19] MEDS: Furosemide 20 MG TABLET PO SCH (06:47)
[2021-05-19] MEDS: Doxycycline 100 MG in 0.9 % Sodium Chloride Mini Bag 100 ML IVPB SCH (06:47)
[2021-05-19 06:48] VITALS: BP 118/62; PULSE 52; TEMP 97.8
[2021-05-19] MEDS: MethylPREDNISolone 40 MG/ML VIAL IVP SCH (06:48)
[2021-05-19] MEDS: Budesonide/Formoterol 80/4.5 1 PUFF INH IH SCH (07:35)
[2021-05-19 07:38] VITALS: O2SAT 96
[2021-05-19] MEDS: Ranolazine 500 MG TAB.ER.12H PO SCH (08:25)
[2021-05-19] MEDS: Fluticasone Propionate Nasal 50 MCG/SPRAY BOTTLE NS SCH (08:26)
[2021-05-19] MEDS ORDERED: Cholecalciferol (D-3) 1,000 UNIT (25MCG) TABLET PO SCH (09:00)
[2021-05-19] MEDS ORDERED: Folic Acid 1 MG TABLET PO SCH (09:00)
== END 2021-05-19 12:38 | disposition home or self-care (01) | DRG 175 ==
LOC: 2ANU 16:36 → EMEROOARM 16:36 → 2ANU 18:28
PROVIDERS: ADMIT Internal Medicine; ATTEND Internal Medicine